=== PATIENT | female | born 1940 | race Caucasian/White ===

== ENCOUNTER 2017-01-19 09:56 | Inpatient (IN) | payer OTHER, MEDICARE ==
[~2017-01-19] VITALS: Ht 167.6 cm; Wt 72.0 kg
[~2017-01-19 09:56] MED LIST: AMB5 PO; AMLO-110 PO; AMXCH400 PO; ASPI-461 PO; ATV5 PO; CHOL100010 PO; CYAN100020 PO; INSPMPNVLG; KETO0.5S33 OPR; LISI-725 PO; MULT60CA PO; SIMV20TA2 PO; TRAM-10 PO
[2017-01-19] MEDS ORDERED: LORA-741 PO (10:43)
[2017-01-19] MEDS ORDERED: ALUMSUS2 PO (10:43)
[2017-01-19] MEDS ORDERED: CHOL100010 PO (10:43)
[2017-01-19] MEDS ORDERED: ZOLP5TAB PO (10:43)
[2017-01-19] MEDS ORDERED: AMOX875T3 PO (10:45)
[2017-01-19] MEDS ORDERED: SODIUM CHLORIDE 0.9% 1000ML 1,000 ML IV STA (10:49)
[2017-01-19] MEDS ORDERED: HYDROmorphone INJ 0.5 MG/0.5 ML SYR IV STA ×3 (10:49→14:39)
[2017-01-19] MEDS ORDERED: ONDANSETRON 8 MG/54 ML D5W IV STA (10:49)
[2017-01-19] MEDS ORDERED: SODIUM CHLORIDE 0.9% 500ML 500 ML IV STA (10:49)
[2017-01-19 11:30] LABS: BASO % 0.1 %; BASO ABS # 0.02 K/uL (0-0.2); COMPLETE YES; EOS % 0.1 %; HEMATOCRIT 37.7 % (37-47); LYMPH % 10.5 %; LYMPH ABS # 1.47 K/uL (1.2-3.4); MEAN CORPUSCULAR HEMOGLOBIN 28.6 pg (25-34); MEAN CORPUSCULAR HGB CONC 34.5 g/dl (32-36); MEAN PLATELET VOLUME 8.7 fL (7.4-10.4); NEUT % 78.3 %; PLATELET COUNT 416 K/uL (130-400); RED BLOOD COUNT 4.54 M/uL (4.2-5.4); WHITE BLOOD COUNT 14.04 K/uL (4.8-10.8)
[2017-01-19 11:51] LABS: ALT/SGPT 37 U/L (12-78); AST/SGOT 88 U/L (15-37); BLOOD UREA NITROGEN 7 mg/dl (7-18); BUN/CREATININE RATIO 15.4 (10-20); CALCIUM 9.3 mg/dl (8.5-10.1); CARBON DIOXIDE 25 mmol/L (21-32); CHLORIDE 95 mmol/L (98-107); CREATININE 0.46 mg/dl (0.60-1.20); GLUCOSE 100 mg/dl (70-99); POTASSIUM 3.7 mmol/L (3.5-5.1); SODIUM 133 mmol/L (136-145)
[2017-01-19 11:57] LABS: ALKALINE PHOSPHATASE 222 U/L (45-117)
[2017-01-19 12:18] LABS: URINE APPEARANCE CLEAR (CLEAR); URINE BILIRUBIN NEG (NEG); URINE COLOR YELLOW; URINE EPITHELIAL CELL AUTO 20-30 /lpf (0-5); URINE NITRITE NEG (NEG); URINE PH 7.5 (4.5-7.5); URINE SPECIFIC GRAVITY 1.011 (1.000-1.030); UROBILINOGEN POS (NEG); ZZUR CULT IF INDIC CLEAN CATCH NO
--- NOTE | 2017-01-19 12:28 | DIAGNOSTIC IMAGING REPORT ---
CT OF THE CHEST WITHOUT IV CONTRAST CLINICAL HISTORY: Chest rib and back pain status post trauma COMPARISON STUDY: 06/28/2009 CT DOSE: TECHNIQUE: CT of the thorax was performed from the thoracic inlet to the lung bases. Images are reviewed in the axial, sagittal, and coronal planes. IV contrast was not administered for this examination. FINDINGS: Thyroid: Imaged portions of the thyroid gland are normal in appearance. Thoracic aorta: The thoracic aorta is normal in course and caliber, noting standard 3 vessel arch anatomy. Heart: The heart is mildly enlarged. There are coronary artery calcifications present. Lungs and pleural spaces: There is a small left pleural effusion. There are bibasal atelectatic changes present. There is pulmonary emphysema. There is a 39 mm right upper lobe pulmonary nodule abutting the anterior chest wall and mediastinum. Mediastinum: There are pathologically enlarged right paratracheal lymph nodes measuring up to 34 mm in diameter. Lisbeth: There are no pathologically enlarged hilar lymph nodes given the limitations of a noncontrast study Axilla: Axillary lymph nodes are the upper limits of normal in size. Upper abdomen: There is a calcified gallstone present. Skeletal structures: There are bilateral shoulder arthroplasties. There is a right fifth rib fracture. IMPRESSION: 1. Nondisplaced right fifth rib fracture. No evidence of pneumothorax 2. 39 mm right upper lobe pulmonary mass. This should be presumed neoplastic until proven otherwise 3. Pathologic mediastinal adenopathy 4. Cholelithiasis 5. Small left pleural effusion with a basilar atelectasis 6. Emphysema 7. Pulmonary consultation is recommended, for evaluation of the suspicious right upper lobe pulmonary mass. Electronically signed by: Kristopher Genao M.D. 01/19/2017 12:26 PM Dictated Date/Time: 01/19/2017 12:15 PM
--- NOTE | 2017-01-19 12:32 | DIAGNOSTIC IMAGING REPORT ---
THORACIC SPINE CT CT DOSE: HISTORY: Fall with back pain. TECHNIQUE: Multiaxial CT images of the thoracic spine were performed and reformatted in the sagittal and coronal plane without the use of contrast. COMPARISON: None. FINDINGS: No fractures or subluxation within the thoracic spine. Kyphosis of the upper thoracic spine. There is moderate degenerative disc disease throughout the majority of the thoracic spine. Paraspinal soft tissues are unremarkable. Emphysema. No pneumothorax. Small nodular density within the distal left mainstem bronchus favors mucoid material. Partially visualized density within the right middle lobe anteriorly. Bibasilar subsegmental atelectasis. Trace left pleural effusion. The heart is mildly enlarged. Necrotic right paratracheal lymphadenopathy. IMPRESSION: 1. No fracture or subluxation within the thoracic spine. 2. Necrotic right paratracheal lymphadenopathy. 3. Partially visualized density/mass within the right middle lobe. Please refer to the same day chest CT for further evaluation. 4. Trace left pleural effusion. Electronically signed by: Dhiraj Lopes M.D. 01/19/2017 12:31 PM Dictated Date/Time: 01/19/2017 12:18 PM
[2017-01-19 12:37] LABS: MANUAL MICROSCOPIC REQUIRED? NO; REVIEW REQ? NO; SULFASALICYLIC ACID NEG (NEG)
--- NOTE | 2017-01-19 12:42 | DIAGNOSTIC IMAGING REPORT ---
CT LUMBAR SPINE WITHOUT CT DOSE: 1687.99 mGy.cm CLINICAL HISTORY: Low back pain status post trauma TECHNIQUE: Helical images were acquired in transverse plane. Reformatted sagittal and coronal images were reviewed. CONTRAST: No contrast was administered COMPARISON STUDY: None. FINDINGS: L1-2 level: There is disc degeneration. There is a minor disc bulge. There is minor right ureter spinal canal narrowing. There is no stomach and foraminal stenosis L2-3 level: There is a mild circumferential disc bulge. There is minor triangular spinal canal narrowing. There is no significant foraminal narrowing L3-4 level: There is a circumferential disc bulge. There is mild transverse spinal stenosis. There is no significant foraminal narrowing L4-5 level: There is a mild circumferential disc bulge. There is minor triangular spinal canal narrowing. There is no significant foraminal narrowing L5-S1 level: There is no evidence of significant disc bulge or focal herniation. There is no evidence of spinal or foraminal stenosis. IMPRESSION: 1. No acute fractures or subluxations are visualized 3. Mild multilevel spondylitic changes with minor multilevel spinal canal narrowing Electronically signed by: Kristopher Genao M.D. 01/19/2017 12:41 PM Dictated Date/Time: 01/19/2017 12:39 PM
[2017-01-19] MEDS ORDERED: METOCLOPRAMIDE HCL INJ 5 MG/ML 2 ML VIAL IV STA (14:39)
[2017-01-19] MEDS ORDERED: ACETAMINOPHEN 325 MG TAB PO PRN (16:15)
[2017-01-19] MEDS ORDERED: ONDANSETRON INJ 2 MG/ML 2 ML VIAL IV PRN (16:15)
[2017-01-19] MEDS ORDERED: TRET0.027 TOP (16:19)
[2017-01-19] MEDS ORDERED: FLUO0.0566 TOP (16:19)
[2017-01-19] MEDS ORDERED: LORAZEPAM 0.5 MG TAB PO PRN (16:30)
[2017-01-19] MEDS ORDERED: ZOLPIDEM TARTRATE 5 MG TAB PO PRN (16:30)
[2017-01-19] MEDS ORDERED: MRLP17X PO (16:34)
[2017-01-19] MEDS ORDERED: PHARMACY GLYCEMIC MGMT CONSULT PRN (16:36)
[2017-01-19] MEDS ORDERED: CEFTRIAXONE SOD INJ 1 GM in DEXTROSE 5% ADD-VANTAGE 50ML 50 ML IV SCH (16:45)
[2017-01-19] MEDS ORDERED: SODIUM CHLORIDE 0.9% 1000ML 1,000 ML IV SCH (16:45)
[2017-01-19] MEDS ORDERED: POLYETHYLENE (MIRALAX) 17 GM PACK PO PRN (16:45)
[2017-01-19 16:50] LABS: INR 1.1 (0.9-1.1); PARTIAL THROMBOPLASTIN RATIO 1.1; PROTHROMBIN TIME (PATIENT) 12.3 SECONDS (9.0-12.0)
--- NOTE | 2017-01-19 17:21 | History and Physical ---
History & Physical Date & Time of Service: Jan 19, 2017 at 16:21 Chief Complaint: Back Pain, Nausea, No Appetite, Ribs, Parra Primary Care Physician: Forest Shah M.D. History of Present Illness Source: patient, hospital records This is a 76 year old female with PMH of DM type 2 on insulin pump, HTN, dyslipidemia, COPD mild, prior smoker, osteoporosis, and other problems listed below who presents to the ED with back and rib pain. Patient states she had chronic thoracic and lumbar back pain which became severe after falling earlier this month. No radiation of pain. She states her right leg is weak at the hip level secondary to pain. She reports falling 6x in the past 1 month due to losing her balance. She is using 2 canes to ambulate. Since falling earlier in the month she also pain in bilateral anterior ribs and in the upper chest over the manubrium. She was seen by her chiropractor and by Dr. Keene who obtained an x-ray of her back. She states the plan was to see pain management for injections and has an appointment for Jan 27. At home she is taking tramadol and an anti-inflammatory medication (does not recall the name) but the pain could not be controlled. In the ER patient received total of 3 mg Dilaudid and the pain is now controlled. Pt reports a cough with occasional white sputum x 1 month. She reports nausea, decreased appetite, and weight loss estimated 10 lb for past 1 month. She is constipated x approx 6 days. She took Miralax past 2 days but only passed flatus. She admits to some anxiety in the ER. She denies fever, chills, sweats, dizziness, syncope, PARRA, rhinorrhea, sore throat, SOB, abdominal pain, vomiting, diarrhea, dysuria, frequency, urgency, groin or LE paresthesias, incontinence. Past Medical/Surgical History Medical Problems: (1) Anxiety Status: Chronic (2) COPD, mild Status: Chronic (3) Disc displacement, lumbar Status: Chronic (4) DM type 2 (diabetes mellitus, type 2) Status: Chronic (5) Dyslipidemia Status: Chronic (6) Hypertension Status: Chronic (7) Osteoporosis Status: Chronic (8) SCC (squamous cell carcinoma) Status: Chronic Surgical Problems: (1) History of carpal tunnel surgery Status: Chronic (2) History of colposcopy Status: Chronic (3) History of total right hip replacement Status: Chronic (4) S/P appendectomy Status: Chronic (5) S/P tonsillectomy Status: Chronic (6) 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 Social History Smoking Status: Former Smoker (quit 8 years ago, prior 1 ppd x 53 years) Alcohol Use: none Drug Use: none Housing status: lives alone Immunizations History of Influenza Vaccine: No History of Tetanus Vaccine?: Unknown History of Pneumococcal: Yes History of Hepatitis B Vaccine: No Multi-Drug Resistant Organisms History of MDRO: No Allergies Coded Allergies: Morphine (Verified Adverse Reaction, Intermediate, GETS SICK, 01/19/17) Oxycodone (Verified Adverse Reaction, Intermediate, feels like she is gonna pass out, 01/19/17) Home Medications Scheduled Amlodipine (Norvasc), 5 MG PO HS Aspirin (Aspirin), 1 TAB PO QAM Cholecalciferol (Vitamin D), 1 TAB PO BID Cyanocobalamin (Vitamin B12), 1 TAB PO QAM Insulin Aspart (novoLOG INSULIN PUMP ), 1 EA N/A UD Lisinopril (Zestril), 20 MG PO HS Simvastatin (Zocor), 20 MG PO HS Tretinoin (Tretinoin), 1 APPLN TOP DAILY Scheduled PRN Amoxicillin (Amoxil), 875 MG PO UD PRN for PRE DENTISTRY Fluocinonide (Fluocinonide), 1 APPLN TOP BID PRN for Itching Lorazepam (Ativan), 0.5 MG PO TID PRN for Anxiety Polyethylene (Miralax), 17 GM PO DAILY PRN for Constipation Tramadol (Ultram), 50 MG PO Q4 PRN for Pain Zolpidem Tartrate (Ambien), 5 MG PO HS PRN for Sleep Review of Systems Ten point review of systems performed with pertinent positives and negatives noted in HPI. Physical Exam Vital Signs Date Time Temp Pulse Resp B/P Pulse Ox O2 Delivery O2 Flow Rate FiO2 01/19/17 14:54 105 20 160/88 94 Room Air 01/19/17 13:18 90 20 181/80 93 Room Air 01/19/17 12:27 96 20 190/104 94 Room Air 01/19/17 12:25 97 01/19/17 11:12 97 18 197/90 94 Room Air 01/19/17 10:00 37.6 103 17 183/85 98 Room Air General Appearance: WD/WN, no apparent distress, + pertinent finding (daughter at [facility]) Head: normocephalic, atraumatic Eyes: normal inspection, PERRL, EOMI ENT: hearing grossly normal, pharynx normal Neck: supple Respiratory/Chest: lungs clear, normal breath sounds, no respiratory distress, + pertinent finding (sats 89-92% on RA. tender over manubrium and over right and left anterior ribs. ) Cardiovascular: + tachycardia (regular rhythm), + systolic murmur Abdomen/GI: normal bowel sounds, soft, + splenomegaly, + pertinent finding ( tender in periumbilical area. no RUQ tenderness. Buchanan sign negative. ) Back: + pertinent finding (tender in lumbar spine and lumbar paraspinal muscles. straight leg raise negative bilaterally. ) Extremities/Musculoskelatal: no calf tenderness, normal capillary refill, + pertinent finding (trace ankle edema bilaterally ) Neurologic/Psych: alert, normal mood/affect, oriented x 3, + pertinent finding (grossly nonfocal. sensation to light touch grossly intact in bilateral LE. ankle flexion/ extension intact bilateral feet. ) Skin: normal color, warm/dry Diagnostics Laboratory Results Results Past 24 Hours Test 01/19/17 10:51 01/19/17 11:00 01/19/17 11:40 01/19/17 15:53 Range/Units Bedside Glucose 104 70-90 mg/dl White Blood Count 14.04 4.8-10.8 K/uL Red Blood Count 4.54 4.2-5.4 M/uL Hemoglobin 13.0 12.0-16.0 g/dL Hematocrit 37.7 37-47 % Mean Corpuscular Volume 83.0 80-100 fL Mean Corpuscular Hemoglobin 28.6 25-34 pg Mean Corpuscular Hemoglobin Concent 34.5 32-36 g/dl Platelet Count 416 130-400 K/uL Mean Platelet Volume 8.7 7.4-10.4 fL Neutrophils (%) (Auto) 78.3 % Lymphocytes (%) (Auto) 10.5 % Monocytes (%) (Auto) 9.0 % Eosinophils (%) (Auto) 0.1 % Basophils (%) (Auto) 0.1 % Neutrophils # (Auto) 10.99 1.4-6.5 K/uL Lymphocytes # (Auto) 1.47 1.2-3.4 K/uL Monocytes # (Auto) 1.26 0.11-0.59 K/uL Eosinophils # (Auto) 0.02 0-0.5 K/uL Basophils # (Auto) 0.02 0-0.2 K/uL RDW Standard Deviation 43.1 36.4-46.3 fL RDW Coefficient of Variation 14.2 11.5-14.5 % Immature Granulocyte % (Auto) 2.0 % Immature Granulocyte # (Auto) 0.28 0.00-0.02 K/uL Sodium Level 133 136-145 mmol/L Potassium Level 3.7 3.5-5.1 mmol/L Chloride Level 95 98-107 mmol/L Carbon Dioxide Level 25 21-32 mmol/L Anion Gap 13.0 3-11 mmol/L Blood Urea Nitrogen 7 7-18 mg/dl Creatinine 0.46 0.60-1.20 mg/dl Est Creatinine Clear Calc Drug Dose 107.7 ml/min Estimated GFR () 112.0 Estimated GFR (Non- 96.6 BUN/Creatinine Ratio 15.4 10-20 Random Glucose 100 70-99 mg/dl Calcium Level 9.3 8.5-10.1 mg/dl Total Bilirubin 0.9 0.2-1 mg/dl Direct Bilirubin 0.4 0-0.2 mg/dl Aspartate Amino Transf (AST/SGOT) 88 15-37 U/L Alanine Aminotransferase (ALT/SGPT) 37 12-78 U/L Alkaline Phosphatase 222 45-117 U/L Troponin I < 0.015 0-0.045 ng/ml Total Protein 7.7 6.4-8.2 gm/dl Albumin 2.5 3.4-5.0 gm/dl Lipase 91 73-393 U/L Urine Color YELLOW Urine Appearance CLEAR CLEAR Urine pH 7.5 4.5-7.5 Urine Specific [place] 1.011 1.000-1.030 Urine Protein NEG NEG Urine Glucose (UA) NEG NEG Urine Ketones 1+ NEG Urine Occult Blood NEG NEG Urine Nitrite NEG NEG Urine Bilirubin NEG NEG Urine Urobilinogen POS NEG Urine Leukocyte Esterase SMALL NEG Urine WBC (Auto) 5-10 0-5 /hpf Urine RBC (Auto) 0-4 0-4 /hpf Urine Hyaline Casts (Auto) 1-5 0-5 /lpf Urine Epithelial Cells (Auto) 20-30 0-5 /lpf Urine Bacteria (Auto) NEG NEG Microbiology Results 01/19/17 Blood Culture, Received Pending 01/19/17 Blood Culture, Received Pending Diagnostic Radiology CT LUMBAR SPINE WITHOUT CT DOSE: 1687.99 mGy.cm CLINICAL HISTORY: Low back pain status post trauma TECHNIQUE: Helical images were acquired in transverse plane. Reformatted sagittal and coronal images were reviewed. CONTRAST: No contrast was administered COMPARISON STUDY: None. FINDINGS: L1-2 level: There is disc degeneration. There is a minor disc bulge. There is minor right ureter spinal canal narrowing. There is no stomach and foraminal stenosis L2-3 level: There is a mild circumferential disc bulge. There is minor triangular spinal canal narrowing. There is no significant foraminal narrowing L3-4 level: There is a circumferential disc bulge. There is mild transverse spinal stenosis. There is no significant foraminal narrowing L4-5 level: There is a mild circumferential disc bulge. There is minor triangular spinal canal narrowing. There is no significant foraminal narrowing L5-S1 level: There is no evidence of significant disc bulge or focal herniation. There is no evidence of spinal or foraminal stenosis. IMPRESSION: 1. No acute fractures or subluxations are visualized 3. Mild multilevel spondylitic changes with minor multilevel spinal canal narrowing CT OF THE CHEST WITHOUT IV CONTRAST CLINICAL HISTORY: Chest rib and back pain status post trauma COMPARISON STUDY: 06/28/2009 CT DOSE: TECHNIQUE: CT of the thorax was performed from the thoracic inlet to the lung bases. Images are reviewed in the axial, sagittal, and coronal planes. IV contrast was not administered for this examination. FINDINGS: Thyroid: Imaged portions of the thyroid gland are normal in appearance. Thoracic aorta: The thoracic aorta is normal in course and caliber, noting standard 3 vessel arch anatomy. Heart: The heart is mildly enlarged. There are coronary artery calcifications present. Lungs and pleural spaces: There is a small left pleural effusion. There are bibasal atelectatic changes present. There is pulmonary emphysema. There is a 39 mm right upper lobe pulmonary nodule abutting the anterior chest wall and mediastinum. Mediastinum: There are pathologically enlarged right paratracheal lymph nodes measuring up to 34 mm in diameter. Lisbeth: There are no pathologically enlarged hilar lymph nodes given the limitations of a noncontrast study Axilla: Axillary lymph nodes are the upper limits of normal in size. Upper abdomen: There is a calcified gallstone present. Skeletal structures: There are bilateral shoulder arthroplasties. There is a right fifth rib fracture. IMPRESSION: 1. Nondisplaced right fifth rib fracture. No evidence of pneumothorax 2. 39 mm right upper lobe pulmonary mass. This should be presumed neoplastic until proven otherwise 3. Pathologic mediastinal adenopathy 4. Cholelithiasis 5. Small left pleural effusion with a basilar atelectasis 6. Emphysema 7. Pulmonary consultation is recommended, for evaluation of the suspicious right upper lobe pulmonary mass. THORACIC SPINE CT CT DOSE: HISTORY: Fall with back pain. TECHNIQUE: Multiaxial CT images of the thoracic spine were performed and reformatted in the sagittal and coronal plane without the use of contrast. COMPARISON: None. FINDINGS: No fractures or subluxation within the thoracic spine. Kyphosis of the upper thoracic spine. There is moderate degenerative disc disease throughout the majority of the thoracic spine. Paraspinal soft tissues are unremarkable. Emphysema. No pneumothorax. Small nodular density within the distal left mainstem bronchus favors mucoid material. Partially visualized density within the right middle lobe anteriorly. Bibasilar subsegmental atelectasis. Trace left pleural effusion. The heart is mildly enlarged. Necrotic right paratracheal lymphadenopathy. IMPRESSION: 1. No fracture or subluxation within the thoracic spine. 2. Necrotic right paratracheal lymphadenopathy. 3. Partially visualized density/mass within the right middle lobe. Please refer to the same day chest CT for further evaluation. 4. Trace left pleural effusion. EKG sinus tachycardia, rate 92, no ST or T wave abnormality Impression Assessment and Plan BACK AND RIB PAIN S/P MULTIPLE FALLS Has nondisplaced right 5th rib fracture CT of L-spine shows no acute fx; + Mild multilevel spondylitic changes with minor multilevel spinal canal narrowing; CT T-spine- no acute fx Has seen Dr. Keene as outpatient who referred her to pain mgmt Continue pain control with Dilaudid PRN, lidocaine patch, tramadol PRN Incentive spirometry Consult pain management Check CT head to r/o mets etc given balance difficulty PT and OT evals SIRS Meets SIRS criteria with tachycardia (? due to anxiety); leukocytosis (? if steroid induced- on unknown anti-inflammatory as outpatient); low grade fever 37.6; no hypotension; lactic acid WNL Question UTI- UA midly abnormal; UC pending Rule out cholecystitis- GB ultrasound pending Blood cultures pending Will give empiric Zosyn Received 500 mL bolus in ER and started on 125/hour Will continue IVF's at 100 mL/hour CHOLELITHIASIS Seen on chest CT Denies abd pain but has nausea, poor PO intake, mildly tender periumbilical region Has elevated AST, alk phos, and direct bili Check ultrasound of gallbladder to r/o cholecystitis LUNG MASS Incidental CT findings- 39 mm RUL pulmonary mass suspicious for neoplasm, pathologic mediastinal and necrotic right paratracheal lymphadenopathy Former smoker with 53 pack year history; also notes cough and weight loss 10 lb over past 1 month Consult pulmonology DM TYPE 2 On insulin pump Consult pharmacy for glycemic control HYPERTENSION BP elevated in ER high as 190s/100s possibly from pain/ anxiety -> improved to 160/80s Continue lisinopril and amlodipine Monitor BP MILD COPD Not in exacerbation PRN inhaler ordered CONSTIPATION Bowel regimen ordered ANXIETY Continue lorazepam PRN DYSLIPIDEMIA Continue statin DVT PROPHYLAXIS Heparin SQ CODE STATUS DNR per my discussion with the patient DISPOSITION Admit to telemetry Follows with Dr. Shah for primary care Patient seen in collaboration with Dr. Cramer. Please see his addendum. Agree with above h and p.Briefly 76Y presents with frequents fall, back pain, rib fracture and imaging studies showing Lung mass and liver metastasis. Patient says she fell about 6 times in last month. Appetite is down and lost about 10lbs in last month. Following with ortho and supposed to see pain management but came to Er as pain was not controlled. Has cough. Afebrile. Denies nausea or abdominal pain. No headaches or blurred vision. p/e Lung mass hx of smoking liver mets on US consulted pulmonary Back pain. frequent falls/ rib fx pain control pain management consulted ct head negative pt/ot when stable VTE Prophylaxis VTE Risk Assessment Done? Y/N: Yes Risk Level: Moderate
--- NOTE | 2017-01-19 17:29 | DIAGNOSTIC IMAGING REPORT ---
HEAD CT NONCONTRAST CT DOSE: 601.98 mGy.cm HISTORY: Mental status change r/o intracranial abnormality TECHNIQUE: Multiaxial CT images of the head were performed without the use of intravenous contrast. Comparison: None. Findings: The paranasal sinuses and mastoid air cells are clear. The calvarium and skull base are intact. The ventricles and sulci are within normal limits. There is no mass, hematoma, midline shift, or acute infarct. Impression: No acute intracranial abnormality. Electronically signed by: Sushant Starkey M.D. 01/19/2017 5:27 PM Dictated Date/Time: 01/19/2017 5:26 PM
[2017-01-19] MEDS ORDERED: ALBUTEROL HFA 8 GM INHALER INH PRN (17:30)
--- NOTE | 2017-01-19 18:13 | DIAGNOSTIC IMAGING REPORT ---
Right upper quadrant ultrasound GALLBLADDER-ABD LIMITED CLINICAL HISTORY: nausea, abd pain, elevated LFTs TECHNIQUE: Ultrasound COMPARISON STUDY: None FINDINGS: Multiple hypoechoic lesions throughout the liver. This is highly suggestive of hepatic metastatic disease. No evidence for biliary ductal distention. 5 mm common bile duct. Small small gallstone within the gallbladder lumen. Right kidney is negative for hydronephrosis. IMPRESSION: 1. Multiple hypoechoic hepatic lesions highly suggestive of liver metastatic disease. 2. Small gallstone. 3. Normal caliber bile ducts Electronically signed by: Sushant Starkey M.D. 01/19/2017 6:12 PM Dictated Date/Time: 01/19/2017 6:05 PM
[2017-01-19] MEDS ORDERED: GLUCOSE 40% GEL 15 GM TUBE PO PRN (18:15)
[2017-01-19] MEDS ORDERED: DEXTROSE 50% 50 ML SYR IV PRN (18:15)
[2017-01-19] MEDS ORDERED: GLUCOSE 10 TABS/TUBE PO PRN (18:15)
[2017-01-19] MEDS ORDERED: GLUCAGON FOR INJ 1 MG VIAL SQ PRN (18:15)
--- NOTE | 2017-01-19 18:18 | EMERGENCY ROOM VISIT NOTE ---
History Report prepared by Cassandra: Josie Brito Under the Supervision of: Dr. Omar Toledo M.D. First contact with patient: 10:43 Chief Complaint: BACK PAIN Stated Complaint: BACK PAIN, NAUSEA, NO APPETITE, RIBS, PARRA History of Present Illness The patient is a 76 year old female who presents to the Emergency Room with complaints of persistent back pain. Her pain is worse with coughing and sneezing. The patient currently rates her discomfort as a 10/10 in severity. The patient reports that she has previously had lower back problems for which she was seeing a chiropractor. After the chiropractor was no longer able to manage her back, she saw Dr. Keene and had X-rays taken. She states that she has 4 vertebrae "with no cushion, sitting on the nerve". She reports that recently she has fallen 6 times while walking with 2 canes onto her knees, shoulders, and ribs and now cannot ambulate without her walker. The patient also reports that she has been feeling nauseous and states that her blood sugar has been low because she cannot eat. The patient also reports swelling in her feet and left rib pain. She reports that she has been sleeping sitting up in a chair for the past 2 weeks. Pt denies LOC, headache, neck pain, fevers, chills, malaise, night sweats, weight loss, history of malignancy, chest pain, breathing difficulties, abdominal pain, saddle parasthesias, bowel or bladder dysfunction, numbness, weakness, urinary symptoms, or other complaints. 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 A total of ten systems were reviewed and were otherwise negative. Past Medical & Surgical Medical Problems: (1) Anxiety (2) COPD, mild (3) Diabetic peripheral neuropathy associated with type 2 diabetes mellitus (4) Disc displacement, lumbar (5) DJD of right shoulder (6) DM type 2 (diabetes mellitus, type 2) (7) Dyslipidemia (8) Fall (9) Foot deformity (10) Hypertension (11) Loss of sensation (12) Osteoporosis (13) Rib fracture (14) SCC (squamous cell carcinoma) Surgical Problems: (1) History of carpal tunnel surgery (2) History of colposcopy (3) History of total right hip replacement (4) S/P appendectomy (5) S/P tonsillectomy (6) Status post total replacement of right shoulder Family History No pertinent family history stated. Social History Smoking Status: Former Smoker Marital Status: Current/Historical Medications Scheduled Amlodipine (Norvasc), 5 MG PO HS Aspirin (Aspirin), 1 TAB PO QAM Cholecalciferol (Vitamin D), 1 TAB PO BID Cyanocobalamin (Vitamin B12), 1 TAB PO QAM Insulin Aspart (novoLOG INSULIN PUMP ), 1 EA N/A UD Lisinopril (Zestril), 20 MG PO HS Simvastatin (Zocor), 20 MG PO HS Tretinoin (Tretinoin), 1 APPLN TOP DAILY Scheduled PRN Amoxicillin (Amoxil), 875 MG PO UD PRN for PRE DENTISTRY Fluocinonide (Fluocinonide), 1 APPLN TOP BID PRN for Itching Lorazepam (Ativan), 0.5 MG PO TID PRN for Anxiety Polyethylene (Miralax), 17 GM PO DAILY PRN for Constipation Tramadol (Ultram), 50 MG PO Q4 PRN for Pain Zolpidem Tartrate (Ambien), 5 MG PO HS PRN for Sleep Allergies Coded Allergies: Morphine (Verified Adverse Reaction, Intermediate, GETS SICK, 01/19/17) Oxycodone (Verified Adverse Reaction, Intermediate, feels like she is gonna pass out, 01/19/17) Physical Exam Vital Signs Date Time Temp Pulse Resp B/P Pulse Ox O2 Delivery O2 Flow Rate FiO2 01/19/17 16:34 108 01/19/17 16:32 109 20 167/75 93 Room Air 01/19/17 14:54 105 20 160/88 94 Room Air 01/19/17 13:18 90 20 181/80 93 Room Air 01/19/17 12:27 96 20 190/104 94 Room Air 01/19/17 12:25 97 01/19/17 11:12 97 18 197/90 94 Room Air 01/19/17 10:00 37.6 103 17 183/85 98 Room Air Physical Exam GENERAL: Awake, alert, well-appearing, in no distress HENT: Normocephalic, atraumatic. Oropharynx unremarkable. EYES: Normal conjunctiva. Sclera non-icteric. NECK: Supple. No nuchal rigidity. FROM. No JVD. RESPIRATORY: Clear to auscultation. CARDIAC: Regular rate, normal rhythm. Extremities warm and well perfused. Pulses equal. Systolic ejection murmur. ABDOMEN: Soft, non-distended. No tenderness to palpation. No rebound or guarding. No masses. RECTAL: Deferred. MUSCULOSKELETAL: Left upper chest wall tenderness. The back is symmetrical on inspection without obvious abnormality. There is no CVA tenderness to palpation. No joint edema. Midscapular thoracic tenderness. Low midline lumbar tenderness. Left anterior rib tenderness. LOWER EXTREMITIES: Calves are equal size bilaterally and non-tender. 1+ pedal edema. No discoloration. NEURO: Normal sensorium. No sensory or motor deficits noted. SKIN: No rash or jaundice noted. Medical Decision & Procedures ER Provider Diagnostic Interpretation: Radiology results as stated below per my review and radiologist interpretation. CT LUMBAR SPINE WITHOUT CT DOSE: 1687.99 mGy.cm CLINICAL HISTORY: Low back pain status post trauma TECHNIQUE: Helical images were acquired in transverse plane. Reformatted sagittal and coronal images were reviewed. CONTRAST: No contrast was administered COMPARISON STUDY: None. FINDINGS: L1-2 level: There is disc degeneration. There is a minor disc bulge. There is minor right ureter spinal canal narrowing. There is no stomach and foraminal stenosis L2-3 level: There is a mild circumferential disc bulge. There is minor triangular spinal canal narrowing. There is no significant foraminal narrowing L3-4 level: There is a circumferential disc bulge. There is mild transverse spinal stenosis. There is no significant foraminal narrowing L4-5 level: There is a mild circumferential disc bulge. There is minor triangular spinal canal narrowing. There is no significant foraminal narrowing L5-S1 level: There is no evidence of significant disc bulge or focal herniation. There is no evidence of spinal or foraminal stenosis. IMPRESSION: 1. No acute fractures or subluxations are visualized 3. Mild multilevel spondylitic changes with minor multilevel spinal canal narrowing Electronically signed by: Kristopher Genao M.D. 01/19/2017 12:[address] OF THE CHEST WITHOUT IV CONTRAST CLINICAL HISTORY: Chest rib and back pain status post trauma COMPARISON STUDY: 06/28/2009 CT DOSE: TECHNIQUE: CT of the thorax was performed from the thoracic inlet to the lung bases. Images are reviewed in the axial, sagittal, and coronal planes. IV contrast was not administered for this examination. FINDINGS: Thyroid: Imaged portions of the thyroid gland are normal in appearance. Thoracic aorta: The thoracic aorta is normal in course and caliber, noting standard 3 vessel arch anatomy. Heart: The heart is mildly enlarged. There are coronary artery calcifications present. Lungs and pleural spaces: There is a small left pleural effusion. There are bibasal atelectatic changes present. There is pulmonary emphysema. There is a 39 mm right upper lobe pulmonary nodule abutting the anterior chest wall and mediastinum. Mediastinum: There are pathologically enlarged right paratracheal lymph nodes measuring up to 34 mm in diameter. Lisbeth: There are no pathologically enlarged hilar lymph nodes given the limitations of a noncontrast study Axilla: Axillary lymph nodes are the upper limits of normal in size. Upper abdomen: There is a calcified gallstone present. Skeletal structures: There are bilateral shoulder arthroplasties. There is a right fifth rib fracture. IMPRESSION: 1. Nondisplaced right fifth rib fracture. No evidence of pneumothorax 2. 39 mm right upper lobe pulmonary mass. This should be presumed neoplastic until proven otherwise 3. Pathologic mediastinal adenopathy 4. Cholelithiasis 5. Small left pleural effusion with a basilar atelectasis 6. Emphysema 7. Pulmonary consultation is recommended, for evaluation of the suspicious right upper lobe pulmonary mass. Electronically signed by: Kristopher Genao M.D. 01/19/2017 12:[address] DOSE: HISTORY: Fall with back pain. TECHNIQUE: Multiaxial CT images of the thoracic spine were performed and reformatted in the sagittal and coronal plane without the use of contrast. COMPARISON: None. FINDINGS: No fractures or subluxation within the thoracic spine. Kyphosis of the upper thoracic spine. There is moderate degenerative disc disease throughout the majority of the thoracic spine. Paraspinal soft tissues are unremarkable. Emphysema. No pneumothorax. Small nodular density within the distal left mainstem bronchus favors mucoid material. Partially visualized density within the right middle lobe anteriorly. Bibasilar subsegmental atelectasis. Trace left pleural effusion. The heart is mildly enlarged. Necrotic right paratracheal lymphadenopathy. IMPRESSION: 1. No fracture or subluxation within the thoracic spine. 2. Necrotic right paratracheal lymphadenopathy. 3. Partially visualized density/mass within the right middle lobe. Please refer to the same day chest CT for further evaluation. 4. Trace left pleural effusion. Electronically signed by: Dhiraj Lopes M.D. 01/19/2017 12:31 PM Laboratory Results 01/19/17 11:00 Red Blood Count 4.54, Mean Corpuscular Volume 83.0, Mean Corpuscular Hemoglobin 28.6, Mean Corpuscular Hemoglobin Concent 34.5, Mean Platelet Volume 8.7, Neutrophils (%) (Auto) 78.3, Lymphocytes (%) (Auto) 10.5, Monocytes (%) (Auto) 9.0, Eosinophils (%) (Auto) 0.1, Basophils (%) (Auto) 0.1, Neutrophils # (Auto) 10.99, Lymphocytes # (Auto) 1.47, Monocytes # (Auto) 1.26, Eosinophils # (Auto) 0.02, Basophils # (Auto) 0.02 01/19/17 11:00 Test 01/19/17 11:00 01/19/17 11:40 01/19/17 15:53 01/19/17 17:59 White Blood Count 14.04 K/uL (4.8-10.8) Red Blood Count 4.54 M/uL (4.2-5.4) Hemoglobin 13.0 g/dL (12.0-16.0) Hematocrit 37.7 % (37-47) Mean Corpuscular Volume 83.0 fL (80-100) Mean Corpuscular Hemoglobin 28.6 pg (25-34) Mean Corpuscular Hemoglobin Concent 34.5 g/dl (32-36) Platelet Count 416 K/uL (130-400) Mean Platelet Volume 8.7 fL (7.4-10.4) Neutrophils (%) (Auto) 78.3 % Lymphocytes (%) (Auto) 10.5 % Monocytes (%) (Auto) 9.0 % Eosinophils (%) (Auto) 0.1 % Basophils (%) (Auto) 0.1 % Neutrophils # (Auto) 10.99 K/uL (1.4-6.5) Lymphocytes # (Auto) 1.47 K/uL (1.2-3.4) Monocytes # (Auto) 1.26 K/uL (0.11-0.59) Eosinophils # (Auto) 0.02 K/uL (0-0.5) Basophils # (Auto) 0.02 K/uL (0-0.2) RDW Standard Deviation 43.1 fL (36.4-46.3) RDW Coefficient of Variation 14.2 % (11.5-14.5) Immature Granulocyte % (Auto) 2.0 % Immature Granulocyte # (Auto) 0.28 K/uL (0.00-0.02) Prothrombin Time 12.3 SECONDS (9.0-12.0) Prothromb Time International Ratio 1.1 (0.9-1.1) Activated Partial Thromboplast Time 28.1 SECONDS (21.0-31.0) Partial Thromboplastin Ratio 1.1 Anion Gap 13.0 mmol/L (3-11) Est Creatinine Clear Calc Drug Dose 107.7 ml/min Estimated GFR () 112.0 Estimated GFR (Non- 96.6 BUN/Creatinine Ratio 15.4 (10-20) Calcium Level 9.3 mg/dl (8.5-10.1) Total Bilirubin 0.9 mg/dl (0.2-1) Direct Bilirubin 0.4 mg/dl (0-0.2) Aspartate Amino Transf (AST/SGOT) 88 U/L (15-37) Alanine Aminotransferase (ALT/SGPT) 37 U/L (12-78) Alkaline Phosphatase 222 U/L (45-117) Troponin I < 0.015 ng/ml (0-0.045) Total Protein 7.7 gm/dl (6.4-8.2) Albumin 2.5 gm/dl (3.4-5.0) Lipase 91 U/L (73-393) Urine Color YELLOW Urine Appearance CLEAR (CLEAR) Urine pH 7.5 (4.5-7.5) Urine Specific Holman 1.011 (1.000-1.030) Urine Protein NEG (NEG) Urine Glucose (UA) NEG (NEG) Urine Ketones 1+ (NEG) Urine Occult Blood NEG (NEG) Urine Nitrite NEG (NEG) Urine Bilirubin NEG (NEG) Urine Urobilinogen POS (NEG) Urine Leukocyte Esterase SMALL (NEG) Urine WBC (Auto) 5-10 /hpf (0-5) Urine RBC (Auto) 0-4 /hpf (0-4) Urine Hyaline Casts (Auto) 1-5 /lpf (0-5) Urine Epithelial Cells (Auto) 20-30 /lpf (0-5) Urine Bacteria (Auto) NEG (NEG) Lactic Acid Level 1.2 mmol/L (0.4-2.0) Bedside Glucose 45 mg/dl (70-90) Laboratory results reviewed by me Medications Administered Medications (Trade) Dose Ordered Sig/Eric Route Start Time Stop Time Status Last Admin Dose Admin Ondansetron HCl 8 mg 8 mg NOW STAT IV 01/19/17 10:49 01/19/17 10:54 DC 01/19/17 11:08 8 MG Sodium Chloride 1,000 ml @ 125 mls/hr Q8H STAT IV 01/19/17 10:49 01/19/17 18:48 01/19/17 12:23 125 MLS/HR Sodium Chloride (Nss 500ml) 500 ml @ 999 mls/hr Q31M STAT IV 01/19/17 10:49 01/19/17 11:19 DC 01/19/17 11:07 999 MLS/HR Hydromorphone HCl (Dilaudid Inj) 0.5 mg NOW STAT IV 01/19/17 10:49 01/19/17 10:54 DC 01/19/17 11:10 0.5 MG Hydromorphone HCl (Dilaudid Inj) 1 mg NOW STAT IV 01/19/17 12:22 01/19/17 12:23 DC 01/19/17 12:27 1 MG Hydromorphone HCl (Dilaudid Inj) 1 mg NOW STAT IV 01/19/17 14:39 01/19/17 14:41 DC 01/19/17 14:51 1 MG Metoclopramide HCl (Reglan Inj) 5 mg NOW STAT IV 01/19/17 14:39 01/19/17 14:41 DC 01/19/17 14:50 5 MG ECG Indication: back/shoulder pain Rate (beats per minute): 92 Rhythm: normal sinus Findings: nonspecific-ST abn, no acute ischemic change, no ectopy ED Course 1048: The patient was evaluated in room C12. A complete history and physical exam was performed. 1049: Dilaudid Inj 0.5 mg IV, NSS 500 ml @ 999 mls/hr IV, NSS 1000 ml @ 125 mls/ hr IV, Zofran 8 mg IV. 1222: Dilaudid Inj 1 mg IV. 1435: I reevaluated the patient. She is still in pain and nauseous. She will be coming in to the hospital for further evaluation. 1439: Reglan Inj 5 mg IV, Dilaudid Inj 1 mg IV. 1452: I discussed the patient's case with KOBE Cantuist. She will be evaluated for further management. Medical Decision A lot of patient's yet. Admission is awaiting agree them yet feed him and called plan of the pathology secretary why not because I'm pretty sure on here: Hearing Triage Nursing notes reviewed. The patient's presentation and history were concerning for fall, back pain, rib pain, and nausea. Etiologies such as rib fracture, contusion, spine injury, metabolic, infection, hypo/hyperglycemia, electrolyte abnormalities, cardiac sources, intracerebral event, toxicologic, neurologic, as well as others were entertained. The patient was evaluated. She was uncomfortable. She was given IV Dilaudid and Zofran. She was having somewhat better but required 2 additional doses of IV Dilaudid. She also required additional nausea medication. The patient was found have a leukocytosis on CBC. LFTs are mildly elevated but lipase was normal. The patient underwent CT imaging which revealed a right rib fracture. She had gallstones noted as well. Because of this an ultrasound was ordered. There was no spinal fracture noted. Unfortunately the patient was found to have a large pulmonary nodule. I did discuss this with her. The patient was able to see her imaging. Given her symptoms additional treatment in the hospital felt to be appropriate. I did consult with the hospitalist. The patient was evaluated for further management. The chart was completed utilizing [employer] It [employer] Speech voice recognition software. Grammatical errors, random word insertions, pronoun errors, and incomplete sentences are an occasional consequence of this system due to software limitations, ambient noise, and hardware issues. Any formal questions or concerns about the content, text, or information contained within the body of this dictation should be directly addressed to the physician for clarification. Consults Time Called: 1440 Consulting Physician: Brielle Schroeder PA-C, [facility] hospitalist Returned Call: [phone] I discussed the patient's case with Brielle Manski, PA-C [facility] hospitalist. She will be evaluated for further management. Impression Primary Impression: Right rib fracture Additional Impressions: Low back pain Chest wall contusion Elevated LFTs Gallstones Scribe Attestation The scribe's documentation has been prepared under my direction and personally reviewed by me in its entirety. I confirm that the note above accurately reflects all work, treatment, procedures, and medical decision making performed by me. Departure Information Dispostion Being Evaluated By Hospitalist Referrals Forest Shah M.D. (PCP) Patient Instructions My [facility] Problem Qualifiers
[2017-01-19] MEDS ORDERED: PIPERACILLIN/TAZOBACTAM 4.5 GM/100ML D5W IV ONE (19:00)
[2017-01-19] MEDS ORDERED: PIPERACILL/TAZOBAC CONSULT ACTIVE PRN (19:30)
[2017-01-19 19:45] VITALS: BP 179/78; PULSE 106; TEMP 37.6; O2SAT 94; BMI 26.2
[2017-01-19] MEDS: HYDROmorphone INJ 1 MG/ML SYR IV PRN (20:51)
[2017-01-19] MEDS ORDERED: LISINOPRIL 20 MG TAB PO SCH (21:00)
[2017-01-19] MEDS ORDERED: SIMVASTATIN 20 MG TAB PO SCH (21:00)
[2017-01-19] MEDS: DOCUSATE SODIUM 100 MG CAP PO SCH (21:04)
[2017-01-19] MEDS: CHOLECALCIFEROL 1000 INTER.UNIT TAB PO SCH (21:05)
[2017-01-19] MEDS: AMLODIPINE BESYLATE 5 MG TAB PO SCH (21:07)
[2017-01-19] MEDS: INSULIN GLARGINE SOLOSTAR 100 UNITS/ML 3 ML PEN SC SCH (21:10)
[2017-01-19] MEDS: INSULIN ASPART 100 UNITS/ML 3 ML PEN SC SCH (21:10)
[2017-01-19] MEDS ORDERED: PIPERACILL/TAZOBAC IV 3.375 GM in DEXTROSE 5% 100ML IV ONE (21:30)
[2017-01-19] MEDS: HEPARIN SOD 5000 UNIT/0.5 ML CARP SQ SCH (21:38)
--- NOTE | 2017-01-19 21:42 | Pharmacy Progress Note ---
Glycemic: Assessment & Plan Date of Service Jan 19, 2017. Assessment & Plan * 76yo T2DM maintained on SQ NovoLog Pump as an outpatient - follows with Eboni Leoneor at [facility] * Reports all A1cs ~ 6%, some hypo as an outpatient but also has brittle BSGs and fluctuations of severe hyperglycemia (typically from not bolusing) * Spoke with patient on the phone this evening for a while - discussed SQ basal bolus vs pt managing own insulin pump. Pt would like Pharmacy to manage BSGs with SQ basal bolus. Pt will remove pump and send it home with a family member * Pt typically uses 82-90 units of insulin per day as an outpatient - will start slightly lower (~60-70 units/day) since pt doesnt really have much of an appetite and is experiencing nausea. Additionally, pt with LOW BSG prior to dinner. PLAN * Stop insulin pump - pt may resume at d.c * Basal insulin: Lantus SQ BID - dosing Based on BSG * If BSG 120 or below --> Do not admin Lantus * If BSG 121-180mg/dl --> administer Lantus 15 units * If BSG 181mg/dl or above --> administer Lantus 20 units * Correctional Insulin: Novolog Correction per scale ACHS Goal Range: Low 120 mg/dL - High 150 mg/dL Correction Factor: 30 mg/dL/unit * Prandial insulin: Per carb ratio of 1 unit per 10 grams CHO consumed Pharmacy will continue to monitor patient daily and write orders per [facility] inpatient glycemic control protocol. Thanks. * Please note that the plan above was derived based on current level of insulin resistance and hospital stress. These recommendations are appropriate for inpatient admission only. Plan of care upon discharge will need to be reassessed to avoid potential outpatient hypo/hyperglycemia.
[2017-01-19] MEDS: POLYETHYLENE (MIRALAX) 17 GM PACK PO SCH (22:55)
[2017-01-19 23:15] VITALS: BP 168/75; PULSE 105; TEMP 37.1; O2SAT 90
[2017-01-20] VITALS (7 sets, daily range): BP systolic 160–189; BP diastolic 66–83; PULSE 86–99; TEMP 36.6–37.1; O2SAT 90–95; Ht 167.6 cm; Wt 72.0 kg
[2017-01-20] MEDS: HYDROmorphone INJ 1 MG/ML SYR IV PRN ×2 (00:59→07:27)
[2017-01-20] MEDS ORDERED: PIPERACILL/TAZOBAC IV 3.375 GM in DEXTROSE 5% 100ML IV SCH (04:00)
[2017-01-20] MEDS: HEPARIN SOD 5000 UNIT/0.5 ML CARP SQ SCH ×3 (05:46→21:52)
[2017-01-20 06:00] LABS: HEMATOCRIT 33.7 % (37-47); MEAN CELL VOLUME 84.5 fL (80-100); MEAN CORPUSCULAR HEMOGLOBIN 29.3 pg (25-34); MEAN CORPUSCULAR HGB CONC 34.7 g/dl (32-36); MEAN PLATELET VOLUME 8.9 fL (7.4-10.4); PLATELET COUNT 369 K/uL (130-400); RED BLOOD COUNT 3.99 M/uL (4.2-5.4); WHITE BLOOD COUNT 10.82 K/uL (4.8-10.8)
[2017-01-20 06:46] LABS: BUN/CREATININE RATIO 11.2 (10-20); CALCIUM 8.6 mg/dl (8.5-10.1); CREATININE 0.51 mg/dl (0.60-1.20); MAGNESIUM 2.1 mg/dl (1.8-2.4)
[2017-01-20] MEDS: LIDODERM (LIDOCAINE) PATCH 5% TD SCH (08:13)
[2017-01-20] MEDS: DOCUSATE SODIUM 100 MG CAP PO SCH ×2 (08:14→21:44)
[2017-01-20] MEDS: CYANOCOBALAMIN 500 MCG TAB (VIT B-12) PO SCH (08:14)
[2017-01-20] MEDS: ASPIRIN 81 MG ECTAB PO SCH (08:15)
[2017-01-20] MEDS: POLYETHYLENE (MIRALAX) 17 GM PACK PO SCH (08:15)
[2017-01-20] MEDS: CHOLECALCIFEROL 1000 INTER.UNIT TAB PO SCH ×2 (08:16→21:46)
[2017-01-20] MEDS: INSULIN ASPART 100 UNITS/ML 3 ML PEN SC SCH ×4 (08:51→21:53)
[2017-01-20] MEDS: INSULIN GLARGINE SOLOSTAR 100 UNITS/ML 3 ML PEN SC SCH ×2 (08:52→21:53)
--- NOTE | 2017-01-20 11:34 | CONSULTATION REPORT ---
DATE OF CONSULTATION: 01/20/2017 CHIEF COMPLAINT: Chest wall pain. HISTORY OF PRESENT ILLNESS: I saw 76-year-old Ms. Ely Stewart today at the [facility]. She has a history of 53 pack years of tobacco use and presented with weight loss, decreased appetite, nausea and constipation. She did admit to falling 6 times in the last month and presented to the [facility] Emergency Room on 01/19/2017. A CT of her chest was performed which showed a nondisplaced right 5th rib fracture without pneumothorax, and a 3.9 cm right upper lobe pulmonary mass with pathologic mediastinal adenopathy. She comments that her pain is dull and pressure-like, ranging between about 4-7/10. SHE DOES REPORT PRIOR INTOLERANCE TO MORPHINE AND OXYCODONE, but is able to tolerate hydromorphone. She received 3 mg IV in the Emergency Room with good efficacy. Since admission, she has received 3 additional mg with good effect. In addition, lidocaine patch has been beneficial in diminishing her pain. Her pain radiates around her chest wall at times. She does also report axial lumbar spine pain, 100% axial without radicular symptoms. She denies bowel or bladder incontinence, motor weakness, footdrop or falls. She reports she typically takes tramadol for relief of this pain, as well as work with a chiropractor. She states since she started falling she has not visited the chiropractor. PAST MEDICAL HISTORY: Significant for anxiety, mild COPD, degenerative disc disease lumbar spine, type 2 diabetes, hyperlipidemia, hypertension, osteoporosis, history of squamous cell carcinoma and right upper lobe mass. PAST SURGICAL HISTORY: Significant for carpal tunnel release, colonoscopy, right total hip replacement, appendectomy, tonsillectomy, right total shoulder replacement. FAMILY HISTORY: Had father with brain tumor, but denies other cancer. 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 She has a daughter for which she is the food assembler commissary kitchen of. She denies current tobacco, but has [id number] prior tobacco history. Denies alcohol or illicit substance use. MEDICATIONS AND ALLERGIES: Reviewed as per EMR. REVIEW OF SYSTEMS: A 10-point review of systems is negative aside from HPI. IMAGING STUDIES: CT of her thoracic spine, chest CT and lumbar spine CT from 01/19/2017 were noted with pertinent positives noted in HPI. PHYSICAL EXAMINATION: VITAL SIGNS: Height is 167 cm, weight 73.4 kilograms, BMI of 26.1, blood pressure is 160/75, pulse 93, respirations 16, temperature 36.8 degrees centigrade, 91% pulse oximetry on room air. GENERAL: She appears her stated age of [age] years old, is awake, alert and oriented x3, appearing in no acute distress with appropriate speech and thought processes and clear sensorium. She is mildly tender over the axial thoracic and lumbar spines. She moves easily in bed without discomfort. She has 5/5 strength in all extremities equal throughout with intact sensation. She is tender over her left chest wall, as well as over her right chest wall, and about the 5th through 7th ribs distribution. She has some abdominal distention, reports not having a bowel movement in 3 days. It is nontender and soft. Gait was not observed. ASSESSMENT: 1. Right fifth nondisplaced rib fracture. 2. Right upper lobe mass of unknown etiology. 3. Axial lumbar spine pain. TREATMENT: 1. Will initiate gabapentin 100 mg p.o. b.i.d., as well as nortriptyline 25 mg p.o. at bedtime. She was counseled on the risks and benefits of these medications. 2. She may continue with lidocaine patch as before. 3. Will write for hydromorphone 2 mg p.o. q. 4 p.r.n. to be utilized prior to IV hydromorphone. 4. The patient did present with some low grade temperatures, as well as meeting SIRS criteria with tachycardia, leukocytosis, low grade fever. She was placed on empiric Zosyn and would hold on any type of interventional injection, such as intercostal block, until workup is complete. She would be a good candidate for intercostal blocks at some point in the future should her pain be uncontrolled with conservative measures. 5. Pulmonary has already been consulted for assistance in workup of mass. I thank you for this consultation. Will stop back tomorrow.
[2017-01-20] MEDS: TRAMADOL HCL 50 MG TAB PO PRN ×2 (11:58→21:59)
[2017-01-20] MEDS ORDERED: BISACODYL 10 MG SUPP PR ONE (12:00)
[2017-01-20] MEDS: HYDROmorphone HCL 2 MG TAB PO PRN ×2 (14:42→20:01)
--- NOTE | 2017-01-20 18:34 | Pulmonary Consultation ---
History General Date of Service: Jan 20, 2017. Stated Complaint: Fall, Rib Fracture HPI The patient is a 76 year old female who presents to with complaints of Fall, Rib Fracture. The patient's primary care provider is Forest Shah M.D.. 73y/o female being worked-up for abnormal CT of the thorax. Patient notes she was doing well until 2 weeks ago when she tripped and fell injuring her self. 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 She has noted right sided weakness with left sided chest pain. She also denies SOB, VILLAFANA, cardiac chest pain, fever , chills, hemoptysis, weight lose or productive cough . Radiology CT with contrast 06/28/2009: Within normal limits Chest x-ray 11/12/2015: No significant findings Upper extremity CT 11/12/2015: No signs of mass Mammography 11/05/2016: Within normal limits CT noncontrast 01/19/2017 oForm centimeter right upper lobe nodule in the LB3 apex oLarge mediastinal lymphadenopathy noted Station 4R, 7 oRight fifth rib fracture oSmall basilar left pleural effusion with mild atelectasis Lumbar spine 01/19/2017 oMultilevel spondylitic changes noted CT thorax 01/19/2017 oNecrotic right paratracheal lymphadenopathy noted Dayna subluxations or fractures noted oPartially visualize density possible in the right middle lobe CT with contrast of head 01/19/2017 Dayna notable abnormalities Gallbladder 01/19/2017 oMultiple hypoechoic lesions suggestive of metastatic disease Review of Systems Constitutional: reports: weakness Eyes: reports: no symptoms ENT: reports: no symptoms Cardiovascular: reports: no symptoms Respiratory: reports: as stated in HPI Gastrointestinal: reports: no symptoms Genitourinary - Female: reports: no symptoms Musculoskeletal: reports: as stated in HPI Integumentary: reports: no symptoms Neurologic: reports: no symptoms Psychiatric: reports: no symptoms Endocrine: no symptoms Hematologic / Lymphatic: no symptoms Allergic / Immunologic: no symptoms Past Medical History Past Medical History: #1 anxiety #2 COPD #3 chronic lumbar pain #4 diabetes mellitus type 2-on insulin pump #5 dyslipidemia Next line #6 hypertension #7 osteoporosis #8 squamous cell carcinoma Past Surgical History: #1 carpal tunnel surgery #2 possibly #3 total right hip replacement #4 appendectomy #5 tonsillectomy #6 total replacement of the right shoulder Family History FH: CAD (coronary artery disease) MOTHER ( of [place] age 57) FH: brain tumor FATHER FH: emphysema MOTHER Mother coronary artery disease Father brain tumor Father emphysema Social History Tobacco quit 8 years ago but notable 53 pack per day history EtOH: None Drug use: No IV drug use Status: Lives alone The sole supporter for her special needs daughter Hx Tobacco Use In Past Year?: No Smoking Status: Former Smoker Marital status: Housing status: lives alone Immunizations History of Influenza Vaccine: No History of Tetanus Vaccine?: Unknown History of Pneumococcal: Yes History of Hepatitis B Vaccine: No History of MDRO History of MDRO: No Allergies Coded Allergies: Morphine (Verified Adverse Reaction, Intermediate, GETS SICK, 01/19/17) Oxycodone (Verified Adverse Reaction, Intermediate, feels like she is gonna pass out, 01/19/17) Current Medications Reported Home Medications Medications Dose Route/Sig Max Daily Dose Days Date Category Dose Instructions Miralax (Polyethylene) 17 Gm Pow 17 Gm PO DAILY PRN 01/19/17 Reported Tretinoin 0.025 % Cre 1 Appln TOP DAILY 01/19/17 Reported Fluocinonide 0.05 % Aga 1 Appln TOP BID PRN 30 01/19/17 Reported Amoxil (Amoxicillin) 875 Mg Tab 875 Mg PO UD PRN 01/19/17 Reported Take 4 tabs prior to dental work. Ambien (Zolpidem Tartrate) 5 Mg Tab 5 Mg PO HS PRN 01/19/17 Reported Ativan (Lorazepam) 0.5 Mg Tab 0.5 Mg PO TID PRN 01/19/17 Reported Vitamin D (Cholecalciferol) 1,000 Unit Tab 1 Tab PO BID 01/19/17 Reported Aspirin 81 Mg Tab 1 Tab PO QAM 11/12/15 Reported Vitamin B12 (Cyanocobalamin) 1,000 Mcg Tab 1 Tab PO QAM 11/12/15 Reported Norvasc (Amlodipine Besylate) 5 Mg Tab 5 Mg PO HS 11/12/15 Reported novoLOG INSULIN PUMP (Insulin Aspart) 1 Ea Inj 1 Ea N/A UD 11/12/15 Reported Ultram (Tramadol HCl) 50 Mg Tab 50 Mg PO Q4 PRN 06/28/09 Reported Zestril (Lisinopril) 20 Mg Tab 20 Mg PO HS 06/28/09 Reported Zocor (Simvastatin) 20 Mg Tab 20 Mg PO HS 06/28/09 Reported Physical Physical Exam Vital Signs: Date Time Temp Pulse Resp B/P Pulse Ox O2 Delivery O2 Flow Rate FiO2 01/20/17 16:00 Room Air 01/20/17 15:22 36.9 87 18 168/74 94 Room Air 01/20/17 12:06 36.8 86 16 170/66 95 Room Air 01/20/17 12:00 Room Air 01/20/17 08:00 Room Air 01/20/17 07:24 36.8 93 16 160/75 91 Room Air 01/20/17 04:00 36.6 93 16 177/77 90 Room Air 01/20/17 04:00 Room Air 01/20/17 00:00 Room Air 01/19/17 23:15 37.1 105 20 168/75 90 Room Air 01/19/17 19:45 37.6 106 20 179/78 94 Room Air 01/19/17 19:25 97 18 168/70 92 01/19/17 18:40 101 22 90 General Appearance: WELL-APPEARING, WD/WN Head: NORMOCEPHALIC, ATRAUMATIC Eyes: EOMI, SCLERAE NORMAL, CONJUNCTIVAE NORMAL ENT: NORMAL EAR EXAM, NORMAL NASAL EXAM, NORMAL MOUTH EXAM, NORMAL THROAT EXAM , NORMAL DENTAL EXAM, NORMAL SINUS EXAM Neck: NORMAL RANGE OF MOTION, NO TENDERNESS, TRACHEA MIDLINE, NO STRIDOR, SUPPLE Respiratory: other (midle dreased BS at the left base) Cardiovasular: REGULAR RATE/RHYTHM, NORMAL S1S2, NO M/G/R, NO MURMUR, NO GALLOP Abdomen: NON TENDER, NORMAL BOWEL SOUNDS, NO REBOUND, NO MASSES, NO GUARDING, NO ORGANOMEGALY, NORMAL RECTAL EXAM Genitourinary - Female: EXTERNAL GENITALIA NORMAL Back: NORMAL INSPECTION, NO CVA TENDERNESS, midline thoracic TTP Upper Extremities: NO EDEMA, NO DEFORMITY, NORMAL ROM Lower Extremities: NO EDEMA, NO DEFORMITY, NORMAL ROM Pulses: carotid (R) (2+), carotid (L), dorsalis pedis (R) (1+), dorsalis pedis (L) (1+) Neuro: ALERT, ORIENTED x 3, NORMAL MOTOR EXAM, NORMAL SENSATION, NORMAL CEREBELLAR EXAM Reflexes: biceps (R) (2+), bicpes (L) (2+), achilles (R) (2+), achilles (L) (2+ ) Babinski Testing: right (downgoing), left (downgoing) Psychiatric: NORMAL AFFECT, NO SUICIDAL IDEATION, CONTRACTS FOR SAFETY Diagnostics Labs Results Past 24 Hours Test 01/19/17 18:43 01/19/17 20:57 01/20/17 05:09 01/20/17 07:40 Range/Units Bedside Glucose 94 166 165 70-90 mg/dl White Blood Count 10.82 4.8-10.8 K/uL Red Blood Count 3.99 4.2-5.4 M/uL Hemoglobin 11.7 12.0-16.0 g/dL Hematocrit 33.7 37-47 % Mean Corpuscular Volume 84.5 80-100 fL Mean Corpuscular Hemoglobin 29.3 25-34 pg Mean Corpuscular Hemoglobin Concent 34.7 32-36 g/dl RDW Standard Deviation 44.9 36.4-46.3 fL RDW Coefficient of Variation 14.4 11.5-14.5 % Platelet Count 369 130-400 K/uL Mean Platelet Volume 8.9 7.4-10.4 fL Sodium Level 138 136-145 mmol/L Potassium Level 4.0 3.5-5.1 mmol/L Chloride Level 101 98-107 mmol/L Carbon Dioxide Level 26 21-32 mmol/L Anion Gap 11.0 3-11 mmol/L Blood Urea Nitrogen 6 7-18 mg/dl Creatinine 0.51 0.60-1.20 mg/dl Est Creatinine Clear Calc Drug Dose 96.2 ml/min Estimated GFR () 108.3 Estimated GFR (Non- 93.4 BUN/Creatinine Ratio 11.2 10-20 Random Glucose 139 70-99 mg/dl Calcium Level 8.6 8.5-10.1 mg/dl Magnesium Level 2.1 1.8-2.4 mg/dl Total Bilirubin 0.7 0.2-1 mg/dl Direct Bilirubin 0.2 0-0.2 mg/dl Aspartate Amino Transf (AST/SGOT) 65 15-37 U/L Alanine Aminotransferase (ALT/SGPT) 28 12-78 U/L Alkaline Phosphatase 186 45-117 U/L Total Protein 6.3 6.4-8.2 gm/dl Albumin 1.9 3.4-5.0 gm/dl Test 01/20/17 11:52 01/20/17 16:12 Range/Units Bedside Glucose 162 131 70-90 mg/dl Microbiology Results 01/20/17 Urine Culture, Received Pending Diagnostic Radiology CT noncontrast 01/19/2017 oForm centimeter right upper lobe nodule in the LB3 apex oLarge mediastinal lymphadenopathy noted Station 4R, 7 oRight fifth rib fracture oSmall basilar left pleural effusion with mild atelectasis EKG Interpretation: NORMAL EKG Impression Assessment and Plan 76y/o female with abnormal CT thorax 1) Lung Mass: Patient is high risk for primary lung ca. I spoke to her at length and showed her the CT images and asked her to decided if she would like to be worked-up. She wanted to speak to a friend and then get back to me in the AM. At this time a would like to get her most recent PFT's pushed into the [place] system. If she decided to move forward with work-up we can perform it as an out patient. This would in tail: PET, EBUS/ENB, and possible hepatic bx. Thanks you for this consultation.
[2017-01-20] MEDS ORDERED: NORTRIPTYLINE HCL 25 MG CAP PO SCH (21:00)
[2017-01-20] MEDS ORDERED: LISINOPRIL 40 MG TAB PO SCH (21:00)
--- NOTE | 2017-01-20 21:09 | Progress Note ---
Medicine Progress Note Date & Time of Visit: Jan 20, 2017 at 20:59. Subjective Patient seen and examined. D/w patient CT findings and patient expressed understanding. Still with some pain. Objective Last 8 Hrs Date Time Temp Pulse Resp B/P Pulse Ox O2 Delivery O2 Flow Rate FiO2 01/20/17 19:48 36.9 89 16 189/71 93 Room Air 01/20/17 16:00 Room Air 01/20/17 15:22 36.9 87 18 168/74 94 Room Air Physical Exam: General-awake; alert; NAD Eyes-EOMI; no scleral icterus Neck-no stridor; trachea midline Lungs-CTA bilaterally; no wheezes/crackles Heart-RRR; no m/r/g Abdomen-soft; NTND; nBS Extremities-no c/c/e; no deformity Neuro-no gross focal deficits Laboratory Results: Last 24 Hours Test 01/20/17 05:09 01/20/17 07:40 01/20/17 11:52 01/20/17 16:12 White Blood Count 10.82 K/uL Red Blood Count 3.99 M/uL Hemoglobin 11.7 g/dL Hematocrit 33.7 % Mean Corpuscular Volume 84.5 fL Mean Corpuscular Hemoglobin 29.3 pg Mean Corpuscular Hemoglobin Concent 34.7 g/dl RDW Standard Deviation 44.9 fL RDW Coefficient of Variation 14.4 % Platelet Count 369 K/uL Mean Platelet Volume 8.9 fL Sodium Level 138 mmol/L Potassium Level 4.0 mmol/L Chloride Level 101 mmol/L Carbon Dioxide Level 26 mmol/L Anion Gap 11.0 mmol/L Blood Urea Nitrogen 6 mg/dl Creatinine 0.51 mg/dl Est Creatinine Clear Calc Drug Dose 96.2 ml/min Estimated GFR () 108.3 Estimated GFR (Non- 93.4 BUN/Creatinine Ratio 11.2 Random Glucose 139 mg/dl Calcium Level 8.6 mg/dl Magnesium Level 2.1 mg/dl Total Bilirubin 0.7 mg/dl Direct Bilirubin 0.2 mg/dl Aspartate Amino Transf (AST/SGOT) 65 U/L Alanine Aminotransferase (ALT/SGPT) 28 U/L Alkaline Phosphatase 186 U/L Total Protein 6.3 gm/dl Albumin 1.9 gm/dl Bedside Glucose 165 mg/dl 162 mg/dl 131 mg/dl Test 01/20/17 19:54 Bedside Glucose 152 mg/dl Date/Time Source Procedure Growth Status 01/20/17 00:00 Urine , Clean Catch Urine Culture Pending Received Assessment & Plan CONCERN FOR METASTASES (LUNG MASS) Incidental CT findings- 39 mm RUL pulmonary mass suspicious for neoplasm, pathologic mediastinal and necrotic right paratracheal lymphadenopathy Former smoker with 53 pack year history; also notes cough and weight loss 10 lb over past 1 month Consulted pulmonology BACK AND RIB PAIN S/P MULTIPLE FALLS Has nondisplaced right 5th rib fracture CT of L-spine shows no acute fx; + Mild multilevel spondylitic changes with minor multilevel spinal canal narrowing; CT T-spine- no acute fx Has seen Dr. Keene as outpatient who referred her to pain mgmt Pain management consulted Started gabapentin, nortriptyline and PO Dilaudid Continue Dilaudid IV PRN, lidocaine patch, tramadol PRN Incentive spirometry SIRS Met SIRS criteria with tachycardia; leukocytosis; low grade fever 37.6 No source Urinalysis with bland sediment Urine and blood cultures pending Discontinue Zosyn and IVF's No e/o cholecystitis DM TYPE 2 On insulin pump Consulted pharmacy for glycemic control HYPERTENSION BP elevated Continue amlodipine Increase lisinopril MILD COPD Not in exacerbation PRN inhaler ordered CONSTIPATION Bowel regimen ANXIETY Continue lorazepam PRN DYSLIPIDEMIA Discontinue statin given likely liver metastases DVT PROPHYLAXIS Heparin SQ CODE STATUS DNR per my discussion with the patient Anticipate discharge home with home health Consultants: Pulmonary Pain management Procedures: CT lumbar spine 1. No acute fractures or subluxations are visualized 2. Mild multilevel spondylitic changes with minor multilevel spinal canal narrowing CT chest 1. Nondisplaced right fifth rib fracture. No evidence of pneumothorax 2. 39 mm right upper lobe pulmonary mass. This should be presumed neoplastic until proven otherwise 3. Pathologic mediastinal adenopathy 4. Cholelithiasis 5. Small left pleural effusion with a basilar atelectasis 6. Emphysema 7. Pulmonary consultation is recommended, for evaluation of the suspicious right upper lobe pulmonary mass. CT t-spine 1. No fracture or subluxation within the thoracic spine. 2. Necrotic right paratracheal lymphadenopathy. 3. Partially visualized density/mass within the right middle lobe. Please refer to the same day chest CT for further evaluation. 4. Trace left pleural effusion. Gallbladder ultrasound 1. Multiple hypoechoic hepatic lesions highly suggestive of liver metastatic disease. 2. Small gallstone. 3. Normal caliber bile ducts CT head No acute intracranial abnormality. Current Inpatient Medications: Current Inpatient Medications Medications (Trade) Dose Ordered Sig/Eric Route Start Time Stop Time Status Last Admin Dose Admin Acetaminophen (Tylenol Tab) 650 mg Q4H PRN PO 01/19/17 16:15 02/18/17 16:14 Ondansetron HCl (Zofran Inj) 4 mg Q6H PRN IV 01/19/17 16:15 02/18/17 16:14 01/20/17 01:03 4 MG Miscellaneous Information (Consult Glycemic Management Pharmacy) 1 ea UD PRN N/A 01/19/17 16:36 02/18/17 16:35 Amlodipine Besylate (Norvasc Tab) 5 mg HS PO 01/19/17 21:00 02/18/17 20:59 01/19/17 21:07 5 MG Aspirin (Ecotrin Tab) 81 mg QAM PO 01/20/17 09:00 02/19/17 08:59 01/20/17 08:15 81 MG Cholecalciferol (Vitamin D Tab) 1,000 inter.unit BID PO 01/19/17 21:00 02/18/17 20:59 01/20/17 08:16 1,000 INTER.UNIT Lorazepam (Ativan Tab) 0.5 mg TID PRN PO 01/19/17 16:30 02/18/17 16:29 Tramadol HCl (Ultram Tab) 50 mg Q4H PRN PO 01/19/17 16:30 02/18/17 16:29 01/20/17 11:58 50 MG Zolpidem Tartrate (Ambien Tab) 5 mg HS PRN PO 01/19/17 16:30 02/18/17 16:29 Cyanocobalamin (Vitamin B-12 Tab) 1,000 mcg QAM PO 01/20/17 09:00 02/19/17 08:59 01/20/17 08:14 1,000 MCG Miscellaneous Information (Order Awaiting Action) 1 ea QS N/A 01/20/17 00:00 02/19/17 00:00 Miscellaneous Information (Order Awaiting Action) 1 ea QS N/A 01/20/17 00:00 02/19/17 00:00 Heparin Sodium (Porcine) (Heparin Sq 5000 Unit/0.5ml) 5,000 unit Q8 SQ 01/19/17 22:00 02/18/17 21:59 01/20/17 14:39 5,000 UNIT Hydromorphone HCl (Dilaudid Inj) 1 mg Q4H PRN IV 01/19/17 16:30 02/02/17 16:29 01/20/17 07:27 1 MG Lidocaine (Lidoderm Patch 5%) 1 patch QAM TD 01/20/17 09:00 02/19/17 08:59 01/20/17 08:13 1 PATCH Miscellaneous (Remove Lidoderm Patch) 1 ea DAILY@21 N/A 01/19/17 21:00 02/18/17 20:59 Polyethylene (Miralax Powder Packet) 17 gm DAILY PO 01/19/17 16:45 02/18/17 16:44 01/20/17 08:15 17 GM Docusate Sodium (coLACE CAP) 100 mg BID PO 01/19/17 21:00 02/18/17 20:59 01/20/17 08:14 100 MG Albuterol (Ventolin Hfa Inhaler) 2 puffs Q4 PRN INH 01/19/17 17:30 02/18/17 17:29 Glucose (Glucose 40% Gel) 15-30 GRAMS 15 GRAMS... UD PRN PO 01/19/17 18:15 02/18/17 18:14 Glucose (Glucose Chew Tab) 4-8 Tablets 4 Tabl... UD PRN PO 01/19/17 18:15 02/18/17 18:14 Dextrose (Dextrose 50% 50ML Syringe) 25-50ML OF 50% DW IV FOR... UD PRN IV 01/19/17 18:15 02/18/17 18:14 Glucagon (Glucagon Inj) 1 mg UD PRN SQ 01/19/17 18:15 02/18/17 18:14 Insulin Glargine (Lantus Solostar Pen) SEE PROTOCOL TEXT BID SC 01/19/17 21:00 02/18/17 20:59 01/20/17 08:52 15 UNIT Insulin Aspart (novoLOG ASPART) SLIDING SCALE ACHS SC 01/19/17 21:00 02/18/17 20:59 01/20/17 18:28 4 UNITS Gabapentin (Neurontin Cap) 100 mg BID PO 01/20/17 21:00 02/19/17 20:59 Nortriptyline HCl (Pamelor Cap) 25 mg HS PO 01/20/17 21:00 02/19/17 20:59 Hydromorphone HCl (Dilaudid Tab) 2 mg Q4H PRN PO 01/20/17 10:30 02/03/17 10:29 01/20/17 20:01 2 MG Lisinopril (Zestril Tab) 40 mg HS PO 01/20/17 21:00 02/19/17 20:59 UNV
[2017-01-20] MEDS: AMLODIPINE BESYLATE 5 MG TAB PO SCH (21:44)
[2017-01-20] MEDS: GABAPENTIN 100 MG CAP PO SCH (21:45)
[2017-01-21] VITALS (7 sets, daily range): BP systolic 99–175; BP diastolic 65–74; PULSE 72–93; TEMP 36.8–37.2; O2SAT 92–98
[2017-01-21] MEDS: HYDROmorphone HCL 2 MG TAB PO PRN (00:44)
[2017-01-21] MEDS ORDERED: HydrALAZINE HCL 20 MG/ML VIAL IV. STA (05:09)
[2017-01-21] MEDS ORDERED: HydrALAZINE HCL 20 MG/ML VIAL ONE (05:13)
[2017-01-21] MEDS: TRAMADOL HCL 50 MG TAB PO PRN (05:22)
[2017-01-21] MEDS: HEPARIN SOD 5000 UNIT/0.5 ML CARP SQ SCH (05:25)
[2017-01-21 07:55] LABS: HEMATOCRIT 35.3 % (37-47); MEAN CELL VOLUME 86.3 fL (80-100); MEAN CORPUSCULAR HEMOGLOBIN 28.9 pg (25-34); MEAN CORPUSCULAR HGB CONC 33.4 g/dl (32-36); MEAN PLATELET VOLUME 9.1 fL (7.4-10.4); PLATELET COUNT 374 K/uL (130-400); RED BLOOD COUNT 4.09 M/uL (4.2-5.4); WHITE BLOOD COUNT 12.11 K/uL (4.8-10.8)
[2017-01-21 08:18] LABS: BUN/CREATININE RATIO 14.8 (10-20); CALCIUM 8.7 mg/dl (8.5-10.1); CREATININE 0.48 mg/dl (0.60-1.20); POTASSIUM 3.6 mmol/L (3.5-5.1)
[2017-01-21] MEDS: GABAPENTIN 100 MG CAP PO SCH (09:00)
[2017-01-21] MEDS: INSULIN GLARGINE SOLOSTAR 100 UNITS/ML 3 ML PEN SC SCH (09:00)
[2017-01-21] MEDS: CHOLECALCIFEROL 1000 INTER.UNIT TAB PO SCH (09:18)
[2017-01-21] MEDS: DOCUSATE SODIUM 100 MG CAP PO SCH (09:19)
[2017-01-21] MEDS: CYANOCOBALAMIN 500 MCG TAB (VIT B-12) PO SCH (09:19)
[2017-01-21] MEDS: ASPIRIN 81 MG ECTAB PO SCH (09:19)
[2017-01-21] MEDS: POLYETHYLENE (MIRALAX) 17 GM PACK PO SCH (09:20)
[2017-01-21] MEDS: INSULIN ASPART 100 UNITS/ML 3 ML PEN SC SCH ×2 (09:23→12:29)
[2017-01-21] MEDS: LIDODERM (LIDOCAINE) PATCH 5% TD SCH (09:25)
[2017-01-21] MEDS ORDERED: HYDROmorphone HCL 2 MG TAB PO PRN (09:30)
--- NOTE | 2017-01-21 09:47 | PROGRESS NOTE ---
DATE: 01/21/2017 CHIEF COMPLAINT: Chest wall pain. HISTORY OF PRESENT ILLNESS: I saw 76-year-old Ms. Ely Stewart today at the [facility]. She has a history of right upper lobe mass of unknown etiology with her right fifth nondisplaced rib fracture and chronic axial lumbago. She reports that with the addition of hydromorphone 2 mg p.o. q. 4 p.r.n. (took a total of 6 mg over the last 24 hours). She reports a dramatic improvement in her pain. She notes that her pain continues to be dull and pressure like, rating around 2-6/10, which has improved from 4-7/10. She denies any constipation or side effects at this time. She does report that she is passing a significant amount of flatus and only started eating yesterday and did take a suppository and is awaiting bowel movement this morning. She notes slightly improved sleep with 1 dose of nortriptyline last evening and no difficulty tolerating gabapentin. She continues to report efficacy with lidocaine patch. She is awaiting a visit from Dr. Narayan this morning for further workup of her lung mass. Past medical, past surgical, family, and social history was reviewed. MEDICATIONS AND ALLERGIES: Reconciled as per EMR. REVIEW OF SYSTEMS: A 10-point review of systems is negative aside from HPI. PHYSICAL EXAMINATION: VITAL SIGNS: Blood pressure is 148/71, pulse 92, respirations 20, temperature 37.2 degrees centigrade, 92% pulse oximetry on room air. GENERAL: She appears her stated age of [age] years old, is awake, alert and oriented x3, appearing in no acute distress with appropriate speech and thought processes and clear sensorium. She is walking with her walker without difficulty from the restroom to her bed. She is tender over her left and right chest wall, fifth to seventh rib distribution with some mild abdominal distention, but nontender and soft. She moves all extremities easily with 5/5 strength and intact sensation and cranial nerves are grossly intact. ASSESSMENT: 1. Right upper lobe mass of unknown etiology. 2. Right nondisplaced 5th rib fracture. 3. Chronic axial lumbar spine pain. TREATMENT: 1. Will plan to increase her gabapentin to 100 mg p.o. t.i.d. and continue nortriptyline 25 mg p.o. at bedtime at this time. 2. We spoke about preemptive analgesia utilizing hydromorphone 2 mg p.o. q. 3 hours p.r.n. and IV hydromorphone as backup. 3. She may continue with her lidocaine patch as previous. 4. She was provided my outpatient office information and she would be welcome to make an appointment after discharge for consideration of intercostal block.
[2017-01-21] MEDS ORDERED: DLD2 PO (11:24)
[2017-01-21] MEDS ORDERED: CLC100 PO (11:24)
[2017-01-21] MEDS ORDERED: LSN40 PO (11:24)
[2017-01-21] MEDS ORDERED: MRLP17X PO (11:24)
[2017-01-21] MEDS ORDERED: NRT25 PO (11:24)
[2017-01-21] MEDS ORDERED: NRN100 PO (11:24)
--- NOTE | 2017-01-21 11:35 | Discharge Instructions ---
Discharge Instructions Admission Reason for Admission: Fall, Rib Fracture Discharge Discharge Diagnosis / Problem: Rib fracture. Concern for metastases. Discharge Goals Goal(s): Learn about illness Activity Recommendations Activity Limitations: resume your previous activity . Instructions / Follow-Up Instructions / Follow-Up Please follow up with Family Medicine Dr. Shah on January 27 at 10: 50am. Please call Pain management to schedule a follow up appointment with Dr. Penny Sanches. If you do not hear from Dr. Barton's office (Pulmonary) by Thursday, please call to schedule an appointment for your biopsy. You can take 2 tablets of Lisinopril 20mg (for a total of 40mg) at bedtime for your blood pressure. You can hold on filling the new prescription for Lisinopril 40mg until you run out. Nortriptyline, Dilaudid and Gabapentin are new medications started for pain control. These will be prescribed by Dr. Sanches. Current Hospital Diet Patient's current hospital diet: Low Fat Diet Discharge Diet Recommended Diet: AHA Diet (Heart Healthy) Pending Studies Studies pending at discharge: no Medical Emergencies . Who to Call and When: Medical Emergencies: If at any time you feel your situation is an emergency, please call 911 immediately. . Non-Emergent Contact Non-Emergency issues call your: Primary Care Provider . . "Provider Documentation" section prepared by Elodia Mcdaniel. VTE Core Measure Inpt VTE Proph given/why not?: Unfractionated heparin SQ [place] Drug Monitoring Program Search Results: patient reviewed within database
--- NOTE | 2017-01-21 11:42 | Pulmonology Progress Note ---
Pulmonary Progress Note Date of Service Jan 21, 2017. Attending Clyde Barton Subjective Patient is stable with no active pulmonary issues Objective Patient showing no signs of increased WOB at this time. Denies: F,C,N,V, pleurisy or classic cardiac chest pain. RS: reviewed WBC: 12K CHETS: CTA (b) Cardiac: S1-S2 RRR no M/R/G noted ABD: Soft non-tender Assessment & Plan 72y/o female with Pulmonary Mass: 1) Pulm Mass: Patient would like to be work-up at this time but this can be done as an outpatient. She can f/u next week in [facility] to be set up for EBUS/ENB and review of her PFT's. If the PFT are over a year old they should be repeated. 2) Leukocytosis: 12K at this time but no active signs of infection. Possible reactive from underlying diseases. Would monitor at this time. Will sign-off and f/u as an out patient. Data Medications: Current Inpatient Medications Medications (Trade) Dose Ordered Sig/Eric Route Start Time Stop Time Status Last Admin Dose Admin Acetaminophen (Tylenol Tab) 650 mg Q4H PRN PO 01/19/17 16:15 02/18/17 16:14 Ondansetron HCl (Zofran Inj) 4 mg Q6H PRN IV 01/19/17 16:15 02/18/17 16:14 01/20/17 01:03 4 MG Miscellaneous Information (Consult Glycemic Management Pharmacy) 1 ea UD PRN N/A 01/19/17 16:36 02/18/17 16:35 Amlodipine Besylate (Norvasc Tab) 5 mg HS PO 01/19/17 21:00 02/18/17 20:59 01/20/17 21:44 5 MG Aspirin (Ecotrin Tab) 81 mg QAM PO 01/20/17 09:00 02/19/17 08:59 01/21/17 09:19 81 MG Cholecalciferol (Vitamin D Tab) 1,000 inter.unit BID PO 01/19/17 21:00 02/18/17 20:59 01/21/17 09:18 1,000 INTER.UNIT Lorazepam (Ativan Tab) 0.5 mg TID PRN PO 01/19/17 16:30 02/18/17 16:29 Tramadol HCl (Ultram Tab) 50 mg Q4H PRN PO 01/19/17 16:30 02/18/17 16:29 01/21/17 05:22 50 MG Zolpidem Tartrate (Ambien Tab) 5 mg HS PRN PO 01/19/17 16:30 02/18/17 16:29 Cyanocobalamin (Vitamin B-12 Tab) 1,000 mcg QAM PO 01/20/17 09:00 02/19/17 08:59 01/21/17 09:19 1,000 MCG Miscellaneous Information (Order Awaiting Action) 1 ea QS N/A 01/20/17 00:00 02/19/17 00:00 Miscellaneous Information (Order Awaiting Action) 1 ea QS N/A 01/20/17 00:00 02/19/17 00:00 Heparin Sodium (Porcine) (Heparin Sq 5000 Unit/0.5ml) 5,000 unit Q8 SQ 01/19/17 22:00 02/18/17 21:59 01/21/17 05:25 5,000 UNIT Hydromorphone HCl (Dilaudid Inj) 1 mg Q4H PRN IV 01/19/17 16:30 02/02/17 16:29 01/20/17 07:27 1 MG Lidocaine (Lidoderm Patch 5%) 1 patch QAM TD 01/20/17 09:00 02/19/17 08:59 01/21/17 09:25 1 PATCH Miscellaneous (Remove Lidoderm Patch) 1 ea DAILY@21 N/A 01/19/17 21:00 02/18/17 20:59 01/20/17 21:43 1 EA Polyethylene (Miralax Powder Packet) 17 gm DAILY PO 01/19/17 16:45 02/18/17 16:44 01/21/17 09:20 17 GM Docusate Sodium (coLACE CAP) 100 mg BID PO 01/19/17 21:00 02/18/17 20:59 01/21/17 09:19 100 MG Albuterol (Ventolin Hfa Inhaler) 2 puffs Q4 PRN INH 01/19/17 17:30 02/18/17 17:29 Glucose (Glucose 40% Gel) 15-30 GRAMS 15 GRAMS... UD PRN PO 01/19/17 18:15 02/18/17 18:14 Glucose (Glucose Chew Tab) 4-8 Tablets 4 Tabl... UD PRN PO 01/19/17 18:15 02/18/17 18:14 Dextrose (Dextrose 50% 50ML Syringe) 25-50ML OF 50% DW IV FOR... UD PRN IV 01/19/17 18:15 02/18/17 18:14 Glucagon (Glucagon Inj) 1 mg UD PRN SQ 01/19/17 18:15 02/18/17 18:14 Insulin Glargine (Lantus Solostar Pen) SEE PROTOCOL TEXT BID SC 01/19/17 21:00 02/18/17 20:59 01/20/17 21:53 15 UNIT Insulin Aspart (novoLOG ASPART) SLIDING SCALE ACHS SC 01/19/17 21:00 02/18/17 20:59 01/21/17 09:23 3 UNITS Nortriptyline HCl (Pamelor Cap) 25 mg HS PO 01/20/17 21:00 02/19/17 20:59 01/20/17 21:45 25 MG Lisinopril (Zestril Tab) 40 mg HS PO 01/20/17 21:00 02/19/17 20:59 01/20/17 21:42 40 MG Gabapentin (Neurontin Cap) 100 mg TID PO 01/21/17 14:00 02/20/17 13:59 Hydromorphone HCl (Dilaudid Tab) 2 mg Q3H PRN PO 01/21/17 09:30 02/04/17 09:29 01/21/17 10:59 2 MG I & O: 24-Hour Column 01/21/17 08:00 Intake Total 2180 ml Output Total 1800 ml Balance 380 ml Vital Signs: Date Time Temp Pulse Resp B/P Pulse Ox O2 Delivery O2 Flow Rate FiO2 01/21/17 08:06 37.2 92 20 148/71 92 Room Air 01/21/17 08:00 Room Air 01/21/17 06:25 93 138/72 01/21/17 05:19 93 166/74 01/21/17 04:41 91 175/73 01/21/17 04:03 36.8 86 16 172/72 95 Room Air 01/21/17 04:00 Room Air 01/21/17 00:00 Room Air 01/20/17 23:02 37.1 94 18 169/74 92 Room Air 01/20/17 21:45 99 187/83 01/20/17 20:00 Room Air 01/20/17 19:48 36.9 89 16 189/71 93 Room Air 01/20/17 16:00 Room Air 01/20/17 15:22 36.9 87 18 168/74 94 Room Air 01/20/17 12:06 36.8 86 16 170/66 95 Room Air 01/20/17 12:00 Room Air Laboratory Results: Last 24 Hours Test 01/20/17 11:52 01/20/17 16:12 01/20/17 19:54 01/21/17 07:19 Bedside Glucose 162 mg/dl 131 mg/dl 152 mg/dl White Blood Count 12.11 K/uL Red Blood Count 4.09 M/uL Hemoglobin 11.8 g/dL Hematocrit 35.3 % Mean Corpuscular Volume 86.3 fL Mean Corpuscular Hemoglobin 28.9 pg Mean Corpuscular Hemoglobin Concent 33.4 g/dl RDW Standard Deviation 46.0 fL RDW Coefficient of Variation 14.5 % Platelet Count 374 K/uL Mean Platelet Volume 9.1 fL Sodium Level 138 mmol/L Potassium Level 3.6 mmol/L Chloride Level 100 mmol/L Carbon Dioxide Level 27 mmol/L Anion Gap 11.0 mmol/L Blood Urea Nitrogen 7 mg/dl Creatinine 0.48 mg/dl Est Creatinine Clear Calc Drug Dose 101.3 ml/min Estimated GFR () 110.4 Estimated GFR (Non- 95.3 BUN/Creatinine Ratio 14.8 Random Glucose 92 mg/dl Calcium Level 8.7 mg/dl Test 01/21/17 07:50 Bedside Glucose 89 mg/dl
--- NOTE | 2017-01-21 12:45 | Pharmacy Progress Note ---
Glycemic: Assessment & Plan Date of Service Jan 21, 2017. Assessment & Plan DIABETES/INSULIN DISCHARGE PLAN: * Pt is maintained on an insulin pump as an outpatient with excellent control. Follows with Eboni Leoneor at [facility] [place] [facility] * Pump was held for admission and pt transitioned to SQ basal bolus insulin regimen per pharmacy glycemic consult * Pt has been receiving ~ 45 units of insulin per day with adequate control. * Pt is to discharge today --> may resume insulin pump with outpatient dose settings. * Pt did not receive Lantus this morning per order since AM fasting BSG 89mg/ dl. This will make transitioning back to pump much easier since she will not have double basal insulin on board * Pt did receive CHO coverage for breakfast & lunch. This will not interfere with resuming insulin pump PATIENT INSTRUCTIONS: * Resume insulin pump at the time of discharge per outpatient settings. * Continue to check BSG before meals and at bedtime or as previously directed by outpatient provider (Eboni Tucker)
[2017-01-21] MEDS ORDERED: GABAPENTIN 100 MG CAP PO SCH (14:00)
--- NOTE | 2017-01-21 19:32 | Discharge Summary ---
Discharge Summary Date of Service Jan 21, 2017. Discharge Summary Admission Date: Jan 19, 2017 at 15:43 Discharge Date: Jan 21, 2017 Discharge Disposition: Home Principal Diagnosis: Rib fracture Secondary Diagnoses/Problems: Likely metastatic cancer Procedures: CT lumbar spine 1. No acute fractures or subluxations are visualized 2. Mild multilevel spondylitic changes with minor multilevel spinal canal narrowing CT chest 1. Nondisplaced right fifth rib fracture. No evidence of pneumothorax 2. 39 mm right upper lobe pulmonary mass. This should be presumed neoplastic until proven otherwise 3. Pathologic mediastinal adenopathy 4. Cholelithiasis 5. Small left pleural effusion with a basilar atelectasis 6. Emphysema 7. Pulmonary consultation is recommended, for evaluation of the suspicious right upper lobe pulmonary mass. CT t-spine 1. No fracture or subluxation within the thoracic spine. 2. Necrotic right paratracheal lymphadenopathy. 3. Partially visualized density/mass within the right middle lobe. Please refer to the same day chest CT for further evaluation. 4. Trace left pleural effusion. Gallbladder ultrasound 1. Multiple hypoechoic hepatic lesions highly suggestive of liver metastatic disease. 2. Small gallstone. 3. Normal caliber bile ducts CT head No acute intracranial abnormality. Consultations: Pulmonary Pain management Medication Reconciliation New Medications: Lisinopril (Lisinopril) 40 Mg Tab 1 TAB PO HS for 30 Days, #30 TABS Docusate Sodium (Docusate Sodium) 100 Mg Cap 100 MG PO BID for 30 Days, #60 CAP Gabapentin (Gabapentin) 100 Mg Cap 100 MG PO TID for 30 Days, #90 CAP Hydromorphone HCl (Hydromorphone HCl) 2 Mg Tab 2 MG PO Q3H PRN for Pain for 30 Days, #240 TAB Nortriptyline HCl (Nortriptyline HCl) 25 Mg Cap 25 MG PO HS for 30 Days, #30 CAP Continued Medications: Amlodipine (Norvasc) 5 Mg Tab 5 MG PO HS, TAB Amoxicillin (Amoxil) 875 Mg Tab 875 MG PO UD PRN for PRE DENTISTRY, TAB Take 4 tabs prior to dental work. Aspirin (Aspirin) 81 Mg Tab 1 TAB PO QAM Cholecalciferol (Vitamin D) 1,000 Unit Tab 1 TAB PO BID Cyanocobalamin (Vitamin B12) 1,000 Mcg Tab 1 TAB PO QAM Fluocinonide (Fluocinonide) 0.05 % Aga 1 APPLN TOP BID PRN for Itching for 30 Days, #60 ML 3 Refills Insulin Aspart (novoLOG INSULIN PUMP ) 1 Ea Inj 1 EA N/A UD, EA Lorazepam (Ativan) 0.5 Mg Tab 0.5 MG PO TID PRN for Anxiety, TAB Polyethylene (Miralax) 17 Gm Pow 17 GM PO DAILY for 30 Days (This prescription has been renewed) Tramadol (Ultram) 50 Mg Tab 50 MG PO Q4 PRN for Pain Tretinoin (Tretinoin) 0.025 % Cre 1 APPLN TOP DAILY, #20 GM 1 Refill Zolpidem Tartrate (Ambien) 5 Mg Tab 5 MG PO HS PRN for Sleep, TAB Discontinued Medications: Lisinopril (Zestril) 20 Mg Tab 20 MG PO HS Simvastatin (Zocor) 20 Mg Tab 20 MG PO HS Admission Information HPI (per Admitting provider): This is a 76 year old female with PMH of DM type 2 on insulin pump, HTN, dyslipidemia, COPD mild, prior smoker, osteoporosis, and other problems listed below who presents to the ED with back and rib pain. Patient states she had chronic thoracic and lumbar back pain which became severe after falling earlier this month. No radiation of pain. She states her right leg is weak at the hip level secondary to pain. She reports falling 6x in the past 1 month due to losing her balance. She is using 2 canes to ambulate. Since falling earlier in the month she also pain in bilateral anterior ribs and in the upper chest over the manubrium. She was seen by her chiropractor and by Dr. Keene who obtained an x-ray of her back. She states the plan was to see pain management for injections and has an appointment for Jan 27. At home she is taking tramadol and an anti-inflammatory medication (does not recall the name) but the pain could not be controlled. In the ER patient received total of 3 mg Dilaudid and the pain is now controlled. Pt reports a cough with occasional white sputum x 1 month. She reports nausea, decreased appetite, and weight loss estimated 10 lb for past 1 month. She is constipated x approx 6 days. She took Miralax past 2 days but only passed flatus. She admits to some anxiety in the ER. She denies fever, chills, sweats, dizziness, syncope, PARRA, rhinorrhea, sore throat, SOB, abdominal pain, vomiting, diarrhea, dysuria, frequency, urgency, groin or LE paresthesias, incontinence. Physical Exam (per Admitting): General Appearance: WD/WN, no apparent distress, + pertinent finding ( daughter at bedisde) Head: normocephalic, atraumatic Eyes: normal inspection, PERRL, EOMI ENT: hearing grossly normal, pharynx normal Neck: supple Respiratory/Chest: lungs clear, normal breath sounds, no respiratory distress, + pertinent finding (sats 89-92% on RA. tender over manubrium and over right and left anterior ribs. ) Cardiovascular: + tachycardia (regular rhythm), + systolic murmur Abdomen/GI: normal bowel sounds, soft, + splenomegaly, + pertinent finding ( tender in periumbilical area. no RUQ tenderness. Buchanan sign negative. ) Back: + pertinent finding (tender in lumbar spine and lumbar paraspinal muscles. straight leg raise negative bilaterally. ) Extremities/Musculoskelatal: no calf tenderness, normal capillary refill, + pertinent finding (trace ankle edema bilaterally ) Neurologic/Psych: alert, normal mood/affect, oriented x 3, + pertinent finding (grossly nonfocal. sensation to light touch grossly intact in bilateral LE. ankle flexion/ extension intact bilateral feet. ) Skin: normal color, warm/dry Hospital Course Patient was admitted with back and rib pain after several recent falls at home. Imaging showed a nondisplaced right 5th rib fracture. CT of the thoracic and lumbar spine showed no acute fracture, but did show degenerative changes. Pain management was consulted and patient was started on gabapentin, nortriptyline and Dilaudid. Patient will follow up with Pain management for refills of these medications and possible injections. Patient was started on a bowel regimen with docusate and Miralax. Imaging on admission was concerning for a RUL mass suspicious for neoplasm, along with pathologic mediastinal and necrotic right paratracheal lymphadenopathy and liver lesions suspicious for metastases. Pulmonary was consulted and patient would like to pursue workup of this as an outpatient. Simvastatin was discontinued given liver metastases. Patient did meet SIRS criteria on admission with tachycardia and leukocytosis. No source of infection was identified. Urinalysis had a bland sediment. Urine and blood cultures were negative. There was no e/o cholecystitis on imaging. Zosyn, which had been started on admission, was discontinued. Glycemic pharmacy was consulted for diabetes management while inpatient. Patient's blood pressures were elevated on admission. Lisinopril was increased to 40mg. Blood pressures improved. Amlodipine was continued. Patient deemed stable for discharge with Family Medicine, Pulmonary and Pain management follow up. PE on discharge: General- awake; alert; NAD Eyes- EOMI; no scleral icterus Neck- no stridor; trachea midline Lungs- CTA bilaterally; no wheezes/crackles Heart- RRR; no m/r/g Abdomen- soft; NTND; nBS Back- no gross abnormalities Extremities- no c/c/e; no deformity Neuro- no gross focal deficits Skin- no appreciable rash . Total time spent on discharge = This includes examination of the patient, discharge planning, medication reconciliation, and communication with other providers. Discharge Instructions Discharge Instructions Admission Reason for Admission: Fall, Rib Fracture Discharge Discharge Diagnosis / Problem: Rib fracture. Concern for metastases. Discharge Goals Goal(s): Learn about illness Activity Recommendations Activity Limitations: resume your previous activity . Instructions / Follow-Up Instructions / Follow-Up Please follow up with Family Medicine Dr. Shah on January 27 at 10: 50am. Please call Pain management to schedule a follow up appointment with Dr. Penny Sanches. If you do not hear from Dr. Barton's office (Pulmonary) by Thursday, please call to schedule an appointment for your biopsy. You can take 2 tablets of Lisinopril 20mg (for a total of 40mg) at bedtime for your blood pressure. You can hold on filling the new prescription for Lisinopril 40mg until you run out. Nortriptyline, Dilaudid and Gabapentin are new medications started for pain control. These will be prescribed by Dr. Sanches. Current Hospital Diet Patient's current hospital diet: Low Fat Diet Discharge Diet Recommended Diet: AHA Diet (Heart Healthy) Pending Studies Studies pending at discharge: no Medical Emergencies . Who to Call and When: Medical Emergencies: If at any time you feel your situation is an emergency, please call 911 immediately. . Non-Emergent Contact Non-Emergency issues call your: Primary Care Provider . . "Provider Documentation" section prepared by Elodia Mcdaniel. VTE Core Measure Inpt VTE Proph given/why not?: Unfractionated heparin SQ [place] Drug Monitoring Program Search Results: patient reviewed within database Additional Copies To Forest Shah M.D.
[2017-01-22] MEDS ORDERED: DLD2 PO (11:17)
[2017-02-17] MEDS ORDERED: KLN5 PO (10:59)
[2017-02-17] MEDS ORDERED: DLD2 PO (10:59)
[2017-02-17] MEDS ORDERED: DRGTP75 TD (10:59)
== END 2017-01-21 13:17 | disposition home or self-care (01) | DRG 206 ==
LOC: ENRESERVTM → ENRESERVDT → C.EDB 09:57 → C.MED 15:43
PROVIDERS: ADMIT Internal Medicine; ATTEND Internal Medicine
DX: S22.31XA Fracture of one rib, right side, initial encounter for closed fracture (principal); R65.10 Systemic inflammatory response syndrome (SIRS) of non-infectious origin without acute organ dysfunction; C78.7 Secondary malignant neoplasm of liver and intrahepatic bile duct; W19.XXXA Unspecified fall, initial encounter; R91.8 Other nonspecific abnormal finding of lung field; R29.6 Repeated falls; R11.0 Nausea; G89.29 Other chronic pain; M54.6 Pain in thoracic spine; M54.5 Low back pain; K59.00 Constipation, unspecified; R63.4 Abnormal weight loss; D72.829 Elevated white blood cell count, unspecified; K80.20 Calculus of gallbladder without cholecystitis without obstruction; R60.0 Localized edema; E11.9 Type 2 diabetes mellitus without complications; I10 Essential (primary) hypertension; E78.5 Hyperlipidemia, unspecified; J44.9 Chronic obstructive pulmonary disease, unspecified; M81.0 Age-related osteoporosis without current pathological fracture; F41.9 Anxiety disorder, unspecified; Z66 Do not resuscitate; Z68.25 Body mass index [BMI] 25.0-25.9, adult; Z96.641 Presence of right artificial hip joint; Z96.611 Presence of right artificial shoulder joint; Z87.891 Personal history of nicotine dependence; Z79.4 Long term (current) use of insulin; Z79.82 Long term (current) use of aspirin; Z79.891 Long term (current) use of opiate analgesic; Z79.899 Other long term (current) drug therapy

== ENCOUNTER 2017-01-30 23:29 | Inpatient (IN) | payer OTHER, MEDICARE ==
[~2017-01-30] VITALS: Ht 167.6 cm; Wt 65.4 kg
[~2017-01-30 23:29] MED LIST changes: -AMB5 PO; +AMOX875T3 PO; -AMXCH400 PO; -ATV5 PO; +CLC100 PO; +DLD2 PO; +FLUO0.0566 TOP; -KETO0.5S33 OPR; -LISI-725 PO; +LORA-741 PO; +LSN40 PO; +MRLP17X PO; -MULT60CA PO; +NRN100 PO; +NRT25 PO; -SIMV20TA2 PO; +TRET0.027 TOP; +ZOLP5TAB PO
[2017-01-30] MEDS ORDERED: SODIUM CHLORIDE 0.9% 1000ML 1,000 ML IV STA (23:54)
[2017-01-30] MEDS ORDERED: FENTANYL CITRATE INJ 50 MCG/1 ML 2 ML VIAL IV STA (23:54)
[2017-01-31] MEDS ORDERED: LISI-725 PO (00:19)
[2017-01-31] MEDS ORDERED: HYDROmorphone INJ 1 MG/ML SYR IV STA (00:23)
[2017-01-31] MEDS ORDERED: POLY335019 PO (00:31)
[2017-01-31] MEDS ORDERED: GABA-112 PO (00:34)
[2017-01-31 00:44] LABS: HEMATOCRIT 33.3 % (37-47); MEAN CELL VOLUME 84.3 fL (80-100); MEAN CORPUSCULAR HEMOGLOBIN 29.1 pg (25-34); MEAN CORPUSCULAR HGB CONC 34.5 g/dl (32-36); MEAN PLATELET VOLUME 9.2 fL (7.4-10.4); PLATELET COUNT 298 K/uL (130-400); RED BLOOD COUNT 3.95 M/uL (4.2-5.4); WHITE BLOOD COUNT 15.64 K/uL (4.8-10.8)
[2017-01-31] MEDS ORDERED: LORAZEPAM 2 MG/ML 1 ML VIAL IV STA (01:05)
[2017-01-31] MEDS ORDERED: SODIUM CHLORIDE 0.9% 1000ML 1,000 ML IV STA (01:05)
[2017-01-31 01:21] LABS: BUN/CREATININE RATIO 32.2 (10-20); CALCIUM 8.5 mg/dl (8.5-10.1); CREATININE 0.39 mg/dl (0.60-1.20); MAGNESIUM 2.1 mg/dl (1.8-2.4); POTASSIUM 3.4 mmol/L (3.5-5.1)
[2017-01-31 01:31] LABS: INR 1.2 (0.9-1.1); PARTIAL THROMBOPLASTIN RATIO 1.1; PROTHROMBIN TIME (PATIENT) 12.7 SECONDS (9.0-12.0)
[2017-01-31] MEDS ORDERED: LABETALOL HCL IV 5 MG/ML 20ML IV STA (02:03)
[2017-01-31] MEDS ORDERED: OPTIRAY 320 IV PRN (02:15)
[2017-01-31] MEDS ORDERED: DEXTROSE 50% 50 ML SYR ONE (02:39)
[2017-01-31] MEDS ORDERED: DEXTROSE 50% 50 ML SYR IV STA (02:40)
[2017-01-31] MEDS ORDERED: PIPERACILLIN/TAZOBACTAM 4.5 GM/100ML D5W IV STA (02:53)
[2017-01-31] MEDS ORDERED: VANCOMYCIN INJ 1,500 MG in SODIUM CHLORIDE 0.9% 500ML 500 ML IV SCH (03:00)
[2017-01-31] MEDS ORDERED: ACETAMINOPHEN 500 MG TAB PO STA (03:18)
[2017-01-31 03:21] LABS: MANUAL MICROSCOPIC REQUIRED? NO; REVIEW REQ? NO; URINE APPEARANCE CLEAR (CLEAR); URINE BILIRUBIN NEG (NEG); URINE COLOR YELLOW; URINE NITRITE NEG (NEG); URINE PH 7.5 (4.5-7.5); URINE SPECIFIC GRAVITY 1.034 (1.000-1.030); UROBILINOGEN NEG (NEG); ZZURINE CULT IF INDIC CATH NO
[2017-01-31] MEDS ORDERED: POTASSIUM CHLORIDE 10 MEQ TABCR PO STA (04:11)
[2017-01-31] MEDS ORDERED: LISINOPRIL 20 MG TAB PO ONE (04:38)
[2017-01-31 04:44] LABS: THYROID STIMULATING HORMONE 1.41 uIu/ml (0.300-4.500)
[2017-01-31] MEDS ORDERED: HYDROmorphone HCL 2 MG TAB PO PRN (04:45)
[2017-01-31] MEDS ORDERED: HALOPERIDOL LACTATE 5 MG/ML 1 ML VIAL IM PRN (04:45)
[2017-01-31] MEDS ORDERED: NITROGLYCERIN 0.4 MG SL PER TAB CHARGE SL PRN (04:45)
[2017-01-31] MEDS ORDERED: DEXTROSE 50% 50 ML SYR IV PRN (04:45)
[2017-01-31] MEDS ORDERED: GLUCOSE 40% GEL 15 GM TUBE PO PRN (04:45)
[2017-01-31] MEDS ORDERED: GLUCAGON FOR INJ 1 MG VIAL SQ PRN (04:45)
[2017-01-31] MEDS ORDERED: GLUCOSE 10 TABS/TUBE PO PRN (04:45)
[2017-01-31] MEDS ORDERED: ONDANSETRON INJ 2 MG/ML 2 ML VIAL IV PRN (04:45)
[2017-01-31 04:54] VITALS: BP 165/75; PULSE 112; TEMP 36.7; O2SAT 97; BMI 25.6
[2017-01-31 05:50] LABS: ESTIMATED AVERAGE GLUCOSE 146 mg/dl; HA1C FLAG Normal (Normal)
[2017-01-31] MEDS ORDERED: NSS + 20MEQ KCL 1000ML 1,000 ML IV ONE (06:00)
[2017-01-31] MEDS: HYDROmorphone INJ 0.5 MG/0.5 ML SYR IV PRN ×2 (06:04→13:57)
--- NOTE | 2017-01-31 06:25 | EMERGENCY ROOM VISIT NOTE ---
History Report prepared by Cassandra: Leticia Farrell Under the Supervision of: Dr. Miguel Duarte M.D. First contact with patient: 23:39 Chief Complaint: PAIN (GENERALIZED) Stated Complaint: PAIN History of Present Illness The patient is a 76 year old female who presents to the Emergency Room via EMS with complaints of worsening right hip, right foot, and right rib pain with onset this morning. Per nursing staff, the patient was seen in the ED 11 days ago for six falls at home. The patient had right sided rib fractures and right foot pain. The patient was sent home with Tramadol and Dilaudid for pain. This morning, the patient woke up with left arm pain. The patient's right leg has been spasming. The patient states that the pain medication Dilaudid, which she is taking every three hours, is not reducing her pain. The patient's blood sugar was 158 this evening. The patient denies any new falls, shortness of breath, chest pain, rashes, fevers. Source of History: patient Onset: this morning Position: other (right hip, right foot, right ribs) Quality: other (right hip, right foot, right rib pain) Timing: worsening Associated Symptoms: No SOB, No chest pain, No fevers, No rash Review of Systems See HPI for pertinent positives & negatives. A total of 10 systems reviewed and were otherwise negative. Past Medical & Surgical Medical Problems: (1) Anxiety (2) COPD, mild (3) Diabetic peripheral neuropathy associated with type 2 diabetes mellitus (4) Disc displacement, lumbar (5) DJD of right shoulder (6) DM type 2 (diabetes mellitus, type 2) (7) Dyslipidemia (8) Fall (9) Foot deformity (10) Hypertension (11) Loss of sensation (12) Osteoporosis (13) Rib fracture (14) SCC (squamous cell carcinoma) (15) Sepsis Surgical Problems: (1) History of carpal tunnel surgery (2) History of colposcopy (3) History of total right hip replacement (4) S/P appendectomy (5) S/P tonsillectomy (6) Status post total replacement of right shoulder Family History FH: CAD (coronary artery disease) MOTHER ( of [place] age 57) FH: brain tumor FATHER FH: emphysema MOTHER Social History Smoking Status: Unknown if Ever Smoked Drug Use: none Marital Status: Occupation Status: retired Current/Historical Medications Scheduled Amlodipine (Norvasc), 5 MG PO HS Aspirin (Aspirin), 1 TAB PO QAM Cholecalciferol (Vitamin D), 1 TAB PO BID Cyanocobalamin (Vitamin B12), 1 TAB PO QAM Docusate Sodium (Docusate Sodium), 100 MG PO BID Gabapentin (Neurontin), 100 MG PO TID Insulin Aspart (novoLOG INSULIN PUMP ), 1 EA N/A UD Lisinopril (Zestril), 20 MG PO DAILY Polyethylene Glycol 3350 (Miralax), 17 GM PO DAILY Tretinoin (Tretinoin), 1 APPLN TOP DAILY Scheduled PRN Amoxicillin (Amoxil), 875 MG PO UD PRN for PRE DENTISTRY Fluocinonide (Fluocinonide), 1 APPLN TOP BID PRN for Itching Hydromorphone HCl (Hydromorphone HCl), 2 MG PO Q3H PRN for Pain Lorazepam (Ativan), 0.5 MG PO TID PRN for Anxiety Tramadol (Ultram), 50 MG PO Q4 PRN for Pain Zolpidem Tartrate (Ambien), 5 MG PO HS PRN for Sleep Allergies Coded Allergies: Morphine (Verified Adverse Reaction, Intermediate, GETS SICK, 01/19/17) Oxycodone (Verified Adverse Reaction, Intermediate, feels like she is gonna pass out, 01/19/17) Physical Exam Vital Signs Date Time Temp Pulse Resp B/P Pulse Ox O2 Delivery O2 Flow Rate FiO2 01/31/17 03:30 118 22 174/82 97 Nasal Cannula 2.0 01/31/17 03:15 121 20 184/74 97 Nasal Cannula 2.0 01/31/17 03:06 97 Nasal Cannula 2.0 01/31/17 02:39 117 20 119/83 91 Room Air 01/31/17 01:58 120 24 207/86 94 Room Air 01/31/17 01:58 38.0 01/31/17 00:45 109 20 180/84 93 Room Air 01/30/17 23:31 36.9 114 20 192/84 95 Room Air Physical Exam GENERAL: Patient is uncomfortable appearing and in moderate distress. HEENT: No acute trauma, normocephalic atraumatic, mucous membranes moist, no nasal congestion, no scleral icterus. NECK: No stridor, no adenopathy, no meningismus, trachea is midline. LUNGS: No dyspnea. Clear to auscultation and equal bilaterally. No wheeze, no rhonchi. HEART: Tachycardic rate and regular rhythm. No murmurs, rubs, gallops appreciated. ABDOMEN: Soft, nontender, bowel sounds positive, no masses appreciated, no peritonitis. BACK: No midline tenderness, no CVA tenderness EXTREMITIES: Normal motion all extremities, no cyanosis, no edema. Tender to palpation of the right hip bursa, plantar spasm of right foot with no tenderness to palpation. Right foot: strong pulses, warm to touch, full sensation. Left foot: decreased pulses with barely palpable dorsal pulse, cool to touch, full sensation and movement, she states she has no pain. NEUROLOGIC: Alert and oriented, no acute motor or sensory deficits, no focal weakness, cranial nerves grossly intact. SKIN: No rash, no jaundice, no diaphoresis. Medical Decision & Procedures ER Provider Diagnostic Interpretation: X ray results and stated below per my interpretation. Other radiology results and stated below per my review and radiologist interpretation: 1 view chest x-ray: Large mass right upper lobe, no acute infiltrate, normal cardiac knob, mildly enlarged heart. Pelvis x-ray: Right hip protheses, no fracture, no dislocation CTA Abdomen and Pelvis: No comparison. Moderate to advanced arterial calcifications involving the abdominal aorta without evidence of aneurysm, significant stenosis, or occlusion. There is calcific atherosclerosis of the origin of the celiac with approximately 50% diameter stenosis. There is no significant stenosis of the origin of the inferior mesenteric artery. Calcific atherosclerosis of the common , external common iliac internal iliac arteries with no evidence of significant stenosis. Common femoral arteries show atherosclerosis without significant stenosis. No aneurysm or dissection. Cholelithiasis. Remaining solid organs are unremarkable. Moderate to large stool burden thought the colon. Stomach, small intestine otherwise unremarkable. No free peritoneal air or fluid. Right total hip arthroplasty is demonstrated. No acute osseous abnormality. Radiologist: Sd Benavides MD. CTA Chest: Comparison CT chest without contrast 01/19/2017. Redemonstrated is a masslike consolidation in the right upper lobe abutting the anterior chest wall and mediastinum measuring up to 4.4 cm, increased in size and bulk since comparison examination. These findings remain worrisome for malignancy. Given relatively rapid increase in size, these findings may relate to intralesional necrosis or worsening obstructive pneumonitis. There is some adjacent reticular nodular densities, which are unchanged since comparison. Trace bilateral pleural effusions are demonstrated, right greater than left with adjacent atelectasis. Mediastinal adenopathy is redemonstrated, with the largest enlarged mediastinal lymph node located in the right paratracheal region measuring up to 3.7 cm. No aortic dissection or acute aortic abnormality. No evidence of pulmonary embolism. Postsurgical change of both shoulders. Radiologist: Sd Cuba MD. Laboratory Results 01/31/17 00:32 01/31/17 00:32 Test 01/31/17 00:32 01/31/17 01:17 01/31/17 01:53 01/31/17 02:55 Red Blood Count 3.95 M/uL (4.2-5.4) Mean Corpuscular Volume 84.3 fL (80-100) Mean Corpuscular Hemoglobin 29.1 pg (25-34) Mean Corpuscular Hemoglobin Concent 34.5 g/dl (32-36) RDW Standard Deviation 46.8 fL (36.4-46.3) RDW Coefficient of Variation 15.1 % (11.5-14.5) Mean Platelet Volume 9.2 fL (7.4-10.4) Anion Gap 9.0 mmol/L (3-11) Est Creatinine Clear Calc Drug Dose 131.3 ml/min Estimated GFR () 118.2 Estimated GFR (Non- 102.0 BUN/Creatinine Ratio 32.2 (10-20) Estimated Average Glucose 146 mg/dl Hemoglobin A1c 6.7 % (4.5-5.6) Calcium Level 8.5 mg/dl (8.5-10.1) Magnesium Level 2.1 mg/dl (1.8-2.4) Total Bilirubin 0.5 mg/dl (0.2-1) Direct Bilirubin 0.3 mg/dl (0-0.2) Aspartate Amino Transf (AST/SGOT) 133 U/L (15-37) Alanine Aminotransferase (ALT/SGPT) 39 U/L (12-78) Alkaline Phosphatase 248 U/L (45-117) Troponin I 0.035 ng/ml (0-0.045) Total Protein 6.5 gm/dl (6.4-8.2) Albumin 1.8 gm/dl (3.4-5.0) Lipase 130 U/L (73-393) Thyroid Stimulating Hormone (TSH) 1.410 uIu/ml (0.300-4.500) Prothrombin Time 12.7 SECONDS (9.0-12.0) Prothromb Time International Ratio 1.2 (0.9-1.1) Activated Partial Thromboplast Time 28.4 SECONDS (21.0-31.0) Partial Thromboplastin Ratio 1.1 Bedside Lactic Acid Venous 0.92 mmol/L (0.90-1.70) Urine Color YELLOW Urine Appearance CLEAR (CLEAR) Urine pH 7.5 (4.5-7.5) Urine Specific [place]ablo 1.034 (1.000-1.030) Urine Protein NEG (NEG) Urine Glucose (UA) 1+ (NEG) Urine Ketones NEG (NEG) Urine Occult Blood NEG (NEG) Urine Nitrite NEG (NEG) Urine Bilirubin NEG (NEG) Urine Urobilinogen NEG (NEG) Urine Leukocyte Esterase NEG (NEG) Urine WBC (Auto) 0 /hpf (0-5) Urine RBC (Auto) 0-4 /hpf (0-4) Urine Hyaline Casts (Auto) 0 /lpf (0-5) Urine Epithelial Cells (Auto) 10-20 /lpf (0-5) Urine Bacteria (Auto) NEG (NEG) Laboratory results as reviewed by me. Medications Administered Medications (Trade) Dose Ordered Sig/Eric Route Start Time Stop Time Status Last Admin Dose Admin Fentanyl Citrate 75 mcg 75 mcg NOW STAT IV 01/30/17 23:54 01/30/17 23:59 DC 01/31/17 00:04 75 MCG Sodium Chloride (Nss 1000ml) 1,000 ml @ 75 mls/hr [id number] STAT IV 01/30/17 23:54 01/31/17 05:32 DC 01/31/17 00:04 75 MLS/HR Hydromorphone HCl 1 mg 1 mg NOW STAT IV 01/31/17 00:23 01/31/17 00:25 DC 01/31/17 00:45 1 MG Sodium Chloride (Nss 1000ml) 1,000 ml @ 999 mls/hr Q1H1M STAT IV 01/31/17 01:05 01/31/17 02:05 DC 01/31/17 01:07 999 MLS/HR Lorazepam (Ativan Inj) 1 mg NOW STAT IV 01/31/17 01:05 01/31/17 01:06 DC 01/31/17 01:11 1 MG Dextrose (Dextrose 50% 50ML Syringe) 50 ml NOW STAT IV 01/31/17 02:40 01/31/17 02:41 DC 01/31/17 02:44 50 ML Piperacillin Sod/ Tazobactam Sod 4.5 gm 4.5 gm NOW STAT IV 01/31/17 02:53 01/31/17 02:55 DC 01/31/17 03:06 4.5 GM Vancomycin HCl/ Sodium Chloride (Vancomycin Inj/ Nss 500ml) 530 ml @ 200 mls/hr UD IV 01/31/17 03:00 01/31/17 06:00 01/31/17 03:40 200 MLS/HR Acetaminophen (Tylenol Tab) 1,000 mg NOW STAT PO 01/31/17 03:18 01/31/17 03:19 DC 01/31/17 03:28 1,000 MG ECG Indication: tachycardia Rate (beats per minute): 106 Rhythm: sinus tachycardia Findings: ST depression (diffuse), other (minimal ST elevations AVR) Comparison ECG Date: 01/19/2017 Change: ST elevations are acute compared to 01/19/2017. ED Course 2348: The patient was evaluated in room B12. A complete history and physical exam was performed. 2354: Sodium Chloride 1000 ml @ 75 mls/hr IV, Fentanyl Citrate 75 mcg IV 0015: I reevaluated the patient; she is still having some pain. 0023: Dilaudid 1 mg IV 0105: Ativan 1 mg IV, Sodium Chloride 1000 ml @ 999 mls/hr IV 0126: I reevaluated the patient. She states that the Ativan has improved her pain. The patient is still tachycardic. 0203: Labetalol HCl 10 mg IV 0205: I updated the patient and asked her if she has any back pain. The patient informed me that she has chronic low back pain and that she has no change to this currently. 0240: Dextrose 50 ml IV 0253: Zosyn 4.5 gm IV 0254: Per nursing staff, the patient is febrile. The nurse took a rectal temperature two hours ago and did not update the patient's chart. 0300: Vancomycin HCl 1500 mg/ Sodium Chloride 530 ml @ 200 mls/ hr IV 0318: Tylenol Tab 1000 mg PO 0321: I discussed the case with Dr. Quinteros ([facility]); he will further evaluate the patient. 0330: I reevaluated the patient. Her doctor has previously told her she has poor pulses in her left leg. Discussed results and treatment plan with the patient. She verbalized understanding and agreement with the treatment plan. The patient will be evaluated for further management. Medical Decision Differential: Sepsis, Infectious (UTI/Pneumonia/Meningitis/etc), Metabolic/ Electrolyte Abnormality, Cardiac, Hepatic, Endocrine, Toxicologic, Neurologic, amongst other pathologies entertained. 76 yr old female arrives with complaint of right foot cramping as well as right hip discomfort. She has no other complaints and initially just wants something for the pain as home Dilaudid not effective. Recently fell and admitted to hospital for right rib fracture and multiple contusions. Notes doing well until this morning when developed worsening cramping in foot. Arrives with no other new complaints, including chronic unchanged SHOB, no chest pain, chronic unchanged low back pain. Initially tachycardic but given how uncomfortable she was felt this likely pain response. Completely awake, alert oriented without any neck pain/stiffness, headache, rash. Without improvement after IV pain meds , EKG done showing extensive ST depressions which are clearly new. Patient continues to deny any chest pain nor shoulder nor upper back pain. She notes pain in right leg not improved thus dilaudid. Rectal temp done as persistently tachycardic and patient now febrile. Blood cultures, poc lactic acid ordered with 2 IV requested. Given 1 L NSS bolus. Patient still awake, alert oriented and notes cramping no improved. Dose Ativan given with vast improvement in cramping, but did have moderate somnolence following this. Still not meningitic in any way. With RUL consolidation on CXR and recent CT chest without contrast, felt that appropriate to do CT PE study to have better appreciation of this. As doing study and having leg pain on right with minimal pulses left felt doing CTA abdo/pelv reasonable to assess that no dissection, etc. Occlusions not noted in aorta. Mass right upper chest clearly increasing from just 2 weeks ago and now with consolidative findings. I suspect her infection is arising from this mass, likely some post obstructive issues with it as well. Given tachycardia concern for sepsis. WBC is above standard, but in her normal range. Lactic acid is normal. Will treat empirically for early sepsis from lung source with Vanco and Zosyn. She is hypertensive which started to improve with pain control. Post CT patient found to be worsening confusion and bedside Glucose low, thus D50 given with improvement in mental status and with improvement in BG. I do not feel that this patient needs LP, and with the completely normal mental status she had on arrival, I do not see current indications for CT Head as this was just done last week and she is not on blood thinners other than asa. She is stable though continues to be moderately tachycardic. Without chest pain nor equivalent, I do not feel heart alert indicated just for the EKG findings she is having. No clear evidence of myocarditis nor heart failure. Continued hydration, broad spectrum abx and will need to come in for further monitoring/evaluation. It is unclear reason for her right hip pain. Great pulses and doesn't appear vascular. Given localization to just hip and foot, seems nerve issue unlikely. May have bursitis right hip from fall. Full ROM at right hip and doesn't exam like septic joint. Right foot purely with cramping and no TTP. No indication for imaging. This case was quite complex given her initial complaint was pretty much limited to wanting pain control from cramping in right foot. Consults Time Called: [phone] Consulting Physician: Dr. Quinteros ([facility]) Returned Call: [phone] I discussed the case with Dr. Quinteros ([facility]); he will further evaluate the patient. Impression Primary Impression: Fever Additional Impressions: Tachycardia Acute electrocardiogram changes Hypoglycemia Mass of upper lobe of right lung Pneumonia Foot pain, right Hip pain, right Scribe Attestation The scribe's documentation has been prepared under my direction and personally reviewed by me in its entirety. I confirm that the note above accurately reflects all work, treatment, procedures, and medical decision making performed by me. Departure Information Dispostion Being Evaluated By Hospitalist Forest Reilly M.D. (PCP) Patient Instructions My [facility] Problem Qualifiers Primary Impression: Fever Fever type: unspecified Qualified Codes: R50.9 - Fever, unspecified Additional Impressions: Pneumonia Pneumonia type: due to unspecified organism Laterality: right Lung location : upper lobe of lung Qualified Codes: J18.1 - Lobar pneumonia, unspecified organism
[2017-01-31] MEDS: INSULIN ASPART 100 UNITS/ML 3 ML PEN SC SCH ×4 (07:00→20:17)
--- NOTE | 2017-01-31 07:22 | DIAGNOSTIC IMAGING REPORT ---
CT ANGIOGRAM OF THE ABDOMEN AND PELVIS CLINICAL HISTORY: Generalized abdominal pain. Tachycardia. Diminished left lower extremity pulses. COMPARISON STUDY: Abdominal ultrasound dated 01/19/2017. TECHNIQUE: Following the IV administration of 119 cc of Optiray 320, CT angiogram of the abdomen and pelvis was performed from the lung bases the proximal femora. Images are reviewed in the axial, sagittal, and coronal planes. 3-D MIPS images are created and assessed. IV contrast was administered without complication. The examination is degraded by streak artifact from the patient's arms which could not be elevated above the abdomen as well as by motion artifact. FINDINGS: Lower chest: The heart is enlarged and there is trace pericardial effusion. The mitral annulus is densely calcified. There is a trace right pleural effusion with bibasilar dependent consolidation. A tiny hiatal hernia is identified. Liver: The contrast-enhanced liver is normal in size, contour, and attenuation. There is no intrahepatic or ductal dilatation. The main portal veins appear patent. Gallbladder: Calcified gallstones are identified. Spleen: Normal in size and attenuation. Pancreas: Moderately atrophic and grossly unremarkable. Adrenal glands: Unremarkable. Kidneys: The contrast enhanced kidneys demonstrate cortical atrophy and are without hydronephrosis. The kidneys enhance symmetrically. Abdominal aorta and iliac arteries: There is advanced atherosclerotic calcification of the abdominal aorta and iliac arteries which are normal in caliber and widely patent. No dissection is seen. The common femoral arteries are patent. Major branches of the abdominal aorta: There is moderate (at least 50%) stenosis at the origin of the celiac artery. The remainder of the celiac artery is widely patent, as are the superior and inferior mesenteric arteries. The left gastric artery arises directly from the abdominal aorta. Hepatic arterial anatomy is conventional. Splenic artery is patent. There are single bilateral renal arteries. At least mild stenosis is seen at the origin of both renal arteries. Bowel: The small bowel and colon are normal in course and caliber. There is moderate colonic fecal retention. The appendix is not visualized. Peritoneum: There is no intraperitoneal free air or abdominal ascites. Lymphadenopathy: Prominent retroperitoneal lymph nodes measure up to 11 mm in short axis. There are no enlarged upper abdominal, mesenteric, pelvic sidewall, or inguinal lymph nodes. Pelvic viscera: Evaluation of the pelvis is degraded by streak artifact from a right hip arthroplasty. The bladder, uterus, and adnexa are grossly normal as visualized. Skeletal structures: The skeletal structures are osteopenic. There is moderate lumbosacral spondylosis. No destructive bony lesions are seen. A right hip arthroplasty is in place. IMPRESSION: 1. Significantly streak and motion artifact degraded examination. 2. There are no acute infectious or inflammatory findings in the abdomen or pelvis. 3. Moderate constipation. 4. Advanced atherosclerosis. The abdominal aorta and iliac arteries are normal in caliber and widely patent. No dissection is seen. 5. Cholelithiasis. 6. There is at least mild stenosis at the origin of both renal arteries. 7. There is moderate stenosis of the origin of the celiac trunk. 8. Trace right pleural effusion with bibasilar patchy airspace consolidation. Correlate clinically for evidence of an infectious/inflammatory pneumonitis or possibly aspiration. 9. Mildly enlarged retroperitoneal lymph nodes are of indeterminant significance. 10. Additional changes as above. Electronically signed by: Atul Espinsoa M.D. 01/31/2017 7:21 AM Dictated Date/Time: 01/31/2017 7:07 AM
--- NOTE | 2017-01-31 07:39 | DIAGNOSTIC IMAGING REPORT ---
CT ANGIOGRAM OF THE CHEST CLINICAL HISTORY: Tachycardia. Abnormal EKG. COMPARISON STUDY: Chest CT scans dated 01/19/17 and 06/28/2009. Chest x-ray dated 01/31/2017. TECHNIQUE: Following the IV administration of 119 cc of Optiray 320, CT angiogram of the chest was performed from the upper abdomen to the thoracic inlet utilizing the pulmonary embolus protocol. Images are reviewed in the axial, sagittal, and coronal planes. 3-D MIPS images are created and assessed. IV contrast was administered without complication. The examination is degraded by streak artifact from the patient's arms which could not be elevated above the chest. The examination is also degraded by motion artifact. CT DOSE: 858.03 mGy.cm FINDINGS: Thyroid: Imaged portions of the thyroid gland are normal in size and attenuation. Thoracic aorta: There is atherosclerotic calcification of the thoracic aorta, which is normal in caliber and demonstrates standard 3-vessel arch anatomy. No dissection is seen. Pulmonary vasculature: The pulmonary trunk is normal in caliber. There are no filling defects identified in main, lobar, or proximal segmental pulmonary branches to suggest pulmonary embolus. Evaluation of the peripheral branches is degraded by motion artifact as well as by suboptimal contrast opacification. Heart: The heart is mildly enlarged and there is a trace pericardial effusion. The coronary arteries and mitral annulus are densely calcified. Lungs and pleural spaces: Evaluation of the upper chest is significantly degraded by streak artifact from bilateral shoulder arthroplasties. Evaluation of the lung parenchyma is also degraded by motion artifact. Advanced emphysema is noted. There are trace pleural effusions with bibasilar patchy airspace consolidation. There is a 4.9 x 4.1 cm irregular mass lesion the anterior right upper lobe seen on image #132. This has increased in size from 01/19/2017. Secretions are noted in the distal trachea and the left mainstem bronchus. Mediastinum: There is mediastinal lymphadenopathy. A right paratracheal node on image #93 measures 3.1 x 3.6 cm. A high right paratracheal node on image #71 measures 2.5 x 2.4 cm. An Enlarged subcarinal node on image #120 measures 2.5 x 2.1 cm. Lisbeth: Enlarged right hilar nodes measure up to 2.5 cm. No left hilar adenopathy is seen. Axillae: There is no axillary lymphadenopathy. Upper abdomen: Partially visualized upper abdominal viscera is within normal limits. See report of abdominal CT performed concurrently for detailed intra-abdominal findings. Skeletal structures: The skeletal structures are heterogeneously osteopenic. No lytic or blastic bony lesions are clearly seen. There are healed bilateral rib fractures. IMPRESSION: 1. Significant streak and motion artifact degraded examination. 2. There is no evidence of pulmonary embolus in the main, lobar, or proximal segmental pulmonary arteries. 3. Cardiomegaly and advanced emphysema. 4. A right upper lobe mass lesion has increased in size from 01/19/2017. Lung cancer remains the diagnosis of exclusion. 5. There is pathologic right hilar and mediastinal lymphadenopathy. 6. Trace pleural effusions with bibasilar dependent airspace consolidation. Correlate clinically for evidence evidence of an infectious/inflammatory pneumonitis or possibly aspiration pneumonitis. 7. Additional findings as above. Electronically signed by: Atul Espinosa M.D. 01/31/2017 7:38 AM Dictated Date/Time: 01/31/2017 7:28 AM
[2017-01-31] MEDS: DOCUSATE SODIUM 100 MG CAP PO SCH ×2 (08:05→20:15)
[2017-01-31] MEDS: POLYETHYLENE (MIRALAX) 17 GM PACK PO SCH (08:05)
[2017-01-31] MEDS: ASPIRIN 81 MG ECTAB PO SCH (08:05)
[2017-01-31] MEDS: ENOXAPARIN 40 MG/0.4 ML SYR SC SCH (08:06)
[2017-01-31 08:10] VITALS: BP 174/76; PULSE 109; TEMP 36.5; O2SAT 97
--- NOTE | 2017-01-31 08:17 | DIAGNOSTIC IMAGING REPORT ---
SINGLE VIEW CHEST CLINICAL HISTORY: Tachycardia. Atypical chest pain. FINDINGS: An AP, portable, upright chest radiograph is compared to study dated 11/12/2015 and correlated with chest CT dated . The examination is degraded by portable technique and patient rotation. The heart is enlarged and there is atherosclerotic calcification of the thoracic aorta. The pulmonary vasculature is noncongested. Emphysema and chronic interstitial thickening is similar to previous. Bibasilar airspace opacities are identified. A paramediastinal density on the right likely corresponds to the mass lesion seen by chest CT on 01/19/2017. No large pleural effusion or pneumothorax is seen. The skeletal structures are osteopenic. The bony thorax is grossly intact. Bilateral shoulder arthroplasties are in place. IMPRESSION: 1. Cardiomegaly and emphysema. 2. There are bibasilar airspace opacities. This likely represents atelectasis. Correlate clinically for evidence of a mild infectious/inflammatory pneumonitis. 3. A right sided paramediastinal density likely corresponds to the mass lesion seen by chest CT on 01/19/2017. Electronically signed by: Atul Espinosa M.D. 01/31/2017 8:16 AM Dictated Date/Time: 01/31/2017 8:13 AM
--- NOTE | 2017-01-31 08:19 | DIAGNOSTIC IMAGING REPORT ---
SINGLE VIEW PELVIS CLINICAL HISTORY: Right hip pain. FINDINGS: An AP portable pelvic radiograph is compared to study dated 05/05/2008. The skeletal structures are osteopenic. No acute fracture is seen. A right hip arthroplasty is in near anatomic alignment. Heterotopic bone formation is noted around the proximal aspect of the arthroplasty. Mild arthritic change is seen in the left hip. There is mild sclerotic change identified in the sacroiliac joints. Lumbosacral spondylosis is partially imaged. The overlying soft tissues are within normal limits. IMPRESSION: 1. No acute bony abnormality is identified in the pelvis. 2. A right hip arthroplasty is in near-anatomic alignment. 3. Osteopenia and degenerative change as above. Electronically signed by: Atul Espinosa M.D. 01/31/2017 8:17 AM Dictated Date/Time: 01/31/2017 8:16 AM
[2017-01-31] MEDS: INSULIN GLARGINE SOLOSTAR 100 UNITS/ML 3 ML PEN SC SCH ×2 (08:28→20:16)
--- NOTE | 2017-01-31 08:41 | HISTORY & PHYSICAL EXAMINATION ---
DATE OF ADMISSION: 01/31/2017 PRIMARY CARE PHYSICIAN: Dr. Shah. History obtained from patient, ER MD and records. Unreliable hx from px 2 to disorientation at time of my exam ff analgesics and sedation given at the ER earlier. CHIEF COMPLAINT: Left arm pain, right hip and right leg pain as per records. 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 Chronic anemia (baseline hemoglobin 11) Recent confinement 2 weeks ago for R rib fracture secondary to recurrent falls. CAT scan showed 39 mm right upper lobe pulmonary mass presumed to be malignant. possible liver mets. Patient was seen by Pulmonology. Outpatient workup contemplated. As per outx case management's note, px co cough sx productive of yellow sputum worst in the morning with some lower extremity edema. Px seen on ffup by [facility] Pulmonology as per records. PET scan was contemplated in January 2017. An ultrasound guided biopsy (?liver) on January 2017. Patient refusing home health outpatient. As per records, patient woke up yesterday morning with a horrible pain on her left upper arm and right hip, right lower extremity. Denies chest pain. Denies shortness of breath. Denies unusual cough sx. Denies aspiration. At the Emergency Room, patient received vancomycin and Zosyn for sepsis. Some confusion noted after been given IV narcotics and anxiolytics at the ER for extreme discomfort and restlessness. BGs 50s at one point as well. Insulin pump stopped, IV Dextrose given. MEDICAL HISTORY: as above. SURGERIES: Carpal tunnel surgery, hip replacement, appendectomy, tonsillectomy, shoulder replacement. HOME MEDICATIONS: Include aspirin, Norvasc, vitamin, Neurontin, insulin pump, Ativan, lisinopril, MiraLax, tretinoin, Tramadol, Ambien. ALLERGIES: MORPHINE, OXYCODONE. FAMILY HISTORY: Heart disease, brain tumor, emphysema. PERSONAL AND SOCIAL HISTORY: Past tobacco abuse, no chronic ETOH intake. constable ; was living alone, account of daughter staying w/her currently since recent confinement from outx records. REVIEW OF SYSTEMS: Could not be reliably obtained. PHYSICAL EXAMINATION: VITAL SIGNS: Blood pressure was noted to be 181/70, pulse rate 110, RR 24, temperature 38, sats 94 on room air. GENERAL: Noted to be disoriented, coherent. SKIN: pallor. HEENT: pale palp conjunctivae, dry mucosa. NECK: No JVD. supple CHEST: Decreased effort. HEART: Tachycardic. ABDOMEN: Soft. No tenderness. EXTREMITIES: no overt tenderness NE : Some disorientation. LABS: Hemoglobin 11, Sodium 136, potassium 3.4, chloride 104, CO2 of 20, BUN 13, creatinine was noted to be 0.39, glucose was noted to be 76. Hemoglobin A1c in October 2016 was noted to be 6.6. CT chest initial read consolidation right upper lobe abutting anterior chest wall and mediastinum, increase in size susp_ for malignancy, worsening obstructive pneumonitis, trace bilateral effusions, right greater than left, atelectasis, mediastinal adenopathy, no pulmonary embolism. CT abdomen and pelvis: Abdominal aortic, arterial calcifications, cholelithiasis, moderate to large stool burden. EKG: Sinus tachycardia with ST depression on the ____. ASSESSMENT AND PLAN: 1. Sepsis secondary to healthcare associated pneumonia likely postobstructive pneumonia. 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 3. Encephalopathy secondary to sedation and analgesia given in the Emergency Room. 4. Hypertension, elevated secondary to discomfort. 5. Chronic obstructive pulmonary disease, past tobacco use as per records. 6. Right lower extremity pain and left upper extremity pain, rule out deep venous thrombosis. ? bone pain from possible metastatic lung malignancy 7. DM2, insulin requiring, on insulin pump, well controlled as of recent outpx HgA1C Patient noted to be hypoglycemic in the ER. PLAN: PCU. Cultures. Zosyn for now. IVF Further management pending official CT results RLE, LUE venous dopplers ro dvt Hold home narcotics for sedation and confusion. appropriate to hold insulin pump for now given hypoglycemic episodes. ISS BG goal 140-180 check HgA1c Pharmacy consult for glycemic control mx PT/OT eval DVT prophylaxis. Lovenox subQ. DNR as per px wishes from recent confinement. Attempted to contact px's daughter, Miss Iris Morris, over the phone ) to obtain additional hx and to update her of mother's situation. No answer. I left message for her to call the hospital. [place]
[2017-01-31] MEDS ORDERED: PHARMACY GLYCEMIC MGMT CONSULT PRN (09:00)
[2017-01-31] MEDS ORDERED: PIPERACILL/TAZOBAC CONSULT ACTIVE PRN (09:00)
[2017-01-31] MEDS: PIPERACILL/TAZOBAC IV 3.375 GM in DEXTROSE 5% 100ML IV SCH ×2 (10:10→18:49)
[2017-01-31] MEDS ORDERED: POTASSIUM CHLORIDE 10 MEQ TABCR PO ONE (11:00)
--- NOTE | 2017-01-31 11:10 | DIAGNOSTIC IMAGING REPORT ---
ULTRASOUND RIGHT LOWER EXTREMITY VENOUS CLINICAL HISTORY: Right leg pain. COMPARISON STUDY: No priors. TECHNIQUE: Real-time, grayscale, and color Doppler sonography of the deep veins of the right lower extremity was performed from the inguinal crease to the calf. Compression and augmentation were utilized. FINDINGS: There is no sonographic evidence of deep venous thrombosis identified in the right lower extremity. The common femoral, superficial femoral, and popliteal veins are patent and normally compressible. The greater saphenous vein and the profunda femoris vein at the junction with the common femoral vein are clear. The visualized calf veins are patent. IMPRESSION: There is no sonographic evidence of deep venous thrombosis identified in the right lower extremity. Electronically signed by: Atul Espinosa M.D. 01/31/2017 11:08 AM Dictated Date/Time: 01/31/2017 11:08 AM
--- NOTE | 2017-01-31 11:13 | DIAGNOSTIC IMAGING REPORT ---
ULTRASOUND LEFT UPPER EXTREMITY VENOUS CLINICAL HISTORY: Left arm pain. COMPARISON STUDY: No priors. TECHNIQUE: Real-time, grayscale, and color Doppler sonography of the deep veins of the left upper extremity is performed. Compression and augmentation were utilized. FINDINGS: There is no sonographic evidence of deep venous thrombosis identified in the left upper extremity. The left internal jugular, axillary, and brachial veins are patent and normally compressible. Normal venous waveforms and augmentation are seen within the left subclavian vein. The cephalic and basilic veins are clear. The visualized radial and ulnar veins are patent. IMPRESSION: There is no sonographic evidence of deep venous thrombosis identified in the left upper extremity. Electronically signed by: Atul Espinosa M.D. 01/31/2017 11:12 AM Dictated Date/Time: 01/31/2017 11:11 AM
[2017-01-31] MEDS: TRAMADOL HCL 50 MG TAB PO PRN ×2 (11:46→23:13)
--- NOTE | 2017-01-31 13:39 | DIAGNOSTIC IMAGING REPORT ---
RIGHT ANKLE 3 VIEWS CLINICAL HISTORY: Right ankle pain. FINDINGS: 3 views of the right ankle are obtained. No prior studies are available for comparison at the time of dictation. The skeletal structures are osteopenic. No fracture is seen. The ankle mortise is intact. A tiny plantar calcaneal enthesophyte is observed. There is no joint effusion. Mild soft tissue edema is present around the ankle and in the distal calf. There is nonspecific edema within Kager's fat pad. IMPRESSION: Mild soft tissue swelling with no acute bony abnormality identified. Electronically signed by: Atul Espinosa M.D. 01/31/2017 1:38 PM Dictated Date/Time: 01/31/2017 1:35 PM
--- NOTE | 2017-01-31 13:41 | DIAGNOSTIC IMAGING REPORT ---
RIGHT FOOT 3 VIEWS CLINICAL HISTORY: Right foot pain. FINDINGS: 3 views of the right foot are obtained. No prior studies are available for comparison at the time of dictation. The skeletal structures are osteopenic. No fracture is seen. Moderate arthritic change is identified at the first metatarsophalangeal joint. The joint spaces of the foot are otherwise preserved. A tiny plantar calcaneal enthesophyte is noted. A small enthesophyte is seen at the base of the fifth metatarsal. The overlying soft tissues are within normal limits. IMPRESSION: Osteopenia and mild arthritic change as above. No acute bony abnormality is identified in the right foot. Electronically signed by: Atul Espinosa M.D. 01/31/2017 1:39 PM Dictated Date/Time: 01/31/2017 1:38 PM
--- NOTE | 2017-01-31 13:44 | Pharmacy Progress Note ---
Glycemic Control Intl Consult Date of Service Jan 31, 2017. Scope Glycemic Pharmacist consulted by on 01/31/17 for glycemic control and to write orders per [facility] inpatient glycemic control protocol Objective Weight (Kilograms): 71.900 Accuchecks BSG (last 24hrs): Test 01/31/17 00:32 01/31/17 02:40 01/31/17 03:24 01/31/17 04:21 Random Glucose 76 mg/dl (70-99) Bedside Glucose 56 mg/dl (70-90) 109 mg/dl (70-90) 152 mg/dl (70-90) Test 01/31/17 06:55 01/31/17 11:34 Bedside Glucose 152 mg/dl (70-90) 183 mg/dl (70-90) Laboratory Data (last 24hrs) Test 01/31/17 00:32 Anion Gap 9.0 mmol/L BUN/Creatinine Ratio 32.2 Blood Urea Nitrogen 13 mg/dl Creatinine 0.39 mg/dl Hemoglobin A1c 6.7 % Potassium Level 3.4 mmol/L Sodium Level 137 mmol/L White Blood Count 15.64 K/uL HbA1c Test 01/31/17 00:32 Hemoglobin A1c 6.7 % (4.5-5.6) H Recent Pertinent Medications Outpatient Anti-diabetic Regimen: * Novolog pump * A1c = 6.7% on 01/31/17 Risk Factors for Insulin Resistance: * Infection:sepsis secondary to lung source; On Zosyn + Vancomycin IV * IVF:NS + KCl 20 mEq at 75 ml/hr * Diet:DM2/AHA Assessment & Plan ASSESSMENT: * ADA & AACE recommend a goal blood sugar range 140-180 mg/dl for the majority of critically ill & non-critically ill patients. However, more stringent targets may be selected in individual cases. * 76 yo female admitted for treatment of sepsis secondary to lung source. * Pt is known to the pharmacy glycemic service from past admission. Pt with hypoglycemia on admission and reports of this in the past. Novolog pump settings may need adjusted. Novolog pump now turned off and pt to transition to basal/bolus SQ regimen for inpatient stay. * A1c today indicates good control of BSGs as an outpatient, however, with reports of hypoglycemia BSGs may be overcorrected at times. * Will initiate a SQ basal/bolus regimen based mainly upon past admission data. PLAN FOR INPATIENT GLYCEMIC CONTROL: * Start Lantus 12 units [id number] * Give 6 units for BSG below 110 mg/dl * Novolog ACHS * Set correction factor to 30 mg/dl/unit * Set carb ratio to 1 unit per 10 grams CHO consumed * Set goal range to Low 120 mg/dL - High 160 mg/dL * Please note that the plan above was derived based on current level of insulin resistance and hospital stress. These recommendations are appropriate for inpatient admission only. Plan of care upon discharge will need to be reassessed to avoid potential outpatient hypo/hyperglycemia. Thank you.
[2017-01-31 15:18] VITALS: BP 161/74; PULSE 112; TEMP 36.9; O2SAT 96
[2017-01-31] MEDS: HYDROmorphone INJ 1 MG/ML SYR IV PRN (17:16)
--- NOTE | 2017-01-31 19:11 | Progress Note ---
Internal Med Progress Note Date of Service: Jan 31, 2017. Provider Documentation: patient com plains of severe pain in her right ankle and foot . Also has pain in her back. Any movement of her right leg causing pain to get worse. denies sob. Chest pain is better. Blood pressure somewhat elevated. Saturating fine on 2lts nasal canula. To continue iv abx for post obstructive pneumonia. pain management consult. All the imaging studies for pain are unremarkable. Vital Signs: Date Time Temp Pulse Resp B/P Pulse Ox O2 Delivery O2 Flow Rate FiO2 01/31/17 16:05 Room Air 01/31/17 15:18 36.9 112 18 161/74 96 Nasal Cannula 2.0 01/31/17 12:10 Room Air 01/31/17 08:10 Room Air 01/31/17 08:10 36.5 109 18 174/76 97 Nasal Cannula 2.0 01/31/17 04:54 36.7 112 18 165/75 97 Nasal Cannula 2.0 01/31/17 04:52 37.7 118 24 181/78 98 01/31/17 04:00 118 24 181/78 98 Nasal Cannula 2.0 01/31/17 03:30 118 22 174/82 97 Nasal Cannula 2.0 01/31/17 03:15 121 20 184/74 97 Nasal Cannula 2.0 01/31/17 03:06 97 Nasal Cannula 2.0 01/31/17 02:39 117 20 119/83 91 Room Air 01/31/17 01:58 120 24 207/86 94 Room Air 01/31/17 01:58 38.0 01/31/17 00:45 109 20 180/84 93 Room Air 01/30/17 23:31 36.9 114 20 192/84 95 Room Air Lab Results: Results Past 24 Hours Test 01/31/17 00:32 01/31/17 01:17 01/31/17 01:53 01/31/17 02:40 Range/Units White Blood Count 15.64 4.8-10.8 K/uL Red Blood Count 3.95 4.2-5.4 M/uL Hemoglobin 11.5 12.0-16.0 g/dL Hematocrit 33.3 37-47 % Mean Corpuscular Volume 84.3 80-100 fL Mean Corpuscular Hemoglobin 29.1 25-34 pg Mean Corpuscular Hemoglobin Concent 34.5 32-36 g/dl RDW Standard Deviation 46.8 36.4-46.3 fL RDW Coefficient of Variation 15.1 11.5-14.5 % Platelet Count 298 130-400 K/uL Mean Platelet Volume 9.2 7.4-10.4 fL Sodium Level 137 136-145 mmol/L Potassium Level 3.4 3.5-5.1 mmol/L Chloride Level 98 98-107 mmol/L Carbon Dioxide Level 30 21-32 mmol/L Anion Gap 9.0 3-11 mmol/L Blood Urea Nitrogen 13 7-18 mg/dl Creatinine 0.39 0.60-1.20 mg/dl Est Creatinine Clear Calc Drug Dose 131.3 ml/min Estimated GFR () 118.2 Estimated GFR (Non- 102.0 BUN/Creatinine Ratio 32.2 10-20 Random Glucose 76 70-99 mg/dl Estimated Average Glucose 146 mg/dl Hemoglobin A1c 6.7 4.5-5.6 % Calcium Level 8.5 8.5-10.1 mg/dl Magnesium Level 2.1 1.8-2.4 mg/dl Total Bilirubin 0.5 0.2-1 mg/dl Direct Bilirubin 0.3 0-0.2 mg/dl Aspartate Amino Transf (AST/SGOT) 133 15-37 U/L Alanine Aminotransferase (ALT/SGPT) 39 12-78 U/L Alkaline Phosphatase 248 45-117 U/L Total Creatine Kinase 122 26-192 U/L Troponin I 0.035 0-0.045 ng/ml Total Protein 6.5 6.4-8.2 gm/dl Albumin 1.8 3.4-5.0 gm/dl Lipase 130 73-393 U/L Thyroid Stimulating Hormone (TSH) 1.410 0.300-4.500 uIu/ml Prothrombin Time 12.7 9.0-12.0 SECONDS Prothromb Time International Ratio 1.2 0.9-1.1 Activated Partial Thromboplast Time 28.4 21.0-31.0 SECONDS Partial Thromboplastin Ratio 1.1 Bedside Lactic Acid Venous 0.92 0.90-1.70 mmol/L Bedside Glucose 56 70-90 mg/dl Test 01/31/17 02:55 01/31/17 03:24 01/31/17 04:21 01/31/17 06:55 Range/Units Urine Color YELLOW Urine Appearance CLEAR CLEAR Urine pH 7.5 4.5-7.5 Urine Specific [place] 1.034 1.000-1.030 Urine Protein NEG NEG Urine Glucose (UA) 1+ NEG Urine Ketones NEG NEG Urine Occult Blood NEG NEG Urine Nitrite NEG NEG Urine Bilirubin NEG NEG Urine Urobilinogen NEG NEG Urine Leukocyte Esterase NEG NEG Urine WBC (Auto) 0 0-5 /hpf Urine RBC (Auto) 0-4 0-4 /hpf Urine Hyaline Casts (Auto) 0 0-5 /lpf Urine Epithelial Cells (Auto) 10-20 0-5 /lpf Urine Bacteria (Auto) NEG NEG Bedside Glucose 109 152 152 70-90 mg/dl Test 01/31/17 11:34 01/31/17 16:17 Range/Units Bedside Glucose 183 127 70-90 mg/dl Microbiology Results 01/31/17 Blood Culture, Received Pending 01/31/17 Blood Culture, Received Pending
[2017-01-31 20:10] VITALS: BP 167/64; PULSE 110; TEMP 36.9; O2SAT 95
[2017-01-31] MEDS: AMLODIPINE BESYLATE 5 MG TAB PO SCH (20:15)
[2017-01-31] MEDS: HALOPERIDOL 1 MG TAB PO PRN (23:25)
[2017-02-01] VITALS (8 sets, daily range): BP systolic 147–217; BP diastolic 63–95; PULSE 99–117; TEMP 36.7–37.4; O2SAT 95–97; BMI 25.6
[2017-02-01] MEDS: PIPERACILL/TAZOBAC IV 3.375 GM in DEXTROSE 5% 100ML IV SCH ×3 (02:06→17:52)
[2017-02-01] MEDS: HYDROmorphone INJ 1 MG/ML SYR IV PRN ×4 (03:53→22:12)
[2017-02-01 06:43] LABS: BASO % 0.1 %; BASO ABS # 0.02 K/uL (0-0.2); COMPLETE YES; EOS % 0.2 %; HEMATOCRIT 33.3 % (37-47); IG% 4.1 %; LYMPH % 14.8 %; LYMPH ABS # 1.99 K/uL (1.2-3.4); MEAN CELL VOLUME 83.5 fL (80-100); MEAN CORPUSCULAR HEMOGLOBIN 28.1 pg (25-34); MEAN CORPUSCULAR HGB CONC 33.6 g/dl (32-36); MEAN PLATELET VOLUME 8.9 fL (7.4-10.4); MONO % 11.5 %; NEUT % 69.3 %; PLATELET COUNT 295 K/uL (130-400); RED BLOOD COUNT 3.99 M/uL (4.2-5.4); WHITE BLOOD COUNT 13.45 K/uL (4.8-10.8)
[2017-02-01 07:18] LABS: BUN/CREATININE RATIO 26.9 (10-20); CALCIUM 8.3 mg/dl (8.5-10.1); CREATININE 0.43 mg/dl (0.60-1.20); MAGNESIUM 2.1 mg/dl (1.8-2.4); POTASSIUM 3.5 mmol/L (3.5-5.1)
--- NOTE | 2017-02-01 07:58 | Pharmacy Progress Note ---
Glycemic: Assessment & Plan Date of Service Feb 01, 2017. Assessment & Plan BSGs ranging 127 - 171 mg/dl over the past 24hrs. FBG this morning was 140 mg/ dl indicating appropriate basal rate. Regimen appears basal heavy, however, po intake was poor yesterday. No changes to DM regimen warranted at this time. CONTINUE: * Basal insulin: Lantus 12 units every 12 hours; give 6 units for BSG below 110mg/dl * Correctional Insulin: Novolog Correction per scale ACHS Goal Range: Low 120 mg/dL - High 160 mg/dL Correction Factor: 30 mg/dL/unit * Prandial insulin: Per carb ratio of 1 unit per 10 grams CHO consumed BSGs continue to improve, no changes needed to inpatient regimen at this time. Pharmacy will continue to monitor patient daily and write orders per [facility] inpatient glycemic control protocol. Thanks. * Please note that the plan above was derived based on current level of insulin resistance and hospital stress. These recommendations are appropriate for inpatient admission only. Plan of care upon discharge will need to be reassessed to avoid potential outpatient hypo/hyperglycemia.
[2017-02-01] MEDS: DOCUSATE SODIUM 100 MG CAP PO SCH ×2 (08:36→20:11)
[2017-02-01] MEDS: ASPIRIN 81 MG ECTAB PO SCH (08:36)
[2017-02-01] MEDS: LISINOPRIL 20 MG TAB PO SCH (08:36)
[2017-02-01] MEDS: ENOXAPARIN 40 MG/0.4 ML SYR SC SCH (08:36)
[2017-02-01] MEDS: POLYETHYLENE (MIRALAX) 17 GM PACK PO SCH (08:36)
[2017-02-01] MEDS: INSULIN ASPART 100 UNITS/ML 3 ML PEN SC SCH ×4 (08:43→20:11)
[2017-02-01] MEDS: INSULIN GLARGINE SOLOSTAR 100 UNITS/ML 3 ML PEN SC SCH ×2 (08:44→20:15)
--- NOTE | 2017-02-01 18:51 | Progress Note ---
Internal Med Progress Note Date of Service: Feb 01, 2017. Provider Documentation: patient complains of severe pain in right foot says whenever she changes her position her pain is worse feels pain shooting from right hip region alert and oriented x 3 afebrile 'denies chest pain or sob Ge: General-alert and awake and oriented. Not in distress ENT-normal hearing Neck-no neck masses Lungs-cta b/l no wheezing or crackles Heart-s1 and s2 heard, regular rate and rhythm no murmurs Abdomen-soft bowel sounds present non tender no distension Extremities-no edema no erythema peripheral pulses intact Neuro-alert and awake moves extremities ASSESSMENT & PLAN: 1. Sepsis secondary to healthcare associated pneumonia likely postobstructive pneumonia. on iv zosyn improving cx no growth so far f/u mrsa nasal swab. 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 has out px followup for PET scan and biposy. Encephalopathy possible secondary to sedation and analgesia given in the Emergency Room.Mental status improved. Pain severe in her right foot and left upper extremity workup unrevealing so far possible mets on iv pain meds consulted pain management. Hypertension, elevated secondary to discomfort. on lisinopril and amlodipine will monitor. Chronic obstructive pulmonary disease, past tobacco use as per records. . DM2, insulin requiring, on insulin pump, well controlled as of recent outpx HgA1C holding insulin pump on Lantus and iss appreciate pharmacy consult will monitor. DVt px Lovenox. Disposition To be determined Vital Signs: Date Time Temp Pulse Resp B/P Pulse Ox O2 Delivery O2 Flow Rate FiO2 02/01/17 16:05 Nasal Cannula 3.0 02/01/17 15:13 37.4 100 18 147/66 96 Nasal Cannula 2.0 Humidified Oxygen 02/01/17 12:00 Nasal Cannula 3.0 02/01/17 11:21 36.8 99 17 157/69 96 Nasal Cannula 2.0 02/01/17 08:05 Nasal Cannula 3.0 02/01/17 07:35 36.8 102 17 159/63 97 Nasal Cannula 2.0 02/01/17 04:15 151/74 02/01/17 04:08 36.9 117 22 173/73 95 217/95 02/01/17 04:00 Nasal Cannula 2.0 Humidified Air 02/01/17 00:26 36.7 109 18 153/70 95 02/01/17 00:00 Nasal Cannula 2.0 Humidified Air 01/31/17 20:10 36.9 110 20 167/64 95 Nasal Cannula 2.0 01/31/17 20:00 Nasal Cannula 2.0 Humidified Air Lab Results: Results Past 24 Hours Test 01/31/17 20:11 02/01/17 06:33 02/01/17 06:34 02/01/17 11:04 Range/Units Bedside Glucose 171 140 166 70-90 mg/dl White Blood Count 13.45 4.8-10.8 K/uL Red Blood Count 3.99 4.2-5.4 M/uL Hemoglobin 11.2 12.0-16.0 g/dL Hematocrit 33.3 37-47 % Mean Corpuscular Volume 83.5 80-100 fL Mean Corpuscular Hemoglobin 28.1 25-34 pg Mean Corpuscular Hemoglobin Concent 33.6 32-36 g/dl Platelet Count 295 130-400 K/uL Mean Platelet Volume 8.9 7.4-10.4 fL Neutrophils (%) (Auto) 69.3 % Lymphocytes (%) (Auto) 14.8 % Monocytes (%) (Auto) 11.5 % Eosinophils (%) (Auto) 0.2 % Basophils (%) (Auto) 0.1 % Neutrophils # (Auto) 9.31 1.4-6.5 K/uL Lymphocytes # (Auto) 1.99 1.2-3.4 K/uL Monocytes # (Auto) 1.55 0.11-0.59 K/uL Eosinophils # (Auto) 0.03 0-0.5 K/uL Basophils # (Auto) 0.02 0-0.2 K/uL RDW Standard Deviation 45.3 36.4-46.3 fL RDW Coefficient of Variation 14.9 11.5-14.5 % Immature Granulocyte % (Auto) 4.1 % Immature Granulocyte # (Auto) 0.55 0.00-0.02 K/uL Sodium Level 136 136-145 mmol/L Potassium Level 3.5 3.5-5.1 mmol/L Chloride Level 99 98-107 mmol/L Carbon Dioxide Level 28 21-32 mmol/L Anion Gap 9.0 3-11 mmol/L Blood Urea Nitrogen 12 7-18 mg/dl Creatinine 0.43 0.60-1.20 mg/dl Est Creatinine Clear Calc Drug Dose 113.1 ml/min Estimated GFR () 114.5 Estimated GFR (Non- 98.8 BUN/Creatinine Ratio 26.9 10-20 Random Glucose 155 70-99 mg/dl Calcium Level 8.3 8.5-10.1 mg/dl Magnesium Level 2.1 1.8-2.4 mg/dl Test 02/01/17 16:17 Range/Units Bedside Glucose 175 70-90 mg/dl
[2017-02-01] MEDS: AMLODIPINE BESYLATE 5 MG TAB PO SCH (20:10)
[2017-02-02] VITALS (8 sets, daily range): BP systolic 138–162; BP diastolic 63–72; PULSE 88–99; TEMP 36.6–37.2; O2SAT 95–99
[2017-02-02] MEDS: PIPERACILL/TAZOBAC IV 3.375 GM in DEXTROSE 5% 100ML IV SCH ×3 (01:48→18:52)
[2017-02-02] MEDS: HYDROmorphone INJ 1 MG/ML SYR IV PRN ×3 (02:32→15:54)
[2017-02-02] MEDS ORDERED: GABAPENTIN 100 MG CAP PO ONE (03:00)
[2017-02-02] MEDS: INSULIN ASPART 100 UNITS/ML 3 ML PEN SC SCH ×4 (08:10→21:32)
[2017-02-02] MEDS: ASPIRIN 81 MG ECTAB PO SCH (08:11)
[2017-02-02] MEDS: LISINOPRIL 20 MG TAB PO SCH (08:11)
[2017-02-02] MEDS: DOCUSATE SODIUM 100 MG CAP PO SCH ×2 (08:11→21:30)
[2017-02-02] MEDS: POLYETHYLENE (MIRALAX) 17 GM PACK PO SCH (08:11)
[2017-02-02] MEDS: INSULIN GLARGINE SOLOSTAR 100 UNITS/ML 3 ML PEN SC SCH ×2 (08:12→21:33)
[2017-02-02] MEDS: ENOXAPARIN 40 MG/0.4 ML SYR SC SCH (08:12)
[2017-02-02] MEDS: LIDODERM (LIDOCAINE) PATCH 5% TD SCH (08:53)
[2017-02-02] MEDS: HALOPERIDOL 1 MG TAB PO PRN (08:55)
[2017-02-02] MEDS ORDERED: GABAPENTIN 100 MG CAP PO SCH (09:00)
--- NOTE | 2017-02-02 09:06 | Pharmacy Progress Note ---
Glycemic Control: Progress Nt Date of Service Feb 02, 2017. Scope Glycemic Pharmacist consulted by on 01/31/17 for glycemic control and to write orders per [facility] inpatient glycemic control protocol. Objective Accuchecks BSG (last 24hrs): Test 02/01/17 11:04 02/01/17 16:17 02/01/17 20:10 02/02/17 06:57 Bedside Glucose 166 mg/dl (70-90) 175 mg/dl (70-90) 173 mg/dl (70-90) 124 mg/dl (70-90) Test 02/02/17 08:35 Laboratory Data (last 24hrs) Test 02/02/17 08:35 HbA1c: Test 01/31/17 00:32 Hemoglobin A1c 6.7 % (4.5-5.6) H Recent Pertinent Medications Outpatient Anti-diabetic Regimen: * Novolog pump * A1c = 6.7% on 01/31/17 Risk Factors for Insulin Resistance: * Infection:sepsis secondary to lung source; On Zosyn + Vancomycin IV * Diet:DM2/AHA Assessment & Plan ASSESSMENT: * ADA & AACE recommend a goal blood sugar range 140-180 mg/dl for the majority of critically ill & non-critically ill patients. However, more stringent targets may be selected in individual cases. 01/31/17 * 76 yo female admitted for treatment of sepsis secondary to lung source. * Pt is known to the pharmacy glycemic service from past admission. Pt with hypoglycemia on admission and reports of this in the past. Novolog pump settings may need adjusted. Novolog pump now turned off and pt to transition to basal/bolus SQ regimen for inpatient stay. * A1c today indicates good control of BSGs as an outpatient, however, with reports of hypoglycemia BSGs may be overcorrected at times. * Will initiate a SQ basal/bolus regimen based mainly upon past admission data. 02/01/17 * BSGs ranging 127 - 171 mg/dl over the past 24hrs. FBG this morning was 140 mg /dl indicating appropriate basal rate. * Regimen appears basal heavy, however, po intake was poor yesterday. * No changes to DM regimen warranted at this time. 02/02/17 * BSGs remain well-controlled on current regimen. BSGs ranging 124 - 175 mg/dl during the past 24 hours. * Will adjust Lantus scale to a higher threshold for reduced dose as a buffer against hypoglycemia. See scale below. * Continue current Novolog parameters. PLAN FOR INPATIENT GLYCEMIC CONTROL: * Lantus 12 units [id number] * Give 6 units for BSG below 120 mg/dl * Novolog ACHS * Set correction factor to 30 mg/dl/unit * Set carb ratio to 1 unit per 10 grams CHO consumed * Set goal range to Low 120 mg/dL - High 160 mg/dL * Please note that the plan above was derived based on current level of insulin resistance and hospital stress. These recommendations are appropriate for inpatient admission only. Plan of care upon discharge will need to be reassessed to avoid potential outpatient hypo/hyperglycemia. Thank you.
[2017-02-02 09:09] LABS: BASO % 0.2 %; BASO ABS # 0.02 K/uL (0-0.2); COMPLETE YES; EOS % 0.5 %; HEMATOCRIT 32.8 % (37-47); IG% 4.9 %; LYMPH % 15.4 %; LYMPH ABS # 2.03 K/uL (1.2-3.4); MEAN CELL VOLUME 82.6 fL (80-100); MEAN CORPUSCULAR HEMOGLOBIN 28.2 pg (25-34); MEAN CORPUSCULAR HGB CONC 34.1 g/dl (32-36); MEAN PLATELET VOLUME 8.8 fL (7.4-10.4); MONO % 7.8 %; NEUT % 71.2 %; PLATELET COUNT 320 K/uL (130-400); RED BLOOD COUNT 3.97 M/uL (4.2-5.4); WHITE BLOOD COUNT 13.22 K/uL (4.8-10.8)
[2017-02-02 09:22] LABS: BUN/CREATININE RATIO 26.9 (10-20); CALCIUM 8.6 mg/dl (8.5-10.1); CREATININE 0.48 mg/dl (0.60-1.20); POTASSIUM 3.4 mmol/L (3.5-5.1)
[2017-02-02] MEDS ORDERED: POTASSIUM CHLORIDE 10 MEQ TABCR PO STA (09:38)
[2017-02-02] MEDS: CLONAZEPAM 0.5 MG TAB PO PRN (11:47)
--- NOTE | 2017-02-02 12:24 | Clinical Documentation Query ---
CLINICAL DOCUMENTATION QUERY Dr. BOWMAN, In your clinical opinion is this patient being managed for: ( x ) possible gram negative pneumonia ( ) Other explanation of clinical findings (Please Explain) ( ) Unable to determine (Please Define) ( ) Need to Discuss ( ) Not Agree The medical record reflects the following clinical findings, treatment, and risk factors. Clinical Indicators:76 yo female admitted for healthcare associated pneumonia. Reportedly with yellow sputum, WBC 15.64. Treatment: IV zosyn, IV vancomycin (in ER), O2 support, tele Risk Factors: recent hospitalization, suspected lung cancer Please clarify and document your clinical opinion in the progress notes and discharge summary. Terms such as "probable", "suspected", "likely", "questionable", "possible", or "still to be ruled out" are acceptable. IF IN AGREEMENT, YOU MUST DOCUMENT ABOVE DIAGNOSTIC STATEMENT IN DAILY PROGRESS NOTES AND DISCHARGE SUMMARY. This document is not part of the patient's record. Thank You, Winifred Shirley, RN [phone]
[2017-02-02] MEDS: GABAPENTIN 300 MG CAP PO SCH ×2 (13:09→21:30)
[2017-02-02] MEDS: HYDROmorphone HCL 2 MG TAB PO PRN ×2 (13:11→18:52)
--- NOTE | 2017-02-02 16:35 | CONSULTATION REPORT ---
PAIN MANAGEMENT CONSULTATION DATE OF CONSULTATION: 02/02/2017 [facility] INPATIENT CONSULTATION FOR PAIN MANAGEMENT EHR reviewed, patient interviewed and examined. HISTORY OF PRESENT ILLNESS: Ely Stewart is a 76-year-old patient who is readmitted because of pain control. She is a patient who has a history of experiencing pain in multiple sites, namely in left rib as well as the right lower extremity. She has had recurrent falls and had subsequently sustained rib fractures on the left side. Investigation demonstrated she has a pulmonary nodule in the right upper lobe which is presumed to be malignant. She had been followed by pulmonology. She was treated and discharged; however, she is readmitted due to pain as well as possible sepsis. This morning, she reports experiencing right lower extremity pain as her greatest complaint. She is unable to ambulate due to pain. She describes the pain that starts from the back into the right hip area radiating into the distal right leg. Symptoms are exacerbated with ambulation and weightbearing. She rates the pain as 8/10 when severe and 4/10 when minimal. She reports the pain to recur with activities of daily living. She reports her current analgesic regimen is only partly efficacious from pain. She also reports significant anxiety related to the pain and underlying diagnosis. PAST MEDICAL HISTORY: Significant for multiple comorbid conditions including COPD, hypertension, hyperlipidemia, type 2 diabetes with insulin pump as well as right upper lobe pulmonary mass. She also has a history of chronic anemia. PAST SURGICAL HISTORY: Pertinent for history of carpal tunnel, hip replacement, appendectomy, cholecystectomy, tonsillectomy, shoulder replacement. INPATIENT MEDICATIONS: Lists were reviewed. ALLERGIES: Lists were reviewed. PHYSICAL EXAMINATION: GENERAL: Demonstrates Ely Stewart to be appearing her stated age. She appears to be deconditioned. She appears to be anxious and appears agitated throughout the examination. BACK: Inspection of back demonstrates decreased lumbar lordosis. Palpation of midline produces minimal pain. Palpation of the distal lumbar spine produces pain where she withdraws. In sitting position, she demonstrates positive straight leg raising on the right side at 35 degrees worsening with heel stretch. She has intact sensation in the lower extremities. Motor strength demonstrates significant guarding in the right lower extremity compared to the left side. Gait was not tested. ASSESSMENT: 1. 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 2. Low back pain with new onset radicular symptoms, right lower extremity. 3. Anxiety. 4. Rib fractures, left side. TREATMENT AND RECOMMENDATIONS: 1. Recommend increasing gabapentin 300 mg p.o. t.i.d. for antineuropathic effect. 2. Recommend tramadol and initiation p.o. hydromorphone. Also, recommend: Klonopin for anxiety. 3. Recommend obtaining an MRI of the lumbar spine to evaluate for disk pathology or metastatic disease. Will continue to follow as an inpatient. CHANTALD
--- NOTE | 2017-02-02 18:46 | Progress Note ---
Internal Med Progress Note Date of Service: Feb 02, 2017. Provider Documentation: today sitting on the chair pain in her right foot is better but still has significant pain denies chest pain or sob eating fine afebrile Ge: General-alert and awake and oriented. Not in distress ENT-normal hearing Neck-no neck masses Lungs-cta b/l no wheezing or crackles Heart-s1 and s2 heard, regular rate and rhythm no murmurs Abdomen-soft bowel sounds present non tender no distension Extremities-no edema no erythema peripheral pulses intact Neuro-alert and awake moves extremities ASSESSMENT & PLAN: 1. Sepsis secondary to healthcare associated pneumonia likely postobstructive pneumonia. on iv zosyn#3 improving cx no growth so far negative mrsa nasal swab. improving will change to po abx soon Hx of R lung mass, probable malignancy with liver METs. has out px followup for PET scan and biposy. Encephalopathy possible secondary to sedation and analgesia given in the Emergency Room.Mental status improved. Pain severe in her right foot and left upper extremity workup unrevealing so far possible mets on iv pain meds consulted pain management and appreciate inputs will f/u mri lumbar spine. Hypertension, elevated secondary to discomfort. on lisinopril and amlodipine stable will monitor. Chronic obstructive pulmonary disease, past tobacco use as per records.stable . DM2, insulin requiring, on insulin pump, well controlled as of recent outpx HgA1C holding insulin pump on Lantus and iss appreciate pharmacy consult will monitor. DVt px Lovenox. Disposition Transfer to medical floor pt/ot social service for d/c planning Vital Signs: Date Time Temp Pulse Resp B/P Pulse Ox O2 Delivery O2 Flow Rate FiO2 02/02/17 14:46 36.7 91 18 139/72 95 2.0 02/02/17 12:00 Nasal Cannula 2.0 Humidified Oxygen 02/02/17 11:20 36.6 88 18 138/70 98 2.0 02/02/17 08:00 Nasal Cannula 2.0 Humidified Oxygen 02/02/17 07:33 37.2 96 18 162/70 97 2.0 02/02/17 04:30 97 Nasal Cannula 2.0 Humidified Oxygen 02/02/17 04:00 36.8 92 20 154/63 95 Nasal Cannula 2.0 02/02/17 00:00 97 Nasal Cannula 2.0 Humidified Oxygen 3/6/17 00:00 37.1 99 20 161/69 96 Nasal Cannula 2.0 02/01/17 20:00 97 Nasal Cannula 2.0 Humidified Oxygen 02/01/17 19:42 37.3 102 18 156/71 97 Nasal Cannula 2.0 Humidified Oxygen Lab Results: Results Past 24 Hours Test 02/01/17 20:10 02/02/17 06:57 02/02/17 08:35 02/02/17 11:13 Range/Units Bedside Glucose 173 124 184 70-90 mg/dl White Blood Count 13.22 4.8-10.8 K/uL Red Blood Count 3.97 4.2-5.4 M/uL Hemoglobin 11.2 12.0-16.0 g/dL Hematocrit 32.8 37-47 % Mean Corpuscular Volume 82.6 80-100 fL Mean Corpuscular Hemoglobin 28.2 25-34 pg Mean Corpuscular Hemoglobin Concent 34.1 32-36 g/dl Platelet Count 320 130-400 K/uL Mean Platelet Volume 8.8 7.4-10.4 fL Neutrophils (%) (Auto) 71.2 % Lymphocytes (%) (Auto) 15.4 % Monocytes (%) (Auto) 7.8 % Eosinophils (%) (Auto) 0.5 % Basophils (%) (Auto) 0.2 % Neutrophils # (Auto) 9.42 1.4-6.5 K/uL Lymphocytes # (Auto) 2.03 1.2-3.4 K/uL Monocytes # (Auto) 1.03 0.11-0.59 K/uL Eosinophils # (Auto) 0.07 0-0.5 K/uL Basophils # (Auto) 0.02 0-0.2 K/uL RDW Standard Deviation 45.2 36.4-46.3 fL RDW Coefficient of Variation 15.1 11.5-14.5 % Immature Granulocyte % (Auto) 4.9 % Immature Granulocyte # (Auto) 0.65 0.00-0.02 K/uL Sodium Level 136 136-145 mmol/L Potassium Level 3.4 3.5-5.1 mmol/L Chloride Level 99 98-107 mmol/L Carbon Dioxide Level 23 21-32 mmol/L Anion Gap 14.0 3-11 mmol/L Blood Urea Nitrogen 13 7-18 mg/dl Creatinine 0.48 0.60-1.20 mg/dl Est Creatinine Clear Calc Drug Dose 101.3 ml/min Estimated GFR () 110.4 Estimated GFR (Non- 95.3 BUN/Creatinine Ratio 26.9 10-20 Random Glucose 214 70-99 mg/dl Calcium Level 8.6 8.5-10.1 mg/dl Microbiology Results 02/02/17 MRSA DNA Surveillance Screen - Final, Complete Specimen Negative for MRSA by DNA Probe
[2017-02-02] MEDS ORDERED: GADAVIST IV PRN (21:30)
[2017-02-02] MEDS: AMLODIPINE BESYLATE 5 MG TAB PO SCH (21:30)
[2017-02-03] MEDS: PIPERACILL/TAZOBAC IV 3.375 GM in DEXTROSE 5% 100ML IV SCH ×2 (02:48→09:55)
[2017-02-03 07:00] VITALS: BP 167/72; PULSE 87; TEMP 36.6; O2SAT 96
[2017-02-03] MEDS: CLONAZEPAM 0.5 MG TAB PO PRN ×3 (07:19→22:24)
[2017-02-03] MEDS: HYDROmorphone HCL 2 MG TAB PO PRN ×3 (07:19→16:50)
[2017-02-03 07:53] LABS: CREATININE 0.47 mg/dl (0.60-1.20)
[2017-02-03 08:00] VITALS: O2SAT 96
[2017-02-03] MEDS: POLYETHYLENE (MIRALAX) 17 GM PACK PO SCH (08:25)
[2017-02-03] MEDS: ASPIRIN 81 MG ECTAB PO SCH (08:25)
[2017-02-03] MEDS: GABAPENTIN 300 MG CAP PO SCH ×3 (08:25→20:29)
[2017-02-03] MEDS: LISINOPRIL 20 MG TAB PO SCH (08:25)
[2017-02-03] MEDS: DOCUSATE SODIUM 100 MG CAP PO SCH ×2 (08:25→20:29)
[2017-02-03] MEDS: ENOXAPARIN 40 MG/0.4 ML SYR SC SCH (08:27)
[2017-02-03] MEDS: LIDODERM (LIDOCAINE) PATCH 5% TD SCH (08:27)
--- NOTE | 2017-02-03 08:31 | DIAGNOSTIC IMAGING REPORT ---
MRI LUMBAR SPINE COMBINATION CLINICAL HISTORY: Back pain with right leg radiculopathy. History of lung carcinoma. TECHNIQUE: Sagittal and axial T1, T2 and STIR images were obtained. Imaging was performed before and after the administration of 7 cc of intravenous Gadavist. COMPARISON STUDY: No previous studies for comparison. OBSERVATIONS: There is diffuse decreased signal within the vertebral body marrow. This indicates a hypercellular marrow. Diagnostic considerations include metastatic disease, lymphoma, anemia, or drug-induced marrow stimulation. Clinical correlation in this regard is advocated. L1-2: There is a mild circumferential disc bulge. There is no significant spinal or foraminal stenosis. L2-3: There is a mild circumferential disc bulge. There is no significant spinal stenosis. There is mild right-sided foraminal narrowing L3-4: There is a mild circumferential disc bulge. There is mild triangular spinal canal narrowing. There is minor bilateral foraminal narrowing L4-5: There is a mild circumferential disc bulge. There is no significant spinal stenosis. There is mild bilateral foraminal narrowing. L5-S1: There is a mild circumferential disc bulge. There is no significant spinal stenosis. There is mild bilateral foraminal narrowing. The conus medullaris and cauda equina appear normal. Postcontrast images reveal heterogeneous marrow enhancement. The study is mildly compromised due to motion artifact. Multiple hepatic masses are suspected. The findings are viewed as suspicious for metastatic disease IMPRESSION: 1. Multiple hepatic masses. 2. Diffuse decreased T1 signal within the vertebral body marrow. This indicates a marrow replacement process. Diagnostic considerations include metastatic disease, lymphoma, anemia, or a drug-induced marrow stimulation. 3. Multilevel spondylitic change. Mild multilevel spinal canal narrowing. Mild spinal stenosis at the L3-4 level. Electronically signed by: Kristopher Genao M.D. 02/03/2017 8:29 AM Dictated Date/Time: 02/03/2017 8:11 AM
[2017-02-03] MEDS: INSULIN GLARGINE SOLOSTAR 100 UNITS/ML 3 ML PEN SC SCH ×2 (08:33→20:34)
[2017-02-03] MEDS: INSULIN ASPART 100 UNITS/ML 3 ML PEN SC SCH ×4 (08:33→20:33)
--- NOTE | 2017-02-03 08:55 | Pain Management Progress Note ---
Pain Management Progress Note Date of Service Feb 03, 2017. Subjective Mrs. Stewart is a 76 year old white female that states that she has noticed a moderate improvement in leg pains as well as low back pain. Patient is utilizing Gabapentin 300mg TID and Dilaudid 4mg PO x 3 in the last 24 hours. Patient states that the legs do continue to be weakened but the pain has significantly decreased. She did undergo a lumbar MRI yesterday regarding lumbar radiculopathy complaints. Pain is currently 4/10. Patient denies any saddle anesthesia, bowel/bladder incontinence. Case discussed with Dr. Sanches Objective Vital Signs: Last Vital Signs Documentation Date Time Temp Pulse Resp B/P Pulse Ox O2 Delivery O2 Flow Rate FiO2 02/03/17 07:00 36.6 87 20 167/72 96 Nasal Cannula 2.0 Physical Exam: GENERAL: Mrs. Stewart is a 76 y/o white female that appears her stated age. Speech is slowed and she does repeat herself often. Sitting quietly in no acute distress. Does not appear to be in any acute distress. BACK: There is tenderness along the right distal thoracic region, right quadratus lumborum, and midline mid thoracic region. LOWER EXTREMITIES: There is 4/5 strength of the left leg globally. 3/5 right hip flexion and otherwise 4/5 global weakness of the right leg. Laboratory (Last CBC): 02/02/17 08:35 Red Blood Count 3.97 L, Mean Corpuscular Volume 82.6, Mean Corpuscular Hemoglobin 28.2, Mean Corpuscular Hemoglobin Concent 34.1, Mean Platelet Volume 8.8, Neutrophils (%) (Auto) 71.2, Lymphocytes (%) (Auto) 15.4, Monocytes (%) ( Auto) 7.8, Eosinophils (%) (Auto) 0.5, Basophils (%) (Auto) 0.2, Neutrophils # ( Auto) 9.42 H, Lymphocytes # (Auto) 2.03, Monocytes # (Auto) 1.03 H, Eosinophils # (Auto) 0.07, Basophils # (Auto) 0.02 Assessment 1. 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 2. Low back pain with new onset radicular symptoms 3. Anxiety. 4. Rib fractures, left side. 5. Mild confusion - may be due to narcotics Recommendations 1. Will plan to decrease Dilaudid strength from 4mg down to 2mg as the patient does seem mildly confused compared to yesterday. 2. Lumbar MRI read was not available at the time of visiting the patient. 3. Continue Gabapentin 300mg TID Dragon Voice Recognition This chart was completed in part utilizing [employer] Voice Recognition Software. Random word insertions, pronoun errors, and incomplete sentences are an occasional consequence of this system due to software limitations and ambient noise. Any questions or concerns about the content, text or information contained within the body of this dictation should be directly addressed to the provider for clarification.
--- NOTE | 2017-02-03 14:24 | Progress Note ---
Internal Med Progress Note Date of Service: Feb 03, 2017. Provider Documentation: SUBJECTIVE : Patient's pain is better controlled with medications. Difficulty ambulating due to pain, chest pain due to rib fractures/Low back pain Does have Cough, SOB at baseline, anorexia, weight loss x 20 lbs in 1-2 months No fever, chills, nausea, vomiting, headaches, abdominal pain, diarrhea OBJECTIVE : Vital Signs-as noted below Exam: General-AAOX3, no distress Lungs-AEBE decreased Rt> Left, no wheezing, rales, rhonchi Heart-S1, S2 normal. Murmur + Abdomen-soft bowel sounds present non tender no distension Extremities-no edema no erythema peripheral pulses intact Neuro-No focal deficits grossly Lab data as noted below. ASSESSMENT & PLAN: ASSESSMENT & PLAN : SEPSIS SECONDARY TO HEALTH CARE ASSOCIATED PNEUMONIA : Sepsis resolved. -Afebrile, WBC trending down -IV Zosyn Day # 4--> change to Levofloxacin 750 mg daily -Cxs- no growth , MRSA - Neg METASTATIC CANCER, UNKNOWN PRIMARY, LIKELY PULMONARY Patient was found to have right upper lobe mass during last admission which was found to be suspicious for cancer, PET scan scheduled for January 2017. Plan is to do right upper lobe mass biopsy after PET Scan -Lumbar MRI- Multiple hepatic masses, possible metastatic process most likely with her clinical history overall suspicious for metastasis. -Had a detailed discussion with patient as she said she had not yet heard the word "cancer" until today. Explained at length about the future plan which would be pain control --> SNF placement--> PET scan /Biopsy outpatient PAIN MANAGEMENT - Chest pain from rib fractures (left) /Low back pain/ LE pain -Likely related to probable metastasis -Lumbar MRI- Multiple hepatic masses, spondylosis, probable metastasis in spine -Pain mx- Decreased Dilaudid to 2 mg q 4 hours PRN, Lidoderm patch. Appreciate inputs TOXIC ENCEPHALOPATHY possible secondary to sedation and analgesia given in the Emergency Room. -Resolved -Back to baseline- AAOX3 HYPERTENSION, elevated secondary to discomfort. -on lisinopril and amlodipine -monitor. COPD, past tobacco use as per records -No signs of exacerbation -Stable DM2, insulin requiring, on insulin pump, -well controlled as of recent outpx HgA1C -Hold insulin pump -on Lantus and iss -appreciate pharmacy consult DVt px -Lovenox. DISPOSITION PT/OT- Not participated yet social service for d/c planning- will need placement as lives alone, unable to take care of herself, difficulty ambulating Vital Signs: Date Time Temp Pulse Resp B/P Pulse Ox O2 Delivery O2 Flow Rate FiO2 02/03/17 08:00 96 Nasal Cannula 2.0 02/03/17 07:00 36.6 87 20 167/72 96 Nasal Cannula 2.0 02/03/17 00:00 Nasal Cannula 2.0 02/02/17 23:05 37.2 89 18 159/70 99 Nasal Cannula 2.0 02/02/17 16:00 95 Nasal Cannula 2.0 02/02/17 14:46 36.7 91 18 139/72 95 2.0 Lab Results: Results Past 24 Hours Test 02/02/17 16:35 02/02/17 20:00 02/03/17 07:06 02/03/17 07:59 Range/Units Bedside Glucose 146 175 145 70-90 mg/dl Creatinine 0.47 0.60-1.20 mg/dl Est Creatinine Clear Calc Drug Dose 103.7 ml/min Estimated GFR () 111.2 Estimated GFR (Non- 95.9 Test 02/03/17 11:14 Range/Units Bedside Glucose 214 70-90 mg/dl
[2017-02-03 15:02] VITALS: BP 126/68; PULSE 89; TEMP 36.7; O2SAT 98
[2017-02-03 16:00] VITALS: O2SAT 96
[2017-02-03] MEDS: AMLODIPINE BESYLATE 5 MG TAB PO SCH (20:31)
[2017-02-04] MEDS: HYDROmorphone HCL 2 MG TAB PO PRN ×4 (00:03→18:18)
[2017-02-04 00:26] VITALS: BP 167/67; PULSE 96; TEMP 37; O2SAT 95
[2017-02-04] MEDS: HYDROmorphone INJ 1 MG/ML SYR IV PRN ×2 (03:26→23:55)
[2017-02-04 06:53] LABS: HEMATOCRIT 33.8 % (37-47); MEAN CELL VOLUME 84.7 fL (80-100); MEAN CORPUSCULAR HEMOGLOBIN 28.3 pg (25-34); MEAN CORPUSCULAR HGB CONC 33.4 g/dl (32-36); MEAN PLATELET VOLUME 9.5 fL (7.4-10.4); PLATELET COUNT 305 K/uL (130-400); RED BLOOD COUNT 3.99 M/uL (4.2-5.4); WHITE BLOOD COUNT 13.08 K/uL (4.8-10.8)
[2017-02-04 07:00] VITALS: BP 150/70; PULSE 89; TEMP 36.7; O2SAT 98
[2017-02-04 07:26] LABS: BUN/CREATININE RATIO 30.4 (10-20); CALCIUM 8.9 mg/dl (8.5-10.1); CREATININE 0.51 mg/dl (0.60-1.20); POTASSIUM 3.6 mmol/L (3.5-5.1)
[2017-02-04 07:33] LABS: BASO % 0.3 %; BASO ABS # 0.04 K/uL (0-0.2); COMPLETE YES; EOS % 0.7 %; IG% 7.2 %; LYMPH % 15.8 %; LYMPH ABS # 2.07 K/uL (1.2-3.4)
[2017-02-04] MEDS: DOCUSATE SODIUM 100 MG CAP PO SCH ×2 (07:45→20:37)
[2017-02-04] MEDS: ASPIRIN 81 MG ECTAB PO SCH (07:45)
[2017-02-04] MEDS: POLYETHYLENE (MIRALAX) 17 GM PACK PO SCH (07:46)
[2017-02-04] MEDS: GABAPENTIN 300 MG CAP PO SCH ×3 (07:46→20:37)
[2017-02-04] MEDS: LISINOPRIL 20 MG TAB PO SCH (07:46)
[2017-02-04] MEDS: LIDODERM (LIDOCAINE) PATCH 5% TD SCH (07:46)
[2017-02-04] MEDS: ENOXAPARIN 40 MG/0.4 ML SYR SC SCH (07:46)
[2017-02-04 08:00] VITALS: O2SAT 98
[2017-02-04] MEDS: INSULIN ASPART 100 UNITS/ML 3 ML PEN SC SCH ×5 (08:40→23:57)
[2017-02-04] MEDS: INSULIN GLARGINE SOLOSTAR 100 UNITS/ML 3 ML PEN SC SCH ×2 (08:41→20:36)
--- NOTE | 2017-02-04 09:30 | Pharmacy Progress Note ---
Glycemic Control: Progress Nt Date of Service Feb 04, 2017. Scope Glycemic Pharmacist consulted by Dr eVntura on 01/31/17 for glycemic control and to write orders per [facility] inpatient glycemic control protocol. Objective Accuchecks BSG (last 24hrs): Test 02/03/17 11:14 02/03/17 16:31 02/03/17 19:50 02/04/17 06:10 Bedside Glucose 214 mg/dl (70-90) 157 mg/dl (70-90) 205 mg/dl (70-90) Random Glucose 175 mg/dl (70-99) Test 02/04/17 07:35 Bedside Glucose 185 mg/dl (70-90) Laboratory Data (last 24hrs) Test 02/04/17 06:10 Anion Gap 11.0 mmol/L BUN/Creatinine Ratio 30.4 Blood Urea Nitrogen 16 mg/dl Creatinine 0.51 mg/dl Potassium Level 3.6 mmol/L Sodium Level 138 mmol/L White Blood Count 13.08 K/uL Red Blood Count 3.99 M/uL Hemoglobin 11.3 g/dL Hematocrit 33.8 % Mean Corpuscular Volume 84.7 fL Mean Corpuscular Hemoglobin 28.3 pg Mean Corpuscular Hemoglobin Concent 33.4 g/dl Platelet Count 305 K/uL Mean Platelet Volume 9.5 fL Neutrophils (%) (Auto) 68.0 % Lymphocytes (%) (Auto) 15.8 % Monocytes (%) (Auto) 8.0 % Eosinophils (%) (Auto) 0.7 % Basophils (%) (Auto) 0.3 % Neutrophils # (Auto) 8.90 K/uL Lymphocytes # (Auto) 2.07 K/uL Monocytes # (Auto) 1.04 K/uL Eosinophils # (Auto) 0.09 K/uL Basophils # (Auto) 0.04 K/uL HbA1c: Test 01/31/17 00:32 Hemoglobin A1c 6.7 % (4.5-5.6) H Recent Pertinent Medications Outpatient Anti-diabetic Regimen: * Novolog pump * A1c = 6.7% on 01/31/17 Risk Factors for Insulin Resistance: * Infection:sepsis secondary to HAP - changed to PO Levaquin * Diet:DM2/AHA Assessment & Plan ASSESSMENT: * ADA & AACE recommend a goal blood sugar range 140-180 mg/dl for the majority of critically ill & non-critically ill patients. However, more stringent targets may be selected in individual cases. 01/31/17 * 76 yo female admitted for treatment of sepsis secondary to lung source. * Pt is known to the pharmacy glycemic service from past admission. Pt with hypoglycemia on admission and reports of this in the past. Novolog pump settings may need adjusted. Novolog pump now turned off and pt to transition to basal/bolus SQ regimen for inpatient stay. * A1c today indicates good control of BSGs as an outpatient, however, with reports of hypoglycemia BSGs may be overcorrected at times. * Will initiate a SQ basal/bolus regimen based mainly upon past admission data. 02/01/17 * BSGs ranging 127 - 171 mg/dl over the past 24hrs. FBG this morning was 140 mg /dl indicating appropriate basal rate. * Regimen appears basal heavy, however, po intake was poor yesterday. * No changes to DM regimen warranted at this time. 02/02/17 * BSGs remain well-controlled on current regimen. BSGs ranging 124 - 175 mg/dl during the past 24 hours. * Will adjust Lantus scale to a higher threshold for reduced dose as a buffer against hypoglycemia. See scale below. * Continue current Novolog parameters. 02/04/17 * BSGs mostly well-controlled, a few above goal. BSGs ranging 145 - 214 mg/dl during the past 24 hours. * Will tighten CF and CR slightly, and goal range for A1c for better inpatient glycemic control. PLAN FOR INPATIENT GLYCEMIC CONTROL: * Continue Lantus 12 units [id number] * Give 6 units for BSG below 120 mg/dl * Novolog ACHS * Set correction factor to 25 mg/dl/unit * Set carb ratio to 1 unit per 9 grams CHO consumed * Set goal range to Low 100 mg/dL - High 140 mg/dL * Please note that the plan above was derived based on current level of insulin resistance and hospital stress. These recommendations are appropriate for inpatient admission only. Plan of care upon discharge will need to be reassessed to avoid potential outpatient hypo/hyperglycemia. Thank you.
[2017-02-04] MEDS: FENTANYL 12 MCG/HR TDSY TD SCH (09:38)
--- NOTE | 2017-02-04 13:19 | Progress Note ---
Internal Med Progress Note Date of Service: Feb 04, 2017. Provider Documentation: SUBJECTIVE : Patient's pain was uncontrolled and thus started on fentanyl patch today. Difficulty ambulating due to pain, chest pain due to rib fractures/Low back pain Does have Cough, SOB at baseline, anorexia, weight loss x 20 lbs in 1-2 months No fever, chills, nausea, vomiting, headaches, abdominal pain, diarrhea OBJECTIVE : Vital Signs-as noted below Exam: General-AAOX3, no distress Lungs-AEBE decreased Rt> Left, no wheezing, rales, rhonchi Heart-S1, S2 normal. Murmur + Abdomen-soft bowel sounds present non tender no distension Extremities-no edema no erythema peripheral pulses intact Neuro-Bilateral lower extremity weakness- 3/5 strength , limited due to pain, cranial nerves intact, no decreased sensation Lab data as noted below. ASSESSMENT & PLAN: ASSESSMENT & PLAN : SEPSIS SECONDARY TO HEALTH CARE ASSOCIATED PNEUMONIA : Sepsis resolved. -Afebrile, WBC trending down -IV Zosyn Day # 4 --> changed to Levofloxacin 750 mg daily on 02/03/17 (Day 6/7 of antibiotics) -Cxs- No growth , MRSA - Neg PAIN MANAGEMENT - Low back pain/ Chest pain from rib fractures (left) /LE pain -Back pain likely related to probable metastasis, Spinal stenosis L3-L4, Spondylosis. -Lumbar MRI- Multiple hepatic masses, spondylosis, probable metastasis in spine , spinal stenosis L3-L4 -Pain mx- Added fentanyl patch 12 mcq q 72 hours per pain mx, PO Dilaudid to 2 mg q 4 hours PRN, IV dilaudid prn, Lidoderm patch. Appreciate inputs -Will start her on decadron to help with inflammation - 4 mg IV Q 12 hours -Discussed with Dr Holliday, Pain mx METASTATIC CANCER, UNKNOWN PRIMARY, LIKELY PULMONARY Patient was found to have right upper lobe mass during last admission which was found to be suspicious for cancer, PET scan scheduled for January 2017. Plan is to do right upper lobe mass biopsy after PET Scan -Lumbar MRI- Multiple hepatic masses, possible metastatic process most likely with her clinical history overall suspicious for metastasis. -Had a detailed discussion with patient as she said she had not yet heard the word "cancer" until today. Explained at length about the future plan which would be pain control --> SNF placement--> PET scan /Biopsy outpatient TOXIC ENCEPHALOPATHY possible secondary to sedation and analgesia given in the Emergency Room. -Resolved -Back to baseline- AAOX3 HYPERTENSION- -on lisinopril and amlodipine -monitor. COPD, past tobacco use as per records -No signs of exacerbation -Stable DM2, insulin requiring, on insulin pump, -well controlled as of recent outpx HgA1C -Hold insulin pump -on Lantus and iss-- monitor while on steroids -appreciate pharmacy consult DVt px -Lovenox. DISPOSITION PT/OT- Difficulty participating in therapy due to pain social service for d/c planning- will need placement as lives alone, unable to take care of herself, difficulty ambulating Vital Signs: Date Time Temp Pulse Resp B/P Pulse Ox O2 Delivery O2 Flow Rate FiO2 02/04/17 08:00 98 Nasal Cannula 1.0 02/04/17 07:00 36.7 89 20 150/70 98 Nasal Cannula 2.0 02/04/17 00:26 37.0 96 20 167/67 95 2.0 02/04/17 00:00 Nasal Cannula 1.0 02/03/17 16:00 96 Nasal Cannula 2.0 02/03/17 15:02 36.7 89 20 126/68 98 Nasal Cannula 2.0 Lab Results: Results Past 24 Hours Test 02/03/17 16:31 02/03/17 19:50 02/04/17 06:10 02/04/17 07:35 Range/Units Bedside Glucose 157 205 185 70-90 mg/dl White Blood Count 13.08 4.8-10.8 K/uL Red Blood Count 3.99 4.2-5.4 M/uL Hemoglobin 11.3 12.0-16.0 g/dL Hematocrit 33.8 37-47 % Mean Corpuscular Volume 84.7 80-100 fL Mean Corpuscular Hemoglobin 28.3 25-34 pg Mean Corpuscular Hemoglobin Concent 33.4 32-36 g/dl Platelet Count 305 130-400 K/uL Mean Platelet Volume 9.5 7.4-10.4 fL Neutrophils (%) (Auto) 68.0 % Lymphocytes (%) (Auto) 15.8 % Monocytes (%) (Auto) 8.0 % Eosinophils (%) (Auto) 0.7 % Basophils (%) (Auto) 0.3 % Neutrophils # (Auto) 8.90 1.4-6.5 K/uL Lymphocytes # (Auto) 2.07 1.2-3.4 K/uL Monocytes # (Auto) 1.04 0.11-0.59 K/uL Eosinophils # (Auto) 0.09 0-0.5 K/uL Basophils # (Auto) 0.04 0-0.2 K/uL RDW Standard Deviation 47.6 36.4-46.3 fL RDW Coefficient of Variation 15.3 11.5-14.5 % Immature Granulocyte % (Auto) 7.2 % Immature Granulocyte # (Auto) 0.94 0.00-0.02 K/uL Sodium Level 138 136-145 mmol/L Potassium Level 3.6 3.5-5.1 mmol/L Chloride Level 102 98-107 mmol/L Carbon Dioxide Level 25 21-32 mmol/L Anion Gap 11.0 3-11 mmol/L Blood Urea Nitrogen 16 7-18 mg/dl Creatinine 0.51 0.60-1.20 mg/dl Est Creatinine Clear Calc Drug Dose 95.4 ml/min Estimated GFR () 108.3 Estimated GFR (Non- 93.4 BUN/Creatinine Ratio 30.4 10-20 Random Glucose 175 70-99 mg/dl Calcium Level 8.9 8.5-10.1 mg/dl Test 02/04/17 11:36 Range/Units Bedside Glucose 179 70-90 mg/dl
[2017-02-04] MEDS ORDERED: DEXAMETHASONE INJ 4 MG in SYRINGE 0 ML IV ONE (13:45)
[2017-02-04 15:04] VITALS: BP 161/69; PULSE 93; TEMP 36.8; O2SAT 93
--- NOTE | 2017-02-04 15:28 | Pain Management Progress Note ---
Pain Management Progress Note Date of Service Feb 04, 2017. Subjective Ely Stewart reports improved analgesia with oral and IV Hydromorphone. Able to sleep last night. Reports no side effects from hydromorphone. Pain occurs with movement, but pain free at rest. Objective Vital Signs: Last Vital Signs Documentation Date Time Temp Pulse Resp B/P Pulse Ox O2 Delivery O2 Flow Rate FiO2 02/04/17 07:00 36.7 89 20 150/70 98 Nasal Cannula 2.0 Physical Exam: Awake and alert. Able to deep breath and cough. Sitting comfortably in chair. SLR positive on right . Imaging: MRI of Lumbar Spine IMPRESSION: 1. Multiple hepatic masses. 2. Diffuse decreased T1 signal within the vertebral body marrow. This indicates a marrow replacement process. Diagnostic considerations include metastatic disease, lymphoma, anemia, or a drug-induced marrow stimulation. 3. Multilevel spondylitic change. Mild multilevel spinal canal narrowing. Mild spinal stenosis at the L3-4 level. Electronically signed by: Kristopher Genao M.D. 02/03/2017 8:29 AM Dictated Date/Time: 02/03/2017 8:11 AM Laboratory (Last CBC): 02/04/17 06:10 Red Blood Count 3.99 L, Mean Corpuscular Volume 84.7, Mean Corpuscular Hemoglobin 28.3, Mean Corpuscular Hemoglobin Concent 33.4, Mean Platelet Volume 9.5, Neutrophils (%) (Auto) 68.0, Lymphocytes (%) (Auto) 15.8, Monocytes (%) ( Auto) 8.0, Eosinophils (%) (Auto) 0.7, Basophils (%) (Auto) 0.3, Neutrophils # ( Auto) 8.90 H, Lymphocytes # (Auto) 2.07, Monocytes # (Auto) 1.04 H, Eosinophils # (Auto) 0.09, Basophils # (Auto) 0.04 Assessment 1. Metastatic malignancy. 2. Low back pain with new onset radicular symptoms. Lumbar spinal stenosis 3. Anxiety. 4. Rib fractures, left side. Recommendations 1. Transdermal fentanyl 12mcg q 24 hr. 2. Consider oral or IV steroids. Will defer to the Hospitalist since the Patient has history of diabetes. 3. Consider Consult for Radiation therapy. [employer] Voice Recognition This chart was completed in part utilizing [employer] Voice Recognition Software. Random word insertions, pronoun errors, and incomplete sentences are an occasional consequence of this system due to software limitations and ambient noise. Any questions or concerns about the content, text or information contained within the body of this dictation should be directly addressed to the provider for clarification.
[2017-02-04] MEDS: LEVOFLOXACIN 750 MG TAB PO SCH (15:33)
[2017-02-04] MEDS: CHECK FENTANYL PATCH PLACEMENT SCH ×2 (15:33→23:58)
[2017-02-04 16:00] VITALS: O2SAT 93
[2017-02-04] MEDS: DEXAMETHASONE INJ 4 MG in SYRINGE 0 ML IV SCH (20:37)
[2017-02-04] MEDS: AMLODIPINE BESYLATE 5 MG TAB PO SCH (20:38)
[2017-02-05 00:30] VITALS: BP 174/72; PULSE 80; TEMP 36.7; O2SAT 98
[2017-02-05] MEDS: HYDROmorphone INJ 1 MG/ML SYR IV PRN ×4 (04:02→23:57)
[2017-02-05] MEDS: INSULIN ASPART 100 UNITS/ML 3 ML PEN SC SCH ×5 (04:04→21:37)
[2017-02-05 07:06] VITALS: BP 169/81; PULSE 92; TEMP 36.5; O2SAT 93
[2017-02-05 08:00] VITALS: O2SAT 93
[2017-02-05] MEDS: LIDODERM (LIDOCAINE) PATCH 5% TD SCH (08:21)
[2017-02-05] MEDS: ENOXAPARIN 40 MG/0.4 ML SYR SC SCH (08:21)
[2017-02-05] MEDS: LISINOPRIL 20 MG TAB PO SCH (08:21)
[2017-02-05] MEDS: GABAPENTIN 300 MG CAP PO SCH ×3 (08:21→21:21)
[2017-02-05] MEDS: ASPIRIN 81 MG ECTAB PO SCH (08:22)
[2017-02-05] MEDS: DEXAMETHASONE INJ 4 MG in SYRINGE 0 ML IV SCH ×2 (08:22→21:21)
[2017-02-05] MEDS: DOCUSATE SODIUM 100 MG CAP PO SCH ×2 (08:22→21:24)
[2017-02-05] MEDS: POLYETHYLENE (MIRALAX) 17 GM PACK PO SCH (08:22)
[2017-02-05] MEDS: CHECK FENTANYL PATCH PLACEMENT SCH ×3 (08:25→23:49)
[2017-02-05] MEDS: INSULIN GLARGINE SOLOSTAR 100 UNITS/ML 3 ML PEN SC SCH ×2 (08:31→21:37)
--- NOTE | 2017-02-05 09:33 | Pain Management Progress Note ---
Pain Management Progress Note Date of Service Feb 05, 2017. Subjective Reports improved analgesia this morning. Still experiences mild low back and left sided anterior chest pain. Experiencing no side effects to transdermal fentanyl. Has been able to stand up without pain. Objective Vital Signs: Last Vital Signs Documentation Date Time Temp Pulse Resp B/P Pulse Ox O2 Delivery O2 Flow Rate FiO2 02/05/17 07:06 36.5 92 20 169/81 93 Room Air 02/04/17 08:00 1.0 Physical Exam: A/O. negative SLR. Tender left anterio-lateral chest. Laboratory (Last CBC): 02/04/17 06:10 Red Blood Count 3.99 L, Mean Corpuscular Volume 84.7, Mean Corpuscular Hemoglobin 28.3, Mean Corpuscular Hemoglobin Concent 33.4, Mean Platelet Volume 9.5, Neutrophils (%) (Auto) 68.0, Lymphocytes (%) (Auto) 15.8, Monocytes (%) ( Auto) 8.0, Eosinophils (%) (Auto) 0.7, Basophils (%) (Auto) 0.3, Neutrophils # ( Auto) 8.90 H, Lymphocytes # (Auto) 2.07, Monocytes # (Auto) 1.04 H, Eosinophils # (Auto) 0.09, Basophils # (Auto) 0.04 Assessment 1. 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 2. Rib fractures. Recommendations 1. Metastatic malignancy. 2. Lumbar spinal stenosis. Dragon Voice Recognition This chart was completed in part utilizing [employer] Voice Recognition Software. Random word insertions, pronoun errors, and incomplete sentences are an occasional consequence of this system due to software limitations and ambient noise. Any questions or concerns about the content, text or information contained within the body of this dictation should be directly addressed to the provider for clarification.
[2017-02-05 09:59] VITALS: BP 149/73; PULSE 92; TEMP 36.6; O2SAT 96
[2017-02-05] MEDS: HYDROmorphone HCL 2 MG TAB PO PRN (10:53)
[2017-02-05] MEDS: LEVOFLOXACIN 750 MG TAB PO SCH (11:09)
--- NOTE | 2017-02-05 11:41 | Progress Note ---
Internal Med Progress Note Date of Service: Feb 05, 2017. Provider Documentation: SUBJECTIVE : Patient's pain is better controlled after starting steroids/fentanyl patch. C/o right inguinal pain OOB to chair today which is a progress Does have Cough, SOB at baseline, anorexia, weight loss x 20 lbs in 1-2 months No fever, chills, nausea, vomiting, headaches, abdominal pain, diarrhea OBJECTIVE : Vital Signs-as noted below Exam: General-AAOX3, no distress Lungs-AEBE decreased Rt> Left, no wheezing, rales, rhonchi Heart-S1, S2 normal. Murmur + Abdomen-soft bowel sounds present non tender no distension Extremities-no edema no erythema peripheral pulses intact Neuro-Bilateral lower extremity weakness- 3/5 strength , limited due to pain, cranial nerves intact, no decreased sensation Lab data as noted below. ASSESSMENT & PLAN: ASSESSMENT & PLAN : SEPSIS SECONDARY TO HEALTH CARE ASSOCIATED PNEUMONIA : Sepsis resolved. -Afebrile, WBC trending down -S/P IV Zosyn Day # 4 --> changed to Levofloxacin 750 mg daily on 02/03/17 (Day 06/05 of antibiotics) Last day today -Cxs- No growth , MRSA - Neg PAIN MANAGEMENT - Low back pain/ Chest pain from rib fractures (left) /LE pain -Back pain likely related to metastasis, Spinal stenosis L3-L4, Spondylosis. -Lumbar MRI- Multiple hepatic masses, spondylosis, probable metastasis in spine , spinal stenosis L3-L4 -Pain mx- Added fentanyl patch 12 mcq q 72 hours per pain mx on 02/04/17; PO Dilaudid to 2 mg q 4 hours PRN, IV dilaudid prn, Lidoderm patch. Appreciate inputs -Started her on decadron to help with inflammation - 4 mg IV Q 12 hours on -Discussed with Dr Holliday, Pain mx METASTATIC CANCER, UNKNOWN PRIMARY, LIKELY PULMONARY Patient was found to have right upper lobe mass during last admission which was found to be suspicious for cancer, PET scan scheduled for January 2017. Plan is to do right upper lobe mass biopsy after PET Scan -Lumbar MRI- Multiple hepatic masses, possible metastatic process most likely with her clinical history overall suspicious for metastasis. -Had a detailed discussion with patient as she said she had not yet heard the word "cancer" until today. Explained at length about the future plan which would be pain control --> SNF placement--> PET scan /Biopsy outpatient TOXIC ENCEPHALOPATHY possible secondary to sedation and analgesia given in the Emergency Room. -Resolved -Back to baseline- AAOX3 HYPERTENSION- -on lisinopril and amlodipine -monitor. COPD, past tobacco use as per records -No signs of exacerbation -Stable DM2, insulin requiring, on insulin pump, -well controlled as of recent outpx HgA1C -Hold insulin pump -on Lantus and iss-- monitor while on steroids -appreciate pharmacy consult DVt px -Lovenox SQ DISPOSITION PT/OT- Difficulty participating in therapy due to pain- motivated to do so today as pain is better controlled social service for d/c planning- will need placement as lives alone, unable to take care of herself, difficulty ambulating Likely discharge in AM Vital Signs: Date Time Temp Pulse Resp B/P Pulse Ox O2 Delivery O2 Flow Rate FiO2 02/05/17 09:59 36.6 92 20 149/73 96 Room Air 02/05/17 08:00 93 Room Air 02/05/17 07:06 36.5 92 20 169/81 93 Room Air 02/05/17 00:30 36.7 80 20 174/72 98 Room Air 02/05/17 00:00 Room Air 02/04/17 16:00 93 Room Air 02/04/17 15:04 36.8 93 20 161/69 93 Room Air Lab Results: Results Past 24 Hours Test 02/04/17 16:01 02/04/17 20:21 02/04/17 23:50 02/05/17 04:02 Range/Units Bedside Glucose 173 260 174 165 70-90 mg/dl Test 02/05/17 07:09 02/05/17 11:16 Range/Units Bedside Glucose 148 334 70-90 mg/dl
[2017-02-05 14:59] VITALS: BP 152/64; PULSE 94; TEMP 36.7; O2SAT 94
[2017-02-05 15:48] VITALS: Ht 167.6 cm; Wt 65.4 kg
[2017-02-05 21:22] VITALS: BP 150/70; PULSE 94
[2017-02-05] MEDS: AMLODIPINE BESYLATE 5 MG TAB PO SCH (21:38)
[2017-02-06] MEDS: INSULIN ASPART 100 UNITS/ML 3 ML PEN SC SCH ×6 (00:08→20:08)
[2017-02-06 00:11] VITALS: BP 157/72; PULSE 97; TEMP 36.9; O2SAT 92
[2017-02-06] MEDS: HYDROmorphone INJ 1 MG/ML SYR IV PRN ×4 (03:10→18:03)
[2017-02-06] MEDS: CLONAZEPAM 0.5 MG TAB PO PRN ×2 (03:11→15:54)
[2017-02-06] MEDS: HYDROmorphone HCL 2 MG TAB PO PRN ×4 (05:23→20:21)
[2017-02-06 07:39] LABS: HEMATOCRIT 33.7 % (37-47); MEAN CELL VOLUME 85.1 fL (80-100); MEAN CORPUSCULAR HEMOGLOBIN 28.3 pg (25-34); MEAN CORPUSCULAR HGB CONC 33.2 g/dl (32-36); MEAN PLATELET VOLUME 9.7 fL (7.4-10.4); PLATELET COUNT 318 K/uL (130-400); RED BLOOD COUNT 3.96 M/uL (4.2-5.4); WHITE BLOOD COUNT 16.96 K/uL (4.8-10.8)
[2017-02-06 08:05] VITALS: BP_SYST 153; PULSE 98; TEMP 37.1; O2SAT 93
[2017-02-06 08:06] LABS: BUN/CREATININE RATIO 27.9 (10-20); CALCIUM 8.5 mg/dl (8.5-10.1); CREATININE 0.54 mg/dl (0.60-1.20); POTASSIUM 3.9 mmol/L (3.5-5.1)
[2017-02-06] MEDS: ASPIRIN 81 MG ECTAB PO SCH (08:28)
[2017-02-06] MEDS: DOCUSATE SODIUM 100 MG CAP PO SCH ×2 (08:28→20:07)
[2017-02-06] MEDS: GABAPENTIN 300 MG CAP PO SCH ×3 (08:28→20:08)
[2017-02-06] MEDS: DEXAMETHASONE INJ 4 MG in SYRINGE 0 ML IV SCH ×2 (08:29→20:07)
[2017-02-06] MEDS: POLYETHYLENE (MIRALAX) 17 GM PACK PO SCH (08:29)
[2017-02-06] MEDS: LISINOPRIL 20 MG TAB PO SCH (08:29)
[2017-02-06] MEDS: ENOXAPARIN 40 MG/0.4 ML SYR SC SCH (08:30)
[2017-02-06] MEDS: CHECK FENTANYL PATCH PLACEMENT SCH ×3 (08:30→23:41)
[2017-02-06] MEDS: INSULIN GLARGINE SOLOSTAR 100 UNITS/ML 3 ML PEN SC SCH ×2 (08:32→20:13)
[2017-02-06] MEDS: LEVOFLOXACIN 750 MG TAB PO SCH (11:24)
--- NOTE | 2017-02-06 11:26 | Pain Management Progress Note ---
Pain Management Progress Note Date of Service Feb 06, 2017. Subjective Ely reports increased back pain and leg weakness today. She reports her symptoms are more intense today and they were yesterday. Yesterday, she was able to get out of bed and participate in physical therapy but subsequently experienced increased low back pain as well as bilateral shoulder pain and noticeable weakness in her legs. She denies any saddle anesthesia, bowel bladder incontinence or any new sensory changes in the lower extremity. She has been evaluated by radiation oncology and reports that she is going to undergo radiation therapy. She denies any side effects from her opioids and gabapentin. She reports good efficacy from the hydromorphone and minimal pain when she is immobile. Majority of her pain is more nociceptive associated with movement. Objective Vital Signs: Last Vital Signs Documentation Date Time Temp Pulse Resp B/P Pulse Ox O2 Delivery O2 Flow Rate FiO2 02/06/17 08:05 37.1 98 20 153/ 93 Room Air 02/04/17 08:00 1.0 Physical Exam: Ely is easily arousable. She is comfortable semirecumbent position. Any attempt to sit up or multiple causes her to wince. In supine position, she has decrease in motor strength symmetrically lower extremities rated 4/5 in all large muscle groups. In part, she experiencing moderate to significant pain with motor testing. She has symmetrical sensation extremities. Deep tendon reflexes are diminished but symmetrical bilaterally. No pathologic reflexes are appreciable. Laboratory (Last CBC): 02/06/17 07:05 Assessment 1. Metastatic CA, primary presents the pulmonary origin. 2. Lumbar spinal stenosis with radicular pain. Worsening symptoms in the last 24 hours. Recommendations 1. Continue current analgesics and neuropathic medications and steroids. 2. Recommending plain x-rays of the lumbar spine to rule out vertebral fractures. [employer] Voice Recognition This chart was completed in part utilizing [employer] Voice Recognition Software. Random word insertions, pronoun errors, and incomplete sentences are an occasional consequence of this system due to software limitations and ambient noise. Any questions or concerns about the content, text or information contained within the body of this dictation should be directly addressed to the provider for clarification.
--- NOTE | 2017-02-06 12:22 | Pharmacy Progress Note ---
Glycemic Control: Progress Nt Date of Service Feb 06, 2017. Scope Glycemic Pharmacist consulted by Dr Quinteros on 01/31/17 for glycemic control and to write orders per [facility] inpatient glycemic control protocol. Objective Accuchecks BSG (last 24hrs): Test 02/05/17 16:46 02/05/17 20:34 02/06/17 00:03 02/06/17 05:12 Bedside Glucose 147 mg/dl (70-90) 137 mg/dl (70-90) 159 mg/dl (70-90) 186 mg/dl (70-90) Test 02/06/17 07:05 02/06/17 07:58 02/06/17 11:26 Random Glucose 164 mg/dl (70-99) Bedside Glucose 139 mg/dl (70-90) 190 mg/dl (70-90) Laboratory Data (last 24hrs) Test 02/06/17 07:05 Anion Gap 9.0 mmol/L BUN/Creatinine Ratio 27.9 Blood Urea Nitrogen 15 mg/dl Creatinine 0.54 mg/dl Potassium Level 3.9 mmol/L Sodium Level 138 mmol/L White Blood Count 16.96 K/uL HbA1c: Test 01/31/17 00:32 Hemoglobin A1c 6.7 % (4.5-5.6) H Recent Pertinent Medications Outpatient Anti-diabetic Regimen: * Novolog pump * A1c = 6.7% on 01/31/17 Risk Factors for Insulin Resistance: * Infection: Sepsis secondary to HAP - changed to PO Levaquin * Steroids: Dexamethasone 4 mg IV Q12 initiated 02/04/17 * Diet:DM2/AHA Assessment & Plan ASSESSMENT: 02/06/17 * 76 yo female admitted for treatment of sepsis secondary to lung source- currently on Levaquin PO * Pt is known to the pharmacy glycemic service from past admissions. Pt with hypoglycemia on admission and reports of this in the past. Novolog pump settings may need adjusted. Novolog pump now turned off and pt transitioned to basal/bolus SQ regimen successfully. * Fasting BSG 139 mg/dL this AM * Basal insulin has been unchanged since admission * She has had 0000 and 0400 checks X 2 days in which she has received additional units of insulin overnight * Increase basal by 20% and cut additional checks overnight * When dexamethasone was initiated, we tightened Novolog and this change continues to be appropriate based on prandial BSGs * ADA & AACE recommend a goal blood sugar range 140-180 mg/dl for the majority of critically ill & non-critically ill patients. However, more stringent targets may be selected in individual cases. PLAN FOR INPATIENT GLYCEMIC CONTROL: * Increase basal insulin with LANTUS 14 units SQ BID, half dose for BSG <120 mg/ dL * Correctional Insulin with NOVOLOG per scale ACHS or Q6hrs while NPO * Goal Range: Low 100 mg/dL - High 140 mg/dL * Correction Factor: 18 mg/dL/unit * Nutritional / Prandial insulin per carb ratio of 1 unit per 6 grams CHO consumed * Please note that the plan above was derived based on current level of insulin resistance and hospital stress. These recommendations are appropriate for inpatient admission only. Plan of care upon discharge will need to be reassessed to avoid potential outpatient hypo/hyperglycemia. Thank you.
--- NOTE | 2017-02-06 13:44 | DIAGNOSTIC IMAGING REPORT ---
ABDOMEN AND PELVIS CT WITH IV AND ORAL CONTRAST CT DOSE: 810.98 mGycm HISTORY: Metastatic disease with unknown primary TECHNIQUE: Multiaxial CT images of the abdomen and pelvis were performed following the use of intravenous and oral contrast. COMPARISON STUDY: 01/31/2017 FINDINGS: Progressive bilateral pleural effusions. Progressive lower lobe atelectatic change. Liver shows no well-defined foci of metastatic deposits throughout the right as well as left hepatic lobes. Minimal hyperplastic change of the adrenals. Kidneys negative for hydronephrosis. Bowel pattern is nonobstructive. Bladder is midline. Bony mineralization medial aspects of the iliac wings as well as the low lumbar spine is slightly heterogeneous. Degenerative change versus early metastatic change must be considered. IMPRESSION: 1. Progressive metastatic change of the liver. 2. Progressive bibasilar pleural effusions and lower lobe atelectatic change. 3. Stable indeterminate retroperitoneal nodes. 4. Gallstone the region of the gallbladder neck 5. Possible early bony metastatic change Electronically signed by: Sushant Starkey M.D. 02/06/2017 1:42 PM Dictated Date/Time: 02/06/2017 1:15 PM
--- NOTE | 2017-02-06 15:49 | Radiation Oncology Consult ---
Radiation Oncology Consult Date / Reason Feb 06, 2017. Physicians Radiation Oncologist: Dr. Roland Lopez Other Providers: Dr. Lopez - Hospitalist Dr. Barton - Pulmonary Dr. Ruiz - Pain Management Diagnosis (1) Lung mass Stage: IV History of Present Illness I am seeing Ms. Stewart in consultation at the request of Dr. Lopez. The patient was seen at bedside. ECOG PS: 3 Ms. Stewart is a 76-year-old female with a previous smoking history who recently presented with a 20-25 pound weight loss over the last several months as well as increasing worsening lower back pain. The patient received presented to the emergency room for lower back pain and did ultimately have a CT of the lumbar spine without contrast on 01/19/2017 which not reveal any evidence of disease; the patient additionally had CT scan of the thoracic spine on 01/19/2017 which also did not reveal any disease of the thoracic spine however did reveal necrotic right paratracheal lymphadenopathy and a partially visualized mass within the right middle lobe. The patient did have a CT thorax completed on 01/19/2017 which did reveal: "IMPRESSION: 1. Nondisplaced right fifth rib fracture. No evidence of pneumothorax 2. 39 mm right upper lobe pulmonary mass. This should be presumed neoplastic until proven otherwise 3. Pathologic mediastinal adenopathy 4. Cholelithiasis 5. Small left pleural effusion with a basilar atelectasis 6. Emphysema 7. Pulmonary consultation is recommended, for evaluation of the suspicious right upper lobe pulmonary mass." The patient was treated for her pain and was discharged with the outpatient appointment for pulmonology for further workup regarding the pulmonary mass. The patient was seen by Dr. Lancaster in the patient was going to be scheduled for a biopsy via bronchoscopy however the patient was readmitted to the hospital again for significant lower back pain. The patient did undergo multiple imaging studies including a MRI of the lumbar spine are 02/03/2016 which did reveal: "IMPRESSION: 1. Multiple hepatic masses. 2. Diffuse decreased T1 signal within the vertebral body marrow. This indicates a marrow replacement process. Diagnostic considerations include metastatic disease, lymphoma, anemia , or a drug-induced marrow stimulation. 3. Multilevel spondylitic change. Mild multilevel spinal canal narrowing. Mild spinal stenosis at the L3-4 level." The patient did have a CT thorax also completed during this admission on 2016 which did reveal a right upper lobe mass has increased in size from the previous scan of 01/19/2017." The patient did have a CT abdomen and pelvis completed on 02/06/2017 which revealed: "IMPRESSION: 1. Progressive metastatic change of the liver. 2. Progressive bibasilar pleural effusions and lower lobe atelectatic change. 3. Stable indeterminate retroperitoneal nodes. 4. Gallstone the region of the gallbladder neck 5. Possible early bony metastatic change." We have now been asked to evaluate the patient for consideration of palliative radiation therapy to the lumbar spine. Overall, the patient does state that she is still having some difficulty ambulating secondary to her pain in her lower back. She denies any focal neurologic deficits or numbness. She denies any fecal or urinary incontinence. Again, she did admit to a 20 - 25 pound weight loss over the several months. Additionally, she denies any hemoptysis, fevers, chills or night sweats. She does state that she does have some exertional dyspnea. Past History Past Medical/Surgical History: Diabetes, Arthritis, High Cholesterol, Hypertension, COPD Social History Smoking Status: Unknown if Ever Smoked Hx Tobacco Use In Past Year?: No Quit Date: Jan 20, 2009 Do You Dip or Chew Tobacco: No Hx Alcohol Use: No Hx Substance Use : No Allergies Coded Allergies: Morphine (Verified Adverse Reaction, Intermediate, GETS SICK, 01/19/17) Oxycodone (Verified Adverse Reaction, Intermediate, feels like she is gonna pass out, 01/19/17) Home Medications Scheduled Amlodipine (Norvasc), 5 MG PO HS Aspirin (Aspirin), 1 TAB PO QAM Cholecalciferol (Vitamin D), 1 TAB PO BID Cyanocobalamin (Vitamin B12), 1 TAB PO QAM Docusate Sodium (Docusate Sodium), 100 MG PO BID Gabapentin (Neurontin), 100 MG PO TID Insulin Aspart (novoLOG INSULIN PUMP ), 1 EA N/A UD Lisinopril (Zestril), 20 MG PO DAILY Polyethylene Glycol 3350 (Miralax), 17 GM PO DAILY Tretinoin (Tretinoin), 1 APPLN TOP DAILY Scheduled PRN Amoxicillin (Amoxil), 875 MG PO UD PRN for PRE DENTISTRY Fluocinonide (Fluocinonide), 1 APPLN TOP BID PRN for Itching Hydromorphone HCl (Hydromorphone HCl), 2 MG PO Q3H PRN for Pain Lorazepam (Ativan), 0.5 MG PO TID PRN for Anxiety Tramadol (Ultram), 50 MG PO Q4 PRN for Pain Zolpidem Tartrate (Ambien), 5 MG PO HS PRN for Sleep Review of Systems Ear/Hearing: Ear Side: Bilateral Hearing Ability: Normal Edema: Present?: Yes Location Body Site Modifier: Bilateral Type: Non-pitting Degree: Trace Sexuality-Female: Patient ?: No Pain Management Side: Right Patient Preferred Pain Scale: 0 - 10 Initial Pain Intensity: 8.0 Physical Exam Height: 5 (Feet) 6.00 (Inches) 167.6 (Centimeters) 1.6764 (Meters) Weight: 163 (Pounds) 5.8 (Ounces) 74.100 (Kilograms) 90198.000 (Grams) Date Time Temp Pulse Resp B/P Pulse Ox O2 Delivery O2 Flow Rate FiO2 02/06/17 08:05 37.1 98 20 153/ 93 Room Air 02/06/17 08:00 Room Air 02/06/17 00:30 Room Air 02/06/17 00:11 36.9 97 20 157/72 92 Room Air 02/05/17 21:29 Room Air 02/05/17 21:22 94 150/70 02/05/17 14:59 36.7 94 20 152/64 94 Room Air General Appearance: + mild distress Head: normocephalic, atraumatic Eyes: normal inspection, PERRL, EOMI ENT: normal ENT inspection, hearing grossly normal Respiratory/Chest: chest non-tender, lungs clear, normal breath sounds, no respiratory distress Cardiovascular: regular rate, rhythm, no edema, no gallop, no JVD, no murmur Abdomen/GI: normal bowel sounds, non tender, soft, no organomegaly Back: + paravertebral tenderness (Lumbar spine) Extremities: normal inspection 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 Imaging Imaging studies: were reviewed Imaging Comments CT LUMBAR SPINE WITHOUT - 01/19/17 CT DOSE: 1687.99 mGy.cm CLINICAL HISTORY: Low back pain status post trauma TECHNIQUE: Helical images were acquired in transverse plane. Reformatted sagittal and coronal images were reviewed. CONTRAST: No contrast was administered COMPARISON STUDY: None. FINDINGS: L1-2 level: There is disc degeneration. There is a minor disc bulge. There is minor right ureter spinal canal narrowing. There is no stomach and foraminal stenosis L2-3 level: There is a mild circumferential disc bulge. There is minor triangular spinal canal narrowing. There is no significant foraminal narrowing L3-4 level: There is a circumferential disc bulge. There is mild transverse spinal stenosis. There is no significant foraminal narrowing L4-5 level: There is a mild circumferential disc bulge. There is minor triangular spinal canal narrowing. There is no significant foraminal narrowing L5-S1 level: There is no evidence of significant disc bulge or focal herniation. There is no evidence of spinal or foraminal stenosis. IMPRESSION: 1. No acute fractures or subluxations are visualized 3. Mild multilevel spondylitic changes with minor multilevel spinal canal narrowing MRI LUMBAR SPINE COMBINATION - 02/02/2017 CLINICAL HISTORY: Back pain with right leg radiculopathy. History of lung carcinoma. TECHNIQUE: Sagittal and axial T1, T2 and STIR images were obtained. Imaging was performed before and after the administration of 7 cc of intravenous Gadavist. COMPARISON STUDY: No previous studies for comparison. OBSERVATIONS: There is diffuse decreased signal within the vertebral body marrow. This indicates a hypercellular marrow. Diagnostic considerations include metastatic disease, lymphoma, anemia, or drug-induced marrow stimulation. Clinical correlation in this regard is advocated. L1-2: There is a mild circumferential disc bulge. There is no significant spinal or foraminal stenosis. L2-3: There is a mild circumferential disc bulge. There is no significant spinal stenosis. There is mild right-sided foraminal narrowing L3-4: There is a mild circumferential disc bulge. There is mild triangular spinal canal narrowing. There is minor bilateral foraminal narrowing L4-5: There is a mild circumferential disc bulge. There is no significant spinal stenosis. There is mild bilateral foraminal narrowing. L5-S1: There is a mild circumferential disc bulge. There is no significant spinal stenosis. There is mild bilateral foraminal narrowing. The conus medullaris and cauda equina appear normal. Postcontrast images reveal heterogeneous marrow enhancement. The study is mildly compromised due to motion artifact. Multiple hepatic masses are suspected. The findings are viewed as suspicious for metastatic disease IMPRESSION: 1. Multiple hepatic masses. 2. Diffuse decreased T1 signal within the vertebral body marrow. This indicates a marrow replacement process. Diagnostic considerations include metastatic disease, lymphoma, anemia, or a drug-induced marrow stimulation. 3. Multilevel spondylitic change. Mild multilevel spinal canal narrowing. Mild spinal stenosis at the L3-[address] ANGIOGRAM OF THE CHEST -01/31/2017 CLINICAL HISTORY: Tachycardia. Abnormal EKG. COMPARISON STUDY: Chest CT scans dated 01/19/17 and 06/28/2009. Chest x-ray dated 01/31/2017. TECHNIQUE: Following the IV administration of 119 cc of Optiray 320, CT angiogram of the chest was performed from the upper abdomen to the thoracic inlet utilizing the pulmonary embolus protocol. Images are reviewed in the axial, sagittal, and coronal planes. 3-D MIPS images are created and assessed. IV contrast was administered without complication. The examination is degraded by streak artifact from the patient's arms which could not be elevated above the chest. The examination is also degraded by motion artifact. CT DOSE: 858.03 mGy.cm FINDINGS: Thyroid: Imaged portions of the thyroid gland are normal in size and attenuation. Thoracic aorta: There is atherosclerotic calcification of the thoracic aorta, which is normal in caliber and demonstrates standard 3-vessel arch anatomy. No dissection is seen. Pulmonary vasculature: The pulmonary trunk is normal in caliber. There are no filling defects identified in main, lobar, or proximal segmental pulmonary branches to suggest pulmonary embolus. Evaluation of the peripheral branches is degraded by motion artifact as well as by suboptimal contrast opacification. Heart: The heart is mildly enlarged and there is a trace pericardial effusion. The coronary arteries and mitral annulus are densely calcified. Lungs and pleural spaces: Evaluation of the upper chest is significantly degraded by streak artifact from bilateral shoulder arthroplasties. Evaluation of the lung parenchyma is also degraded by motion artifact. Advanced emphysema is noted. There are trace pleural effusions with bibasilar patchy airspace consolidation. There is a 4.9 x 4.1 cm irregular mass lesion the anterior right upper lobe seen on image #132. This has increased in size from 01/19/2017. Secretions are noted in the distal trachea and the left mainstem bronchus. Mediastinum: There is mediastinal lymphadenopathy. A right paratracheal node on image #93 measures 3.1 x 3.6 cm. A high right paratracheal node on image #71 measures 2.5 x 2.4 cm. An Enlarged subcarinal node on image #120 measures 2.5 x 2.1 cm. Lisbeth: Enlarged right hilar nodes measure up to 2.5 cm. No left hilar adenopathy is seen. Axillae: There is no axillary lymphadenopathy. Upper abdomen: Partially visualized upper abdominal viscera is within normal limits. See report of abdominal CT performed concurrently for detailed intra-abdominal findings. Skeletal structures: The skeletal structures are heterogeneously osteopenic. No lytic or blastic bony lesions are clearly seen. There are healed bilateral rib fractures. IMPRESSION: 1. Significant streak and motion artifact degraded examination. 2. There is no evidence of pulmonary embolus in the main, lobar, or proximal segmental pulmonary arteries. 3. Cardiomegaly and advanced emphysema. 4. A right upper lobe mass lesion has increased in size from 01/19/2017. Lung cancer remains the diagnosis of exclusion. 5. There is pathologic right hilar and mediastinal lymphadenopathy. 6. Trace pleural effusions with bibasilar dependent airspace consolidation. Correlate clinically for evidence evidence of an infectious/inflammatory pneumonitis or possibly aspiration pneumonitis. 7. Additional findings as above. HEAD CT NONCONTRAST - 01/19/2017 CT DOSE: 601.98 mGy.cm HISTORY: Mental status change r/o intracranial abnormality TECHNIQUE: Multiaxial CT images of the head were performed without the use of intravenous contrast. Comparison: None. Findings: The paranasal sinuses and mastoid air cells are clear. The calvarium and skull base are intact. The ventricles and sulci are within normal limits. There is no mass, hematoma, midline shift, or acute infarct. Impression: No acute intracranial abnormality. ABDOMEN AND PELVIS CT WITH IV AND ORAL CONTRAST - 02/06/2017 CT DOSE: 810.98 mGycm HISTORY: Metastatic disease with unknown primary TECHNIQUE: Multiaxial CT images of the abdomen and pelvis were performed following the use of intravenous and oral contrast. COMPARISON STUDY: 01/31/2017 FINDINGS: Progressive bilateral pleural effusions. Progressive lower lobe atelectatic change. Liver shows no well-defined foci of metastatic deposits throughout the right as well as left hepatic lobes. Minimal hyperplastic change of the adrenals. Kidneys negative for hydronephrosis. Bowel pattern is nonobstructive. Bladder is midline. Bony mineralization medial aspects of the iliac wings as well as the low lumbar spine is slightly heterogeneous. Degenerative change versus early metastatic change must be considered. IMPRESSION: 1. Progressive metastatic change of the liver. 2. Progressive bibasilar pleural effusions and lower lobe atelectatic change. 3. Stable indeterminate retroperitoneal nodes. 4. Gallstone the region of the gallbladder neck 5. Possible early bony metastatic change Assessment & Recommendations Ms. Stewart is a 76-year-old female with a previous smoking history who was recently admitted to the hospital due to lower back pain. Through the workup, the patient is been found to have a right pulmonary mass, hepatic lesions and bone marrow infiltration involving the lumbar spine with the most likely diagnosis being metastatic lung cancer. The patient was initially scheduled to have a biopsy of her right pulmonary mass in the outpatient setting by Dr. Barton however she was readmitted due to significant pain in her lower back. At this point, the patient does not have a tissue diagnosis. We been asked to evaluated for consideration of palliative radiation therapy to her lumbar spine. Today, I did have a discussion with the patient regarding the role of palliative radiation therapy to the lumbar spine. At this point, the patient does not have a tissue diagnosis and I explained to her that there is a possibility that the pain and the radiographic abnormality involving the lumbar spine may not be related to cancer; however, we could potentially consider a course of palliative radiation therapy to the lumbar spine if she is willing accept the risk of potentially (however unlikely) the risk of inappropriate treatment utilizing radiation therapy. I did explain to the patient that she does have to consent to the fact that there is no tissue diagnosis at this point and radiation therapy may not ultimately benefit her if it is proven that she does not have a diagnosis of cancer. After the completion of her conversation, the patient would like to proceed with palliative radiation therapy and has also agreed to still pursue a biopsy of the right pulmonary mass to confirm the diagnosis of likely metastatic lung cancer. I have spoken with Dr. Barton, briefly, who will review her information when he returns next week from vacation to give his input regarding my recommendations. The patient will be brought down today for CT simulation for treatment planning. We have explained the indications, alternatives, benefits, risks and side effects of radiation therapy. We have explained the most common side effects including but are not limited to skin erythema, skin break down, hair loss, fibrosis, adhesion development, radiation pneumonitis, rib and bone fracture, heart failure and heart disease, esophagitis, bowel obstruction, urinary symptoms, thyroid disorders, mucositis, nauesea, vomiting, diarrhea, anemia, fatigue and development of secondary malignancy. Women may also have early onset ovarian failure leading to premature menopause and may experience infertility issues depending on her age. We have explained the CT simulation process and treatment planning. We explained what to expect before, during and after treatment on a regular basis. The patient understands and would be willing to consent to treatment. The patient had multiple questions which were answered to their full satisfaction. Thank you for allowing us to participate in the care of this patient. This chart was completed in part utilizing [email or web address] Speech Voice Recognition software. Attempts were made to minimize the grammatical errors, random word insertions, pronoun errors and incomplete sentences. Any formal questions or concerns about the content, text or information contained within the body of this dictation should be directly addressed to the provider for clarification. Roland Lopez MD Department of Radiation Oncology [facility] Total Time In Consultation I spent 30 minutes examining and counseling the patient. I spent 15 minutes completing this note. I spent 15 minutes discussing the case with the hospitalist, Dr. Lopez. Copy To Connie Lopez., S; Clyde Barton MD
[2017-02-06 15:59] VITALS: BP 157/71; PULSE 99; TEMP 36.6; O2SAT 95
--- NOTE | 2017-02-06 16:14 | Progress Note ---
Internal Med Progress Note Date of Service: Feb 06, 2017. Provider Documentation: SUBJECTIVE : Patient's pain and lower extremity weakness is worse today compared to yesterday. c/o generalized weakness. Does have Cough, SOB at baseline, anorexia, weight loss x 20 lbs in 1-2 months No fever, chills, nausea, vomiting, headaches, abdominal pain, diarrhea OBJECTIVE : Vital Signs-as noted below Exam: General-AAOX3, no distress Lungs-AEBE decreased Rt> Left, no wheezing, rales, rhonchi Heart-S1, S2 normal. Murmur + Abdomen-soft bowel sounds present non tender no distension Extremities-no edema no erythema peripheral pulses intact Neuro-Bilateral lower extremity weakness- 3/5 strength , limited due to pain, cranial nerves intact, no decreased sensation Lab data as noted below. ASSESSMENT & PLAN: ASSESSMENT & PLAN : PAIN MANAGEMENT - Low back pain/ Chest pain from rib fractures (left) /LE pain - Worse today -Back pain likely related to metastasis, Spinal stenosis L3-L4, Spondylosis. -Lumbar MRI- Multiple hepatic masses, spondylosis, probable metastasis in spine , spinal stenosis L3-L4 -Pain Mx- Added fentanyl patch 12 mcq q 72 hours per pain mx on 02/04/17; PO Dilaudid to 2 mg q 4 hours PRN, IV Dilaudid PRN. -Started her on Decadron to help with Inflammation - 4 mg IV Q 12 hours on -Pain Management on board. Appreciate inputs. PLAN: X rays - lumbar ordered to rule out vertebral fracture due to worsening of pain. Discussed with Radiation Oncology to see if would be candidate for palliative radiation to control the pain better though we do not have a tissue diagnosis. Appreciate inputs METASTATIC CANCER, UNKNOWN PRIMARY, LIKELY PULMONARY Patient was found to have right upper lobe mass during last admission which was found to be suspicious for cancer, PET scan scheduled for January 2017. Plan is to do right upper lobe mass biopsy after PET Scan -Lumbar MRI- Multiple hepatic masses, possible metastatic process most likely with her clinical history overall suspicious for metastasis. -Had a detailed discussion with patient about this diagnosis, as she said she had never heard of term "cancer" before. Explained at length about the future plan which would be pain control --> SNF placement--> PET scan /Biopsy outpatient PLAN: CT scan abd/pelvis, Bone scan ordered for staging of carcinoma. S/P SEPSIS SECONDARY TO [employer] PNEUMONIA : Sepsis resolved. -Afebrile, WBC trending down -S/P IV Zosyn Day # 4 --> changed to Levofloxacin 750 mg daily on 02/03/17 (Day 06/05 of antibiotics) Last day today -Cxs- No growth , MRSA - Neg S/P TOXIC ENCEPHALOPATHY possible secondary to sedation and analgesia given in the Emergency Room. -Resolved -Back to baseline- AAOX3 HYPERTENSION- -On lisinopril and amlodipine -monitor. COPD, past tobacco use as per records -No signs of exacerbation -Stable DM2, insulin requiring, on insulin pump, -well controlled as of recent outpx HgA1C -Hold insulin pump -on Lantus and ISS-- monitor while on steroids -appreciate pharmacy consult DVt px -Lovenox SQ DISPOSITION PT/OT- Difficulty participating in therapy due to pain. social service for d/c planning- will need placement as lives alone, unable to take care of herself, difficulty ambulating Likely discharge in AM Vital Signs: Date Time Temp Pulse Resp B/P Pulse Ox O2 Delivery O2 Flow Rate FiO2 02/06/17 15:59 36.6 99 18 157/71 95 Room Air 02/06/17 08:05 37.1 98 20 153/ 93 Room Air 02/06/17 08:00 Room Air 02/06/17 00:30 Room Air 02/06/17 00:11 36.9 97 20 157/72 92 Room Air 02/05/17 21:29 Room Air 02/05/17 21:22 94 150/70 Lab Results: Results Past 24 Hours Test 02/05/17 16:46 02/05/17 20:34 02/06/17 00:03 02/06/17 05:12 Range/Units Bedside Glucose 147 137 159 186 70-90 mg/dl Test 02/06/17 07:05 02/06/17 07:58 02/06/17 11:26 Range/Units White Blood Count 16.96 4.8-10.8 K/uL Red Blood Count 3.96 4.2-5.4 M/uL Hemoglobin 11.2 12.0-16.0 g/dL Hematocrit 33.7 37-47 % Mean Corpuscular Volume 85.1 80-100 fL Mean Corpuscular Hemoglobin 28.3 25-34 pg Mean Corpuscular Hemoglobin Concent 33.2 32-36 g/dl RDW Standard Deviation 48.8 36.4-46.3 fL RDW Coefficient of Variation 15.7 11.5-14.5 % Platelet Count 318 130-400 K/uL Mean Platelet Volume 9.7 7.4-10.4 fL Sodium Level 138 136-145 mmol/L Potassium Level 3.9 3.5-5.1 mmol/L Chloride Level 101 98-107 mmol/L Carbon Dioxide Level 28 21-32 mmol/L Anion Gap 9.0 3-11 mmol/L Blood Urea Nitrogen 15 7-18 mg/dl Creatinine 0.54 0.60-1.20 mg/dl Est Creatinine Clear Calc Drug Dose 91.2 ml/min Estimated GFR () 106.2 Estimated GFR (Non- 91.7 BUN/Creatinine Ratio 27.9 10-20 Random Glucose 164 70-99 mg/dl Calcium Level 8.5 8.5-10.1 mg/dl Bedside Glucose 139 190 70-90 mg/dl
--- NOTE | 2017-02-06 16:34 | DIAGNOSTIC IMAGING REPORT ---
LUMBAR SPINE 2 OR 3 VIEWS CLINICAL HISTORY: Back pain COMPARISON STUDY: CT scan dated 01/19/2017 FINDINGS: There are multilevel degenerative changes. There is disc space narrowing most pronounced the L4-5 and L5-S1 levels. No acute fractures or subluxations are visualized. There is contrast in the bowel, bladder, and renal collecting systems secondary to a CT scan performed earlier in the day. IMPRESSION: Multilevel degenerative change. No acute fractures or subluxations identified. Electronically signed by: Kristopher Genao M.D. 02/06/2017 4:33 PM Dictated Date/Time: 02/06/2017 4:30 PM
--- NOTE | 2017-02-06 16:58 | DIAGNOSTIC IMAGING REPORT ---
NUCLEAR MEDICINE WHOLE-BODY BONE SCAN CLINICAL HISTORY: Metastatic disease of unknown primary COMPARISON STUDY: CT scan dated 02/06/2017 FINDINGS: The patient was injected with 27.5 mCi of technetium 99m MDP. Three-hour delayed whole body images were acquired. There are extensive foci of abnormal increased activity involving the calvarium, multiple ribs, multiple thoracic and lumbar vertebral bodies, the bony pelvis, and the left hip and proximal femur. There is also a nonspecific focus of increased activity involving the right medial femoral metaphysis and proximal fibular lateral aspect of the right tibial plateau. There is also a focus of increased activity within the mid right femur. The findings are consistent with widespread diffuse metastatic disease. IMPRESSION: Abnormal study. The findings are indicative of diffuse widespread skeletal metastasis Electronically signed by: Kristopher Genao M.D. 02/06/2017 4:56 PM Dictated Date/Time: 02/06/2017 4:52 PM
[2017-02-06] MEDS: AMLODIPINE BESYLATE 5 MG TAB PO SCH (20:10)
[2017-02-06 20:28] VITALS: BP 177/70; PULSE 99
[2017-02-07] VITALS: O2SAT 95
[2017-02-07 00:13] VITALS: BP 162/68; PULSE 90; TEMP 36.8; O2SAT 92
[2017-02-07] MEDS: HYDROmorphone INJ 1 MG/ML SYR IV PRN ×5 (00:45→23:28)
[2017-02-07] MEDS: HYDROmorphone HCL 2 MG TAB PO PRN ×3 (05:07→18:41)
[2017-02-07 07:31] VITALS: BP 146/63; PULSE 95; TEMP 36.8; O2SAT 94
[2017-02-07] MEDS: CHECK FENTANYL PATCH PLACEMENT SCH ×3 (08:00→23:31)
[2017-02-07] MEDS: LISINOPRIL 20 MG TAB PO SCH (08:29)
[2017-02-07] MEDS: GABAPENTIN 300 MG CAP PO SCH ×3 (08:29→19:40)
[2017-02-07] MEDS: ASPIRIN 81 MG ECTAB PO SCH (08:29)
[2017-02-07] MEDS: DOCUSATE SODIUM 100 MG CAP PO SCH ×2 (08:30→19:40)
[2017-02-07] MEDS: DEXAMETHASONE INJ 4 MG in SYRINGE 0 ML IV SCH ×2 (08:30→19:39)
[2017-02-07] MEDS: POLYETHYLENE (MIRALAX) 17 GM PACK PO SCH (08:30)
[2017-02-07] MEDS: CLONAZEPAM 0.5 MG TAB PO PRN ×2 (08:36→18:41)
[2017-02-07] MEDS: INSULIN ASPART 100 UNITS/ML 3 ML PEN SC SCH ×4 (08:36→19:48)
[2017-02-07] MEDS: INSULIN GLARGINE SOLOSTAR 100 UNITS/ML 3 ML PEN SC SCH ×2 (08:36→19:53)
[2017-02-07] MEDS ORDERED: FENTANYL PATCH REMOVE & WASTE SCH ×2 (09:15→12:59)
[2017-02-07] MEDS: ENOXAPARIN 40 MG/0.4 ML SYR SC SCH (09:35)
[2017-02-07] MEDS: FENTANYL 12 MCG/HR TDSY TD SCH (09:41)
[2017-02-07] MEDS: LEVOFLOXACIN 750 MG TAB PO SCH (10:33)
[2017-02-07] MEDS ORDERED: HALOPERIDOL 1 MG TAB PO PRN (12:45)
[2017-02-07] MEDS ORDERED: FENTANYL 25 MCG/HR TDSY TD SCH (13:00)
--- NOTE | 2017-02-07 15:15 | Progress Note ---
Internal Med Progress Note Date of Service: Feb 07, 2017. Provider Documentation: SUBJECTIVE : Patient's pain is worse and all over. c/o generalized weakness. Emotional + crying + Does have Cough, SOB at baseline, anorexia, weight loss x 20 lbs in 1-2 months No fever, chills, nausea, vomiting, headaches, abdominal pain, diarrhea OBJECTIVE : Vital Signs-as noted below Exam: General-AAOX3, no distress Lungs-AEBE decreased Rt> Left, no wheezing, rales, rhonchi Heart-S1, S2 normal. Murmur + Abdomen-soft bowel sounds present non tender no distension Extremities-no edema no erythema peripheral pulses intact Neuro-Bilateral lower extremity weakness- 3/5 strength , limited due to pain, cranial nerves intact, no decreased sensation Lab data as noted below. BONE SCAN There are extensive foci of abnormal increased activity involving the calvarium, multiple ribs, multiple thoracic and lumbar vertebral bodies, the bony pelvis, and the left hip and proximal femur. There is also a nonspecific focus of increased activity involving the right medial femoral metaphysis and proximal fibular lateral aspect of the right tibial plateau. There is also a focus of increased activity within the mid right femur. CT SCAN ABDOMEN/PELVIS IMPRESSION: 1. Progressive metastatic change of the liver. 2. Progressive bibasilar pleural effusions and lower lobe atelectatic change. 3. Stable indeterminate retroperitoneal nodes. 4. Gallstone the region of the gallbladder neck 5. Possible early bony metastatic change ASSESSMENT & PLAN: ASSESSMENT & PLAN : PAIN MANAGEMENT - Low back pain/ Chest pain from rib fractures (left) /LE pain - Worsening Secondary to extensive metastasis, Spinal stenosis L3-L4, Spondylosis. -Work up- Bone scan- Extensive diffuse metastatic disease, CT scan abd/pelvis- Multiple hepatic masses; Lumbar MRI- Multiple hepatic masses, spondylosis, probable metastasis in spine, spinal stenosis L3-L4; X ray- lumbar- no vertebral fractures -Pain Mx- Increase Fentanyl to 25 mcq q 72 hours today; Increase PO Dilaudid to 8 mg q 4 hours PRN, IV Dilaudid PRN. -On Decadron to help with Inflammation - 4 mg IV Q 12 hours on 02/04/17 -Pain Management on board. Appreciate inputs. PLAN: Palliative radiation on thursday due to uncontrolled pain METASTATIC CANCER, UNKNOWN PRIMARY, LIKELY PULMONARY Patient was found to have right upper lobe mass during last admission which was found to be suspicious for cancer, PET scan scheduled for January 2017. Plan is to do right upper lobe mass biopsy on February 11 -Work up- Bone scan- Extensive diffuse metastatic disease, CT scan abd/pelvis- Multiple hepatic masses; Lumbar MRI- Multiple hepatic masses, spondylosis, probable metastasis in spine, spinal stenosis L3-L4; X ray- lumbar- no vertebral fractures -Had a detailed discussion with patient about this diagnosis, as she said she had never heard of term "cancer" before. Explained at length about the future plan which would be pain control --> SNF placement--> PET scan /Biopsy outpatient -PLAN: Palliative radiation as above S/P SEPSIS SECONDARY TO HEALTH CARE ASSOCIATED PNEUMONIA : Sepsis resolved. -Afebrile, WBC trending down -S/P IV Zosyn Day # 4 --> changed to Levofloxacin 750 mg daily on 02/03/17 (Day 7 of antibiotics) Last day on 02/06/17 -Cxs- No growth , MRSA - Neg S/P TOXIC ENCEPHALOPATHY possible secondary to sedation and analgesia given in the Emergency Room. -Resolved -Back to baseline- AAOX3 HYPERTENSION- -On lisinopril and amlodipine -monitor. COPD, past tobacco use as per records -No signs of exacerbation -Stable DM2, insulin requiring, on insulin pump, -well controlled as of recent outpx HgA1C -Hold insulin pump -on Lantus and ISS-- monitor while on steroids -appreciate pharmacy consult DVt px -Lovenox SQ DISPOSITION PT/OT- Difficulty participating in therapy due to pain. Bruno's catheter had to be re inserted as painful moving around. social service for d/c planning- will need placement as lives alone, unable to take care of herself, difficulty ambulating Will need SNF Vital Signs: Date Time Temp Pulse Resp B/P Pulse Ox O2 Delivery O2 Flow Rate FiO2 02/07/17 08:00 Room Air 02/07/17 07:31 36.8 95 18 146/63 94 Room Air 02/07/17 00:13 36.8 90 16 162/68 92 Room Air 02/07/17 00:00 95 Room Air 02/06/17 20:28 99 177/70 02/06/17 16:00 Room Air 02/06/17 15:59 36.6 99 18 157/71 95 Room Air Lab Results: Results Past 24 Hours Test 02/06/17 17:02 02/06/17 20:02 02/07/17 07:37 02/07/17 11:30 Range/Units Bedside Glucose 256 143 212 239 70-90 mg/dl
[2017-02-07 15:25] VITALS: BP 156/76; PULSE 93; TEMP 37; O2SAT 95
[2017-02-07] MEDS: AMLODIPINE BESYLATE 5 MG TAB PO SCH (19:41)
[2017-02-07 19:58] VITALS: BP_SYST 105; BP_SYST 152; BP_DIAS 60; PULSE 59
[2017-02-07 22:58] VITALS: BP 146/70; PULSE 59; TEMP 36.3; O2SAT 96
[2017-02-08] VITALS: O2SAT 95
[2017-02-08] MEDS: CLONAZEPAM 0.5 MG TAB PO PRN ×3 (01:31→17:19)
[2017-02-08] MEDS: HYDROmorphone INJ 1 MG/ML SYR IV PRN ×5 (03:47→22:05)
[2017-02-08] MEDS: HYDROmorphone HCL 2 MG TAB PO PRN ×3 (06:18→16:01)
[2017-02-08 07:02] VITALS: BP 138/69; PULSE 95; TEMP 37.1; O2SAT 96
[2017-02-08] MEDS: DEXAMETHASONE INJ 4 MG in SYRINGE 0 ML IV SCH (07:52)
[2017-02-08] MEDS: LISINOPRIL 20 MG TAB PO SCH (07:53)
[2017-02-08] MEDS: DOCUSATE SODIUM 100 MG CAP PO SCH ×2 (07:53→20:30)
[2017-02-08] MEDS: ENOXAPARIN 40 MG/0.4 ML SYR SC SCH (07:53)
[2017-02-08] MEDS: ASPIRIN 81 MG ECTAB PO SCH (07:53)
[2017-02-08] MEDS: POLYETHYLENE (MIRALAX) 17 GM PACK PO SCH (07:53)
[2017-02-08] MEDS: GABAPENTIN 300 MG CAP PO SCH ×3 (07:53→20:30)
[2017-02-08] MEDS: CHECK FENTANYL PATCH PLACEMENT SCH ×3 (07:54→23:51)
[2017-02-08] MEDS: INSULIN ASPART 100 UNITS/ML 3 ML PEN SC SCH ×4 (08:48→20:32)
[2017-02-08] MEDS: INSULIN GLARGINE SOLOSTAR 100 UNITS/ML 3 ML PEN SC SCH ×2 (08:49→20:36)
--- NOTE | 2017-02-08 10:30 | Pharmacy Progress Note ---
Glycemic: Assessment & Plan Date of Service Feb 08, 2017. Assessment & Plan Patient has finished antibiotics for HAP. Patient remains hospitalized due to uncontrollable pain, metastatic cancer, having palliative radiation tomorrow. IV dexamethasone started 02/04/17 has caused BSGs to be harder to manage, she continues Dexamethasone 4mg IV Q12H. Lantus dose increased 02/06. The patient is currently receiving about 52 units of insulin per day. BSGs ranging 105 - 271 mg/dl over the past 24hrs. High BSG this morning due to lower dose of Lantus given last night for parameters. I will change parameters so that patient only receives reduced dose for BSG 100mg/dL or less (instead of 120 or less). Test 02/07/17 11:30 02/07/17 16:40 02/07/17 19:46 02/08/17 07:42 Bedside Glucose 239 mg/dl (70-90) 126 mg/dl (70-90) 105 mg/dl (70-90) 271 mg/dl (70-90) * Basal insulin: Lantus 14 units every 12 hours * 7 units for BSG 100mg/dL or less * Correctional Insulin: Novolog Correction per scale ACHS Goal Range: Low 100 mg/dL - High 140 mg/dL Correction Factor: 18 mg/dL/unit * Prandial insulin: Per carb ratio of 1 unit per 6 grams CHO consumed Pharmacy will continue to monitor patient daily and write orders per [facility] inpatient glycemic control protocol. Thanks. * Please note that the plan above was derived based on current level of insulin resistance and hospital stress. These recommendations are appropriate for inpatient admission only. Plan of care upon discharge will need to be reassessed to avoid potential outpatient hypo/hyperglycemia.
[2017-02-08] MEDS: LEVOFLOXACIN 750 MG TAB PO SCH (12:23)
[2017-02-08 13:29] LABS: HEMATOCRIT 33.1 % (37-47); MEAN CORPUSCULAR HEMOGLOBIN 27.8 pg (25-34); MEAN CORPUSCULAR HGB CONC 33.5 g/dl (32-36); MEAN PLATELET VOLUME 9.8 fL (7.4-10.4); PLATELET COUNT 323 K/uL (130-400); RED BLOOD COUNT 3.99 M/uL (4.2-5.4); WHITE BLOOD COUNT 15.84 K/uL (4.8-10.8)
[2017-02-08 13:56] LABS: BUN/CREATININE RATIO 29.4 (10-20); CALCIUM 8.8 mg/dl (8.5-10.1); CREATININE 0.62 mg/dl (0.60-1.20); POTASSIUM 4.2 mmol/L (3.5-5.1)
[2017-02-08 16:22] VITALS: BP 174/74; PULSE 74; TEMP 36.6; O2SAT 94
--- NOTE | 2017-02-08 16:40 | Progress Note ---
Internal Med Progress Note Date of Service: Feb 08, 2017. Provider Documentation: SUBJECTIVE : Patient's still c/o pain all over. Mild cough + Does have Cough, SOB at baseline, anorexia, weight loss x 20 lbs in 1-2 months No fever, chills, nausea, vomiting, headaches, abdominal pain, diarrhea OBJECTIVE : Vital Signs-as noted below Exam: General-AAOX3, no distress Lungs-AEBE decreased Rt> Left, no wheezing, rales, rhonchi Heart-S1, S2 normal. Murmur + Abdomen-soft bowel sounds present non tender no distension Extremities-no edema no erythema peripheral pulses intact Neuro-Bilateral lower extremity weakness- 3/5 strength , limited due to pain, cranial nerves intact, no decreased sensation Lab data as noted below. BONE SCAN There are extensive foci of abnormal increased activity involving the calvarium, multiple ribs, multiple thoracic and lumbar vertebral bodies, the bony pelvis, and the left hip and proximal femur. There is also a nonspecific focus of increased activity involving the right medial femoral metaphysis and proximal fibular lateral aspect of the right tibial plateau. There is also a focus of increased activity within the mid right femur. CT SCAN ABDOMEN/PELVIS IMPRESSION: 1. Progressive metastatic change of the liver. 2. Progressive bibasilar pleural effusions and lower lobe atelectatic change. 3. Stable indeterminate retroperitoneal nodes. 4. Gallstone the region of the gallbladder neck 5. Possible early bony metastatic change ASSESSMENT & PLAN: ASSESSMENT & PLAN : PAIN MANAGEMENT - Low back pain/ Chest pain from rib fractures (left) /LE pain - Marginal improvement Secondary to Extensive metastasis, Spinal stenosis L3-L4, Spondylosis. -Work up- Bone scan- Extensive diffuse metastatic disease, CT scan abd/pelvis- Multiple hepatic masses; Lumbar MRI- Multiple hepatic masses, spondylosis, probable metastasis in spine, spinal stenosis L3-L4; X ray- lumbar- no vertebral fractures -Pain Mx- Increase Fentanyl to 25 mcq q 72 hours on 02/07/17; Increase PO Dilaudid to 8 mg q 4 hours PRN on 02/07/17, IV Dilaudid PRN. -On Decadron to help with Inflammation - 4 mg IV Q 12 hours on 02/04/17--> Taper -Pain Management on board. Appreciate inputs. PLAN: Palliative radiation on Thursday. METASTATIC CANCER, UNKNOWN PRIMARY, LIKELY PULMONARY Patient was found to have right upper lobe mass during last admission which was found to be suspicious for cancer, PET scan scheduled for January 2017. Plan is to do right upper lobe mass biopsy on February 11 -Work up- Bone scan- Extensive diffuse metastatic disease, CT scan abd/pelvis- Multiple hepatic masses; Lumbar MRI- Multiple hepatic masses, spondylosis, probable metastasis in spine, spinal stenosis L3-L4; X ray- lumbar- no vertebral fractures -Had a detailed discussion with patient about this diagnosis, as she said she had never heard of term "cancer" before. Explained at length about the future plan which would be pain control --> SNF placement--> PET scan /Biopsy outpatient -PLAN: Palliative radiation as above S/P SEPSIS SECONDARY TO HEALTH CARE ASSOCIATED PNEUMONIA : Sepsis resolved. -Afebrile, WBC trending down -S/P IV Zosyn Day # 4 --> changed to Levofloxacin 750 mg daily on 02/03/17 (Day 7 / of antibiotics) Last day on 02/06/17. -Cxs- No growth , MRSA - Neg S/P TOXIC ENCEPHALOPATHY possible secondary to sedation and analgesia given in the Emergency Room. -Resolved -Back to baseline- AAOX3 HYPERTENSION- -On lisinopril and amlodipine -Monitor. COPD, past tobacco use as per records -No signs of exacerbation -Stable DM2, insulin requiring, on insulin pump, -well controlled as of recent outpx HgA1C -Hold insulin pump -on Lantus and ISS-- monitor while on steroids -appreciate pharmacy consult DVt px -Lovenox SQ DISPOSITION PT/OT- Difficulty participating in therapy due to pain. Bruno's catheter had to be re inserted as painful moving around. social service for d/c planning- will need placement as lives alone, unable to take care of herself, difficulty ambulating Will need SNF- likely tomorrow after radiation rx Vital Signs: Date Time Temp Pulse Resp B/P Pulse Ox O2 Delivery O2 Flow Rate FiO2 02/08/17 16:22 36.6 74 18 174/74 94 Room Air 02/08/17 08:00 Room Air 02/08/17 07:02 37.1 95 16 138/69 96 Room Air 02/08/17 00:00 95 Room Air 02/07/17 22:58 36.3 59 16 146/70 96 Room Air 02/07/17 19:58 59 152/60 Lab Results: Results Past 24 Hours Test 02/07/17 16:40 02/07/17 19:46 02/08/17 07:42 02/08/17 11:24 Range/Units Bedside Glucose 126 105 271 280 70-90 mg/dl Test 02/08/17 13:18 Range/Units White Blood Count 15.84 4.8-10.8 K/uL Red Blood Count 3.99 4.2-5.4 M/uL Hemoglobin 11.1 12.0-16.0 g/dL Hematocrit 33.1 37-47 % Mean Corpuscular Volume 83.0 80-100 fL Mean Corpuscular Hemoglobin 27.8 25-34 pg Mean Corpuscular Hemoglobin Concent 33.5 32-36 g/dl RDW Standard Deviation 47.3 36.4-46.3 fL RDW Coefficient of Variation 15.9 11.5-14.5 % Platelet Count 323 130-400 K/uL Mean Platelet Volume 9.8 7.4-10.4 fL Sodium Level 135 136-145 mmol/L Potassium Level 4.2 3.5-5.1 mmol/L Chloride Level 99 98-107 mmol/L Carbon Dioxide Level 25 21-32 mmol/L Anion Gap 11.0 3-11 mmol/L Blood Urea Nitrogen 18 7-18 mg/dl Creatinine 0.62 0.60-1.20 mg/dl Est Creatinine Clear Calc Drug Dose 78.5 ml/min Estimated GFR () 101.5 Estimated GFR (Non- 87.6 BUN/Creatinine Ratio 29.4 10-20 Random Glucose 271 70-99 mg/dl Calcium Level 8.8 8.5-10.1 mg/dl
[2017-02-08] MEDS: AMLODIPINE BESYLATE 5 MG TAB PO SCH (20:32)
[2017-02-08] MEDS: DEXAMETHASONE 4 MG TAB PO SCH (20:41)
[2017-02-08 20:42] VITALS: BP 157/73; PULSE 118
[2017-02-08 23:31] VITALS: BP 166/69; PULSE 109; TEMP 36.4; O2SAT 91
[2017-02-09] VITALS (9 sets, daily range): BP systolic 147–172; BP diastolic 68–76; PULSE 76–125; TEMP 36.4–36.8; O2SAT 94–96
[2017-02-09] MEDS: CLONAZEPAM 0.5 MG TAB PO PRN ×2 (00:41→11:17)
[2017-02-09] MEDS: HYDROmorphone HCL 2 MG TAB PO PRN ×5 (00:41→22:18)
[2017-02-09] MEDS: HYDROmorphone INJ 1 MG/ML SYR IV PRN ×5 (01:18→18:39)
[2017-02-09] MEDS: CHECK FENTANYL PATCH PLACEMENT SCH ×2 (07:40→16:00)
[2017-02-09] MEDS: DOCUSATE SODIUM 100 MG CAP PO SCH ×2 (07:42→22:21)
[2017-02-09] MEDS: LISINOPRIL 20 MG TAB PO SCH (07:42)
[2017-02-09] MEDS: DEXAMETHASONE 4 MG TAB PO SCH ×2 (07:42→22:21)
[2017-02-09] MEDS: GABAPENTIN 300 MG CAP PO SCH ×3 (07:43→22:21)
[2017-02-09] MEDS: ASPIRIN 81 MG ECTAB PO SCH (07:43)
[2017-02-09] MEDS: ENOXAPARIN 40 MG/0.4 ML SYR SC SCH (07:44)
[2017-02-09] MEDS: POLYETHYLENE (MIRALAX) 17 GM PACK PO SCH (07:45)
[2017-02-09] MEDS: INSULIN ASPART 100 UNITS/ML 3 ML PEN SC SCH ×4 (09:11→22:24)
[2017-02-09] MEDS: INSULIN GLARGINE SOLOSTAR 100 UNITS/ML 3 ML PEN SC SCH ×2 (09:12→22:25)
[2017-02-09] MEDS ORDERED: FENTANYL PATCH REMOVE & WASTE SCH (09:44)
[2017-02-09] MEDS ORDERED: FENTANYL 50 MCG/HR TDSY TD SCH (09:45)
[2017-02-09] MEDS: LEVOFLOXACIN 750 MG TAB PO SCH (11:14)
--- NOTE | 2017-02-09 11:37 | PROGRESS NOTE ---
DATE: 02/09/2017 Plan of care discussed with Dr. Ruiz. SUBJECTIVE: Ms. Steawrt is a 76-year-old female, known to the pain service with metastatic CA. The patient is reporting diffuse axial back pain as well as generalized body pain when questioned. The patient is reporting poor pain control with her current medical regimen. The patient is reporting increased pain with all movements, especially out of bed. She was transferred out of her bed into chair earlier this morning with increased discomfort. She denies radicular pattern to her pain, noticeable weaknesses, footdrop or any recent falling. She reports moderate pain control from her breakthrough pain medications. She does find IV hydromorphone to be effective, which is contributing to sedation per the nursing staff. OBJECTIVE: VITAL SIGNS: Temperature 36.8 degrees Celsius, pulse 77, respirations 16, BP 172/70, and pulse oximetry 94% on room air. GENERAL: Ms. Stewart is sitting upon entering the room, in no obvious acute distress in the sitting position. The patient was sedate. She was arousable. She is oriented to person and place. The patient had difficulty answering direct questions due to her sedation. BACK AND SPINE: She is reporting generalized tenderness over the axial thoracolumbar spinal location to palpation as well as the paravertebral musculature. EXTREMITIES: Strength was 4/5 with dorsiflexion, plantarflexion, knee flexion and extension bilaterally. Sensation was intact in the distal lower extremities without deficits. There is no evidence of edema, erythema or skin breakdown. NEUROLOGIC: Cranial nerves grossly intact. Ambulatory function was not witnessed. 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 TREATMENT AND RECOMMENDATIONS: 1. Will progress her fentanyl from 25 mcg q. 72 hours to 50 mcg q. 72 hours based on 50% conversion of her use of IV hydromorphone. Will plan to reassess use of p.o. breakthrough pain medications over the next 24 hours and further adjust fentanyl accordingly. 2. The patient may continue to use hydromorphone on a p.r.n. basis for breakthrough pain. Would prefer oral route versus IV route due to sedation experienced from the IV route. 3. Consider diminishing versus discontinuing the clonazepam due to concerns over contributions with sedation and cognitive function. 4. Will continue to follow the patient during the inpatient stay. [facility]
--- NOTE | 2017-02-09 14:55 | Pharmacy Progress Note ---
Glycemic Control: Progress Nt Date of Service Feb 09, 2017. Scope Glycemic Pharmacist consulted by Dr Quinteros on 01/31/17 for glycemic control and to write orders per [facility] inpatient glycemic control protocol. Objective Accuchecks BSG (last 24hrs): Test 02/08/17 16:39 02/08/17 20:07 02/09/17 07:16 02/09/17 11:13 Bedside Glucose 198 mg/dl (70-90) 117 mg/dl (70-90) 234 mg/dl (70-90) 274 mg/dl (70-90) HbA1c: Test 01/31/17 00:32 Hemoglobin A1c 6.7 % (4.5-5.6) H Recent Pertinent Medications Outpatient Anti-diabetic Regimen: * Novolog pump * A1c = 6.7 % 01/31/17 The patient is currently receiving: * Basal insulin: Lantus 7-14 units every 12 hours * Correctional Insulin: Novolog Correction per scale ACHS Goal Range: Low 100 mg/dL - High 140 mg/dL Correction Factor: 15 mg/dL/unit * Prandial insulin: Per carb ratio of 1 unit per 5 grams CHO consumed Risk Factors for Insulin Resistance: * Steroids: dexamethasone 4 mg bid (now po) * Infection: on Levaquin po * Diet: type 2 diabetic AHA Assessment & Plan ASSESSMENT: * ADA & AACE recommend a goal blood sugar range 140-180 mg/dl for the majority of critically ill & non-critically ill patients. However, more stringent targets may be selected in individual cases. * 76 yo type 2 diabetic, well-controlled on Novolog pump. BSG's ranged 117-274 over past 24 hr., highest in the morning. Will increase basal insulin with hold parameters, continue the tighter correction and carb ratio, and reassess in am. PLAN FOR INPATIENT GLYCEMIC CONTROL: * Increasing Lantus to 16 units SQ BID for BSG 101 or more, 8 units for BSG 100 or less * Continuing correction factor 15 mg/dl/unit * Continuing carb ratio 1 unit per 5 grams CHO consumed * Continuing goal range Low 100 mg/dL - High 140 mg/dL * Please note that the plan above was derived based on current level of insulin resistance and hospital stress. These recommendations are appropriate for inpatient admission only. Plan of care upon discharge will need to be reassessed to avoid potential outpatient hypo/hyperglycemia. Thank you.
--- NOTE | 2017-02-09 15:55 | Progress Note ---
Internal Med Progress Note Date of Service: Feb 09, 2017. Provider Documentation: SUBJECTIVE : Patient is drowsy.Post radiation rx. Pain all over + Does have Cough, SOB at baseline, anorexia, weight loss x 20 lbs in 1-2 months No fever, chills, nausea, vomiting, headaches, abdominal pain, diarrhea OBJECTIVE : Vital Signs-as noted below Exam: General-Drowsy Lungs-AEBE decreased Rt> Left, no wheezing, rales, rhonchi Heart-S1, S2 normal. Murmur + Abdomen-soft bowel sounds present non tender no distension Extremities-no edema no erythema peripheral pulses intact Neuro-Bilateral lower extremity weakness- 3/5 strength , limited due to pain, cranial nerves intact, no decreased sensation Lab data as noted below. BONE SCAN There are extensive foci of abnormal increased activity involving the calvarium, multiple ribs, multiple thoracic and lumbar vertebral bodies, the bony pelvis, and the left hip and proximal femur. There is also a nonspecific focus of increased activity involving the right medial femoral metaphysis and proximal fibular lateral aspect of the right tibial plateau. There is also a focus of increased activity within the mid right femur. CT SCAN ABDOMEN/PELVIS IMPRESSION: 1. Progressive metastatic change of the liver. 2. Progressive bibasilar pleural effusions and lower lobe atelectatic change. 3. Stable indeterminate retroperitoneal nodes. 4. Gallstone the region of the gallbladder neck 5. Possible early bony metastatic change ASSESSMENT & PLAN: ASSESSMENT & PLAN : PAIN MANAGEMENT - Low back pain/ Chest pain from rib fractures (left) /LE pain - Not much improvement Secondary to Extensive metastasis, Spinal stenosis L3-L4, Spondylosis. -Work up- Bone scan- Extensive diffuse metastatic disease, CT scan abd/pelvis- Multiple hepatic masses; Lumbar MRI- Multiple hepatic masses, spondylosis, probable metastasis in spine, spinal stenosis L3-L4; X ray- Lumbar- no vertebral fractures. -Pain Mx - Increase Fentanyl to 50 mcq q 72 hours on 02/09/17; Increased PO Dilaudid to 8 mg q 4 hours PRN on 02/07/17, IV Dilaudid PRN. -On Decadron to help with Inflammation - 4 mg IV Q 12 hours on 02/04/17 --> Tapered to PO Decadron on 02/08/17 -Pain Management on board. Appreciate inputs. PLAN: Received palliative radiation today. METASTATIC CANCER, UNKNOWN PRIMARY, LIKELY PULMONARY Patient was found to have right upper lobe mass during last admission which was found to be suspicious for cancer, PET scan scheduled for January 2017. Plan is to do right upper lobe mass biopsy on February 11 -Work up- Bone scan- Extensive diffuse metastatic disease, CT scan abd/pelvis- Multiple hepatic masses; Lumbar MRI- Multiple hepatic masses, spondylosis, probable metastasis in spine, spinal stenosis L3-L4; X ray- lumbar- no vertebral fractures -Had a detailed discussion with patient about this diagnosis, as she said she had never heard of term "cancer" before. Explained at length about the future plan which would be pain control --> SNF placement--> PET scan /Biopsy outpatient (February 11, 2017 bronchoscopy with biopsy planned with Dr Barton outpatient) S/P SEPSIS SECONDARY TO HEALTH CARE ASSOCIATED PNEUMONIA : Sepsis resolved. -Afebrile, WBC trending down -S/P IV Zosyn Day # 4 --> changed to Levofloxacin 750 mg daily on 02/03/17 (Day 7 / of antibiotics) Last day on 02/09/17 -Cxs- No growth , MRSA - Neg S/P TOXIC ENCEPHALOPATHY possible secondary to sedation and analgesia given in the Emergency Room. -Resolved -Back to baseline- AAOX3 HYPERTENSION- -On lisinopril and amlodipine -Monitor. COPD, past tobacco use as per records -No signs of exacerbation -Stable DM2, insulin requiring, on insulin pump, -well controlled as of recent outpx HgA1C -Hold insulin pump -on Lantus and ISS-- monitor while on steroids -appreciate pharmacy consult DVt px -Lovenox SQ DISPOSITION PT/OT- Difficulty participating in therapy due to pain. Bruno's catheter had to be re inserted as painful moving around. [facility] refused to accept her today. Plan is for SNF in 1-2 days once pain is better controlled. Bronchoscopy with biopsy planned on 02/11/[address] Barton, may need to inform about cancellation if unable to be discharged in AM which most likely will be the case as snow storm coming tomorrow. Vital Signs: Date Time Temp Pulse Resp B/P Pulse Ox O2 Delivery O2 Flow Rate FiO2 02/09/17 15:24 36.4 16 147/76 96 Room Air 02/09/17 14:38 36.7 99 16 156/68 94 02/09/17 12:57 76 148/76 02/09/17 08:00 94 Room Air 02/09/17 07:02 36.8 107 16 172/70 94 Room Air 02/09/17 00:00 95 Room Air 02/08/17 23:31 36.4 109 18 166/69 91 Room Air 02/08/17 20:42 118 157/73 02/08/17 16:22 36.6 74 18 174/74 94 Room Air 02/08/17 16:00 Room Air Lab Results: Results Past 24 Hours Test 02/08/17 16:39 02/08/17 20:07 02/09/17 07:16 02/09/17 11:13 Range/Units Bedside Glucose 198 117 234 274 70-90 mg/dl
[2017-02-09] MEDS: AMLODIPINE BESYLATE 5 MG TAB PO SCH (22:20)
[2017-02-10] VITALS (7 sets, daily range): BP systolic 136–154; BP diastolic 67–73; PULSE 91–130; TEMP 36.3–36.8; O2SAT 92–96
[2017-02-10] MEDS: HYDROmorphone INJ 1 MG/ML SYR IV PRN ×7 (00:10→22:48)
[2017-02-10] MEDS: HYDROmorphone HCL 2 MG TAB PO PRN ×4 (04:01→18:52)
[2017-02-10] MEDS: CHECK FENTANYL PATCH PLACEMENT SCH ×4 (08:00→23:51)
[2017-02-10] MEDS: GABAPENTIN 300 MG CAP PO SCH ×3 (08:50→19:53)
[2017-02-10] MEDS: DOCUSATE SODIUM 100 MG CAP PO SCH ×2 (08:50→19:52)
[2017-02-10] MEDS: LISINOPRIL 20 MG TAB PO SCH (08:51)
[2017-02-10] MEDS: POLYETHYLENE (MIRALAX) 17 GM PACK PO SCH (08:51)
[2017-02-10] MEDS: DEXAMETHASONE 4 MG TAB PO SCH ×2 (08:51→19:53)
[2017-02-10] MEDS: ASPIRIN 81 MG ECTAB PO SCH (08:51)
[2017-02-10] MEDS: ENOXAPARIN 40 MG/0.4 ML SYR SC SCH (08:52)
[2017-02-10] MEDS: INSULIN ASPART 100 UNITS/ML 3 ML PEN SC SCH ×4 (08:56→21:01)
[2017-02-10] MEDS: INSULIN GLARGINE SOLOSTAR 100 UNITS/ML 3 ML PEN SC SCH ×2 (08:57→21:00)
[2017-02-10] MEDS: ACETAMINOPHEN 325 MG TAB PO PRN (11:47)
--- NOTE | 2017-02-10 12:15 | Pulmonary Consultation ---
History General Date of Service: Feb 10, 2017. Stated Complaint: Sepsis, metastatic cancer HPI The patient is a 76 year old female who presents to [facility] with complaints of Sepsis. The patient's primary care provider is Forest Shah M.D.. 73y/o admitted to [facility] 01/31/17 with AMS and HCAP. During her previous admission, 2 weeks prior for right rib fracture secondary to fall the patient was noted to have a 4cm RUL nodule and mediastinal lymphadnenopathy and was to be worked-up as an outpatient with EBUS/ENB. During this stay the patient has been seen by pain management and radiation oncology for bone pain. CTA 01/31/2017 noted increased size of the RUL mass and continued mediastinal lymphadenopathy. The patient continues to worsen both physically and mentally at this time and has been initiated on radiation therapy for pain control. During our conversation the patient was mildly altered and unable to answer direct questions. I was able to speak to the patient's daughter Iris to discuss her mother's case. He denies: Chest pain, fever, chills, pleurisy. Labs: WBC: 16K (increasing) 01/31/17: INR/aPTT/PT: WNL Microbiology: no growth to date Radiology CT with contrast 06/28/2009: Within normal limits Chest x-ray 11/12/2015: No significant findings Upper extremity CT 11/12/2015: No signs of mass Mammography 11/05/2016: Within normal limits CT noncontrast 01/19/2017 - 4cm right upper lobe nodule in the LB3 apex oLarge mediastinal lymphadenopathy noted Station 4R, 7 oRight fifth rib fracture oSmall basilar left pleural effusion with mild atelectasis Lumbar spine 01/19/2017 oMultilevel spondylitic changes noted CT thorax 01/19/2017 oNecrotic right paratracheal lymphadenopathy noted Dayna subluxations or fractures noted oPartially visualize density possible in the right middle lobe CT with contrast of head 01/19/2017 Dayna notable abnormalities CTA chest and ABD 01/31/2017 - Mildly enlarged retroperitoneal lymph nodes are of indeterminant Significance - NO signs of PE - RUL mass has increased in size 4.9x4.1cm - Notable mediastinal lymph-nodes MRI 02/02/2017 1. Multiple hepatic masses. 2. Diffuse decreased T1 signal within the vertebral body marrow. This indicates a marrow replacement process. Diagnostic considerations include metastatic disease, lymphoma, anemia, or a drug-induced marrow stimulation. 3. Multilevel spondylitic change. Mild multilevel spinal canal narrowing. Mild spinal stenosis at the L3-4 level. Bone Scan 02/06/2017 -Wide spread skeletal mtx Gallbladder 01/19/2017 oMultiple hypoechoic lesions suggestive of metastatic disease Historian: patient, family, EMS Review of Systems Difficult review of systems as patient is altered at this time. Constitutional: reports: malaise, weakness Eyes: reports: no symptoms ENT: reports: no symptoms Cardiovascular: reports: no symptoms Respiratory: reports: no symptoms Gastrointestinal: reports: no symptoms Genitourinary - Female: reports: no symptoms Musculoskeletal: reports: back pain, joint pain, myalgias Integumentary: reports: no symptoms Neurologic: reports: no symptoms Psychiatric: reports: no symptoms Endocrine: no symptoms Hematologic / Lymphatic: no symptoms Allergic / Immunologic: no symptoms Past Medical History Past Medical History: #1 anxiety #2 COPD #3 chronic lumbar pain #4 diabetes mellitus type 2-on insulin pump #5 dyslipidemia #6 hypertension #7 osteoporosis #8 squamous cell carcinoma Past Surgical History: #1 carpal tunnel surgery #2 possibly #3 total right hip replacement #4 appendectomy #5 tonsillectomy #6 total replacement of the right shoulder Family History FH: CAD (coronary artery disease) MOTHER ( of [place] age 57) FH: brain tumor FATHER FH: emphysema MOTHER Social History Hx Tobacco Use In Past Year?: No Smoking Status: Unknown if Ever Smoked Marital status: Housing status: lives alone Occupational Status: retired Immunizations History of Influenza Vaccine: No History of Tetanus Vaccine?: Unknown History of Pneumococcal: Yes History of Hepatitis B Vaccine: No History of MDRO History of MDRO: No Allergies Coded Allergies: Morphine (Verified Adverse Reaction, Intermediate, GETS SICK, 01/19/17) Oxycodone (Verified Adverse Reaction, Intermediate, feels like she is gonna pass out, 01/19/17) Current Medications Reported Home Medications Medications Dose Route/Sig Max Daily Dose Days Date Category Dose Instructions Neurontin (Gabapentin) 100 Mg Cap 100 Mg PO TID 01/31/17 Reported Miralax (Polyethylene Glycol 3350) 1 Pow Pow 17 Gm PO DAILY 01/31/17 Reported Zestril (Lisinopril) 20 Mg Tab 20 Mg PO DAILY 01/31/17 Reported Hydromorphone HCl 2 Mg Tab 2 Mg PO Q3H PRN 30 01/22/17 Rx Docusate Sodium 100 Mg Cap 100 Mg PO BID 30 01/21/17 Rx Tretinoin 0.025 % Cre 1 Appln TOP DAILY 01/19/17 Reported Fluocinonide 0.05 % Aga 1 Appln TOP BID PRN 30 01/19/17 Reported Amoxil (Amoxicillin) 875 Mg Tab 875 Mg PO UD PRN 01/19/17 Reported Take 4 tabs prior to dental work. Ambien (Zolpidem Tartrate) 5 Mg Tab 5 Mg PO HS PRN 01/19/17 Reported Ativan (Lorazepam) 0.5 Mg Tab 0.5 Mg PO TID PRN 01/19/17 Reported Vitamin D (Cholecalciferol) 1,000 Unit Tab 1 Tab PO BID 01/19/17 Reported Aspirin 81 Mg Tab 1 Tab PO QAM 11/12/15 Reported Vitamin B12 (Cyanocobalamin) 1,000 Mcg Tab 1 Tab PO QAM 11/12/15 Reported Norvasc (Amlodipine Besylate) 5 Mg Tab 5 Mg PO HS 11/12/15 Reported novoLOG INSULIN PUMP (Insulin Aspart) 1 Ea Inj 1 Ea N/A UD 11/12/15 Reported Ultram (Tramadol HCl) 50 Mg Tab 50 Mg PO Q4 PRN 06/28/09 Reported Physical Physical Exam Vital Signs: Date Time Temp Pulse Resp B/P Pulse Ox O2 Delivery O2 Flow Rate FiO2 02/10/17 08:10 93 Room Air 02/10/17 07:08 36.5 91 18 147/67 93 Room Air 02/10/17 00:36 36.8 130 20 136/73 92 Room Air 02/10/17 00:34 96 Room Air 02/10/17 00:34 110 93 Room Air 02/09/17 22:15 125 148/71 Room Air 02/09/17 20:20 96 Room Air 02/09/17 16:00 96 Room Air 02/09/17 15:24 36.4 16 147/76 96 Room Air 02/09/17 14:38 36.7 99 16 156/68 94 02/09/17 12:57 76 148/76 General Appearance: uncomfortable, mild distress Head: NORMOCEPHALIC, ATRAUMATIC Eyes: PERRLA, NO DISCHARGE, EOMI, SCLERAE NORMAL, CONJUNCTIVAE NORMAL ENT: NORMAL EAR EXAM, NORMAL NASAL EXAM, NORMAL MOUTH EXAM, NORMAL THROAT EXAM , NORMAL DENTAL EXAM Neck: NORMAL RANGE OF MOTION, NO TENDERNESS, TRACHEA MIDLINE, NO STRIDOR Respiratory: other (decreased breath sounds globally but no rhonchi or wheezes appreciated at this time) Cardiovasular: REGULAR RATE/RHYTHM, NORMAL S1S2, NO M/G/R, NO MURMUR, NO GALLOP , NO RUB, NO JVD Abdomen: NON TENDER, NORMAL BOWEL SOUNDS, NO REBOUND, NO MASSES, NO GUARDING, NO ORGANOMEGALY, NORMAL RECTAL EXAM Genitourinary - Female: EXTERNAL GENITALIA NORMAL Back: other (lumbar pain to touch) Upper Extremities: NO EDEMA, NO DEFORMITY, NORMAL ROM Lower Extremities: NORMAL ROM, edema Edema: Bilateral LE (1+) Pulses: carotid (R) (2+), carotid (L) (2+), posterior tibial (R), posterior tibial (L) (2+) Neuro: NORMAL MOTOR EXAM, NORMAL SENSATION, decreased LOC Reflexes: biceps (R) (2+), bicpes (L) (2+), achilles (R) (2+), achilles (L) (2+ ) Babinski Testing: right (downgoing), left (downgoing) Psychiatric: anxious Diagnostics Labs Results Past 24 Hours Test 02/09/17 16:07 02/09/17 20:34 02/10/17 07:06 02/10/17 11:12 Range/Units Bedside Glucose 207 156 190 234 70-90 mg/dl Test 02/10/17 11:44 Range/Units Bedside Glucose 237 70-90 mg/dl Diagnostic Radiology CT with contrast 06/28/2009: Within normal limits Chest x-ray 11/12/2015: No significant findings Upper extremity CT 11/12/2015: No signs of mass Mammography 11/05/2016: Within normal limits CT noncontrast 01/19/2017 - 4cm right upper lobe nodule in the LB3 apex oLarge mediastinal lymphadenopathy noted Station 4R, 7 oRight fifth rib fracture oSmall basilar left pleural effusion with mild atelectasis Lumbar spine 01/19/2017 oMultilevel spondylitic changes noted CT thorax 01/19/2017 oNecrotic right paratracheal lymphadenopathy noted Dayna subluxations or fractures noted oPartially visualize density possible in the right middle lobe CT with contrast of head 01/19/2017 Dayna notable abnormalities CTA chest and ABD 01/31/2017 - Mildly enlarged retroperitoneal lymph nodes are of indeterminant Significance - NO signs of PE - RUL mass has increased in size 4.9x4.1cm - Notable mediastinal lymph-nodes MRI 02/02/2017 1. Multiple hepatic masses. 2. Diffuse decreased T1 signal within the vertebral body marrow. This indicates a marrow replacement process. Diagnostic considerations include metastatic disease, lymphoma, anemia, or a drug-induced marrow stimulation. 3. Multilevel spondylitic change. Mild multilevel spinal canal narrowing. Mild spinal stenosis at the L3-4 level. Bone Scan 02/06/2017 -Wide spread skeletal mtx Gallbladder 01/19/2017 oMultiple hypoechoic lesions suggestive of metastatic disease EKG Interpretation: NORMAL EKG Impression Assessment and Plan 76-year-old female with signs of progressive primary lung carcinoma: #1 Lung Mass: This time we have no biopsy to confirm the patient's primary cancer but as the patient has a long history of smoking a large growing mass in her thorax and notable mediastinal lymphadenopathy primary lung carcinoma is highly probable. It would be optimal to proceed forward with EBUS/ENB to verify the diagnosis but the risk to benefit ratio at this time is too high. I have spoken to the patient and patient's daughter her [employer] and we have decided to move forward with hospice care. The patient and daughter would like to continue with radiation oncology for pain control, Dr. Roland Lopez. At this time I do agree to move towards hospice have spoken to Dr. Chon Morton her hospitalist attending. #2 CODE STATUS: DO NOT RESUSCITATE #3 sign off: I do not believe pulmonary can benefit in this case any further and will sign off at this time.
--- NOTE | 2017-02-10 15:17 | Pharmacy Progress Note ---
Glycemic: Assessment & Plan Date of Service Feb 10, 2017. Assessment & Plan The patient received 78 units of insulin on 02/08, 73 units on 02/09. BSGs ranging 156 - 237 mg/dl over the past 24hrs. PO intake still variable. Will slightly increase basal insulin again, and reassess in am. * Basal insulin: Lantus 20 units every 12 hours, give 1/2 dose (10 units) if BSG is less than 100 * Correctional Insulin: Novolog Correction per scale ACHS Goal Range: Low 100 mg/dL - High 140 mg/dL Correction Factor: 15 mg/dL/unit * Prandial insulin: Per carb ratio of 1 unit per 5 grams CHO consumed BSGs continue to improve, no other changes needed to inpatient regimen at this time. Pharmacy will continue to monitor patient daily and write orders per [facility] inpatient glycemic control protocol. Thanks. * Please note that the plan above was derived based on current level of insulin resistance and hospital stress. These recommendations are appropriate for inpatient admission only. Plan of care upon discharge will need to be reassessed to avoid potential outpatient hypo/hyperglycemia.
--- NOTE | 2017-02-10 17:58 | Progress Note ---
Medicine Progress Note Date & Time of Visit: Feb 10, 2017 at 17:58. Subjective patient seen resting in bed sleeping but easily rousable comfortable pain controlled denies chest pain, palpitations, dizziness, nausea/vomiting no other symptoms Objective Last 8 Hrs Date Time Temp Pulse Resp B/P Pulse Ox O2 Delivery O2 Flow Rate FiO2 02/10/17 16:39 36.8 115 18 154/70 92 Room Air 02/10/17 14:12 36.3 Physical Exam: General- oriented x 3, not in distress, speaks in sentences with no effort Head- atraumatic Eyes- EOMI, anicteric Neck- supple, no JVD Lungs- clear breath sounds bilaterally Heart- normal rate, regular rhythm; no murmurs Abdomen- normal bowel sounds, soft, nontender Extremities- no pretibial edema, no calf tenderness Neuro- alert, oriented x 3; no gross deficits Skin- warm & dry Laboratory Results: Last 24 Hours Test 02/09/17 20:34 02/10/17 07:06 02/10/17 11:12 02/10/17 11:44 Bedside Glucose 156 mg/dl 190 mg/dl 234 mg/dl 237 mg/dl Test 02/10/17 16:26 Bedside Glucose 133 mg/dl Assessment & Plan PAIN MANAGEMENT Secondary to Extensive metastasis, Spinal stenosis L3-L4, Spondylosis. -Work up- Bone scan- Extensive diffuse metastatic disease, CT scan abd/pelvis- Multiple hepatic masses; Lumbar MRI- Multiple hepatic masses, spondylosis, probable metastasis in spine, spinal stenosis L3-L4; X ray- Lumbar- no vertebral fractures. -- on fentanyl, dilaudid PO and IV PRN Dexamethasone PO taper -- palliative radiation in progress -- appreciate pain management recommendations METASTATIC CANCER, UNKNOWN PRIMARY, LIKELY PULMONARY Patient was found to have right upper lobe mass during last admission which was found to be suspicious for cancer, PET scan scheduled for January 2017. -Work up- Bone scan- Extensive diffuse metastatic disease, CT scan abd/pelvis- Multiple hepatic masses; Lumbar MRI- Multiple hepatic masses, spondylosis, probable metastasis in spine, spinal stenosis L3-L4; X ray- lumbar- no vertebral fractures -- discussed with Dr. Barton, who discussed case with patient and her daughter plan is to cancel Bronchoscopy, and to transition to Hospice Services S/P SEPSIS SECONDARY TO HEALTH CARE ASSOCIATED PNEUMONIA : Sepsis resolved. -S/P IV Zosyn Day # 4 --> changed to Levofloxacin 750 mg daily (completed 7 days) -Cxs- No growth , MRSA - Neg S/P TOXIC ENCEPHALOPATHY possible secondary to sedation and analgesia given in the Emergency Room. -Resolved HYPERTENSION- -On lisinopril and amlodipine -Monitor. COPD, past tobacco use as per records -No signs of exacerbation -Stable DM2, insulin requiring, on insulin pump, -well controlled as of recent outpx HgA1C -Hold insulin pump -on Lantus and ISS-- monitor while on steroids -appreciate pharmacy consult DVt px -Lovenox SQ DISPOSITION patient prefers to go home with hospice will discuss with Case management Current Inpatient Medications: Current Inpatient Medications Medications (Trade) Dose Ordered Sig/Eric Route Start Time Stop Time Status Last Admin Dose Admin Amlodipine Besylate (Norvasc Tab) 5 mg HS PO 01/31/17 21:00 03/02/17 20:59 02/09/17 22:20 5 MG Aspirin (Ecotrin Tab) 81 mg QAM PO 01/31/17 09:00 03/02/17 08:59 02/10/17 08:51 81 MG Docusate Sodium (coLACE CAP) 100 mg BID PO 01/31/17 09:00 03/02/17 08:59 02/10/17 08:50 100 MG Lisinopril (Zestril Tab) 20 mg DAILY PO 02/01/17 09:00 03/03/17 08:59 02/10/17 08:51 20 MG Polyethylene (Miralax Powder Packet) 17 gm DAILY PO 01/31/17 09:00 03/02/17 08:59 02/10/17 08:51 17 GM Ondansetron HCl (Zofran Inj) 4 mg Q6H PRN IV 01/31/17 04:45 03/02/17 04:44 Enoxaparin Sodium (Lovenox Inj) 40 mg Q24H SC 01/31/17 09:00 03/02/17 08:59 02/10/17 08:52 40 MG Acetaminophen (Tylenol Tab) 650 mg Q4H PRN PO 01/31/17 04:45 03/02/17 04:44 02/10/17 11:47 650 MG Nitroglycerin (Nitrostat Tab) 0.4 mg UD PRN SL 01/31/17 04:45 4/3/17 04:44 Insulin Aspart (novoLOG ASPART) SLIDING SCALE If C... ACHS SC 01/31/17 07:00 03/02/17 06:59 02/10/17 13:52 7 UNITS Glucose (Glucose 40% Gel) 15-30 GRAMS 15 GRAMS... UD PRN PO 01/31/17 04:45 03/02/17 04:44 Glucose (Glucose Chew Tab) 4-8 Tablets 4 Tabl... UD PRN PO 01/31/17 04:45 03/02/17 04:44 Dextrose (Dextrose 50% 50ML Syringe) 25-50ML OF 50% DW IV FOR... UD PRN IV 01/31/17 04:45 03/02/17 04:44 Glucagon (Glucagon Inj) 1 mg UD PRN SQ 01/31/17 04:45 03/02/17 04:44 Haloperidol Lactate (Haldol Inj) 2 mg Q2H PRN IM 01/31/17 04:45 03/02/17 04:44 Miscellaneous Information (Consult Glycemic Management Pharmacy) 1 ea UD PRN N/A 01/31/17 09:00 03/02/17 08:59 Insulin Glargine (Lantus Solostar Pen) see protocol text BID SC 01/31/17 09:00 03/02/17 08:59 02/10/17 08:57 16 UNIT Hydromorphone HCl (Dilaudid Inj) 1 mg Q3H PRN IV 01/31/17 17:15 02/14/17 17:14 02/10/17 15:42 1 MG Miscellaneous (Remove Lidoderm Patch) 1 ea DAILY@21 N/A 02/02/17 21:00 03/04/17 20:59 02/09/17 21:00 1 EA Gabapentin (Neurontin Cap) 300 mg TID PO 02/02/17 14:00 03/04/17 13:59 02/10/17 14:15 300 MG Hydromorphone HCl (Dilaudid Tab) 2 mg Q4H PRN PO 02/02/17 11:00 02/16/17 10:59 02/10/17 10:39 2 MG Clonazepam (Klonopin Tab) 0.5 mg Q6H PRN PO 02/02/17 11:00 03/04/17 10:59 02/09/17 11:17 0.5 MG Dexamethasone (Decadron Tab) 4 mg BID PO 02/08/17 20:00 03/10/17 19:59 02/10/17 08:51 4 MG Fentanyl (Duragesic Patch) 50 mcg Q3D@0945 TD 02/09/17 09:45 02/23/17 09:44 02/09/17 10:12 50 MCG Miscellaneous (Fentanyl Patch Remove & Waste) 1 ea Q3D@0944 N/A 02/09/17 09:44 03/11/17 09:43 02/09/17 09:44 1 EA Miscellaneous Information (Check Fentanyl Patch Placement) 1 ea QS N/A 02/09/17 16:00 03/11/17 15:59 02/10/17 15:45 1 EA
--- NOTE | 2017-02-10 19:27 | Progress Note ---
Medicine Progress Note Date & Time of Visit: Feb 10, 2017 at 19:21. Objective Last 8 Hrs Date Time Temp Pulse Resp B/P Pulse Ox O2 Delivery O2 Flow Rate FiO2 02/10/17 16:39 36.8 115 18 154/70 92 Room Air 02/10/17 16:00 92 Room Air 02/10/17 14:12 36.3 Physical Exam: General- oriented x 3, not in distress, speaks in sentences with no effort Head- atraumatic Eyes- EOMI, anicteric Neck- supple, no JVD Lungs- clear breath sounds bilaterally Heart- normal rate, regular rhythm; no murmurs Abdomen- normal bowel sounds, soft, nontender Extremities- no pretibial edema, no calf tenderness Neuro- alert, oriented x 3; no gross deficits Skin- warm & dry Laboratory Results: Last 24 Hours Test 02/09/17 20:34 02/10/17 07:06 02/10/17 11:12 02/10/17 11:44 Bedside Glucose 156 mg/dl 190 mg/dl 234 mg/dl 237 mg/dl Test 02/10/17 16:26 Bedside Glucose 133 mg/dl Assessment & Plan PAIN MANAGEMENT Secondary to Extensive metastasis, Spinal stenosis L3-L4, Spondylosis. -Work up- Bone scan- Extensive diffuse metastatic disease, CT scan abd/pelvis- Multiple hepatic masses; Lumbar MRI- Multiple hepatic masses, spondylosis, probable metastasis in spine, spinal stenosis L3-L4; X ray- Lumbar- no vertebral fractures. -- on fentanyl, dilaudid PO and IV PRN Dexamethasone PO taper -- palliative radiation in progress -- appreciate pain management recommendations METASTATIC CANCER, UNKNOWN PRIMARY, LIKELY PULMONARY Patient was found to have right upper lobe mass during last admission which was found to be suspicious for cancer, PET scan scheduled for January 2017. -Work up- Bone scan- Extensive diffuse metastatic disease, CT scan abd/pelvis- Multiple hepatic masses; Lumbar MRI- Multiple hepatic masses, spondylosis, probable metastasis in spine, spinal stenosis L3-L4; X ray- lumbar- no vertebral fractures -- discussed with Dr. Barton, who discussed case with patient and her daughter plan is to cancel Bronchoscopy, and to transition to Hospice Services S/P SEPSIS SECONDARY TO HEALTH CARE ASSOCIATED PNEUMONIA : Sepsis resolved. -S/P IV Zosyn Day # 4 --> changed to Levofloxacin 750 mg daily (completed 7 days) -Cxs- No growth , MRSA - Neg S/P TOXIC ENCEPHALOPATHY possible secondary to sedation and analgesia given in the Emergency Room. -Resolved HYPERTENSION- -On lisinopril and amlodipine -Monitor. COPD, past tobacco use as per records -No signs of exacerbation -Stable DM2, insulin requiring, on insulin pump, -well controlled as of recent outpx HgA1C -Hold insulin pump -on Lantus and ISS-- monitor while on steroids -appreciate pharmacy consult DVt px -Lovenox SQ DISPOSITION patient prefers to go home with hospice will discuss with Case management Current Inpatient Medications: Current Inpatient Medications Medications (Trade) Dose Ordered Sig/Eric Route Start Time Stop Time Status Last Admin Dose Admin Amlodipine Besylate (Norvasc Tab) 5 mg HS PO 01/31/17 21:00 03/02/17 20:59 02/09/17 22:20 5 MG Aspirin (Ecotrin Tab) 81 mg QAM PO 01/31/17 09:00 03/02/17 08:59 02/10/17 08:51 81 MG Docusate Sodium (coLACE CAP) 100 mg BID PO 01/31/17 09:00 03/02/17 08:59 02/10/17 08:50 100 MG Lisinopril (Zestril Tab) 20 mg DAILY PO 02/01/17 09:00 03/03/17 08:59 02/10/17 08:51 20 MG Polyethylene (Miralax Powder Packet) 17 gm DAILY PO 01/31/17 09:00 03/02/17 08:59 02/10/17 08:51 17 GM Ondansetron HCl (Zofran Inj) 4 mg Q6H PRN IV 01/31/17 04:45 03/02/17 04:44 Enoxaparin Sodium (Lovenox Inj) 40 mg Q24H SC 01/31/17 09:00 03/02/17 08:59 02/10/17 08:52 40 MG Acetaminophen (Tylenol Tab) 650 mg Q4H PRN PO 01/31/17 04:45 03/02/17 04:44 02/10/17 11:47 650 MG Nitroglycerin (Nitrostat Tab) 0.4 mg UD PRN SL 01/31/17 04:45 03/02/17 04:44 Insulin Aspart (novoLOG ASPART) SLIDING SCALE If C... ACHS SC 01/31/17 07:00 03/02/17 06:59 02/10/17 18:57 9 UNITS Glucose (Glucose 40% Gel) 15-30 GRAMS 15 GRAMS... UD PRN PO 01/31/17 04:45 03/02/17 04:44 Glucose (Glucose Chew Tab) 4-8 Tablets 4 Tabl... UD PRN PO 01/31/17 04:45 03/02/17 04:44 Dextrose (Dextrose 50% 50ML Syringe) 25-50ML OF 50% DW IV FOR... UD PRN IV 01/31/17 04:45 03/02/17 04:44 Glucagon (Glucagon Inj) 1 mg UD PRN SQ 01/31/17 04:45 03/02/17 04:44 Haloperidol Lactate (Haldol Inj) 2 mg Q2H PRN IM 01/31/17 04:45 03/02/17 04:44 Miscellaneous Information (Consult Glycemic Management Pharmacy) 1 ea UD PRN N/A 01/31/17 09:00 03/02/17 08:59 Insulin Glargine (Lantus Solostar Pen) see protocol text BID SC 01/31/17 09:00 03/02/17 08:59 02/10/17 08:57 16 UNIT Hydromorphone HCl (Dilaudid Inj) 1 mg Q3H PRN IV 01/31/17 17:15 02/14/17 17:14 02/10/17 15:42 1 MG Miscellaneous (Remove Lidoderm Patch) 1 ea DAILY@21 N/A 02/02/17 21:00 03/04/17 20:59 02/09/17 21:00 1 EA Gabapentin (Neurontin Cap) 300 mg TID PO 02/02/17 14:00 03/04/17 13:59 02/10/17 14:15 300 MG Hydromorphone HCl (Dilaudid Tab) 2 mg Q4H PRN PO 02/02/17 11:00 02/16/17 10:59 02/10/17 18:52 2 MG Clonazepam (Klonopin Tab) 0.5 mg Q6H PRN PO 02/02/17 11:00 03/04/17 10:59 02/09/17 11:17 0.5 MG Dexamethasone (Decadron Tab) 4 mg BID PO 02/08/17 20:00 03/10/17 19:59 02/10/17 08:51 4 MG Fentanyl (Duragesic Patch) 50 mcg Q3D@0945 TD 02/09/17 09:45 02/23/17 09:44 02/09/17 10:12 50 MCG Miscellaneous (Fentanyl Patch Remove & Waste) 1 ea Q3D@0944 N/A 02/09/17 09:44 03/11/17 09:43 02/09/17 09:44 1 EA Miscellaneous Information (Check Fentanyl Patch Placement) 1 ea QS N/A 02/09/17 16:00 03/11/17 15:59 02/10/17 15:45 1 EA
[2017-02-10] MEDS: AMLODIPINE BESYLATE 5 MG TAB PO SCH (20:57)
[2017-02-11 00:38] VITALS: BP 143/61; PULSE 89; TEMP 36.6; O2SAT 94
[2017-02-11] MEDS: HYDROmorphone INJ 1 MG/ML SYR IV PRN ×6 (02:08→23:51)
[2017-02-11] MEDS: INSULIN ASPART 100 UNITS/ML 3 ML PEN SC SCH ×4 (06:30→20:31)
[2017-02-11 07:28] VITALS: O2SAT 92
[2017-02-11 07:29] VITALS: BP 125/71; PULSE 103; TEMP 36.6; O2SAT 95
[2017-02-11] MEDS: CHECK FENTANYL PATCH PLACEMENT SCH ×3 (08:00→23:52)
[2017-02-11] MEDS: LISINOPRIL 20 MG TAB PO SCH (08:01)
[2017-02-11] MEDS: DEXAMETHASONE 4 MG TAB PO SCH ×2 (08:01→20:20)
[2017-02-11] MEDS: GABAPENTIN 300 MG CAP PO SCH ×3 (08:01→20:22)
[2017-02-11] MEDS: DOCUSATE SODIUM 100 MG CAP PO SCH ×2 (08:01→20:19)
[2017-02-11] MEDS: ENOXAPARIN 40 MG/0.4 ML SYR SC SCH (08:02)
[2017-02-11] MEDS: HYDROmorphone HCL 2 MG TAB PO PRN (08:06)
[2017-02-11] MEDS: ASPIRIN 81 MG ECTAB PO SCH (08:07)
[2017-02-11] MEDS: POLYETHYLENE (MIRALAX) 17 GM PACK PO SCH (08:07)
[2017-02-11] MEDS: INSULIN GLARGINE SOLOSTAR 100 UNITS/ML 3 ML PEN SC SCH ×2 (08:14→20:32)
--- NOTE | 2017-02-11 09:05 | Pain Management Progress Note ---
Pain Management Progress Note Date of Service Feb 11, 2017. Subjective Mrs. 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 Patient reports significant pain "all over". She states that the pain is worsened in the low back. Patient reports difficulty with positional changes. Mrs. Stewart has been undergoing radiation and tolerating well. She is currently utilizing Fentanyl patch 50mcg/hr, PO Dilaudid 2mg, and IV Dilaudid for breakthrough pain. Patient states that the current regimen is not controlling her pain. She and her daughter have discussed her condition and agreed to proceed with Hospice care at discharge. Patient denies any chest pain, SOB, abdominal pain. + mild constipation. Case discussed with Dr. Ruiz Objective Vital Signs: Last Vital Signs Documentation Date Time Temp Pulse Resp B/P Pulse Ox O2 Delivery O2 Flow Rate FiO2 02/11/17 07:29 36.6 103 18 125/71 95 Room Air 02/04/17 08:00 1.0 Physical Exam: GENERAL: Mrs. Stewart is a 76 y/o white female that appears her stated age. Speech and cognition is intact. Patient is in acute distress laying in the hospital bed, tearful. HEAD: Normocephalic; atraumatic. EYES: Pupils are round, equal, and reactive to light; EOM intact. ENT: No external ear discharge or lesions. No rhinorrhea or epistaxis. + dry buccal mucosa. CHEST: Regular chest respiration and excursion. EXTREMITIES: Increased pain with extremity ROM. No focal area of tenderness. NEURO: CN II-XII grossly intact with no focal deficits noted. Laboratory (Last CBC): 02/08/17 13:18 Assessment 1. 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 Will increase Fentanyl patch from 50mcg/hr to 62mcg/hr. 2. Lidocaine patches were reordered for the patient as previous order . 3. Urged the patient to take the oral Dilaudid for pain and use IV Dilaudid for breakthrough pain only. 4. Will continue to follow the patient during admission. [employer] Voice Recognition This chart was completed in part utilizing [employer] Voice Recognition Software. Random word insertions, pronoun errors, and incomplete sentences are an occasional consequence of this system due to software limitations and ambient noise. Any questions or concerns about the content, text or information contained within the body of this dictation should be directly addressed to the provider for clarification.
[2017-02-11] MEDS ORDERED: FENTANYL 12 MCG/HR TDSY TD SCH (10:00)
[2017-02-11] MEDS ORDERED: FENTANYL PATCH REMOVE & WASTE SCH (10:00)
[2017-02-11] MEDS ORDERED: FENTANYL 50 MCG/HR TDSY TD SCH (10:00)
[2017-02-11] MEDS: ACETAMINOPHEN 325 MG TAB PO PRN (11:47)
[2017-02-11] MEDS: LIDODERM (LIDOCAINE) PATCH 5% TD SCH (13:26)
[2017-02-11 16:00] VITALS: O2SAT 92
[2017-02-11 16:10] VITALS: BP 116/63; PULSE 112; TEMP 36.7; O2SAT 96
--- NOTE | 2017-02-11 17:31 | Progress Note ---
Medicine Progress Note Date & Time of Visit: Feb 11, 2017 at 17:28. Subjective patient seen resting in bed, in good spirits pain is generally controlled reports stinging sensation on the chest wall noted to have cough with meal earlier, s/p Speech Therapy eval no other symptoms Objective Last 8 Hrs Date Time Temp Pulse Resp B/P Pulse Ox O2 Delivery O2 Flow Rate FiO2 02/11/17 16:10 36.7 112 16 116/63 96 Room Air Physical Exam: General- oriented x 3, not in distress, speaks in sentences with no effort Eyes- anicteric Neck- no JVD Lungs- clear breath sounds bilaterally, no rales/wheezes (+) mild erythema on the chest wall Heart- normal rate, regular rhythm; no murmurs Abdomen- normal bowel sounds, soft, nontender Extremities- no pretibial edema, no calf tenderness Neuro- alert, oriented x 3; no gross deficits Skin- warm & dry Laboratory Results: Last 24 Hours Test 02/10/17 20:26 02/11/17 07:58 02/11/17 11:37 02/11/17 15:51 Bedside Glucose 175 mg/dl 149 mg/dl 280 mg/dl 215 mg/dl Assessment & Plan PAIN MANAGEMENT - Secondary to Extensive metastasis, Spinal stenosis L3-L4, Spondylosis. -Work up- Bone scan- Extensive diffuse metastatic disease, CT scan abd/pelvis- Multiple hepatic masses; Lumbar MRI- Multiple hepatic masses, spondylosis, probable metastasis in spine, spinal stenosis L3-L4; X ray- Lumbar- no vertebral fractures. -- on fentanyl, dilaudid PO and IV PRN--> fentanyl increased Dexamethasone PO --> tapering -- palliative radiation in progress -- appreciate pain management recommendations METASTATIC CANCER, UNKNOWN PRIMARY, LIKELY PULMONARY Patient was found to have right upper lobe mass during last admission which was found to be suspicious for cancer, PET scan scheduled for January 2017. -Work up- Bone scan- Extensive diffuse metastatic disease, CT scan abd/pelvis- Multiple hepatic masses; Lumbar MRI- Multiple hepatic masses, spondylosis, probable metastasis in spine, spinal stenosis L3-L4; X ray- lumbar- no vertebral fractures -- discussed with Dr. Barton, who discussed case with patient and her daughter plan is to cancel Bronchoscopy, and to transition to Hospice Services POSSIBLE RADIATION DERMATITIS ON THE CHEST - Mometasone cream ordered S/P SEPSIS SECONDARY TO HEALTH CARE ASSOCIATED PNEUMONIA : Sepsis resolved. -S/P IV Zosyn Day # 4 --> changed to Levofloxacin 750 mg daily (completed 7 days) -Cxs- No growth , MRSA - Neg S/P TOXIC ENCEPHALOPATHY possible secondary to sedation and analgesia given in the Emergency Room. -Resolved HYPERTENSION- -On lisinopril and amlodipine -Monitor. COPD, past tobacco use as per records -No signs of exacerbation -Stable DM2, insulin requiring, on insulin pump, -well controlled as of recent outpx HgA1C -Hold insulin pump -on Lantus and ISS-- monitor while on steroids -appreciate pharmacy consult DVt px -Lovenox SQ DISPOSITION patient prefers to go home with hospice will discuss with Case management Current Inpatient Medications: Current Inpatient Medications Medications (Trade) Dose Ordered Sig/Eric Route Start Time Stop Time Status Last Admin Dose Admin Amlodipine Besylate (Norvasc Tab) 5 mg HS PO 01/31/17 21:00 03/02/17 20:59 02/10/17 20:57 5 MG Aspirin (Ecotrin Tab) 81 mg QAM PO 01/31/17 09:00 03/02/17 08:59 02/11/17 08:07 81 MG Docusate Sodium (coLACE CAP) 100 mg BID PO 01/31/17 09:00 03/02/17 08:59 02/11/17 08:01 100 MG Lisinopril (Zestril Tab) 20 mg DAILY PO 02/01/17 09:00 03/03/17 08:59 02/11/17 08:01 20 MG Polyethylene (Miralax Powder Packet) 17 gm DAILY PO 01/31/17 09:00 03/02/17 08:59 02/11/17 08:07 17 GM Ondansetron HCl (Zofran Inj) 4 mg Q6H PRN IV 01/31/17 04:45 03/02/17 04:44 Enoxaparin Sodium (Lovenox Inj) 40 mg Q24H SC 01/31/17 09:00 03/02/17 08:59 02/11/17 08:02 40 MG Acetaminophen (Tylenol Tab) 650 mg Q4H PRN PO 01/31/17 04:45 03/02/17 04:44 02/11/17 11:47 650 MG Nitroglycerin (Nitrostat Tab) 0.4 mg UD PRN SL 01/31/17 04:45 03/02/17 04:44 Insulin Aspart (novoLOG ASPART) SLIDING SCALE If C... ACHS SC 01/31/17 07:00 03/02/17 06:59 02/11/17 13:24 20 UNITS Glucose (Glucose 40% Gel) 15-30 GRAMS 15 GRAMS... UD PRN PO 01/31/17 04:45 03/02/17 04:44 Glucose (Glucose Chew Tab) 4-8 Tablets 4 Tabl... UD PRN PO 01/31/17 04:45 03/02/17 04:44 Dextrose (Dextrose 50% 50ML Syringe) 25-50ML OF 50% DW IV FOR... UD PRN IV 01/31/17 04:45 03/02/17 04:44 Glucagon (Glucagon Inj) 1 mg UD PRN SQ 01/31/17 04:45 03/02/17 04:44 Haloperidol Lactate (Haldol Inj) 2 mg Q2H PRN IM 01/31/17 04:45 03/02/17 04:44 Miscellaneous Information (Consult Glycemic Management Pharmacy) 1 ea UD PRN N/A 01/31/17 09:00 03/02/17 08:59 Insulin Glargine (Lantus Solostar Pen) see protocol text BID SC 01/31/17 09:00 03/02/17 08:59 02/11/17 08:14 20 UNIT Hydromorphone HCl (Dilaudid Inj) 1 mg Q3H PRN IV 01/31/17 17:15 02/14/17 17:14 02/11/17 16:29 1 MG Gabapentin (Neurontin Cap) 300 mg TID PO 02/02/17 14:00 03/04/17 13:59 02/11/17 13:25 300 MG Hydromorphone HCl (Dilaudid Tab) 2 mg Q4H PRN PO 02/02/17 11:00 02/16/17 10:59 02/11/17 08:06 2 MG Clonazepam (Klonopin Tab) 0.5 mg Q6H PRN PO 02/02/17 11:00 03/04/17 10:59 02/09/17 11:17 0.5 MG Dexamethasone (Decadron Tab) 4 mg BID PO 02/08/17 20:00 03/10/17 19:59 02/11/17 08:01 4 MG Lidocaine (Lidoderm Patch 5%) 1 patch QAM TD 02/11/17 09:30 03/13/17 09:29 02/11/17 13:26 1 PATCH Miscellaneous (Remove Lidoderm Patch) 1 ea DAILY@21 N/A 02/11/17 21:00 03/13/17 20:59 Fentanyl (Duragesic Patch) 12 mcg Q3D@1000 TD 02/11/17 10:00 02/25/17 09:59 02/11/17 11:49 12 MCG Miscellaneous (Fentanyl Patch Remove & Waste) 1 ea Q3D@1000 N/A 02/11/17 10:00 03/13/17 09:59 02/11/17 10:00 1 EA Miscellaneous Information (Check Fentanyl Patch Placement) 1 ea QS N/A 02/11/17 16:00 03/13/17 15:59 02/11/17 16:26 1 EA Fentanyl (Duragesic Patch) 50 mcg Q3D@1000 TD 02/11/17 10:00 02/25/17 09:59 02/11/17 11:50 50 MCG Miscellaneous (Fentanyl Patch Remove & Waste) 1 ea Q3D@1000 N/A 02/14/17 10:00 03/16/17 09:59 Menthol/Zinc Oxide (Calmoseptine Oint) 1 appln BID EXT 02/11/17 20:00 03/13/17 19:59 UNV
[2017-02-11] MEDS: MOMETASONE FUROATE 0.1% CR 15 GM TUBE EXT SCH (18:14)
[2017-02-11] MEDS ORDERED: MENTHOL-ZINC OXIDE 360 APPLN/120 GM TUBE EXT SCH (20:00)
[2017-02-11] MEDS: AMLODIPINE BESYLATE 5 MG TAB PO SCH (20:27)
[2017-02-11 23:06] VITALS: BP 125/72; PULSE 96; TEMP 36.6; O2SAT 95
[2017-02-12] MEDS: HYDROmorphone INJ 1 MG/ML SYR IV PRN ×5 (02:59→21:01)
[2017-02-12] MEDS: HYDROmorphone HCL 2 MG TAB PO PRN ×3 (05:03→18:17)
[2017-02-12 07:25] VITALS: BP 126/68; PULSE 89; TEMP 36.7; O2SAT 94
[2017-02-12] MEDS: MOMETASONE FUROATE 0.1% CR 15 GM TUBE EXT SCH ×2 (07:41→19:26)
[2017-02-12] MEDS: ASPIRIN 81 MG ECTAB PO SCH (07:42)
[2017-02-12] MEDS: DEXAMETHASONE 4 MG TAB PO SCH ×2 (07:42→19:26)
[2017-02-12] MEDS: LIDODERM (LIDOCAINE) PATCH 5% TD SCH (07:43)
[2017-02-12] MEDS: GABAPENTIN 300 MG CAP PO SCH ×3 (07:43→19:25)
[2017-02-12] MEDS: LISINOPRIL 20 MG TAB PO SCH (07:43)
[2017-02-12] MEDS: ENOXAPARIN 40 MG/0.4 ML SYR SC SCH (07:44)
[2017-02-12] MEDS: CHECK FENTANYL PATCH PLACEMENT SCH ×3 (07:52→23:59)
[2017-02-12] MEDS: POLYETHYLENE (MIRALAX) 17 GM PACK PO SCH (07:52)
[2017-02-12] MEDS: DOCUSATE SODIUM 100 MG CAP PO SCH ×2 (07:52→19:25)
--- NOTE | 2017-02-12 09:07 | Pain Management Progress Note ---
Pain Management Progress Note Date of Service Feb 12, 2017. Subjective Mrs. 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 Yesterday the Fentanyl was increased to 62mcg/hr and the patient does report a moderate improvement from the recent dosage increase. Patient is pleased with her current pain relief. She does have oral Hydromorphone 2mg x 4 hours ordered which she takes sparingly. She does continue to use Dilaudid IV PRN. Pain is rated 6/10 currently. The pain is aggravated by positional changes but with rest, the pain subsides. Patient denies any constitutional complaints, neurological symptoms. Case discussed with Dr. Ruiz Objective Vital Signs: Last Vital Signs Documentation Date Time Temp Pulse Resp B/P Pulse Ox O2 Delivery O2 Flow Rate FiO2 02/12/17 08:00 Room Air 02/12/17 07:25 36.7 89 16 126/68 94 02/04/17 08:00 1.0 Physical Exam: GENERAL: Mrs. Stewart is a 76 y/o white female that appears her stated age. Speech and cognition is intact. Patient is in no acute distress laying in the hospital bed. HEAD: Normocephalic; atraumatic. EYES: Pupils are round, equal, and reactive to light; EOM intact. ENT: No external ear discharge or lesions. No rhinorrhea or epistaxis. Mildly dry buccal mucosa. CHEST: Regular chest respiration and excursion. NEURO: CN II-XII grossly intact with no focal deficits noted. Laboratory (Last CBC): 02/08/17 13:18 Assessment 1. 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 She is planning on being discharged to hospice. Will sign off on the patient and would be pleased to see the patient again if anything were to change in the patient's status. [employer] Voice Recognition This chart was completed in part utilizing [email or web address] Voice Recognition Software. Random word insertions, pronoun errors, and incomplete sentences are an occasional consequence of this system due to software limitations and ambient noise. Any questions or concerns about the content, text or information contained within the body of this dictation should be directly addressed to the provider for clarification.
[2017-02-12] MEDS: INSULIN ASPART 100 UNITS/ML 3 ML PEN SC SCH ×4 (09:19→20:55)
[2017-02-12] MEDS: INSULIN GLARGINE SOLOSTAR 100 UNITS/ML 3 ML PEN SC SCH ×2 (09:20→20:56)
[2017-02-12] MEDS: CLONAZEPAM 0.5 MG TAB PO PRN ×2 (10:05→18:16)
[2017-02-12 15:47] VITALS: BP 119/63; PULSE 79; TEMP 36.7; O2SAT 96
--- NOTE | 2017-02-12 17:05 | Pharmacy Progress Note ---
Glycemic: Assessment & Plan Date of Service Feb 12, 2017. Assessment & Plan The patient received 63 units of insulin on 02/10, 82 units on 02/11. BSGs ranging 134-267 mg/dl over the past 24hrs. Dexamethasone dose has been decreased , so insulin requirements should decrease. PO intake still variable. No changes for now. She may resume her Novolog pump with her previous settings on discharge , but should follow up with outpatient provider for dosage adjustments. * Basal insulin: Lantus 20 units every 12 hours, give 1/2 dose (10 units) if BSG is less than 100 * Correctional Insulin: Novolog Correction per scale ACHS Goal Range: Low 100 mg/dL - High 140 mg/dL Correction Factor: 15 mg/dL/unit * Prandial insulin: Per carb ratio of 1 unit per 5 grams CHO consumed BSGs continue to improve, no changes needed to inpatient regimen at this time. Pharmacy will continue to monitor patient daily and write orders per [facility] inpatient glycemic control protocol. Thanks. * Please note that the plan above was derived based on current level of insulin resistance and hospital stress. These recommendations are appropriate for inpatient admission only. Plan of care upon discharge will need to be reassessed to avoid potential outpatient hypo/hyperglycemia.
[2017-02-12] MEDS: AMLODIPINE BESYLATE 5 MG TAB PO SCH (19:26)
[2017-02-12 20:26] VITALS: BP 123/66; PULSE 86; TEMP 36.4; O2SAT 91
--- NOTE | 2017-02-12 20:35 | Progress Note ---
Medicine Progress Note Date & Time of Visit: Feb 12, 2017 at 20:30. Subjective seen resting in bed, comfortable states pain is improving chest wall skin irritation also improving no other symptoms Objective Last 8 Hrs Date Time Temp Pulse Resp B/P Pulse Ox O2 Delivery O2 Flow Rate FiO2 02/12/17 20:26 36.4 86 18 123/66 91 Room Air 02/12/17 16:00 Room Air 02/12/17 15:47 36.7 79 16 119/63 96 Room Air Physical Exam: General- oriented x 3, not in distress, speaks in sentences with no effort Eyes- anicteric Neck- no JVD Lungs- clear breath sounds b/l (+) mild erythema on the chest wall- improving Heart- normal rate, regular rhythm; no murmurs Abdomen- normal bowel sounds, soft, nontender Extremities- no pretibial edema, no calf tenderness Neuro- alert, oriented x 3; no gross deficits Skin- warm & dry Laboratory Results: Last 24 Hours Test 02/12/17 07:32 02/12/17 11:36 02/12/17 16:36 Bedside Glucose 220 mg/dl 255 mg/dl 134 mg/dl Assessment & Plan PAIN MANAGEMENT - Secondary to Extensive metastasis, Spinal stenosis L3-L4, Spondylosis. -Work up- Bone scan- Extensive diffuse metastatic disease, CT scan abd/pelvis- Multiple hepatic masses; Lumbar MRI- Multiple hepatic masses, spondylosis, probable metastasis in spine, spinal stenosis L3-L4; X ray- Lumbar- no vertebral fractures. -- on fentanyl, dilaudid PO and IV PRN--> fentanyl increased- improving Dexamethasone PO --> tapering -- palliative radiation in progress -- appreciate pain management recommendations METASTATIC CANCER, UNKNOWN PRIMARY, LIKELY PULMONARY Patient was found to have right upper lobe mass during last admission which was found to be suspicious for cancer, PET scan scheduled for January 2017. -Work up- Bone scan- Extensive diffuse metastatic disease, CT scan abd/pelvis- Multiple hepatic masses; Lumbar MRI- Multiple hepatic masses, spondylosis, probable metastasis in spine, spinal stenosis L3-L4; X ray- lumbar- no vertebral fractures -- discussed with Dr. Barton, who discussed case with patient and her daughter plan is to cancel Bronchoscopy, and to transition to Hospice Services -- case management on board POSSIBLE RADIATION DERMATITIS ON THE CHEST - Mometasone cream ordered-- improving S/P SEPSIS SECONDARY TO HEALTH CARE ASSOCIATED PNEUMONIA : Sepsis resolved. -S/P IV Zosyn Day # 4 --> changed to Levofloxacin 750 mg daily (completed 7 days) -Cxs- No growth , MRSA - Neg S/P TOXIC ENCEPHALOPATHY possible secondary to sedation and analgesia given in the Emergency Room. -Resolved HYPERTENSION- stable -On lisinopril and amlodipine -Monitor. COPD, past tobacco use as per records -No signs of exacerbation -Stable DM2, insulin requiring, on insulin pump, -well controlled as of recent outpx HgA1C -Hold insulin pump -on Lantus and ISS-- monitor while on steroids -appreciate pharmacy consult DVt px -Lovenox SQ DISPOSITION patient prefers to go home with hospice Case management on board Current Inpatient Medications: Current Inpatient Medications Medications (Trade) Dose Ordered Sig/Eric Route Start Time Stop Time Status Last Admin Dose Admin Amlodipine Besylate (Norvasc Tab) 5 mg HS PO 01/31/17 21:00 03/02/17 20:59 02/12/17 19:26 5 MG Aspirin (Ecotrin Tab) 81 mg QAM PO 01/31/17 09:00 03/02/17 08:59 02/12/17 07:42 81 MG Docusate Sodium (coLACE CAP) 100 mg BID PO 01/31/17 09:00 03/02/17 08:59 02/12/17 19:25 100 MG Lisinopril (Zestril Tab) 20 mg DAILY PO 02/01/17 09:00 03/03/17 08:59 02/12/17 07:43 20 MG Polyethylene (Miralax Powder Packet) 17 gm DAILY PO 01/31/17 09:00 03/02/17 08:59 02/12/17 07:52 17 GM Ondansetron HCl (Zofran Inj) 4 mg Q6H PRN IV 01/31/17 04:45 03/02/17 04:44 Enoxaparin Sodium (Lovenox Inj) 40 mg Q24H SC 01/31/17 09:00 03/02/17 08:59 02/12/17 07:44 40 MG Acetaminophen (Tylenol Tab) 650 mg Q4H PRN PO 01/31/17 04:45 03/02/17 04:44 02/11/17 11:47 650 MG Nitroglycerin (Nitrostat Tab) 0.4 mg UD PRN SL 01/31/17 04:45 03/02/17 04:44 Insulin Aspart (novoLOG ASPART) SLIDING SCALE If C... ACHS SC 01/31/17 07:00 03/02/17 06:59 02/12/17 18:10 4 UNITS Glucose (Glucose 40% Gel) 15-30 GRAMS 15 GRAMS... UD PRN PO 01/31/17 04:45 03/02/17 04:44 Glucose (Glucose Chew Tab) 4-8 Tablets 4 Tabl... UD PRN PO 01/31/17 04:45 03/02/17 04:44 Dextrose (Dextrose 50% 50ML Syringe) 25-50ML OF 50% DW IV FOR... UD PRN IV 01/31/17 04:45 03/02/17 04:44 Glucagon (Glucagon Inj) 1 mg UD PRN SQ 01/31/17 04:45 03/02/17 04:44 Haloperidol Lactate (Haldol Inj) 2 mg Q2H PRN IM 01/31/17 04:45 03/02/17 04:44 Miscellaneous Information (Consult Glycemic Management Pharmacy) 1 ea UD PRN N/A 01/31/17 09:00 03/02/17 08:59 Insulin Glargine (Lantus Solostar Pen) see protocol text BID SC 01/31/17 09:00 03/02/17 08:59 02/12/17 09:20 20 UNIT Hydromorphone HCl (Dilaudid Inj) 1 mg Q3H PRN IV 01/31/17 17:15 02/14/17 17:14 02/12/17 13:09 1 MG Gabapentin (Neurontin Cap) 300 mg TID PO 02/02/17 14:00 03/04/17 13:59 02/12/17 19:25 300 MG Hydromorphone HCl (Dilaudid Tab) 2 mg Q4H PRN PO 02/02/17 11:00 02/16/17 10:59 02/12/17 18:17 2 MG Clonazepam (Klonopin Tab) 0.5 mg Q6H PRN PO 02/02/17 11:00 03/04/17 10:59 3/16/17 18:16 0.5 MG Lidocaine (Lidoderm Patch 5%) 1 patch QAM TD 02/11/17 09:30 03/13/17 09:29 02/12/17 07:43 1 PATCH Miscellaneous (Remove Lidoderm Patch) 1 ea DAILY@21 N/A 02/11/17 21:00 03/13/17 20:59 02/11/17 20:43 1 EA Fentanyl (Duragesic Patch) 12 mcg Q3D@1000 TD 02/11/17 10:00 02/25/17 09:59 02/11/17 11:49 12 MCG Miscellaneous (Fentanyl Patch Remove & Waste) 1 ea Q3D@1000 N/A 02/11/17 10:00 03/13/17 09:59 02/11/17 10:00 1 EA Miscellaneous Information (Check Fentanyl Patch Placement) 1 ea QS N/A 02/11/17 16:00 03/13/17 15:59 02/12/17 16:00 1 EA Fentanyl (Duragesic Patch) 50 mcg Q3D@1000 TD 02/11/17 10:00 02/25/17 09:59 02/11/17 11:50 50 MCG Miscellaneous (Fentanyl Patch Remove & Waste) 1 ea Q3D@1000 N/A 02/14/17 10:00 03/16/17 09:59 Mometasone Furoate (Elocon 0.1 % Cr) 1 appln BID EXT 02/11/17 18:00 03/13/17 17:59 02/12/17 19:26 1 APPLN Dexamethasone (Decadron Tab) 2 mg BID PO 02/11/17 20:00 03/13/17 19:59 02/12/17 19:26 2 MG
[2017-02-12 23:50] VITALS: BP 149/71; PULSE 92; TEMP 36.8; O2SAT 92
[2017-02-13] VITALS (7 sets, daily range): BP systolic 129–146; BP diastolic 62–79; PULSE 95–104; TEMP 36.4–37.2; O2SAT 93–95
[2017-02-13] MEDS: HYDROmorphone INJ 1 MG/ML SYR IV PRN ×3 (01:58→14:23)
[2017-02-13] MEDS: CLONAZEPAM 0.5 MG TAB PO PRN ×2 (01:59→10:56)
[2017-02-13] MEDS: HYDROmorphone HCL 2 MG TAB PO PRN ×4 (04:55→23:58)
[2017-02-13] MEDS: GABAPENTIN 300 MG CAP PO SCH ×3 (08:28→21:57)
[2017-02-13] MEDS: LISINOPRIL 20 MG TAB PO SCH (08:28)
[2017-02-13] MEDS: ASPIRIN 81 MG ECTAB PO SCH (08:28)
[2017-02-13] MEDS: DOCUSATE SODIUM 100 MG CAP PO SCH ×2 (08:28→21:56)
[2017-02-13] MEDS: LIDODERM (LIDOCAINE) PATCH 5% TD SCH (08:29)
[2017-02-13] MEDS: ENOXAPARIN 40 MG/0.4 ML SYR SC SCH (08:29)
[2017-02-13] MEDS: INSULIN GLARGINE SOLOSTAR 100 UNITS/ML 3 ML PEN SC SCH ×2 (08:30→21:59)
[2017-02-13] MEDS: CHECK FENTANYL PATCH PLACEMENT SCH ×3 (08:33→23:59)
[2017-02-13] MEDS: MOMETASONE FUROATE 0.1% CR 15 GM TUBE EXT SCH ×2 (08:35→21:56)
[2017-02-13] MEDS: DEXAMETHASONE 4 MG TAB PO SCH ×2 (08:37→21:56)
[2017-02-13] MEDS: INSULIN ASPART 100 UNITS/ML 3 ML PEN SC SCH ×4 (08:38→22:00)
[2017-02-13] MEDS: POLYETHYLENE (MIRALAX) 17 GM PACK PO SCH (08:38)
[2017-02-13] MEDS: FENTANYL 75 MCG/HR TDSY TD SCH (14:05)
[2017-02-13] MEDS: FENTANYL PATCH REMOVE & WASTE SCH ×2 (14:06→14:07)
--- NOTE | 2017-02-13 16:06 | Progress Note ---
Medicine Progress Note Date & Time of Visit: Feb 13, 2017 at 16:06. Subjective delayed entry date of service as noted above patient had increased pain declined radiation therapy fentanyl and Dilaudid PO increased on exam, patient resting, comfortable but drowsy states pain is better denies chest pain, dyspnea no other symptoms Objective Last 8 Hrs Date Time Temp Pulse Resp B/P Pulse Ox O2 Delivery O2 Flow Rate FiO2 02/13/17 15:40 36.8 99 18 136/63 95 Room Air 02/13/17 12:32 37.2 95 18 93 Room Air 02/13/17 11:30 37.2 95 18 146/62 93 Room Air 02/13/17 09:35 Room Air Physical Exam: General- oriented x 3, not in distress, speaks in sentences with no effort Eyes- anicteric Neck- no JVD Lungs- clear breath sounds b/l (+) mild erythema on the chest wall- improving Heart- normal rate, regular rhythm; no murmurs Abdomen- normal bowel sounds, soft, nontender Extremities- no pretibial edema, no calf tenderness Neuro- alert, oriented x 3; no gross deficits Skin- warm & dry Laboratory Results: Last 24 Hours Test 02/12/17 16:36 02/12/17 20:25 02/13/17 07:46 02/13/17 11:59 Bedside Glucose 134 mg/dl 157 mg/dl 148 mg/dl 163 mg/dl Assessment & Plan PAIN MANAGEMENT - Secondary to Extensive metastasis, Spinal stenosis L3-L4, Spondylosis. -Work up- Bone scan- Extensive diffuse metastatic disease, CT scan abd/pelvis- Multiple hepatic masses; Lumbar MRI- Multiple hepatic masses, spondylosis, probable metastasis in spine, spinal stenosis L3-L4; X ray- Lumbar- no vertebral fractures. -- on fentanyl, dilaudid PO and IV PRN--> fentanyl further increased to 75mcg, Dilaudid also increased to 4mg PRN Dexamethasone PO --> tapering -- palliative radiation in progress -- appreciate pain management recommendations METASTATIC CANCER, UNKNOWN PRIMARY, LIKELY PULMONARY Patient was found to have right upper lobe mass during last admission which was found to be suspicious for cancer, PET scan scheduled for January 2017. -Work up- Bone scan- Extensive diffuse metastatic disease, CT scan abd/pelvis- Multiple hepatic masses; Lumbar MRI- Multiple hepatic masses, spondylosis, probable metastasis in spine, spinal stenosis L3-L4; X ray- lumbar- no vertebral fractures -- discussed with Dr. Barton, who discussed case with patient and her daughter plan is to cancel Bronchoscopy, and to transition to Hospice Services -- case management on board POSSIBLE RADIATION DERMATITIS ON THE CHEST - Mometasone cream ordered-- improved S/P SEPSIS SECONDARY TO HEALTH CARE ASSOCIATED PNEUMONIA : Sepsis resolved. -S/P IV Zosyn Day # 4 --> changed to Levofloxacin 750 mg daily (completed 7 days) -Cxs- No growth , MRSA - Neg S/P TOXIC ENCEPHALOPATHY possible secondary to sedation and analgesia given in the Emergency Room. -Resolved HYPERTENSION- stable -On lisinopril and amlodipine -Monitor. COPD, past tobacco use as per records -No signs of exacerbation -Stable DM2, insulin requiring, on insulin pump, -well controlled as of recent outpx HgA1C -Hold insulin pump -on Lantus and ISS-- monitor while on steroids -appreciate pharmacy consult DVt px -Lovenox SQ DISPOSITION patient prefers to go home with hospice Case management on board Current Inpatient Medications: Current Inpatient Medications Medications (Trade) Dose Ordered Sig/Eric Route Start Time Stop Time Status Last Admin Dose Admin Amlodipine Besylate (Norvasc Tab) 5 mg HS PO 01/31/17 21:00 03/02/17 20:59 02/12/17 19:26 5 MG Aspirin (Ecotrin Tab) 81 mg QAM PO 01/31/17 09:00 03/02/17 08:59 02/13/17 08:28 81 MG Docusate Sodium (coLACE CAP) 100 mg BID PO 01/31/17 09:00 03/02/17 08:59 02/13/17 08:28 100 MG Lisinopril (Zestril Tab) 20 mg DAILY PO 02/01/17 09:00 03/03/17 08:59 02/13/17 08:28 20 MG Polyethylene (Miralax Powder Packet) 17 gm DAILY PO 01/31/17 09:00 03/02/17 08:59 02/12/17 07:52 17 GM Ondansetron HCl (Zofran Inj) 4 mg Q6H PRN IV 01/31/17 04:45 03/02/17 04:44 Enoxaparin Sodium (Lovenox Inj) 40 mg Q24H SC 01/31/17 09:00 03/02/17 08:59 02/12/17 07:44 40 MG Acetaminophen (Tylenol Tab) 650 mg Q4H PRN PO 01/31/17 04:45 03/02/17 04:44 02/11/17 11:47 650 MG Nitroglycerin (Nitrostat Tab) 0.4 mg UD PRN SL 01/31/17 04:45 03/02/17 04:44 Insulin Aspart (novoLOG ASPART) SLIDING SCALE If C... ACHS SC 01/31/17 07:00 03/02/17 06:59 02/12/17 20:55 2 UNITS Glucose (Glucose 40% Gel) 15-30 GRAMS 15 GRAMS... UD PRN PO 01/31/17 04:45 03/02/17 04:44 Glucose (Glucose Chew Tab) 4-8 Tablets 4 Tabl... UD PRN PO 01/31/17 04:45 03/02/17 04:44 Dextrose (Dextrose 50% 50ML Syringe) 25-50ML OF 50% DW IV FOR... UD PRN IV 01/31/17 04:45 03/02/17 04:44 Glucagon (Glucagon Inj) 1 mg UD PRN SQ 01/31/17 04:45 03/02/17 04:44 Haloperidol Lactate (Haldol Inj) 2 mg Q2H PRN IM 01/31/17 04:45 03/02/17 04:44 Miscellaneous Information (Consult Glycemic Management Pharmacy) 1 ea UD PRN N/A 01/31/17 09:00 03/02/17 08:59 Insulin Glargine (Lantus Solostar Pen) see protocol text BID SC 01/31/17 09:00 03/02/17 08:59 02/13/17 08:30 20 UNIT Hydromorphone HCl (Dilaudid Inj) 1 mg Q3H PRN IV 01/31/17 17:15 02/14/17 17:14 02/13/17 14:23 1 MG Gabapentin (Neurontin Cap) 300 mg TID PO 02/02/17 14:00 03/04/17 13:59 02/13/17 14:05 300 MG Clonazepam (Klonopin Tab) 0.5 mg Q6H PRN PO 02/02/17 11:00 03/04/17 10:59 02/13/17 10:56 0.5 MG Lidocaine (Lidoderm Patch 5%) 1 patch QAM TD 02/11/17 09:30 03/13/17 09:29 02/13/17 08:29 1 PATCH Miscellaneous (Remove Lidoderm Patch) 1 ea DAILY@21 N/A 02/11/17 21:00 03/13/17 20:59 02/12/17 21:05 1 EA Mometasone Furoate (Elocon 0.1 % Cr) 1 appln BID EXT 02/11/17 18:00 03/13/17 17:59 02/13/17 08:35 1 APPLN Dexamethasone (Decadron Tab) 2 mg BID PO 02/11/17 20:00 03/13/17 19:59 02/13/17 08:37 2 MG Hydromorphone HCl (Dilaudid Tab) 4 mg Q4H PRN PO 02/13/17 11:00 02/27/17 10:59 02/13/17 10:56 4 MG Fentanyl (Duragesic Patch) 75 mcg Q3D@0900 TD 02/13/17 14:00 02/27/17 13:59 02/13/17 14:05 75 MCG Miscellaneous (Fentanyl Patch Remove & Waste) 1 ea Q3D@0859 N/A 02/13/17 13:59 03/15/17 13:58 02/13/17 14:06 1 EA Miscellaneous Information (Check Fentanyl Patch Placement) 1 ea QS N/A 02/13/17 16:00 03/15/17 15:59 Miscellaneous (Fentanyl Patch Remove & Waste) 1 ea TODAY@1359 N/A 02/13/17 13:59 03/15/17 13:58 02/13/17 14:07 1 EA
[2017-02-13] MEDS: AMLODIPINE BESYLATE 5 MG TAB PO SCH (21:57)
[2017-02-14 04:13] VITALS: BP 110/60; PULSE 92; TEMP 36.8; O2SAT 93
[2017-02-14] MEDS: HYDROmorphone HCL 2 MG TAB PO PRN ×4 (04:29→23:31)
[2017-02-14 07:28] VITALS: BP 122/64; PULSE 90; TEMP 36.4; O2SAT 96
[2017-02-14] MEDS: CHECK FENTANYL PATCH PLACEMENT SCH ×3 (08:00→23:31)
[2017-02-14] MEDS: POLYETHYLENE (MIRALAX) 17 GM PACK PO SCH (08:36)
[2017-02-14] MEDS: ASPIRIN 81 MG ECTAB PO SCH (08:38)
[2017-02-14] MEDS: DOCUSATE SODIUM 100 MG CAP PO SCH ×2 (08:38→20:25)
[2017-02-14] MEDS: GABAPENTIN 300 MG CAP PO SCH ×3 (08:39→20:24)
[2017-02-14] MEDS: LISINOPRIL 20 MG TAB PO SCH (08:39)
[2017-02-14] MEDS: DEXAMETHASONE 4 MG TAB PO SCH (08:39)
[2017-02-14] MEDS: MOMETASONE FUROATE 0.1% CR 15 GM TUBE EXT SCH ×2 (08:40→20:25)
[2017-02-14] MEDS: LIDODERM (LIDOCAINE) PATCH 5% TD SCH (08:41)
[2017-02-14] MEDS: INSULIN ASPART 100 UNITS/ML 3 ML PEN SC SCH ×4 (08:43→20:24)
[2017-02-14] MEDS: INSULIN GLARGINE SOLOSTAR 100 UNITS/ML 3 ML PEN SC SCH ×2 (08:44→20:34)
[2017-02-14] MEDS: ENOXAPARIN 40 MG/0.4 ML SYR SC SCH (08:44)
[2017-02-14] MEDS ORDERED: FENTANYL PATCH REMOVE & WASTE SCH (10:00)
--- NOTE | 2017-02-14 11:14 | Progress Note ---
Medicine Progress Note Date & Time of Visit: Feb 14, 2017 at 11:07. Subjective patient states her pain is better this morning tearful that she cannot go home today as her daughter is unable to be home to care for her patient reassured that our watch caser will assist her with options for SNF denies other symptoms otherwise Objective Last 8 Hrs Date Time Temp Pulse Resp B/P Pulse Ox O2 Delivery O2 Flow Rate FiO2 02/14/17 09:26 Room Air 02/14/17 07:28 36.4 90 18 122/64 96 Room Air 02/14/17 04:13 36.8 92 20 110/60 93 Room Air Physical Exam: General- oriented x 3, not in distress, speaks in sentences with no effort Eyes- anicteric Neck- no JVD Lungs- clear breath sounds b/l, no rales/wheeze (+) mild erythema on the chest wall- improving Heart- normal rate, regular rhythm; no murmurs Abdomen- normal bowel sounds, soft, nontender Extremities- no pretibial edema, no calf tenderness Neuro- alert, oriented x 3; no gross deficits Skin- warm & dry Laboratory Results: Last 24 Hours Test 02/13/17 11:59 02/13/17 16:30 02/13/17 20:49 02/14/17 07:39 Bedside Glucose 163 mg/dl 177 mg/dl 162 mg/dl 109 mg/dl Assessment & Plan PAIN MANAGEMENT - Secondary to Extensive metastasis, Spinal stenosis L3-L4, Spondylosis. -Work up- Bone scan- Extensive diffuse metastatic disease, CT scan abd/pelvis- Multiple hepatic masses; Lumbar MRI- Multiple hepatic masses, spondylosis, probable metastasis in spine, spinal stenosis L3-L4; X ray- Lumbar- no vertebral fractures. -- on fentanyl, dilaudid PO and IV PRN--> fentanyl further increased to 75mcg, Dilaudid also increased to 4mg PRN- improving Dexamethasone PO --> tapering -- palliative radiation in progress -- appreciate pain management recommendations METASTATIC CANCER, UNKNOWN PRIMARY, LIKELY PULMONARY Patient was found to have right upper lobe mass during last admission which was found to be suspicious for cancer, PET scan scheduled for January 2017. -Work up- Bone scan- Extensive diffuse metastatic disease, CT scan abd/pelvis- Multiple hepatic masses; Lumbar MRI- Multiple hepatic masses, spondylosis, probable metastasis in spine, spinal stenosis L3-L4; X ray- lumbar- no vertebral fractures -- discussed with Dr. Barton, who discussed case with patient and her daughter plan is to cancel Bronchoscopy, and to transition to Hospice Services -- case management on board will need to transition to SNF with hospice POSSIBLE RADIATION DERMATITIS ON THE CHEST - Mometasone cream ordered-- improved S/P SEPSIS SECONDARY TO HEALTH CARE ASSOCIATED PNEUMONIA : Sepsis resolved. -S/P IV Zosyn Day # 4 --> changed to Levofloxacin 750 mg daily (completed 7 days) -Cxs- No growth , MRSA - Neg S/P TOXIC ENCEPHALOPATHY possible secondary to sedation and analgesia given in the Emergency Room. -Resolved HYPERTENSION- stable -On lisinopril and amlodipine -Monitor. COPD, past tobacco use as per records -No signs of exacerbation -Stable DM2, insulin requiring, on insulin pump, -well controlled as of recent outpx HgA1C -Hold insulin pump -on Lantus and ISS-- monitor while on steroids -appreciate pharmacy consult DVt px -Lovenox SQ DISPOSITION patient prefers to go home with hospice Case management on board Current Inpatient Medications: Current Inpatient Medications Medications (Trade) Dose Ordered Sig/Eric Route Start Time Stop Time Status Last Admin Dose Admin Amlodipine Besylate (Norvasc Tab) 5 mg HS PO 01/31/17 21:00 03/02/17 20:59 02/13/17 21:57 5 MG Aspirin (Ecotrin Tab) 81 mg QAM PO 01/31/17 09:00 03/02/17 08:59 02/14/17 08:38 81 MG Docusate Sodium (coLACE CAP) 100 mg BID PO 01/31/17 09:00 03/02/17 08:59 02/14/17 08:38 100 MG Lisinopril (Zestril Tab) 20 mg DAILY PO 02/01/17 09:00 03/03/17 08:59 02/14/17 08:39 20 MG Polyethylene (Miralax Powder Packet) 17 gm DAILY PO 01/31/17 09:00 03/02/17 08:59 02/12/17 07:52 17 GM Ondansetron HCl (Zofran Inj) 4 mg Q6H PRN IV 01/31/17 04:45 03/02/17 04:44 Enoxaparin Sodium (Lovenox Inj) 40 mg Q24H SC 01/31/17 09:00 03/02/17 08:59 02/12/17 07:44 40 MG Acetaminophen (Tylenol Tab) 650 mg Q4H PRN PO 01/31/17 04:45 03/02/17 04:44 02/11/17 11:47 650 MG Nitroglycerin (Nitrostat Tab) 0.4 mg UD PRN SL 01/31/17 04:45 03/02/17 04:44 Insulin Aspart (novoLOG ASPART) SLIDING SCALE If C... ACHS SC 01/31/17 07:00 03/02/17 06:59 02/14/17 08:43 6 UNITS Glucose (Glucose 40% Gel) 15-30 GRAMS 15 GRAMS... UD PRN PO 01/31/17 04:45 03/02/17 04:44 Glucose (Glucose Chew Tab) 4-8 Tablets 4 Tabl... UD PRN PO 01/31/17 04:45 03/02/17 04:44 Dextrose (Dextrose 50% 50ML Syringe) 25-50ML OF 50% DW IV FOR... UD PRN IV 01/31/17 04:45 03/02/17 04:44 Glucagon (Glucagon Inj) 1 mg UD PRN SQ 01/31/17 04:45 03/02/17 04:44 Haloperidol Lactate (Haldol Inj) 2 mg Q2H PRN IM 01/31/17 04:45 03/02/17 04:44 Miscellaneous Information (Consult Glycemic Management Pharmacy) 1 ea UD PRN N/A 01/31/17 09:00 03/02/17 08:59 Insulin Glargine (Lantus Solostar Pen) see protocol text BID SC 01/31/17 09:00 03/02/17 08:59 02/14/17 08:44 20 UNIT Hydromorphone HCl (Dilaudid Inj) 1 mg Q3H PRN IV 01/31/17 17:15 02/14/17 17:14 02/13/17 14:23 1 MG Gabapentin (Neurontin Cap) 300 mg TID PO 02/02/17 14:00 03/04/17 13:59 02/14/17 08:39 300 MG Clonazepam (Klonopin Tab) 0.5 mg Q6H PRN PO 02/02/17 11:00 03/04/17 10:59 02/13/17 10:56 0.5 MG Lidocaine (Lidoderm Patch 5%) 1 patch QAM TD 02/11/17 09:30 03/13/17 09:29 02/14/17 08:41 1 PATCH Miscellaneous (Remove Lidoderm Patch) 1 ea DAILY@21 N/A 02/11/17 21:00 03/13/17 20:59 02/13/17 21:00 1 EA Mometasone Furoate (Elocon 0.1 % Cr) 1 appln BID EXT 02/11/17 18:00 03/13/17 17:59 02/14/17 08:40 1 APPLN Dexamethasone (Decadron Tab) 2 mg BID PO 02/11/17 20:00 03/13/17 19:59 02/14/17 08:39 2 MG Hydromorphone HCl (Dilaudid Tab) 4 mg Q4H PRN PO 02/13/17 11:00 02/27/17 10:59 02/14/17 08:47 4 MG Fentanyl (Duragesic Patch) 75 mcg Q3D@0900 TD 02/13/17 14:00 02/27/17 13:59 02/13/17 14:05 75 MCG Miscellaneous (Fentanyl Patch Remove & Waste) 1 ea Q3D@0859 N/A 02/13/17 13:59 03/15/17 13:58 02/13/17 14:06 1 EA Miscellaneous Information (Check Fentanyl Patch Placement) 1 ea QS N/A 02/13/17 16:00 03/15/17 15:59 02/14/17 08:00 1 EA Miscellaneous (Fentanyl Patch Remove & Waste) 1 ea TODAY@1359 N/A 02/13/17 13:59 03/15/17 13:58 02/13/17 14:07 1 EA
[2017-02-14 11:41] VITALS: BP 130/57; PULSE 86; TEMP 36.8; O2SAT 93
[2017-02-14] MEDS: FENTANYL PATCH REMOVE & WASTE SCH (11:51)
[2017-02-14 15:29] VITALS: BP 132/56; PULSE 91; TEMP 36.7; O2SAT 93
--- NOTE | 2017-02-14 15:43 | Pharmacy Progress Note ---
Glycemic: Assessment & Plan Date of Service Feb 14, 2017. Assessment & Plan Item Value Date Time Bedside Glucose 148 mg/dl H 02/13/17 0746 Bedside Glucose 163 mg/dl H 02/13/17 1159 Bedside Glucose 177 mg/dl H 02/13/17 1630 Bedside Glucose 162 mg/dl H 02/13/17 2049 Bedside Glucose 109 mg/dl H 02/14/17 0739 Bedside Glucose 112 mg/dl H 02/14/17 1145 ASSESSMENT: * BSGs well controlled with current regimen of: * Lantus 20 units SQ BID * NovoLog * Goal 100-140mg/dl * CF = 15 * CR = 5 * DXM decreased from 2mg PO BID to 1mg PO BID --> Expect insulin needs to decrease with this step down in steroid dosing * Empirically decrease regimen to prevent hypo PLAN: * Novolog per scale ACHS * Goal Range: Low 110 mg/dL - High 140 mg/dL * LOOSEN Correction Factor: 20 mg/dL/unit * LOOSEN Prandial insulin: Per carb ratio of 1 unit per 7 grams CHO consumed * Decrease Basal insulin with Lantus to 17 units SQ BID * Pharmacy will continue to monitor patient daily and write orders per [facility] inpatient glycemic control protocol. Thanks. * Please note that the plan above was derived based on current level of insulin resistance and hospital stress. These recommendations are appropriate for inpatient admission only. Plan of care upon discharge will need to be reassessed to avoid potential outpatient hypo/hyperglycemia.
[2017-02-14 19:25] VITALS: BP 129/68; PULSE 97; TEMP 36.4; O2SAT 93
[2017-02-14] MEDS: DEXAMETHASONE 1 MG TAB PO SCH (20:25)
[2017-02-14] MEDS: AMLODIPINE BESYLATE 5 MG TAB PO SCH (20:27)
[2017-02-14] MEDS: CLONAZEPAM 0.5 MG TAB PO PRN (20:28)
[2017-02-14 23:35] VITALS: BP 125/65; PULSE 92; TEMP 36.9; O2SAT 92
[2017-02-15] MEDS ORDERED: HYDROmorphone INJ 1 MG/ML SYR IV SCH (00:32)
[2017-02-15] MEDS ORDERED: HYDROmorphone INJ 1 MG/ML SYR ONE (00:42)
[2017-02-15 03:45] VITALS: BP 113/61; PULSE 92; TEMP 37.3; O2SAT 94
[2017-02-15] MEDS: HYDROmorphone INJ 1 MG/ML SYR IV PRN (05:40)
[2017-02-15 07:01] LABS: CREATININE 0.49 mg/dl (0.60-1.20)
[2017-02-15 07:03] VITALS: BP 114/66; PULSE 91; TEMP 37.2; O2SAT 93
[2017-02-15] MEDS: ENOXAPARIN 40 MG/0.4 ML SYR SC SCH (07:55)
[2017-02-15] MEDS: GABAPENTIN 300 MG CAP PO SCH ×3 (07:55→19:48)
[2017-02-15] MEDS: DEXAMETHASONE 1 MG TAB PO SCH ×2 (07:55→19:48)
[2017-02-15] MEDS: ASPIRIN 81 MG ECTAB PO SCH (07:55)
[2017-02-15] MEDS: LISINOPRIL 20 MG TAB PO SCH (07:55)
[2017-02-15] MEDS: DOCUSATE SODIUM 100 MG CAP PO SCH ×2 (07:56→19:48)
[2017-02-15] MEDS: FENTANYL PATCH REMOVE & WASTE SCH (07:56)
[2017-02-15] MEDS: CHECK FENTANYL PATCH PLACEMENT SCH ×3 (07:56→23:24)
[2017-02-15] MEDS: MOMETASONE FUROATE 0.1% CR 15 GM TUBE EXT SCH ×2 (07:56→19:48)
[2017-02-15] MEDS: POLYETHYLENE (MIRALAX) 17 GM PACK PO SCH (07:56)
[2017-02-15] MEDS: LIDODERM (LIDOCAINE) PATCH 5% TD SCH (07:57)
[2017-02-15] MEDS: INSULIN ASPART 100 UNITS/ML 3 ML PEN SC SCH ×4 (07:58→21:00)
[2017-02-15] MEDS: HYDROmorphone HCL 2 MG TAB PO PRN ×3 (08:04→19:48)
[2017-02-15] MEDS: INSULIN GLARGINE SOLOSTAR 100 UNITS/ML 3 ML PEN SC SCH ×2 (08:23→20:00)
[2017-02-15 11:38] VITALS: BP 130/64; PULSE 86; TEMP 36.9; O2SAT 95
[2017-02-15] MEDS: CLONAZEPAM 0.5 MG TAB PO PRN ×2 (14:36→20:35)
[2017-02-15 15:25] VITALS: BP 124/69; PULSE 91; TEMP 36.5; O2SAT 94
--- NOTE | 2017-02-15 19:15 | Progress Note ---
Medicine Progress Note Date & Time of Visit: Feb 15, 2017 at 19:13. Subjective patient states she feels ok overall pain adequately controlled denies dyspnea, chest pain no other symptoms Objective Last 8 Hrs Date Time Temp Pulse Resp B/P Pulse Ox O2 Delivery O2 Flow Rate FiO2 02/15/17 16:25 Room Air 02/15/17 15:25 36.5 91 18 124/69 94 Room Air 02/15/17 11:38 36.9 86 20 130/64 95 Room Air Physical Exam: General- drowsy, not in distress, speaks in sentences with no effort Eyes- anicteric Lungs- clear breath sounds b/l, no rales/wheeze (+) mild erythema on the chest wall- improved Heart- normal rate, regular rhythm; no murmurs Abdomen- normal bowel sounds, soft, nontender Extremities- no pretibial edema, no calf tenderness Neuro- alert, oriented x 3; no gross deficits Skin- warm & dry Laboratory Results: Last 24 Hours Test 02/14/17 20:13 02/15/17 06:08 02/15/17 07:26 02/15/17 11:35 Bedside Glucose 117 mg/dl 117 mg/dl 117 mg/dl Creatinine 0.49 mg/dl Est Creatinine Clear Calc Drug Dose 91.4 ml/min Estimated GFR () 109.7 Estimated GFR (Non- 94.6 Test 02/15/17 16:59 Bedside Glucose 133 mg/dl Assessment & Plan PAIN MANAGEMENT - Secondary to Extensive metastasis, Spinal stenosis L3-L4, Spondylosis. -Work up- Bone scan- Extensive diffuse metastatic disease, CT scan abd/pelvis- Multiple hepatic masses; Lumbar MRI- Multiple hepatic masses, spondylosis, probable metastasis in spine, spinal stenosis L3-L4; X ray- Lumbar- no vertebral fractures. -- on fentanyl, dilaudid PO and IV PRN--> fentanyl further increased to 75mcg, Dilaudid also increased to 4mg PRN Dexamethasone PO --> tapering -- palliative radiation in progress -- appreciate pain management recommendations -- pain controlled overall METASTATIC CANCER, UNKNOWN PRIMARY, LIKELY PULMONARY Patient was found to have right upper lobe mass during last admission which was found to be suspicious for cancer, PET scan scheduled for January 2017. -Work up- Bone scan- Extensive diffuse metastatic disease, CT scan abd/pelvis- Multiple hepatic masses; Lumbar MRI- Multiple hepatic masses, spondylosis, probable metastasis in spine, spinal stenosis L3-L4; X ray- lumbar- no vertebral fractures -- discussed with Dr. Barton, who discussed case with patient and her daughter plan is to cancel Bronchoscopy, and to transition to Hospice Services -- case management on board will need to transition to SNF with hospice as patient's daughter states she will not be available to be with the patient at home POSSIBLE RADIATION DERMATITIS ON THE CHEST - Mometasone cream ordered-- improved S/P SEPSIS SECONDARY TO HEALTH CARE ASSOCIATED PNEUMONIA : Sepsis resolved. -S/P IV Zosyn Day # 4 --> changed to Levofloxacin 750 mg daily (completed 7 days) -Cxs- No growth , MRSA - Neg S/P TOXIC ENCEPHALOPATHY possible secondary to sedation and analgesia given in the Emergency Room. -Resolved HYPERTENSION- stable -On lisinopril and amlodipine -Monitor. COPD, past tobacco use as per records -No signs of exacerbation -Stable DM2, insulin requiring, on insulin pump, -well controlled as of recent outpx HgA1C -Hold insulin pump -on Lantus and ISS-- monitor while on steroids -appreciate pharmacy consult DVt px -Lovenox SQ DISPOSITION will need to transition to SNF with hospice as patient's daughter states she will not be available to be with the patient at home Current Inpatient Medications: Current Inpatient Medications Medications (Trade) Dose Ordered Sig/Eric Route Start Time Stop Time Status Last Admin Dose Admin Amlodipine Besylate (Norvasc Tab) 5 mg HS PO 01/31/17 21:00 03/02/17 20:59 02/14/17 20:27 5 MG Aspirin (Ecotrin Tab) 81 mg QAM PO 01/31/17 09:00 03/02/17 08:59 02/15/17 07:55 81 MG Docusate Sodium (coLACE CAP) 100 mg BID PO 01/31/17 09:00 03/02/17 08:59 02/15/17 07:56 100 MG Lisinopril (Zestril Tab) 20 mg DAILY PO 02/01/17 09:00 03/03/17 08:59 02/15/17 07:55 20 MG Polyethylene (Miralax Powder Packet) 17 gm DAILY PO 01/31/17 09:00 03/02/17 08:59 02/12/17 07:52 17 GM Ondansetron HCl (Zofran Inj) 4 mg Q6H PRN IV 01/31/17 04:45 03/02/17 04:44 Enoxaparin Sodium (Lovenox Inj) 40 mg Q24H SC 01/31/17 09:00 03/02/17 08:59 02/15/17 07:55 40 MG Acetaminophen (Tylenol Tab) 650 mg Q4H PRN PO 01/31/17 04:45 03/02/17 04:44 02/11/17 11:47 650 MG Nitroglycerin (Nitrostat Tab) 0.4 mg UD PRN SL 01/31/17 04:45 03/02/17 04:44 Insulin Aspart (novoLOG ASPART) SLIDING SCALE If C... ACHS SC 01/31/17 07:00 03/02/17 06:59 02/14/17 08:43 6 UNITS Glucose (Glucose 40% Gel) 15-30 GRAMS 15 GRAMS... UD PRN PO 01/31/17 04:45 03/02/17 04:44 Glucose (Glucose Chew Tab) 4-8 Tablets 4 Tabl... UD PRN PO 01/31/17 04:45 03/02/17 04:44 Dextrose (Dextrose 50% 50ML Syringe) 25-50ML OF 50% DW IV FOR... UD PRN IV 01/31/17 04:45 03/02/17 04:44 Glucagon (Glucagon Inj) 1 mg UD PRN SQ 01/31/17 04:45 03/02/17 04:44 Haloperidol Lactate (Haldol Inj) 2 mg Q2H PRN IM 01/31/17 04:45 03/02/17 04:44 Miscellaneous Information (Consult Glycemic Management Pharmacy) 1 ea UD PRN N/A 01/31/17 09:00 03/02/17 08:59 Insulin Glargine (Lantus Solostar Pen) see protocol text BID SC 01/31/17 09:00 03/02/17 08:59 02/15/17 08:23 17 UNIT Gabapentin (Neurontin Cap) 300 mg TID PO 02/02/17 14:00 03/04/17 13:59 02/15/17 07:55 300 MG Clonazepam (Klonopin Tab) 0.5 mg Q6H PRN PO 02/02/17 11:00 03/04/17 10:59 02/15/17 14:36 0.5 MG Lidocaine (Lidoderm Patch 5%) 1 patch QAM TD 02/11/17 09:30 03/13/17 09:29 02/14/17 08:41 1 PATCH Miscellaneous (Remove Lidoderm Patch) 1 ea DAILY@21 N/A 02/11/17 21:00 03/13/17 20:59 02/14/17 20:27 1 EA Mometasone Furoate (Elocon 0.1 % Cr) 1 appln BID EXT 02/11/17 18:00 03/13/17 17:59 02/15/17 07:56 1 APPLN Hydromorphone HCl (Dilaudid Tab) 4 mg Q4H PRN PO 02/13/17 11:00 02/27/17 10:59 02/15/17 14:36 4 MG Fentanyl (Duragesic Patch) 75 mcg Q3D@0900 TD 02/13/17 14:00 02/27/17 13:59 02/13/17 14:05 75 MCG Miscellaneous (Fentanyl Patch Remove & Waste) 1 ea Q3D@0859 N/A 02/13/17 13:59 03/15/17 13:58 02/13/17 14:06 1 EA Miscellaneous Information (Check Fentanyl Patch Placement) 1 ea QS N/A 02/13/17 16:00 03/15/17 15:59 02/15/17 14:32 1 EA Miscellaneous (Fentanyl Patch Remove & Waste) 1 ea TODAY@1359 N/A 02/13/17 13:59 03/15/17 13:58 02/13/17 14:07 1 EA Dexamethasone (Decadron Tab) 1 mg BID PO 02/14/17 20:00 03/16/17 19:59 02/15/17 07:55 1 MG Hydromorphone HCl (Dilaudid Inj) 1 mg Q3H PRN IV 02/15/17 00:45 03/01/17 00:44 02/15/17 05:40 1 MG
[2017-02-15] MEDS: ACETAMINOPHEN 325 MG TAB PO PRN ×2 (19:50→21:01)
[2017-02-15] MEDS: AMLODIPINE BESYLATE 5 MG TAB PO SCH (19:51)
[2017-02-15 20:00] VITALS: BP 115/66; PULSE 84; TEMP 37.8; O2SAT 95
[2017-02-15 23:40] VITALS: BP 96/55; PULSE 75; TEMP 36.6; O2SAT 96
[2017-02-16] VITALS (9 sets, daily range): BP systolic 97–138; BP diastolic 58–72; PULSE 87–97; TEMP 36.7–37.3; O2SAT 0–96
[2017-02-16] MEDS: HYDROmorphone INJ 1 MG/ML SYR IV PRN ×5 (04:15→21:14)
[2017-02-16 07:03] LABS: BASO % 0.1 %; BASO ABS # 0.01 K/uL (0-0.2); COMPLETE YES; EOS % 0.3 %; HEMATOCRIT 32.5 % (37-47); IG% 4.7 %; LYMPH ABS # 0.63 K/uL (1.2-3.4); MEAN CELL VOLUME 83.1 fL (80-100); MEAN CORPUSCULAR HEMOGLOBIN 27.9 pg (25-34); MEAN CORPUSCULAR HGB CONC 33.5 g/dl (32-36); MEAN PLATELET VOLUME 9.9 fL (7.4-10.4); MONO % 7.9 %; PLATELET COUNT 237 K/uL (130-400); RED BLOOD COUNT 3.91 M/uL (4.2-5.4)
[2017-02-16] MEDS: MOMETASONE FUROATE 0.1% CR 15 GM TUBE EXT SCH ×2 (07:46→21:17)
[2017-02-16] MEDS: CHECK FENTANYL PATCH PLACEMENT SCH ×2 (07:51→16:03)
[2017-02-16] MEDS: LIDODERM (LIDOCAINE) PATCH 5% TD SCH (07:51)
[2017-02-16] MEDS: ENOXAPARIN 40 MG/0.4 ML SYR SC SCH (07:53)
[2017-02-16] MEDS: INSULIN ASPART 100 UNITS/ML 3 ML PEN SC SCH ×4 (09:21→21:00)
--- NOTE | 2017-02-16 10:29 | Pharmacy Progress Note ---
Glycemic: Assessment & Plan Date of Service Feb 16, 2017. Assessment & Plan Item Value Date Time Bedside Glucose 117 mg/dl H 02/15/17 0726 Bedside Glucose 117 mg/dl H 02/15/17 1135 Bedside Glucose 133 mg/dl H 02/15/17 1659 Bedside Glucose 76 mg/dl 02/15/172006 Bedside Glucose 81 mg/dl 02/16/17 0727 ASSESSMENT: * Over the past 24 hours, patient received 17 units of Lantus and 0 units of Novolog * BSGs have trended down over the past 24 hours * Recent change from Dexamethasone 2 mg BID to 1 mg BID * Patient has poor PO intake * Given this trend, basal insulin was held last night and held again this AM * Patient will need a reduced Lantus dose when re-initiated PLAN: * Continue to HOLD basal insulin * Continue Novolog ACHS * Goal Range: Low 110 mg/dL - High 140 mg/dL * Correction Factor: 20 mg/dL/unit * Prandial insulin: Per carb ratio of 1 unit per 7 grams CHO consumed Pharmacy will continue to monitor patient daily and write orders per [facility] inpatient glycemic control protocol. Thanks. * Please note that the plan above was derived based on current level of insulin resistance and hospital stress. These recommendations are appropriate for inpatient admission only. Plan of care upon discharge will need to be reassessed to avoid potential outpatient hypo/hyperglycemia.
[2017-02-16] MEDS: FENTANYL 75 MCG/HR TDSY TD SCH (10:31)
[2017-02-16] MEDS: CLONAZEPAM 0.5 MG TAB PO PRN (10:35)
[2017-02-16] MEDS: DOCUSATE SODIUM 100 MG CAP PO SCH ×2 (10:35→21:17)
[2017-02-16] MEDS: ASPIRIN 81 MG ECTAB PO SCH (10:36)
[2017-02-16] MEDS: GABAPENTIN 300 MG CAP PO SCH ×3 (10:36→21:17)
[2017-02-16] MEDS: LISINOPRIL 20 MG TAB PO SCH (10:36)
[2017-02-16] MEDS: DEXAMETHASONE 1 MG TAB PO SCH ×2 (10:36→21:18)
[2017-02-16] MEDS: POLYETHYLENE (MIRALAX) 17 GM PACK PO SCH (10:44)
[2017-02-16] MEDS: INSULIN GLARGINE SOLOSTAR 100 UNITS/ML 3 ML PEN SC SCH (10:46)
[2017-02-16] MEDS: FENTANYL PATCH REMOVE & WASTE SCH ×2 (10:46→10:47)
--- NOTE | 2017-02-16 18:22 | Progress Note ---
Medicine Progress Note Date & Time of Visit: Feb 16, 2017 at 18:20. Subjective seen laying in bed, comfortable states pain is under good control denies dyspnea, cough no other symptoms Objective Last 8 Hrs Date Time Temp Pulse Resp B/P Pulse Ox O2 Delivery O2 Flow Rate FiO2 02/16/17 16:00 92 Room Air 02/16/17 14:57 36.8 93 18 111/61 92 Room Air 02/16/17 11:03 36.7 89 20 97/58 93 Room Air 02/16/17 10:51 Room Air Physical Exam: General- alert, oriented, not in distress, speaks in sentences with no effort Eyes- anicteric Lungs- clear breath sounds b/l, no rales/wheeze (+) mild erythema on the chest wall- resolved Heart- normal rate, regular rhythm; no murmurs Abdomen- normal bowel sounds, soft, nontender Extremities- no pretibial edema, no calf tenderness Neuro- alert, oriented x 3; no gross deficits Skin- warm & dry Laboratory Results: Last 24 Hours Test 02/15/17 20:07 02/16/17 06:43 02/16/17 07:27 02/16/17 11:08 Bedside Glucose 76 mg/dl 81 mg/dl 110 mg/dl White Blood Count 7.00 K/uL Red Blood Count 3.91 M/uL Hemoglobin 10.9 g/dL Hematocrit 32.5 % Mean Corpuscular Volume 83.1 fL Mean Corpuscular Hemoglobin 27.9 pg Mean Corpuscular Hemoglobin Concent 33.5 g/dl Platelet Count 237 K/uL Mean Platelet Volume 9.9 fL Neutrophils (%) (Auto) 78.0 % Lymphocytes (%) (Auto) 9.0 % Monocytes (%) (Auto) 7.9 % Eosinophils (%) (Auto) 0.3 % Basophils (%) (Auto) 0.1 % Neutrophils # (Auto) 5.46 K/uL Lymphocytes # (Auto) 0.63 K/uL Monocytes # (Auto) 0.55 K/uL Eosinophils # (Auto) 0.02 K/uL Basophils # (Auto) 0.01 K/uL RDW Standard Deviation 49.7 fL RDW Coefficient of Variation 16.7 % Immature Granulocyte % (Auto) 4.7 % Immature Granulocyte # (Auto) 0.33 K/uL Nucleated RBC Absolute Count (auto) 0.03 K/uL Nucleated Red Blood Cells % 0.4 % Test 02/16/17 16:02 Bedside Glucose 119 mg/dl Assessment & Plan PAIN MANAGEMENT - Secondary to Extensive metastasis, Spinal stenosis L3-L4, Spondylosis. -Work up- Bone scan- Extensive diffuse metastatic disease, CT scan abd/pelvis- Multiple hepatic masses; Lumbar MRI- Multiple hepatic masses, spondylosis, probable metastasis in spine, spinal stenosis L3-L4; X ray- Lumbar- no vertebral fractures. -- on fentanyl, dilaudid PO and IV PRN--> fentanyl further increased to 75mcg, Dilaudid also increased to 4mg PRN Dexamethasone PO --> tapered down to 1mg daily -- palliative radiation in progress needs few more days per Rad Onco -- pain controlled overall METASTATIC CANCER, UNKNOWN PRIMARY, LIKELY PULMONARY Patient was found to have right upper lobe mass during last admission which was found to be suspicious for cancer, PET scan scheduled for January 2017. -Work up- Bone scan- Extensive diffuse metastatic disease, CT scan abd/pelvis- Multiple hepatic masses; Lumbar MRI- Multiple hepatic masses, spondylosis, probable metastasis in spine, spinal stenosis L3-L4; X ray- lumbar- no vertebral fractures -- discussed with Dr. Barton, who discussed case with patient and her daughter cancelled Bronchoscopy, and to transition to Hospice Services -- case management on board will need to transition to SNF with hospice as patient's daughter states she will not be available to be with the patient at home POSSIBLE RADIATION DERMATITIS ON THE CHEST - Mometasone cream ordered-- resolved S/P SEPSIS SECONDARY TO HEALTH CARE ASSOCIATED PNEUMONIA : Sepsis resolved. -S/P IV Zosyn changed to Levofloxacin 750 mg daily (completed 7 days) -Cxs- No growth , MRSA - Neg S/P TOXIC ENCEPHALOPATHY possible secondary to sedation and analgesia given in the Emergency Room. -Resolved HYPERTENSION- stable -On lisinopril and amlodipine -Monitor. COPD, past tobacco use as per records -No signs of exacerbation -Stable DM2, insulin requiring, on insulin pump, -well controlled as of recent outpx HgA1C -Hold insulin pump -on Lantus and ISS-- monitor while on steroids -appreciate pharmacy consult DVt px -Lovenox SQ DISPOSITION will need to transition to SNF with hospice as patient's daughter states she will not be available to be with the patient at home Current Inpatient Medications: Current Inpatient Medications Medications (Trade) Dose Ordered Sig/Eric Route Start Time Stop Time Status Last Admin Dose Admin Amlodipine Besylate (Norvasc Tab) 5 mg HS PO 01/31/17 21:00 03/02/17 20:59 02/15/17 19:51 5 MG Aspirin (Ecotrin Tab) 81 mg QAM PO 01/31/17 09:00 03/02/17 08:59 02/16/17 10:36 81 MG Docusate Sodium (coLACE CAP) 100 mg BID PO 01/31/17 09:00 03/02/17 08:59 02/16/17 10:35 100 MG Lisinopril (Zestril Tab) 20 mg DAILY PO 02/01/17 09:00 03/03/17 08:59 02/16/17 10:36 20 MG Polyethylene (Miralax Powder Packet) 17 gm DAILY PO 01/31/17 09:00 03/02/17 08:59 02/12/17 07:52 17 GM Ondansetron HCl (Zofran Inj) 4 mg Q6H PRN IV 01/31/17 04:45 03/02/17 04:44 Enoxaparin Sodium (Lovenox Inj) 40 mg Q24H SC 01/31/17 09:00 03/02/17 08:59 02/16/17 07:53 40 MG Acetaminophen (Tylenol Tab) 650 mg Q4H PRN PO 01/31/17 04:45 03/02/17 04:44 02/15/17 21:01 650 MG Nitroglycerin (Nitrostat Tab) 0.4 mg UD PRN SL 01/31/17 04:45 03/02/17 04:44 Insulin Aspart (novoLOG ASPART) SLIDING SCALE If C... ACHS SC 01/31/17 07:00 03/02/17 06:59 02/14/17 08:43 6 UNITS Glucose (Glucose 40% Gel) 15-30 GRAMS 15 GRAMS... UD PRN PO 01/31/17 04:45 03/02/17 04:44 Glucose (Glucose Chew Tab) 4-8 Tablets 4 Tabl... UD PRN PO 01/31/17 04:45 03/02/17 04:44 Dextrose (Dextrose 50% 50ML Syringe) 25-50ML OF 50% DW IV FOR... UD PRN IV 01/31/17 04:45 03/02/17 04:44 Glucagon (Glucagon Inj) 1 mg UD PRN SQ 01/31/17 04:45 03/02/17 04:44 Haloperidol Lactate (Haldol Inj) 2 mg Q2H PRN IM 01/31/17 04:45 03/02/17 04:44 Miscellaneous Information (Consult Glycemic Management Pharmacy) 1 ea UD PRN N/A 01/31/17 09:00 03/02/17 08:59 Insulin Glargine (Lantus Solostar Pen) see protocol text BID SC 01/31/17 09:00 03/02/17 08:59 Future Hold 02/15/17 08:23 17 UNIT Gabapentin (Neurontin Cap) 300 mg TID PO 02/02/17 14:00 03/04/17 13:59 02/16/17 10:36 300 MG Clonazepam (Klonopin Tab) 0.5 mg Q6H PRN PO 02/02/17 11:00 03/04/17 10:59 02/16/17 10:35 0.5 MG Lidocaine (Lidoderm Patch 5%) 1 patch QAM TD 02/11/17 09:30 03/13/17 09:29 02/16/17 07:51 1 PATCH Miscellaneous (Remove Lidoderm Patch) 1 ea DAILY@21 N/A 02/11/17 21:00 03/13/17 20:59 02/15/17 20:02 1 EA Mometasone Furoate ([place] 0.1 % Cr) 1 appln BID EXT 02/11/17 18:00 03/13/17 17:59 02/16/17 07:46 1 APPLN Hydromorphone HCl (Dilaudid Tab) 4 mg Q4H PRN PO 02/13/17 11:00 02/27/17 10:59 02/15/17 19:48 4 MG Fentanyl (Duragesic Patch) 75 mcg Q3D@0900 TD 02/13/17 14:00 02/27/17 13:59 02/16/17 10:31 75 MCG Miscellaneous (Fentanyl Patch Remove & Waste) 1 ea Q3D@0859 N/A 02/13/17 13:59 03/15/17 13:58 02/16/17 10:46 1 EA Miscellaneous Information (Check Fentanyl Patch Placement) 1 ea QS N/A 02/13/17 16:00 03/15/17 15:59 02/16/17 16:03 1 EA Miscellaneous (Fentanyl Patch Remove & Waste) 1 ea TODAY@1359 N/A 02/13/17 13:59 03/15/17 13:58 02/13/17 14:07 1 EA Dexamethasone (Decadron Tab) 1 mg BID PO 02/14/17 20:00 03/16/17 19:59 02/16/17 10:36 1 MG Hydromorphone HCl (Dilaudid Inj) 1 mg Q3H PRN IV 02/15/17 00:45 03/01/17 00:44 02/16/17 16:02 1 MG Enteral Nutritional Formula (Boost Glucose Control) 1 can TID PO 02/16/17 20:00 03/18/17 19:59
[2017-02-16] MEDS: BOOST GLUCOSE CONTROL PO SCH (21:17)
[2017-02-16] MEDS: AMLODIPINE BESYLATE 5 MG TAB PO SCH (21:18)
[2017-02-17] MEDS: CHECK FENTANYL PATCH PLACEMENT SCH ×2 (00:12→08:37)
[2017-02-17 03:54] VITALS: BP 143/65; PULSE 87; TEMP 36.7; O2SAT 92
[2017-02-17] MEDS: HYDROmorphone INJ 1 MG/ML SYR IV PRN ×3 (04:05→12:13)
[2017-02-17 07:02] VITALS: BP 161/72; PULSE 85; TEMP 36.6; O2SAT 94
[2017-02-17] MEDS: BOOST GLUCOSE CONTROL PO SCH (08:00)
[2017-02-17] MEDS: DOCUSATE SODIUM 100 MG CAP PO SCH (08:37)
[2017-02-17] MEDS: POLYETHYLENE (MIRALAX) 17 GM PACK PO SCH (08:37)
[2017-02-17] MEDS: GABAPENTIN 300 MG CAP PO SCH (08:39)
[2017-02-17] MEDS: DEXAMETHASONE 1 MG TAB PO SCH (08:39)
[2017-02-17] MEDS: ASPIRIN 81 MG ECTAB PO SCH (08:39)
[2017-02-17] MEDS: ENOXAPARIN 40 MG/0.4 ML SYR SC SCH (08:40)
[2017-02-17] MEDS: LISINOPRIL 20 MG TAB PO SCH (08:40)
[2017-02-17] MEDS: LIDODERM (LIDOCAINE) PATCH 5% TD SCH (08:40)
[2017-02-17] MEDS: INSULIN ASPART 100 UNITS/ML 3 ML PEN SC SCH ×2 (08:41→12:13)
[2017-02-17] MEDS: MOMETASONE FUROATE 0.1% CR 15 GM TUBE EXT SCH (08:41)
[2017-02-17 09:46] VITALS: BP 161/72; PULSE 85; TEMP 36.6; O2SAT 94
--- NOTE | 2017-02-17 10:29 | Pharmacy Progress Note ---
Glycemic: Assessment & Plan Date of Service Feb 17, 2017. Assessment & Plan 02/17/17 *Spoke with provider. D/C glycemic consult. Patient to go home with hospice. *She has not required basal insulin X 24 hours. I would recommend if continuing insulin pump as outpatient to hold basal rate and only use correctional insulin.
[2017-02-17] MEDS: HYDROmorphone HCL 2 MG TAB PO PRN (10:41)
--- NOTE | 2017-02-17 10:56 | Progress Note ---
Internal Med Progress Note Date of Service: Feb 17, 2017. Provider Documentation: SUBJECTIVE : Patient is drowsy.Post radiation rx. Pain all over + Does have Cough, SOB at baseline, anorexia, weight loss x 20 lbs in 1-2 months No fever, chills, nausea, vomiting, headaches, abdominal pain, diarrhea OBJECTIVE : Vital Signs-as noted below Exam: General-Drowsy Lungs-AEBE decreased Rt> Left, no wheezing, rales, rhonchi Heart-S1, S2 normal. Murmur + Abdomen-soft bowel sounds present non tender no distension Extremities-no edema no erythema peripheral pulses intact Neuro-Bilateral lower extremity weakness- 3/5 strength , limited due to pain, cranial nerves intact, no decreased sensation Lab data as noted below. BONE SCAN There are extensive foci of abnormal increased activity involving the calvarium, multiple ribs, multiple thoracic and lumbar vertebral bodies, the bony pelvis, and the left hip and proximal femur. There is also a nonspecific focus of increased activity involving the right medial femoral metaphysis and proximal fibular lateral aspect of the right tibial plateau. There is also a focus of increased activity within the mid right femur. CT SCAN ABDOMEN/PELVIS IMPRESSION: 1. Progressive metastatic change of the liver. 2. Progressive bibasilar pleural effusions and lower lobe atelectatic change. 3. Stable indeterminate retroperitoneal nodes. 4. Gallstone the region of the gallbladder neck 5. Possible early bony metastatic change ASSESSMENT & PLAN: PAIN MANAGEMENT - Secondary to Extensive metastasis, Spinal stenosis L3-L4, Spondylosis. -Work up- Bone scan- Extensive diffuse metastatic disease, CT scan abd/pelvis- Multiple hepatic masses; Lumbar MRI- Multiple hepatic masses, spondylosis, probable metastasis in spine, spinal stenosis L3-L4; X ray- Lumbar- no vertebral fractures. - On fentanyl, dilaudid PO and IV PRN--> fentanyl further increased to 75mcg, Dilaudid also increased to 4mg PRN - Dexamethasone PO --> tapered down to 1mg daily - Palliative radiation in progress - Needs few more days of radiation per radiation oncology METASTATIC CANCER, UNKNOWN PRIMARY, LIKELY PULMONARY Patient was found to have right upper lobe mass during last admission which was found to be suspicious for cancer, PET scan scheduled for January 2017. -Work up- Bone scan- Extensive diffuse metastatic disease, CT scan abd/pelvis- Multiple hepatic masses; Lumbar MRI- Multiple hepatic masses, spondylosis, probable metastasis in spine, spinal stenosis L3-L4; X ray- lumbar- no vertebral fractures -- discussed with Dr. Barton, who discussed case with patient and her daughter cancelled Bronchoscopy, and to transition to Hospice Services -- case management on board -- Plan is for home hospice with 24 hour care POSSIBLE RADIATION DERMATITIS ON THE CHEST - Mometasone cream ordered -- Resolved S/P SEPSIS SECONDARY TO HEALTH CARE ASSOCIATED PNEUMONIA : Sepsis resolved. -S/P IV Zosyn changed to Levofloxacin 750 mg daily (completed 7 days) -Cxs- No growth , MRSA - Neg S/P TOXIC ENCEPHALOPATHY possible secondary to sedation and analgesia given in the Emergency Room. -Resolved HYPERTENSION- stable -On lisinopril and amlodipine -Monitor. COPD, past tobacco use as per records -No signs of exacerbation -Stable DM2, insulin requiring, on insulin pump, -well controlled as of recent outpx HgA1C -Transition to hospice DVt px -Lovenox SQ DISPOSITION HOME HOSPICE WITH 24 HOURS CARE /DAUGHTER PER CM Okay to discharge today Vital Signs: Date Time Temp Pulse Resp B/P Pulse Ox O2 Delivery O2 Flow Rate FiO2 02/17/17 09:46 36.6 85 20 94 Room Air 02/17/17 09:42 Room Air 02/17/17 07:02 36.6 85 20 161/72 94 Room Air 02/17/17 03:54 36.7 87 18 143/65 92 Room Air 02/16/17 23:59 0 Room Air 02/16/17 23:54 37.3 89 18 120/63 92 Room Air 02/16/17 18:58 36.8 88 20 132/67 93 Room Air 02/16/17 16:00 92 Room Air 02/16/17 14:57 36.8 93 18 111/61 92 Room Air 02/16/17 11:03 36.7 89 20 97/58 93 Room Air Lab Results: Results Past 24 Hours Test 02/16/17 11:08 02/16/17 16:02 02/16/17 20:15 02/17/17 07:25 Range/Units Bedside Glucose 110 119 121 139 70-90 mg/dl
[2017-02-17] MEDS ORDERED: DRGTP75 TD (10:59)
[2017-02-17] MEDS ORDERED: KLN5 PO (10:59)
[2017-02-17] MEDS ORDERED: DLD2 PO (10:59)
--- NOTE | 2017-02-17 11:02 | Discharge Instructions ---
Discharge Instructions Date of Service Feb 17, 2017. Admission Reason for Admission: Sepsis Discharge Discharge Diagnosis / Problem: 1. Pain management 2. Metastatic carcinoma with unknown primary Discharge Goals Goal(s): Decrease discomfort Activity Recommendations Activity Limitations: per Instructions/Follow-up section (as tolerated ) . Instructions / Follow-Up Instructions / Follow-Up MEDICATION CHANGES: 1. New medications for pain: - Fentanyl 75 mcg q 72 hours - Dilaudid increased to 4 mg PO every 4 hours as needed for pain - Current Hospital Diet Patient's current hospital diet: Diabetes Type 2 Diet, AHA Diet (Heart Healthy) Discharge Diet Recommended Diet: Regular Diet ( TOLERATED) Pending Studies Studies pending at discharge: no Laboratory Results Hemoglobin A1c Test 01/31/17 00:32 Range/Units Estimated Average Glucose 146 mg/dl Hemoglobin A1c 6.7 H 4.5-5.6 % Medical Emergencies . Who to Call and When: Medical Emergencies: If at any time you feel your situation is an emergency, please call 911 immediately. . Non-Emergent Contact Non-Emergency issues call your: Primary Care Provider . . "Provider Documentation" section prepared by Connie Lopez. VTE Core Measure Inpt VTE Proph given/why not?: Enoxaparin (Lovenox)SQ
--- NOTE | 2017-02-17 11:06 | Discharge Summary ---
Discharge Summary Date of Service Feb 17, 2017. Discharge Summary Admission Date: Jan 31, 2017 at 03:58 Discharge Date: Feb 17, 2017 Discharge Disposition: Home (WITH HOSPICE) Principal Diagnosis: 1. Pain management with newly diagnosis extensive metastasis 2. 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 HCAP 4. Toxic encephalopathy secondary to narcotics 5. Hospice Care Secondary Diagnoses/Problems: 1. HTN 2. COPD 3. DM-2 4. Physical deconditioning Procedures: Radiation oncology= palliative radiation rxs Multiple imaging tests Encounter for hospice care Pain mx Consultations: Pain mx Pulmonary Pending Studies/Follow-Up: Instructions / Follow-Up Instructions / Follow-Up MEDICATION CHANGES: 1. New medications for pain: - Fentanyl 75 mcg q 72 hours - Dilaudid increased to 4 mg PO every 4 hours as needed for pain Medication Reconciliation New Medications: Clonazepam (Clonazepam) 0.5 Mg Tab 0.5 MG PO Q6H PRN for Anxiety/Insomnia for 30 Days, #40 TAB Fentanyl (Duragesic) 75 Mcg Tdsy 75 MCG TD Q3D@0900 for 30 Days, #10 Hydromorphone HCl (Hydromorphone HCl) 2 Mg Tab 4 MG PO Q4H PRN for Pain for 30 Days, #50 TAB Continued Medications: Amlodipine (Norvasc) 5 Mg Tab 5 MG PO HS, TAB Amoxicillin (Amoxil) 875 Mg Tab 875 MG PO UD PRN for PRE DENTISTRY, TAB Take 4 tabs prior to dental work. Aspirin (Aspirin) 81 Mg Tab 1 TAB PO QAM Cholecalciferol (Vitamin D) 1,000 Unit Tab 1 TAB PO BID Cyanocobalamin (Vitamin B12) 1,000 Mcg Tab 1 TAB PO QAM Docusate Sodium (Docusate Sodium) 100 Mg Cap 100 MG PO BID for 30 Days, #60 CAP Fluocinonide (Fluocinonide) 0.05 % Aga 1 APPLN TOP BID PRN for Itching for 30 Days, #60 ML 3 Refills Gabapentin (Neurontin) 100 Mg Cap 100 MG PO TID, CAP Insulin Aspart (novoLOG INSULIN PUMP ) 1 Ea Inj 1 EA N/A UD, EA Lisinopril (Zestril) 20 Mg Tab 20 MG PO DAILY, TAB Polyethylene Glycol 3350 (Miralax) 1 Pow Pow 17 GM PO DAILY, GM Tretinoin (Tretinoin) 0.025 % Cre 1 APPLN TOP DAILY, #20 GM 1 Refill Zolpidem Tartrate (Ambien) 5 Mg Tab 5 MG PO HS PRN for Sleep, TAB Discontinued Medications: Hydromorphone HCl (Hydromorphone HCl) 2 Mg Tab 2 MG PO Q3H PRN for Pain for 30 Days, #240 TAB Lorazepam (Ativan) 0.5 Mg Tab 0.5 MG PO TID PRN for Anxiety, TAB Tramadol (Ultram) 50 Mg Tab 50 MG PO Q4 PRN for Pain Admission Information HPI (per Admitting provider): HISTORY OF PRESENT ILLNESS: Medical history is significant for hypertension, COPD, past tobacco abuse, hyperlipidemia, DM2 on insulin pump, right upper lobe pulmonary mass probable malignancy. Chronic anemia (baseline hemoglobin 11) Recent confinement 2 weeks ago for R rib fracture secondary to recurrent falls. CAT scan showed 39 mm right upper lobe pulmonary mass presumed to be malignant. possible liver mets. Patient was seen by Pulmonology. Outpatient workup contemplated. As per outpx case management's note, px co cough sx productive of yellow sputum worst in the morning with some lower extremity edema. Px seen on ffup by [facility] as per records. PET scan was contemplated in January 2017. An ultrasound guided biopsy (?liver) on January 2017. Patient refusing home health outpatient. As per records, patient woke up yesterday morning with a horrible pain on her left upper arm and right hip, right lower extremity. Denies chest pain. Denies shortness of breath. Denies unusual cough sx. Denies aspiration. At the Emergency Room, patient received vancomycin and Zosyn for sepsis. Some confusion noted after been given IV narcotics and anxiolytics at the ER for extreme discomfort and restlessness. BGs 50s at one point as well. Insulin pump stopped, IV Dextrose given. Hospital Course PAIN MANAGEMENT - Secondary to Extensive metastasis, Spinal stenosis L3-L4, Spondylosis. -Work up- Bone scan- Extensive diffuse metastatic disease, CT scan abd/pelvis- Multiple hepatic masses; Lumbar MRI- Multiple hepatic masses, spondylosis, probable metastasis in spine, spinal stenosis L3-L4; X ray- Lumbar- no vertebral fractures. - On fentanyl, dilaudid PO and IV PRN--> fentanyl further increased to 75mcg, Dilaudid also increased to 4mg PRN - Dexamethasone PO --> tapered down to 1mg daily - Palliative radiation in progress - Needs few more days of radiation per radiation oncology METASTATIC CANCER, UNKNOWN PRIMARY, LIKELY PULMONARY Patient was found to have right upper lobe mass during last admission which was found to be suspicious for cancer, PET scan scheduled for January 2017. -Work up- Bone scan- Extensive diffuse metastatic disease, CT scan abd/pelvis- Multiple hepatic masses; Lumbar MRI- Multiple hepatic masses, spondylosis, probable metastasis in spine, spinal stenosis L3-L4; X ray- lumbar- no vertebral fractures -- discussed with Dr. Barton, who discussed case with patient and her daughter cancelled Bronchoscopy, and to transition to Hospice Services -- case management on board -- Plan is for home hospice with 24 hour care POSSIBLE RADIATION DERMATITIS ON THE CHEST - Mometasone cream ordered -- Resolved S/P SEPSIS SECONDARY TO HEALTH CARE ASSOCIATED PNEUMONIA : Sepsis resolved. -S/P IV Zosyn changed to Levofloxacin 750 mg daily (completed 7 days) -Cxs- No growth , MRSA - Neg S/P TOXIC ENCEPHALOPATHY possible secondary to sedation and analgesia given in the Emergency Room. -Resolved HYPERTENSION- stable -On lisinopril and amlodipine -Monitor. COPD, past tobacco use as per records -No signs of exacerbation -Stable DM2, insulin requiring, on insulin pump, -well controlled as of recent outpx HgA1C -Transition to hospice DVt px -Lovenox SQ DISPOSITION HOME HOSPICE WITH 24 HOURS CARE /DAUGHTER PER CM Okay to discharge today Total time spent on discharge = 28 MINUTES This includes examination of the patient, discharge planning, medication reconciliation, and communication with other providers. Discharge Instructions Discharge Goals Goal(s): Decrease discomfort Activity Recommendations Activity Limitations: per Instructions/Follow-up section (as tolerated ) . Instructions / Follow-Up Instructions / Follow-Up MEDICATION CHANGES: 1. New medications for pain: - Fentanyl 75 mcg q 72 hours - Dilaudid increased to 4 mg PO every 4 hours as needed for pain - Current Hospital Diet Patient's current hospital diet: Diabetes Type 2 Diet, AHA Diet (Heart Healthy) Discharge Diet Recommended Diet: Regular Diet ( TOLERATED) Pending Studies Studies pending at discharge: no Laboratory Results Hemoglobin A1c Test 01/31/17 00:32 Range/Units Estimated Average Glucose 146 mg/dl Hemoglobin A1c 6.7 H 4.5-5.6 % Medical Emergencies . Who to Call and When: Medical Emergencies: If at any time you feel your situation is an emergency, please call 911 immediately. . Non-Emergent Contact Non-Emergency issues call your: Primary Care Provider . . "Provider Documentation" section prepared by Connie Lopez. VTE Core Measure Inpt VTE Proph given/why not?: Enoxaparin (Lovenox)SQ
--- NOTE | 2017-02-26 10:04 | Radiation Onc End of Treatmnt ---
End of Treatment Documentation Date Feb 26, 2017. Diagnosis (1) Lung mass Location: bone metastasis Stage: IV History We are seeing Ms. Stewart in consultation at the request of Dr. Lopez. The patient was seen at bedside. ECOG PS: 3 Ms. Stewart is a 76-year-old female with a previous smoking history who recently presented with a 20-25 pound weight loss over the last several months as well as increasing worsening lower back pain. The patient received presented to the emergency room for lower back pain and did ultimately have a CT of the lumbar spine without contrast on 01/19/2017 which not reveal any evidence of disease; the patient additionally had CT scan of the thoracic spine on 01/19/2017 which also did not reveal any disease of the thoracic spine however did reveal necrotic right paratracheal lymphadenopathy and a partially visualized mass within the right middle lobe. The patient did have a CT thorax completed on 01/19/2017 which did reveal: "IMPRESSION: 1. Nondisplaced right fifth rib fracture. No evidence of pneumothorax 2. 39 mm right upper lobe pulmonary mass. This should be presumed neoplastic until proven otherwise 3. Pathologic mediastinal adenopathy 4. Cholelithiasis 5. Small left pleural effusion with a basilar atelectasis 6. Emphysema 7. Pulmonary consultation is recommended, for evaluation of the suspicious right upper lobe pulmonary mass." The patient was treated for her pain and was discharged with the outpatient appointment for pulmonology for further workup regarding the pulmonary mass. The patient was seen by Dr. Lancaster in the patient was going to be scheduled for a biopsy via bronchoscopy however the patient was readmitted to the hospital again for significant lower back pain. The patient did undergo multiple imaging studies including a MRI of the lumbar spine are 02/03/2016 which did reveal: "IMPRESSION: 1. Multiple hepatic masses. 2. Diffuse decreased T1 signal within the vertebral body marrow. This indicates a marrow replacement process. Diagnostic considerations include metastatic disease, lymphoma, anemia , or a drug-induced marrow stimulation. 3. Multilevel spondylitic change. Mild multilevel spinal canal narrowing. Mild spinal stenosis at the L3-4 level." The patient did have a CT thorax also completed during this admission on 2016 which did reveal a right upper lobe mass has increased in size from the previous scan of 01/19/2017." The patient did have a CT abdomen and pelvis completed on 02/06/2017 which revealed: "IMPRESSION: 1. Progressive metastatic change of the liver. 2. Progressive bibasilar pleural effusions and lower lobe atelectatic change. 3. Stable indeterminate retroperitoneal nodes. 4. Gallstone the region of the gallbladder neck 5. Possible early bony metastatic change." We have now been asked to evaluate the patient for consideration of palliative radiation therapy to the lumbar spine. Overall, the patient does state that she is still having some difficulty ambulating secondary to her pain in her lower back. She denies any focal neurologic deficits or numbness. She denies any fecal or urinary incontinence. Again, she did admit to a 20 - 25 pound weight loss over the several months. Additionally, she denies any hemoptysis, fevers, chills or night sweats. She does state that she does have some exertional dyspnea. Physics Course Treatment Site [employer] Start Date End Date Elapsed Days # TX Daily Dose (cGy) Total Dose (cGy) C1- L-Spine 3-field 15X 02/09/2017 02/17/2017 9 6 300 1800 Do documented final doses agree with prescribed doses? No If not, explain: The prescription was for 10 fractions. Treatment was stopped early at the patient's request. Is patients chart complete and accurate? Yes Additional Notes Patient was seen as an inpatient. She was having intractable back pain. Multiple studies had been performed revealing metastatic disease to the lumbar spine. Radiation was given for palliation of pain. A workup had been started to determine the primary source of the metastatic disease. She did not complete the workup. She had been seen by pulmonary and it was felt the risk to benefit ratio was too high to go forward with bronchoscopy and biopsy. Treatment with radiation was given throughout her hospital stay. A total of 6 fractions had been given. The patient made the decision to go home on hospice. At that time treatment was stopped. Pain Management She had pain levels between 6 and 8. She had a lot of available as an inpatient. She did not complete her radiation therapy. She was going home on hospice. Final response cannot be determined. She will have pain medications available through the hospice service. Copies To Forest Shah M.D.; Clyde Barton MD
== END 2017-02-17 13:00 | disposition hospice, home (50) | DRG 871 ==
LOC: ENRESERVDT → ENRESERVTM → EDBD 23:29 → C.EDB 23:33 → C.2T 01-31 03:58 → C.MS4W 02-02 14:11 → C.4E 02-12 06:32
PROVIDERS: ADMIT Internal Medicine; ATTEND Internal Medicine
DX: A41.9 Sepsis, unspecified organism (principal); J18.9 Pneumonia, unspecified organism; G92 Toxic encephalopathy; C79.51 Secondary malignant neoplasm of bone; C78.7 Secondary malignant neoplasm of liver and intrahepatic bile duct; C34.11 Malignant neoplasm of upper lobe, right bronchus or lung; S22.43XA Multiple fractures of ribs, bilateral, initial encounter for closed fracture; I10 Essential (primary) hypertension; D64.9 Anemia, unspecified; Z90.49 Acquired absence of other specified parts of digestive tract; Z79.82 Long term (current) use of aspirin; Z79.899 Other long term (current) drug therapy; Z88.5 Allergy status to narcotic agent; Z87.891 Personal history of nicotine dependence; Z79.4 Long term (current) use of insulin; E11.649 Type 2 diabetes mellitus with hypoglycemia without coma; F41.9 Anxiety disorder, unspecified; K80.20 Calculus of gallbladder without cholecystitis without obstruction; E78.00 Pure hypercholesterolemia, unspecified; J43.9 Emphysema, unspecified; M81.0 Age-related osteoporosis without current pathological fracture; Z85.828 Personal history of other malignant neoplasm of skin; Z82.49 Family history of ischemic heart disease and other diseases of the circulatory system; Z83.6 Family history of other diseases of the respiratory system; Z66 Do not resuscitate; M48.06 Spinal stenosis, lumbar region; Z51.5 Encounter for palliative care; M51.36 Other intervertebral disc degeneration, lumbar region; M47.896 Other spondylosis, lumbar region; Y95 Nosocomial condition; Z96.41 Presence of insulin pump (external) (internal); T42.6X5A Adverse effect of other antiepileptic and sedative-hypnotic drugs, initial encounter; Y92.238 Other place in hospital as the place of occurrence of the external cause; Z96.611 Presence of right artificial shoulder joint; Z96.641 Presence of right artificial hip joint; Z80.8 Family history of malignant neoplasm of other organs or systems; X58.XXXA Exposure to other specified factors, initial encounter

== ENCOUNTER 2017-02-25 09:59 | Emergency (ER) | payer OTHER, MEDICARE ==
[~2017-02-25] VITALS: Ht 157.5 cm; Wt 63.7 kg
[~2017-02-25 09:59] MED LIST changes: -ASPI-461 PO; +DRGTP75 TD; +GABA-112 PO; +KLN5 PO; +LISI-725 PO; -LORA-741 PO; -LSN40 PO; -MRLP17X PO; -NRN100 PO; -NRT25 PO; +POLY335019 PO; -TRAM-10 PO
[2017-02-25 10:01] VITALS: TEMP 36.4; Ht 157.5 cm; Wt 63.7 kg
[2017-02-25] MEDS ORDERED: HYDROmorphone HCL 2 MG TAB PO PRN (11:30)
[2017-02-25] MEDS ORDERED: HYDROmorphone INJ 2 MG/ML SYR/VIAL IM STA (13:17)
[2017-02-25] MEDS ORDERED: FNTTP75 EX (15:34)
[2017-02-25] MEDS ORDERED: HYDR-4303 PO (15:34)
--- NOTE | 2017-02-25 15:34 | EMERGENCY ROOM VISIT NOTE ---
History Report prepared by Cassandra: Charisma Mix Under the Supervision of: Dr. Giovanni Salomon D.O. First contact with patient: 10:40 Chief Complaint: OTHER COMPLAINT History of Present Illness The patient is a 76 year old female who presents to the Emergency Room for mcc placement. The patient states that she has terminal cancer and went home from the hospital on hospice after an admission a few weeks ago. Hospice care is currently working on getting the patient placed in [facility]. In the meantime, the patient's daughter has been taking care of her. Last night , the patient's daughter became upset and left the patient by herself, unable to care for herself. Currently, the patient complains of right shoulder pain from her radiation treatments. She took PO pain medication this morning but did not use the topical cream she typically uses on her shoulder. 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 A total of 10 systems reviewed and were otherwise negative. Past Medical & Surgical Medical Problems: (1) Anxiety (2) COPD, mild (3) Diabetic peripheral neuropathy associated with type 2 diabetes mellitus (4) Disc displacement, lumbar (5) DJD of right shoulder (6) DM type 2 (diabetes mellitus, type 2) (7) Dyslipidemia (8) Fall (9) Foot deformity (10) Hypertension (11) Loss of sensation (12) Lung mass (13) Osteoporosis (14) Rib fracture (15) SCC (squamous cell carcinoma) (16) Sepsis Surgical Problems: (1) History of carpal tunnel surgery (2) History of colposcopy (3) History of total right hip replacement (4) S/P appendectomy (5) S/P tonsillectomy (6) Status post total replacement of right shoulder Family History FH: CAD (coronary artery disease) MOTHER ( of [place] age 57) FH: brain tumor FATHER FH: emphysema MOTHER Social History Smoking Status: Never Smoker Drug Use: none Marital Status: Occupation Status: retired Current/Historical Medications Scheduled Amlodipine (Norvasc), 5 MG PO HS Cholecalciferol (Vitamin D), 1 TAB PO BID Cyanocobalamin (Vitamin B12), 1 TAB PO QAM Docusate Sodium (Docusate Sodium), 100 MG PO BID Fentanyl (Duragesic), 75 MCG TD Q3D@0900 Fentanyl (Fentanyl), 1 PATCH EX 3XWK Gabapentin (Neurontin), 100 MG PO TID Hydromorphone HCl (Hydromorphone HCl ER), 0.5 TAB PO Q4 Insulin Aspart (novoLOG INSULIN PUMP ), 1 EA N/A UD Lisinopril (Zestril), 20 MG PO DAILY Polyethylene Glycol 3350 (Miralax), 17 GM PO DAILY Tretinoin (Tretinoin), 1 APPLN TOP DAILY Scheduled PRN Clonazepam (Clonazepam), 0.5 MG PO Q6H PRN for Anxiety/Insomnia Fluocinonide (Fluocinonide), 1 APPLN TOP BID PRN for Itching Hydromorphone HCl (Hydromorphone HCl), 4 MG PO Q4H PRN for Pain Zolpidem Tartrate (Ambien), 5 MG PO HS PRN for Sleep Allergies Coded Allergies: Morphine (Verified Adverse Reaction, Intermediate, GETS SICK, 02/25/17) Oxycodone (Verified Adverse Reaction, Intermediate, feels like she is gonna pass out, 02/25/17) Physical Exam Vital Signs Date Time Temp Pulse Resp B/P Pulse Ox O2 Delivery O2 Flow Rate FiO2 02/25/17 15:12 111 14 106/48 Room Air 02/25/17 13:06 114 18 131/64 95 Room Air 02/25/17 12:37 112 02/25/17 11:18 113 18 110/68 94 Room Air 02/25/17 10:01 36.4 116 18 113/69 96 Room Air Physical Exam CONSTITUTIONAL/VITAL SIGNS: Reviewed / noted above. GENERAL: Non-toxic in appearance. INTEGUMENTARY: Warm, dry, and [place]. She has a small rash on her right shoulder. HEAD: Normocephalic. EYES: without scleral icterus or trauma. ENT/OROPHARYNX: clear and moist. LYMPHADENOPATHY/NECK: Is supple without lymphadenopathy or meningismus. RESPIRATORY: Lungs clear and equal. CARDIOVASCULAR: Regular rate and rhythm. GI/ABDOMEN: Soft and nontender. No organomegaly or pulsatile mass. No rebound or guarding. Normal bowel sounds. EXTREMITIES: Warm and well perfused. BACK: No CVA tenderness. NEUROLOGICAL: Intact without focal deficits. PSYCHIATRIC: normal affect. MUSCULOSKELETAL: Normally developed with good muscle tone. Medical Decision & Procedures Medications Administered Medications (Trade) Dose Ordered Sig/Eric Route Start Time Stop Time Status Last Admin Dose Admin Hydromorphone HCl (Dilaudid Tab) 4 mg Q4 PRN PO 02/25/17 11:30 03/11/17 10:59 02/25/17 11:34 4 MG Hydromorphone HCl (Dilaudid Inj) 2 mg ONE STAT IM 02/25/17 13:17 02/25/17 13:18 DC 02/25/17 13:45 2 MG ED Course 1044: Previous medical records were reviewed. The patient was evaluated in room B4. A complete history and physical examination was performed. 1130: Ordered Dilaudid Tab 4 mg PO. 1317: Ordered Dilaudid Inj 2 mg IM. 1446: Per lead case manager, the patient has been accepted to [facility]. Medical Decision This is a 76-year-old female who presents to the ED because she needed a safe place to stay. The patient has been reportedly abandoned by her daughter. She has no place to stay and no one to take care of her. She is currently on hospice. They are arranging for her to go inpatient at the [facility]. The patient was treated with some oral Dilaudid here and some IM Dilaudid for discomfort. She has been accepted to the [facility]. The patient will be discharged there. Impression Primary Impression: Hospice care patient Scribe Attestation The scribe's documentation has been prepared under my direction and personally reviewed by me in its entirety. I confirm that the note above accurately reflects all work, treatment, procedures, and medical decision making performed by me. Departure Information Dispostion Home / Self-Care Prescriptions Fentanyl (Fentanyl) 75 Mcg Tdsy 1 PATCH EX 3XWK, #1 PATCH Prov: Giovanni Salomon D.O. 02/25/17 Hydromorphone HCl (Hydromorphone HCl ER) 8 Mg Tab 0.5 TAB PO Q4 for Pain for 1 Day, #3 TABS Prov: Giovanni Salomon D.O. 02/25/17 Referrals Forest Shah M.D. (PCP) Patient Instructions My [facility] Additional Instructions Go to [facility].
[2017-02-25 19:08] VITALS: BP 100/48; PULSE 103; O2SAT 93
== END 2017-02-25 19:33 ==
LOC: EDBD 09:59 → C.EDB 10:00
DX: T74.01XA Adult neglect or abandonment, confirmed, initial encounter (principal); X58.XXXA Exposure to other specified factors, initial encounter; F41.9 Anxiety disorder, unspecified; J44.9 Chronic obstructive pulmonary disease, unspecified; E11.43 Type 2 diabetes mellitus with diabetic autonomic (poly)neuropathy; E78.5 Hyperlipidemia, unspecified; I10 Essential (primary) hypertension; M81.0 Age-related osteoporosis without current pathological fracture; C80.1 Malignant (primary) neoplasm, unspecified; Z96.611 Presence of right artificial shoulder joint; Z96.641 Presence of right artificial hip joint; I25.10 Atherosclerotic heart disease of native coronary artery without angina pectoris; Z82.49 Family history of ischemic heart disease and other diseases of the circulatory system; Z79.4 Long term (current) use of insulin; Z79.899 Other long term (current) drug therapy

== ENCOUNTER 2017-03-01 22:10 | Inpatient (IN) | payer OTHER, MEDICARE ==
[~2017-03-01] VITALS: Ht 170.2 cm; Wt 61.0 kg
[~2017-03-01 22:10] MED LIST changes: -AMOX875T3 PO; -DLD2 PO; +FNTTP75 EX; +HYDR-4303 PO; +HYDR2TAB3 PO
[2017-03-01] MEDS ORDERED: SODIUM CHLORIDE 0.9% 1000ML 1,000 ML IV STA (22:30)
[2017-03-01] MEDS ORDERED: ALBUT/IPRATROP 3MG/0.5MG NEB 3 ML VIAL INH STA (22:30)
[2017-03-01 22:54] LABS: BASO % 0.3 %; BASO ABS # 0.01 K/uL (0-0.2); COMPLETE YES; EOS % 0.3 %; HEMATOCRIT 28.8 % (37-47); IG% 1.1 %; LYMPH % 15.1 %; LYMPH ABS # 0.55 K/uL (1.2-3.4); MEAN CELL VOLUME 82.1 fL (80-100); MEAN CORPUSCULAR HEMOGLOBIN 27.4 pg (25-34); MEAN CORPUSCULAR HGB CONC 33.3 g/dl (32-36); MEAN PLATELET VOLUME 8.6 fL (7.4-10.4); MONO % 13.2 %; PLATELET COUNT 135 K/uL (130-400); RED BLOOD COUNT 3.51 M/uL (4.2-5.4); WHITE BLOOD COUNT 3.65 K/uL (4.8-10.8)
--- NOTE | 2017-03-01 23:00 | DIAGNOSTIC IMAGING REPORT ---
CHEST ONE VIEW PORTABLE CLINICAL HISTORY: Fever and sepsis COMPARISON STUDY: 01/31/2017, CT scan dated 01/31/2017 FINDINGS: The heart is mildly enlarged. There is no failure. There are patchy airspace opacities within the right mid and lower lung zone, suspicious for a pneumonia given the history of fever and sepsis. The right upper lobe pulmonary mass described on the CT scan dated 01/31/2017, is difficult to visualize with certainty. There is mild right paratracheal and hilar prominence, likely secondary to adenopathy as described on the recent CT scan. The left lung is clear. There are no pleural effusions. There are postsurgical changes of bilateral shoulder arthroplasties.[ IMPRESSION: Right mid and lower lung zone airspace opacities which given the history of fever and sepsis are suspicious for a pneumonia. Films subsequent to treatment are recommended in follow-up. Electronically signed by: Kristopher Genao M.D. 03/01/2017 10:59 PM Dictated Date/Time: 03/01/2017 10:55 PM
[2017-03-01 23:04] LABS: INR 1.1 (0.9-1.1); PARTIAL THROMBOPLASTIN RATIO 1.2; PROTHROMBIN TIME (PATIENT) 12.3 SECONDS (9.0-12.0)
[2017-03-01 23:06] LABS: BUN/CREATININE RATIO 77.9 (10-20); CALCIUM 8.7 mg/dl (8.5-10.1); CREATININE 0.92 mg/dl (0.60-1.20); POTASSIUM 4.8 mmol/L (3.5-5.1)
[2017-03-01] MEDS ORDERED: INSDGI SC (23:08)
[2017-03-01] MEDS ORDERED: ACET-1311 PO (23:09)
[2017-03-01 23:11] LABS: CKMB/CK RATIO 0.9 (0-3.0)
[2017-03-01] MEDS ORDERED: INSPMPHMLG SQ (23:16)
[2017-03-01 23:23] LABS: URINE APPEARANCE CLOUDY (CLEAR); URINE BILIRUBIN NEG (NEG); URINE COLOR DK YELLOW; URINE EPITHELIAL CELL AUTO >30 /lpf (0-5); URINE NITRITE NEG (NEG); URINE SPECIFIC GRAVITY 1.018 (1.000-1.030); UROBILINOGEN NEG (NEG); ZZURINE CULT IF INDIC CATH YES
[2017-03-01 23:29] LABS: MANUAL MICROSCOPIC REQUIRED? NO; REVIEW REQ? YES
[2017-03-01] MEDS ORDERED: CEFTRIAXONE SOD INJ 1 GM ADDVIAL IV STA (23:56)
[2017-03-01] MEDS ORDERED: LEVOFLOXACIN 250 MG TAB PO STA (23:56)
[2017-03-02] MEDS ORDERED: LEVO-366 PO (00:07)
--- NOTE | 2017-03-02 00:08 | EMERGENCY ROOM VISIT NOTE ---
History Report prepared by Cassandra: Faustino Ch Under the Supervision of: Awilda SaldivarO. First contact with patient: 22:23 Chief Complaint: RESPIRATORY PROBLEMS Stated Complaint: SOB Nursing Triage Summary: pt brought to ed via ems from [facility]. per ems staff went to clean pt up and found that she had audible rales and sent her here. pt only c/o pain in right rib area which she currently has fractured ribs. hx lung CA. pt is poor historian. History of Present Illness The patient is a 76 year old female who presents to the Emergency Room via AMS with complaints of constant shortness of breath starting prior to arrival. Per the nursing staff, the staff at [facility] went to clean her up, and she was found to be having shortness of breath. The nursing staff states that she has a history of lung cancer, and she was admitted on 02/25. Additionally, the nursing staff states that the patient has right rib fractures. History is limited due to altered mental status. Source of History: nursing staff History Limited By: AMS Onset: prior to arrival Position: other (global) Quality: other (shortness of breath) Review of Systems ROS is limited due to the patient's altered mental status. Past Medical & Surgical Medical Problems: (1) Anxiety (2) COPD, mild (3) Diabetic peripheral neuropathy associated with type 2 diabetes mellitus (4) Disc displacement, lumbar (5) DJD of right shoulder (6) DM type 2 (diabetes mellitus, type 2) (7) Dyslipidemia (8) Fall (9) Foot deformity (10) Hypertension (11) Loss of sensation (12) Lung mass (13) Osteoporosis (14) Rib fracture (15) SCC (squamous cell carcinoma) (16) Sepsis Surgical Problems: (1) History of carpal tunnel surgery (2) History of colposcopy (3) History of total right hip replacement (4) S/P appendectomy (5) S/P tonsillectomy (6) Status post total replacement of right shoulder Family History FH: CAD (coronary artery disease) MOTHER ( of [place] age 57) FH: brain tumor FATHER FH: emphysema MOTHER Social History Smoking Status: Former Smoker Drug Use: none Marital Status: Occupation Status: retired Current/Historical Medications Scheduled Amlodipine (Norvasc), 5 MG PO HS Cholecalciferol (Vitamin D), 1 TAB PO BID Cyanocobalamin (Vitamin B12), 1 TAB PO QAM Docusate Sodium (Docusate Sodium), 100 MG PO BID Fentanyl (Duragesic), 75 MCG TD Q3D@0900 Gabapentin (Neurontin), 100 MG PO TID Insulin Glargine (Lantus), 15 UNITS SC QPM Insulin Human Lispro (Humalog), SQ ACHS Levofloxacin (Levaquin), 500 MG PO DAILY Lisinopril (Zestril), 20 MG PO DAILY Polyethylene Glycol 3350 (Miralax), 17 GM PO DAILY Scheduled PRN Acetaminophen (Tylenol), 650 MG PO Q6 PRN for Pain Acetaminophen (Tylenol), 650 MG PO Q6 PRN for Fever Clonazepam (Clonazepam), 0.5 MG PO Q6H PRN for Anxiety/Insomnia Hydromorphone HCl (Hydromorphone HCl), 4 MG PO Q4H PRN for Pain Zolpidem Tartrate (Ambien), 5 MG PO HS PRN for Sleep Allergies Coded Allergies: Morphine (Verified Adverse Reaction, Intermediate, GETS SICK, 03/01/17) Oxycodone (Verified Adverse Reaction, Intermediate, feels like she is gonna pass out, 03/01/17) Physical Exam Vital Signs Date Time Temp Pulse Resp B/P Pulse Ox O2 Delivery O2 Flow Rate FiO2 03/02/17 00:27 37.3 03/02/17 00:00 96 24 103/48 93 Nasal Cannula 2.0 03/01/17 23:00 97 24 103/49 99 8.0 03/01/17 22:28 105 03/01/17 22:24 93 Nasal Cannula 2.0 03/01/17 22:24 93 Nasal Cannula 2.0 03/01/17 22:14 38.0 110 28 110/64 93 Nasal Cannula 2.0 03/01/17 22:14 94 Nasal Cannula Physical Exam CONSTITUTIONAL/VITAL SIGNS: Reviewed / noted above. GENERAL: Non-toxic in appearance. INTEGUMENTARY: Warm, dry, and Diagonal. HEAD: Normocephalic. EYES: without scleral icterus or trauma. ENT/OROPHARYNX: clear and moist. LYMPHADENOPATHY/NECK: Is supple without lymphadenopathy or meningismus. RESPIRATORY: Bilateral rhonchi. CARDIOVASCULAR: Regular rate and rhythm. GI/ABDOMEN: Soft and nontender. No organomegaly or pulsatile mass. No rebound or guarding. Normal bowel sounds. EXTREMITIES: Warm and well perfused. BACK: No CVA tenderness. NEUROLOGICAL: Intact without focal deficits. PSYCHIATRIC: normal affect. MUSCULOSKELETAL: Normally developed with good muscle tone. Medical Decision & Procedures ER Provider Diagnostic Interpretation: X ray results and stated below per my interpretation and radiology interpretation. CHEST ONE VIEW PORTABLE CLINICAL HISTORY: Fever and sepsis COMPARISON STUDY: 01/31/2017, CT scan dated 01/31/2017 FINDINGS: The heart is mildly enlarged. There is no failure. There are patchy airspace opacities within the right mid and lower lung zone, suspicious for a pneumonia given the history of fever and sepsis. The right upper lobe pulmonary mass described on the CT scan dated 01/31/2017, is difficult to visualize with certainty. There is mild right paratracheal and hilar prominence, likely secondary to adenopathy as described on the recent CT scan. The left lung is clear. There are no pleural effusions. There are postsurgical changes of bilateral shoulder arthroplasties.[ IMPRESSION: Right mid and lower lung zone airspace opacities which given the history of fever and sepsis are suspicious for a pneumonia. Films subsequent to treatment are recommended in follow-up. Electronically signed by: Kristopher Genao M.D. 03/01/2017 10:59 PM Dictated Date/Time: 03/01/2017 10:55 PM Laboratory Results 03/01/17 22:35 Red Blood Count 3.51, Mean Corpuscular Volume 82.1, Mean Corpuscular Hemoglobin 27.4, Mean Corpuscular Hemoglobin Concent 33.3, Mean Platelet Volume 8.6, Neutrophils (%) (Auto) 70.0, Lymphocytes (%) (Auto) 15.1, Monocytes (%) (Auto) 13.2, Eosinophils (%) (Auto) 0.3, Basophils (%) (Auto) 0.3, Neutrophils # (Auto ) 2.56, Lymphocytes # (Auto) 0.55, Monocytes # (Auto) 0.48, Eosinophils # (Auto ) 0.01, Basophils # (Auto) 0.01 03/01/17 22:35 Test 03/01/17 22:35 03/01/17 22:45 White Blood Count 3.65 K/uL (4.8-10.8) Red Blood Count 3.51 M/uL (4.2-5.4) Hemoglobin 9.6 g/dL (12.0-16.0) Hematocrit 28.8 % (37-47) Mean Corpuscular Volume 82.1 fL (80-100) Mean Corpuscular Hemoglobin 27.4 pg (25-34) Mean Corpuscular Hemoglobin Concent 33.3 g/dl (32-36) Platelet Count 135 K/uL (130-400) Mean Platelet Volume 8.6 fL (7.4-10.4) Neutrophils (%) (Auto) 70.0 % Lymphocytes (%) (Auto) 15.1 % Monocytes (%) (Auto) 13.2 % Eosinophils (%) (Auto) 0.3 % Basophils (%) (Auto) 0.3 % Neutrophils # (Auto) 2.56 K/uL (1.4-6.5) Lymphocytes # (Auto) 0.55 K/uL (1.2-3.4) Monocytes # (Auto) 0.48 K/uL (0.11-0.59) Eosinophils # (Auto) 0.01 K/uL (0-0.5) Basophils # (Auto) 0.01 K/uL (0-0.2) RDW Standard Deviation 52.5 fL (36.4-46.3) RDW Coefficient of Variation 18.5 % (11.5-14.5) Immature Granulocyte % (Auto) 1.1 % Immature Granulocyte # (Auto) 0.04 K/uL (0.00-0.02) Prothrombin Time 12.3 SECONDS (9.0-12.0) Prothromb Time International Ratio 1.1 (0.9-1.1) Activated Partial Thromboplast Time 31.7 SECONDS (21.0-31.0) Partial Thromboplastin Ratio 1.2 Anion Gap 11.0 mmol/L (3-11) Est Creatinine Clear Calc Drug Dose 50.1 ml/min Estimated GFR () 70.1 Estimated GFR (Non- 60.5 BUN/Creatinine Ratio 77.9 (10-20) Calcium Level 8.7 mg/dl (8.5-10.1) Total Bilirubin 0.7 mg/dl (0.2-1) Direct Bilirubin 0.4 mg/dl (0-0.2) Aspartate Amino Transf (AST/SGOT) 105 U/L (15-37) Alanine Aminotransferase (ALT/SGPT) 21 U/L (12-78) Alkaline Phosphatase 302 U/L (45-117) Total Creatine Kinase 193 U/L (26-192) Creatine Kinase MB 1.7 ng/ml (0.5-3.6) Creatine Kinase MB Ratio 0.9 (0-3.0) Total Protein 6.5 gm/dl (6.4-8.2) Albumin 1.6 gm/dl (3.4-5.0) Lipase 80 U/L (73-393) Influenza Type A Antigen Neg for Influ A (NEG) Influenza Type B Antigen Neg for Influ B (NEG) Urine Color DK YELLOW Urine Appearance CLOUDY (CLEAR) Urine pH 5.0 (4.5-7.5) Urine Specific Tucker 1.018 (1.000-1.030) Urine Protein NEG (NEG) Urine Glucose (UA) NEG (NEG) Urine Ketones NEG (NEG) Urine Occult Blood NEG (NEG) Urine Nitrite NEG (NEG) Urine Bilirubin NEG (NEG) Urine Urobilinogen NEG (NEG) Urine Leukocyte Esterase SMALL (NEG) Urine WBC (Auto) 10-30 /hpf (0-5) Urine RBC (Auto) 0-4 /hpf (0-4) Urine Hyaline Casts (Auto) 1-5 /lpf (0-5) Urine Epithelial Cells (Auto) >30 /lpf (0-5) Urine Bacteria (Auto) 2+ (NEG) Urine Renal Epithelial Cells /lpf (0-5) Urine Pathogenic Casts /lpf (0) Urine Yeast (Auto) BUDDING (NONE PRSENT) Laboratory results as stated above per my review. Medications Administered Medications (Trade) Dose Ordered Sig/Eric Route Start Time Stop Time Status Last Admin Dose Admin Sodium Chloride (Nss 1000ml) 1,000 ml @ 999 mls/hr Q1H1M STAT IV 03/01/17 22:30 03/01/17 23:30 DC 03/01/17 22:38 999 MLS/HR Albuterol/ Ipratropium (Duoneb) 3 ml NOW STAT INH 03/01/17 22:30 03/01/17 22:32 DC 03/01/17 22:37 3 ML Ceftriaxone Sodium (Rocephin Inj) 1 gm NOW STAT IV 03/01/17 23:56 03/01/17 23:57 DC 03/02/17 00:10 1 GM ED Course 2223: Previous medical records were reviewed. The patient was evaluated in room B9. A complete history and physical examination was performed. 2230: DuoNeb 3ml INH, Sodium Chloride 1000 ml @ 999 mls/hr IV 2356: Rocephin Inj 1 gm IV 0003: On reevaluation, the patient is resting, and she cannot take pills PO. 0015: I discussed the patient's case with Liberty Clark Chief Financial Officer. He is going to evaluate the patient for further treatment. 0016: Levofloxacin 750mg IV Medical Decision Differential includes viral illness, influenza, streptococcal pharyngitis, meningitis, pneumonia, sinusitis, UTI, pyelonephritis, otitis media. This is a 76-year-old female who presents to the ED with a chief complaint of fever and decreased pulse ox at the nursing facility. The patient is a hospice patient who was sent to the [facility] for care. According to the [facility] staff, the patient did not have the hospice paperwork completed and therefore is not currently on hospice. The patient is a poor historian and is typically only alert to herself. She has a rectal temperature of 38C. She is not hypoxic on her typical 2 L of oxygen. Vital signs are otherwise stable. Her lung exam reveals rhonchi bilaterally. Chest x-ray reveals opacities in the right lung suggestive of pneumonia. Hemoglobin is 9.6. White blood cell count was 3.6. BUN is 72. Glucose is 186. Flu swab was negative. The patient was treated with 1 L normal saline IV. She was given Levaquin by mouth as well as IV Rocephin and a DuoNeb treatment. Patient appears comfortable. She is in no distress. She is resting. The patient was not able to tolerate by mouth Levaquin. She was given IV Levaquin. She will be seen by the hospitalist for further inpatient care. Consults Time Called: 12 Consulting Physician: Liberty Clark Chief Financial Officer Returned Call: 14 I discussed the patient's case with Liberty Clark Chief Financial Officer. He is going to evaluate the patient for further treatment. Impression Primary Impression: Pneumonia Scribe Attestation The scribe's documentation has been prepared under my direction and personally reviewed by me in its entirety. I confirm that the note above accurately reflects all work, treatment, procedures, and medical decision making performed by me. Departure Information Dispostion Being Evaluated By Hospitalist Prescriptions Levofloxacin (Levaquin) 500 Mg Tab 500 MG PO DAILY for 7 Days, #7 TAB Prov: Giovanni Salomon D.O. 03/02/17 Referrals Forest Shah M.D. (PCP)
[2017-03-02] MEDS ORDERED: LEVAQUIN 750MG / 150ML D5W IV STA (00:16)
[2017-03-02] MEDS ORDERED: ZOLPIDEM TARTRATE 5 MG TAB PO PRN (01:00)
[2017-03-02] MEDS ORDERED: ONDANSETRON INJ 2 MG/ML 2 ML VIAL IV PRN (01:00)
[2017-03-02] MEDS ORDERED: ACETAMINOPHEN 325 MG TAB PO PRN (01:00)
[2017-03-02] MEDS ORDERED: IV FLUIDS COMPLETED PRN (01:45)
[2017-03-02 01:54] VITALS: O2SAT 95
[2017-03-02] MEDS ORDERED: NURSING VERBAL MED ORDER ONE (02:00)
[2017-03-02] MEDS ORDERED: SODIUM CHLORIDE 0.9% 1000ML 1,000 ML IV ONE (02:15)
[2017-03-02 02:27] VITALS: Ht 170.2 cm; Wt 61.0 kg
--- NOTE | 2017-03-02 02:54 | HISTORY & PHYSICAL EXAMINATION ---
DATE OF ADMISSION: 03/01/2017 PRIMARY CARE PHYSICIAN: From [facility]. CHIEF COMPLAINT: The patient was sent in from [facility] with shortness of breath and more change in mental status. HISTORY OF PRESENT COMPLAINT: She is a 76-year-old female, with a significant past medical history including malignant neoplasm of the lung with extensive metastasis, multiple fractures of the rib on the right side, anxiety disorder, diabetes type 2, COPD on oxygen and osteoporosis with pathological fracture, hypertension; apparently was sent in from [facility] with acute shortness of breath and more change in mental status. She was sent into [facility] on of last month as an hospice patient at [facility]. Apparently, the hospice paperwork was not yet ready. Last night, when the nursing staff went to clean her up, she was noted to be very confused, lethargic and also with more shortness of breath and saturation down to 70s. From that point, she was sent into the Emergency Room for further evaluation. In the ER, she was moderately short of breath with a temperature of 38 degrees Celsius, tachycardic, tachypneic and with a saturation of 94% on 2 liters. She was noted to have right lower/mid lobe pneumonia and from that point, she was admitted to the medical floor for continuation of care. On asking questions to the patient, she was pleasantly confused, weak and lethargic. She mentions to have pain at the back on the right side with some shortness of breath, but no other significant symptoms. PAST MEDICAL HISTORY: Significant for malignant neoplasm of lung with extensive metastasis, anxiety, hypertension, diabetes type 2, COPD and osteoporosis with osteoporotic fracture. 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 ALLERGIES: TO MORPHINE AND OXYCODONE. MEDICATIONS: She has been on Tylenol 650 mg q. 6 hourly as needed, levofloxacin 500 mg daily, Norvasc 5 mg at night, vitamin D 1000 units twice daily, clonazepam 0.5 mg q. 6 hourly as needed, vitamin B12 1000 mcg daily, docusate sodium 100 mg twice daily, fentanyl 75 mcg every 3 days, Neurontin 100 mg 3 times daily, hydromorphone 2 mg tablets two tablets every 4 hours as needed, Lantus 100 units for injection 15 units q.p.m., Humalog as directed, lisinopril 20 mg daily, MiraLax 17 grams daily and Ambien 5 mg daily. REVIEW OF SYSTEMS: Unremarkable except as mentioned in the H\T\P. FAMILY HISTORY: Nothing obtainable. SOCIAL HISTORY: She used to use tobacco in the past, but no alcohol abuse in the past as per note. Recently, she was in [facility] as a hospice patient, but hospice care was not initiated as per the document. PHYSICAL EXAMINATION: GENERAL: On examination in the Emergency Room, she was not having any acute distress. VITAL SIGNS: Temperature 38.0, pulse was initially 110 that came down to 96, respirations 28 came down to around 24, blood pressure 103/48 and saturation 93% on 2 liters nasal cannula. HEENT: Unremarkable. NECK: Supple. No JVD, no bruits. CHEST: Decreased breath sounds with coarse crackles both bases, more on the right than the left. HEART: S1, S2 regular. ABDOMEN: Soft, benign and nontender. No organomegaly. Bowel sounds are present. EXTREMITIES: Negative for any edema. MUSCULOSKELETAL: Painful on movement of her joints, but no acute arthritis in any joint. CENTRAL NERVOUS SYSTEM: Alert and awake. She is confused, generally very weak and lethargic, but grossly no focal neurological deficits appreciated. LABORATORY DATA: Noted today; white count was 3.65, H\T\H 9.6/28.8 and platelets were 135. Sodium 133, potassium 4.8, chloride 95, carbon dioxide 27, BUN 72 and creatinine 0.92. Random glucose 186, total bili 0.7, direct 0.4, AST 105, ALT 21, alkaline phosphatase 302, CK, CK-MB unremarkable. Albumin was 1.6. PT/INR was unremarkable. UA examination; nothing is specific. Influenza A and B negative. EKG; in sinus tachycardia at a rate of 106 per minute, normal axis and nonspecific ST-T wave changes. Chest x-ray; right medial lower lung zone opacities consistent with pneumonia. IMPRESSION AND PLAN: 1. Cancer of lung with pneumonia. The patient will be admitted to the medical floor for observation. Apparently, she was sent in from ER as a hospice inpatient care from [facility], but documentation was not yet ready. The patient was sent in today with increasing shortness of breath and was noted to have pneumonia. Blood cultures and urine cultures have been taken and she was started with intravenous ceftriaxone and levofloxacin. We will get social media specialist involvement and possible hospice care and send her back to [facility]. Cancer of lung with extensive metastasis. She has had a workup during her last admission from 31 January to 17 February and she was noted to have extensive metastasis. She was also evaluated by radiation oncologists while in the hospital and she was sent home with home hospice following that. She has been on adequate pain medications with Dilaudid and fentanyl for ongoing rib fracture and pain. We will continue with those pain medications. 2. Change in mental status. She has documented anxiety, depression and dementia. With her present pneumonia she may be more confused, but nothing acute at this time. 3. Hypertension. Blood pressure seems to be controlled at this time. Continue with current medications. 4. Diabetes type 2. Continue with diabetic diet, sliding scale coverage and also Lantus as directed. 5. Chronic obstructive pulmonary disease, history of past tobacco abuse. We will continue with nebulized bronchodilator as needed. 6. Deep venous thrombosis prophylaxis with subQ Lovenox. 7. Code status -- She will be a DNR as per the record. 8. In my clinical judgment, the beneficiary meets criteria as per CMS for 2 midnights stay in the hospital. I tried to call her grandson Shaquille Richard at [phone], but there was no reply. We will try again tomorrow by the Hospitalist.. GASTON
[2017-03-02] MEDS: SODIUM CHLORIDE 0.9% 1000ML 1,000 ML IV SCH ×2 (02:57→11:28)
[2017-03-02] MEDS ORDERED: FENTANYL PATCH REMOVE & WASTE SCH (07:59)
[2017-03-02] MEDS ORDERED: DOCUSATE SODIUM 100 MG CAP PO SCH (08:00)
[2017-03-02 08:06] VITALS: BP 128/66; PULSE 101; TEMP 36.3; O2SAT 96
[2017-03-02] MEDS: FENTANYL 75 MCG/HR TDSY TD SCH (08:43)
[2017-03-02] MEDS: CHOLECALCIFEROL 1000 INTER.UNIT TAB PO SCH ×2 (08:44→22:09)
[2017-03-02] MEDS: HYDROmorphone HCL 2 MG TAB PO PRN ×3 (08:44→19:59)
[2017-03-02] MEDS: GABAPENTIN 100 MG CAP PO SCH ×3 (08:44→22:09)
[2017-03-02] MEDS: LISINOPRIL 20 MG TAB PO SCH (08:45)
[2017-03-02] MEDS: CYANOCOBALAMIN 500 MCG TAB (VIT B-12) PO SCH (08:45)
[2017-03-02] MEDS: POLYETHYLENE (MIRALAX) 17 GM PACK PO SCH (08:46)
[2017-03-02] MEDS: ENOXAPARIN 30 MG/0.3 ML SYR SQ SCH ×2 (08:46→22:12)
[2017-03-02] MEDS: INSULIN ASPART 100 UNITS/ML 3 ML PEN SQ SCH ×4 (08:48→22:14)
[2017-03-02] MEDS: CLONAZEPAM 0.5 MG TAB PO PRN (13:05)
[2017-03-02] MEDS ORDERED: HYDROmorphone INJ 0.5 MG/0.5 ML SYR IV STA (14:00)
[2017-03-02] MEDS: LIDODERM (LIDOCAINE) PATCH 5% TD SCH (14:51)
[2017-03-02 15:10] VITALS: BP 101/64; PULSE 115; TEMP 36.4; O2SAT 98
[2017-03-02] MEDS ORDERED: NURSING DECISION MEDICATION ORDER SCH (15:30)
[2017-03-02] MEDS: CHECK FENTANYL PATCH PLACEMENT SCH (16:00)
--- NOTE | 2017-03-02 18:43 | Progress Note ---
Internal Med Progress Note Date of Service: Mar 02, 2017. Provider Documentation: SUBJECTIVE: complains of pain in her right rib cage request for more pain meds afebrile eating fine OBJECTIVE: Vital Signs-as noted below Exam: General-alert and oriented x 3. In pain Oral mucosa thrush ENT-normal hearing Neck-no neck masses Lungs-cta b/l no wheezing no crackles Heart-s1 and s2 heard regular rate and rhythm no murmurs' Abdomen-soft bowel sounds present no distension Extremities-no edema no erythema Neuro-alert and awake moves extremities Lab data as noted below. ASSESSMENT & PLAN: 1. Cancer of lung with pneumonia. Present with pneumonia and sob on iv Levaquin and Rocephin mrsa swab negative continue same for now . Cancer of lung with extensive metastasis. Was sent home from last admission with home hospice. As per patients friend patient was abandoned by her daughter And later patient was admitted to [facility] with shelter hospice but since documentation was not completed patient was sent to hospital. Patient likes to go to [facility]. As per social service office of aging involved and making decisions on behalf of patient. 2. Change in mental status.Encephalopathy from pneumonia. Seems at baseline now. 3. Hypertension. On amlodipine and lisinopril.To give with holding parameters. 4. Diabetes type 2. Continue with diabetic diet, sliding scale coverage and also Lantus as directed. 5. Chronic obstructive pulmonary disease, history of past tobacco abuse. Nebs as needed. 6. Deep venous thrombosis prophylaxis subQ Lovenox. 7. Code status -- DNR as per the record. DISPOSITION To be determined Vital Signs: Date Time Temp Pulse Resp B/P Pulse Ox O2 Delivery O2 Flow Rate FiO2 03/02/17 15:10 36.4 115 20 101/64 98 Nasal Cannula 2.0 03/02/17 08:30 Nasal Cannula 2.0 03/02/17 08:06 36.3 101 20 128/66 96 Nasal Cannula 2.0 03/02/17 02:27 Nasal Cannula 2.0 03/02/17 01:54 97 24 105/58 95 03/02/17 01:40 98 20 86/41 96 Nasal Cannula 2.0 03/02/17 00:27 37.3 03/02/17 00:00 96 24 103/48 93 Nasal Cannula 2.0 03/01/17 23:00 97 24 103/49 99 8.0 03/01/17 22:28 105 03/01/17 22:24 93 Nasal Cannula 2.0 03/01/17 22:24 93 Nasal Cannula 2.0 03/01/17 22:14 38.0 110 28 110/64 93 Nasal Cannula 2.0 03/01/17 22:14 94 Nasal Cannula Lab Results: Results Past 24 Hours Test 03/01/17 22:35 03/01/17 22:45 03/02/17 02:15 03/02/17 07:46 Range/Units White Blood Count 3.65 4.8-10.8 K/uL Red Blood Count 3.51 4.2-5.4 M/uL Hemoglobin 9.6 12.0-16.0 g/dL Hematocrit 28.8 37-47 % Mean Corpuscular Volume 82.1 80-100 fL Mean Corpuscular Hemoglobin 27.4 25-34 pg Mean Corpuscular Hemoglobin Concent 33.3 32-36 g/dl Platelet Count 135 130-400 K/uL Mean Platelet Volume 8.6 7.4-10.4 fL Neutrophils (%) (Auto) 70.0 % Lymphocytes (%) (Auto) 15.1 % Monocytes (%) (Auto) 13.2 % Eosinophils (%) (Auto) 0.3 % Basophils (%) (Auto) 0.3 % Neutrophils # (Auto) 2.56 1.4-6.5 K/uL Lymphocytes # (Auto) 0.55 1.2-3.4 K/uL Monocytes # (Auto) 0.48 0.11-0.59 K/uL Eosinophils # (Auto) 0.01 0-0.5 K/uL Basophils # (Auto) 0.01 0-0.2 K/uL RDW Standard Deviation 52.5 36.4-46.3 fL RDW Coefficient of Variation 18.5 11.5-14.5 % Immature Granulocyte % (Auto) 1.1 % Immature Granulocyte # (Auto) 0.04 0.00-0.02 K/uL Prothrombin Time 12.3 9.0-12.0 SECONDS Prothromb Time International Ratio 1.1 0.9-1.1 Activated Partial Thromboplast Time 31.7 21.0-31.0 SECONDS Partial Thromboplastin Ratio 1.2 Sodium Level 133 136-145 mmol/L Potassium Level 4.8 3.5-5.1 mmol/L Chloride Level 95 98-107 mmol/L Carbon Dioxide Level 27 21-32 mmol/L Anion Gap 11.0 3-11 mmol/L Blood Urea Nitrogen 72 7-18 mg/dl Creatinine 0.92 0.60-1.20 mg/dl Est Creatinine Clear Calc Drug Dose 50.1 ml/min Estimated GFR () 70.1 Estimated GFR (Non- 60.5 BUN/Creatinine Ratio 77.9 10-20 Random Glucose 186 70-99 mg/dl Calcium Level 8.7 8.5-10.1 mg/dl Total Bilirubin 0.7 0.2-1 mg/dl Direct Bilirubin 0.4 0-0.2 mg/dl Aspartate Amino Transf (AST/SGOT) 105 15-37 U/L Alanine Aminotransferase (ALT/SGPT) 21 12-78 U/L Alkaline Phosphatase 302 45-117 U/L Total Creatine Kinase 193 26-192 U/L Creatine Kinase MB 1.7 0.5-3.6 ng/ml Creatine Kinase MB Ratio 0.9 0-3.0 Total Protein 6.5 6.4-8.2 gm/dl Albumin 1.6 3.4-5.0 gm/dl Lipase 80 73-393 U/L Influenza Type A Antigen Neg for Influ A NEG Influenza Type B Antigen Neg for Influ B NEG Urine Color DK YELLOW Urine Appearance CLOUDY CLEAR Urine pH 5.0 4.5-7.5 Urine Specific [place] 1.018 1.000-1.030 Urine Protein NEG NEG Urine Glucose (UA) NEG NEG Urine Ketones NEG NEG Urine Occult Blood NEG NEG Urine Nitrite NEG NEG Urine Bilirubin NEG NEG Urine Urobilinogen NEG NEG Urine Leukocyte Esterase SMALL NEG Urine WBC (Auto) 10-30 0-5 /hpf Urine RBC (Auto) 0-4 0-4 /hpf Urine Hyaline Casts (Auto) 1-5 0-5 /lpf Urine Epithelial Cells (Auto) >30 0-5 /lpf Urine Bacteria (Auto) 2+ NEG Urine Renal Epithelial Cells 0-5 /lpf Urine Pathogenic Casts 0 /lpf Urine Yeast (Auto) BUDDING NONE PRSENT Lactic Acid Level 1.4 0.4-2.0 mmol/L Bedside Glucose 140 70-90 mg/dl Test 03/02/17 11:39 03/02/17 16:40 Range/Units Bedside Glucose 143 135 70-90 mg/dl Microbiology Results 03/01/17 Blood Culture, Received Pending 03/01/17 Blood Culture, Received Pending 03/02/17 MRSA DNA Surveillance Screen - Final, Complete Specimen Negative for MRSA by DNA Probe 03/01/17 Urine Culture, Received Pending
[2017-03-02] MEDS: NYSTATIN SUSP 500,000 U/5 ML UDC PO SCH ×2 (18:56→22:16)
[2017-03-02] MEDS: DOCUSATE SODIUM 100 MG/10 ML UDC PO SCH (22:08)
[2017-03-02] MEDS: AMLODIPINE BESYLATE 5 MG TAB PO SCH (22:10)
[2017-03-02] MEDS: HYDROmorphone INJ 0.5 MG/0.5 ML SYR IV PRN (22:12)
[2017-03-02] MEDS: INSULIN GLARGINE SOLOSTAR 100 UNITS/ML 3 ML PEN SC SCH (22:13)
[2017-03-03] MEDS: CLONAZEPAM 0.5 MG TAB PO PRN ×2 (00:03→08:35)
[2017-03-03] MEDS: CEFTRIAXONE SOD INJ 1,000 MG in DEXTROSE 5% 50ML 50 ML IV SCH (00:04)
[2017-03-03 00:05] VITALS: BP 98/61; PULSE 156; TEMP 36.8; O2SAT 96
[2017-03-03] MEDS ORDERED: SODIUM CHLORIDE 0.9% 1000ML 1,000 ML IV STA (00:26)
[2017-03-03] MEDS: CHECK FENTANYL PATCH PLACEMENT SCH ×2 (00:32→16:00)
[2017-03-03 01:22] VITALS: BP 96/62; PULSE 157; TEMP 36.4; O2SAT 99
[2017-03-03 01:22] LABS: BASO % 0.3 %; BASO ABS # 0.01 K/uL (0-0.2); EOS % 0.3 %; HEMATOCRIT 26.4 % (37-47); IG% 4.4 %; LYMPH % 15.3 %; LYMPH ABS # 0.56 K/uL (1.2-3.4); MEAN CELL VOLUME 82.5 fL (80-100); MEAN CORPUSCULAR HEMOGLOBIN 27.2 pg (25-34); MEAN PLATELET VOLUME 8.8 fL (7.4-10.4); MONO % 17.2 %; NEUT % 62.5 %; PLATELET COUNT 114 K/uL (130-400); WHITE BLOOD COUNT 3.67 K/uL (4.8-10.8)
[2017-03-03] MEDS: LEVOFLOXACIN / D5W 750 MG in PREMIXED IN D5W 150 ML IV SCH (01:27)
[2017-03-03 01:47] LABS: BUN/CREATININE RATIO 82.7 (10-20); CALCIUM 8.7 mg/dl (8.5-10.1); CREATININE 0.44 mg/dl (0.60-1.20); MAGNESIUM 2.5 mg/dl (1.8-2.4); POTASSIUM 3.7 mmol/L (3.5-5.1)
[2017-03-03 01:53] LABS: COMPLETE YES
[2017-03-03] MEDS: SODIUM CHLORIDE 0.9% 1000ML 1,000 ML IV SCH ×2 (03:03→16:33)
[2017-03-03] MEDS ORDERED: POTASSIUM CHLORIDE 10 MEQ TABCR PO STA (03:46)
[2017-03-03] MEDS: HYDROmorphone INJ 0.5 MG/0.5 ML SYR IV PRN ×4 (06:19→21:29)
--- NOTE | 2017-03-03 08:04 | Clinical Documentation Query ---
CLINICAL DOCUMENTATION QUERY 76-y/o female with metabolic encephalopathy 2/2 pneumonia. She presented febrile (38.0), tachycardic (110-157), and tachypneic (28). In your clinical opinion is this patient being managed for: ( + ) Sepsis due to pneumonia ( ) Other explanation of clinical findings (Please Explain) ( ) Unable to determine (Please Define) ( ) Need to Discuss ( ) Not Agree The medical record reflects the following clinical findings, treatment, and risk factors. Clinical Indicators: As above with borderline hypotension (98/61). Leukemic (3.65). Treatment: multiple IVF boluses, IV Levofloxacin, IV Ceftriaxone, Risk Factors: Age, pneumonia, leukemia, Please clarify and document your clinical opinion in the progress notes and discharge summary. Terms such as "probable", "suspected", "likely", "questionable", "possible", or "still to be ruled out" are acceptable. IF IN AGREEMENT, YOU MUST DOCUMENT ABOVE DIAGNOSTIC STATEMENT IN DAILY PROGRESS NOTES AND DISCHARGE SUMMARY. This document is not part of the patient's record. Thank You, Alan Mayes, RN [phone]
[2017-03-03] MEDS: NYSTATIN SUSP 500,000 U/5 ML UDC PO SCH ×4 (08:30→21:32)
[2017-03-03] MEDS: CHOLECALCIFEROL 1000 INTER.UNIT TAB PO SCH ×2 (08:30→21:31)
[2017-03-03] MEDS: GABAPENTIN 100 MG CAP PO SCH (08:30)
[2017-03-03 08:31] VITALS: BP 100/65; PULSE 161; TEMP 36.7; O2SAT 99
[2017-03-03] MEDS: DOCUSATE SODIUM 100 MG/10 ML UDC PO SCH ×2 (08:31→21:31)
[2017-03-03] MEDS: POLYETHYLENE (MIRALAX) 17 GM PACK PO SCH (08:31)
[2017-03-03] MEDS: CYANOCOBALAMIN 500 MCG TAB (VIT B-12) PO SCH (08:31)
[2017-03-03] MEDS: LISINOPRIL 20 MG TAB PO SCH (08:31)
[2017-03-03] MEDS: LIDODERM (LIDOCAINE) PATCH 5% TD SCH (08:32)
[2017-03-03] MEDS: ENOXAPARIN 30 MG/0.3 ML SYR SQ SCH ×2 (08:32→21:32)
[2017-03-03] MEDS: HYDROmorphone HCL 2 MG TAB PO PRN ×2 (08:36→15:02)
[2017-03-03] MEDS: INSULIN ASPART 100 UNITS/ML 3 ML PEN SQ SCH ×4 (09:11→21:41)
[2017-03-03] MEDS ORDERED: NURSING VERBAL MED ORDER ONE (11:00)
--- NOTE | 2017-03-03 11:43 | CONSULTATION REPORT ---
DATE OF CONSULTATION: 03/03/2017 DATE OF CONSULTATION: 03/03/2017. Plan of care discussed with Dr. Penny Sanches. CHIEF COMPLAINT: Diffuse pain with history of malignant neoplasm of the lung with extensive metastasis and multiple rib fractures on the right side. HISTORY OF PRESENT ILLNESS: Ms. Stewart is a 76-year-old white female who is known to the pain service from recent admission. The patient has a history significant for a malignant neoplasm of the lung with extensive metastatic disease and multiple rib fractures on the right side. The patient was admitted due to shortness of breath and change in mental status and was found to have pneumonia. Her fentanyl was held due to her change in mental status. She is utilizing hydromorphone IV and p.o. for breakthrough pain with moderate efficacy. She reports pain in the entire chest wall location exacerbated with coughing or movement activities. She also describes pain in her arms which is nondermatomal and described as aching. She denies pain in the lower extremities or lumbar spinal location. She indicates her pain ranges between 0-10/10. She is frequently sedate throughout the visit and needed continued stimulation during the conversation. She denies any significant change in location or characteristic of her pain compared to prior admission at this time. She does deny radicular pattern to her symptoms. She denies any recent falls or injuries. She denies any bowel or bladder incontinence. PAST MEDICAL HISTORY: 1. Malignant neoplasm along with extensive metastatic disease. 2. Anxiety disorder. 3. Hypertension. 4. Diabetes mellitus type 2. 5. COPD. 6. Osteoporosis. 7. Pneumonia. PAST SURGICAL HISTORY: 1. Carpal tunnel release. 2. Appendectomy. 3. Tonsillectomy. 4. Right SEGUNDO. 5. Right shoulder replacement. SOCIAL HISTORY: The patient was recently at [facility] as a hospice patient, but reportedly hospice was not initiated per documentation. She reports prior history of tobacco utilization, but denies alcohol or illicit drug use. FAMILY HISTORY: Unremarkable. ALLERGIES: 1. MORPHINE. 2. OXYCODONE. CURRENT MEDICATIONS: Were reviewed extensively in the EMR. REVIEW OF SYSTEMS: The patient denies complaints related to cardiac, pulmonary, GI, , endocrine, neurologic, hepatic, renal, ENT, dermatologic, musculoskeletal other than described above in the HPI. PHYSICAL EXAMINATION: VITAL SIGNS: Temperature 36.7 degrees Celsius, pulse 161, respirations 22, BP 100/65, pulse rate 99 on 2 liters of O2 via nasal cannula. GENERAL: Ms. Stewart was lying quietly upon entering the room in no obvious acute distress. The patient was sedate but was arousable. Stimulation was required frequently throughout the visit during conversation to keep her engaged. CHEST: The patient describes diffuse tenderness across the entire chest wall anteriorly, laterally and posteriorly. She is tender with AP as well as lateral compression. There is no focal tenderness along the chest wall to palpation. Slightly hyperalgesic response was appreciated over the clavicular locations bilaterally. UPPER EXTREMITIES: Strength was 4/5 with hand ships or barges loader and opposition. No intrinsic atrophy is appreciated. She is nontender over the major muscle groups of the upper extremities. Range of motion without limitation. No edema, erythema or skin breakdown. LOWER EXTREMITIES: Strength was 4/5 with dorsiflexion and plantar flexion as well as EHL testing. Sensation was reportedly intact without deficits. NEUROLOGIC: Cranial nerves were grossly intact. Ambulatory function was not witnessed. ASSESSMENT: 1. Change in mental status. 2. History of lung malignancy with extensive metastatic disease. 3. Pneumonia. 4. Chronic obstructive pulmonary disease. TREATMENT AND RECOMMENDATIONS: 1. Would recommend continuing to hold fentanyl at this time due to her change in mental status. Maintain hydromorphone p.o. and IV for breakthrough pain. 2. Will plan to hold clonazepam moving forward as well due to concerns over her change in mental status due to the long half life of clonazepam. Consideration of traditional SSRI versus SNRI could be considered versus arranging for behavioral health consultation due to her history of anxiety, depression and dementia. 3. Consider initiation of Butrans over the next 24-48 hours pending response to discontinuation of fentanyl and pain control on IV and p.o. hydromorphone. 4. Will also discontinue gabapentin at this time due to potential relationship to her change in mental status. GASTON
[2017-03-03] MEDS ORDERED: FENTANYL 75 MCG/HR TDSY TD ONE (12:00)
[2017-03-03 14:48] VITALS: PULSE 162
[2017-03-03] MEDS ORDERED: DIGOXIN IV 250 MCG in SYRINGE 9 ML IV ONE (15:30)
--- NOTE | 2017-03-03 15:58 | Progress Note ---
Internal Med Progress Note Date of Service: Mar 03, 2017. Provider Documentation: SUBJECTIVE: The patient was seen and examined Remains pleasantly confused Denies any significant pain OBJECTIVE: Vital Signs-as noted below Exam: General-No distress at rest Eyes-normal ENT-normal Neck-supple Lungs-Decreased breath sound bilaterally Heart-Regular Abdomen-Benign,soft and tender Extremities-Trace edema bilaterally Neuro-AA Confused Generally very weak and lethargic Lab data as noted below. ASSESSMENT & PLAN: Sepsis Due to Pneumonia Cancer of lung with pneumonia. Continue current antibiotics Clinically stable has very poor prognosis Tachycardia Will treat with Digoxin Cancer of lung with extensive metastasis. Pain from the cancer She has had a workup during her last admission from 31 January to 17 February She was noted to have extensive metastasis. She was also evaluated by radiation oncologists Was discharged to Home with Hospice Later on she was sent to hospital for special surgery Appreciate Pain therapy input Change in mental status. Complicated by Sepsis She has documented anxiety, depression and dementia. With her present pneumonia she may be more confused, but nothing acute at this time. 3. Hypertension. Blood pressure seems to be controlled at this time. Continue with current medications. Diabetes type 2. Continue with diabetic diet, sliding scale coverage and also Lantus as directed. Chronic obstructive pulmonary disease, history of past tobacco abuse. We will continue with nebulized bronchodilator as needed. Deep venous thrombosis prophylaxis with subQ Lovenox. Code status -- She will be a DNR as per the record. Disposition Social [facility] [place] with Hospice Grandson Shaquille Richard at [phone] Will try to call again Vital Signs: Date Time Temp Pulse Resp B/P Pulse Ox O2 Delivery O2 Flow Rate FiO2 03/03/17 14:48 162 03/03/17 08:45 Nasal Cannula 2.0 03/03/17 08:31 36.7 161 22 100/65 99 Nasal Cannula 2.0 03/03/17 01:22 36.4 157 16 96/62 99 2.0 03/03/17 00:05 36.8 156 16 98/61 96 Nasal Cannula 2.0 03/03/17 00:00 Nasal Cannula 2.0 03/02/17 16:00 Nasal Cannula 2.0 Lab Results: Results Past 24 Hours Test 03/02/17 16:40 03/02/17 20:15 03/03/17 01:14 03/03/17 08:23 Range/Units Bedside Glucose 135 194 109 70-90 mg/dl White Blood Count 3.67 4.8-10.8 K/uL Red Blood Count 3.20 4.2-5.4 M/uL Hemoglobin 8.7 12.0-16.0 g/dL Hematocrit 26.4 37-47 % Mean Corpuscular Volume 82.5 80-100 fL Mean Corpuscular Hemoglobin 27.2 25-34 pg Mean Corpuscular Hemoglobin Concent 33.0 32-36 g/dl Platelet Count 114 130-400 K/uL Mean Platelet Volume 8.8 7.4-10.4 fL Neutrophils (%) (Auto) 62.5 % Lymphocytes (%) (Auto) 15.3 % Monocytes (%) (Auto) 17.2 % Eosinophils (%) (Auto) 0.3 % Basophils (%) (Auto) 0.3 % Neutrophils # (Auto) 2.30 1.4-6.5 K/uL Lymphocytes # (Auto) 0.56 1.2-3.4 K/uL Monocytes # (Auto) 0.63 0.11-0.59 K/uL Eosinophils # (Auto) 0.01 0-0.5 K/uL Basophils # (Auto) 0.01 0-0.2 K/uL RDW Standard Deviation 53.9 36.4-46.3 fL RDW Coefficient of Variation 18.5 11.5-14.5 % Immature Granulocyte % (Auto) 4.4 % Immature Granulocyte # (Auto) 0.16 0.00-0.02 K/uL Red Blood Cell Morphology Unremarkable Sodium Level 140 136-145 mmol/L Potassium Level 3.7 3.5-5.1 mmol/L Chloride Level 105 98-107 mmol/L Carbon Dioxide Level 28 21-32 mmol/L Anion Gap 7.0 3-11 mmol/L Blood Urea Nitrogen 36 7-18 mg/dl Creatinine 0.44 0.60-1.20 mg/dl Est Creatinine Clear Calc Drug Dose 104.7 ml/min Estimated GFR () 113.6 Estimated GFR (Non- 98.1 BUN/Creatinine Ratio 82.7 10-20 Random Glucose 131 70-99 mg/dl Lactic Acid Level 1.4 0.4-2.0 mmol/L Calcium Level 8.7 8.5-10.1 mg/dl Magnesium Level 2.5 1.8-2.4 mg/dl Test 03/03/17 11:38 Range/Units Bedside Glucose 121 70-90 mg/dl
[2017-03-03 16:29] VITALS: BP 151/93; PULSE 162; TEMP 36.4; O2SAT 99
[2017-03-03] MEDS: AMLODIPINE BESYLATE 5 MG TAB PO SCH (21:32)
[2017-03-03] MEDS: INSULIN GLARGINE SOLOSTAR 100 UNITS/ML 3 ML PEN SC SCH (21:36)
[2017-03-04] VITALS (7 sets, daily range): BP systolic 117–153; BP diastolic 77–96; PULSE 135–163; TEMP 36.6–37.1; O2SAT 96–99
[2017-03-04] MEDS: CEFTRIAXONE SOD INJ 1,000 MG in DEXTROSE 5% 50ML 50 ML IV SCH (00:04)
[2017-03-04] MEDS: CHECK FENTANYL PATCH PLACEMENT SCH ×4 (00:05→23:57)
[2017-03-04] MEDS: HYDROmorphone INJ 0.5 MG/0.5 ML SYR IV PRN ×3 (00:16→07:40)
[2017-03-04] MEDS ORDERED: LACTATED RINGER'S 1000ML 1,000 ML IV STA (00:51)
[2017-03-04] MEDS ORDERED: HALOPERIDOL LACTATE 5 MG/ML 1 ML VIAL IM ONE (00:54)
[2017-03-04] MEDS ORDERED: HALOPERIDOL 1 MG TAB PO PRN (01:00)
[2017-03-04] MEDS ORDERED: HALOPERIDOL LACTATE 5 MG/ML 1 ML VIAL IM PRN (01:00)
[2017-03-04] MEDS ORDERED: DILTIAZEM HCL 180 MG CAPCR PO ONE (01:18)
--- NOTE | 2017-03-04 01:19 | Progress Note ---
Internal Med Progress Note Date of Service: Mar 04, 2017. Provider Documentation: PX noted to be persistently tachycardic as per RN CR 160s. usual confusion/agitation as per RN EKG rate 160, Aflutter, QTC 490s AP new onset Aflutter initiate Cardizem PO for rate control Change Levaquin to Doxycycline (RE mild QTc prolongation) Will relay to AM provider. Vital Signs: Date Time Temp Pulse Resp B/P Pulse Ox O2 Delivery O2 Flow Rate FiO2 03/04/17 02:47 158 20 98 Nasal Cannula 2.0 03/04/17 00:45 Nasal Cannula 2.0 03/04/17 00:27 36.8 160 20 123/81 98 Nasal Cannula 2.0 03/03/17 16:33 158 03/03/17 16:29 36.4 162 18 151/93 99 Nasal Cannula 2.0 03/03/17 16:00 Nasal Cannula 2.0 03/03/17 14:48 162 03/03/17 08:45 Nasal Cannula 2.0 03/03/17 08:31 36.7 161 22 100/65 99 Nasal Cannula 2.0 Lab Results: Results Past 24 Hours Test 03/03/17 08:23 03/03/17 11:38 03/03/17 17:08 03/03/17 20:10 Range/Units Bedside Glucose 109 121 188 152 70-90 mg/dl Test 03/04/17 01:35 Range/Units White Blood Count 4.88 4.8-10.8 K/uL Red Blood Count 3.26 4.2-5.4 M/uL Hemoglobin 9.0 12.0-16.0 g/dL Hematocrit 27.5 37-47 % Mean Corpuscular Volume 84.4 80-100 fL Mean Corpuscular Hemoglobin 27.6 25-34 pg Mean Corpuscular Hemoglobin Concent 32.7 32-36 g/dl Platelet Count 119 130-400 K/uL Mean Platelet Volume 9.2 7.4-10.4 fL Neutrophils (%) (Auto) 62.8 % Lymphocytes (%) (Auto) 14.1 % Monocytes (%) (Auto) 14.5 % Eosinophils (%) (Auto) 0.2 % Basophils (%) (Auto) 0.6 % Neutrophils # (Auto) 3.06 1.4-6.5 K/uL Lymphocytes # (Auto) 0.69 1.2-3.4 K/uL Monocytes # (Auto) 0.71 0.11-0.59 K/uL Eosinophils # (Auto) 0.01 0-0.5 K/uL Basophils # (Auto) 0.03 0-0.2 K/uL RDW Standard Deviation 57.5 36.4-46.3 fL RDW Coefficient of Variation 19.0 11.5-14.5 % Immature Granulocyte % (Auto) 7.8 % Immature Granulocyte # (Auto) 0.38 0.00-0.02 K/uL Nucleated RBC Absolute Count (auto) 0.03 0-0 K/uL Nucleated Red Blood Cells % 0.6 % Red Blood Cell Morphology Unremarkable Activated Partial Thromboplast Time 35.9 21.0-31.0 SECONDS Partial Thromboplastin Ratio 1.4 Sodium Level 144 136-145 mmol/L Potassium Level 4.1 3.5-5.1 mmol/L Chloride Level 111 98-107 mmol/L Carbon Dioxide Level 25 21-32 mmol/L Anion Gap 8.0 3-11 mmol/L Blood Urea Nitrogen 20 7-18 mg/dl Creatinine 0.35 0.60-1.20 mg/dl Est Creatinine Clear Calc Drug Dose 131.7 ml/min Estimated GFR () 122.5 Estimated GFR (Non- 105.7 BUN/Creatinine Ratio 56.3 10-20 Random Glucose 131 70-99 mg/dl Calcium Level 8.8 8.5-10.1 mg/dl Magnesium Level 1.8 1.8-2.4 mg/dl
[2017-03-04] MEDS ORDERED: POTASSIUM CHLORIDE 10 MEQ TABCR PO STA (01:24)
[2017-03-04 02:07] LABS: PARTIAL THROMBOPLASTIN RATIO 1.4
[2017-03-04 02:09] LABS: BUN/CREATININE RATIO 56.3 (10-20); CALCIUM 8.8 mg/dl (8.5-10.1); CREATININE 0.35 mg/dl (0.60-1.20); MAGNESIUM 1.8 mg/dl (1.8-2.4); POTASSIUM 4.1 mmol/L (3.5-5.1)
[2017-03-04] MEDS ORDERED: SODIUM CHLORIDE 0.45% 1000ML 1,000 ML IV ONE (02:15)
[2017-03-04] MEDS ORDERED: MAGNESIUM SULFATE 1GM / D5W 1 GM in PREMIXED IN D5W 100 ML IV STA (02:18)
[2017-03-04 02:21] LABS: HEMATOCRIT 27.5 % (37-47); MEAN CELL VOLUME 84.4 fL (80-100); MEAN CORPUSCULAR HEMOGLOBIN 27.6 pg (25-34); MEAN CORPUSCULAR HGB CONC 32.7 g/dl (32-36); MEAN PLATELET VOLUME 9.2 fL (7.4-10.4); PLATELET COUNT 119 K/uL (130-400); RED BLOOD COUNT 3.26 M/uL (4.2-5.4); WHITE BLOOD COUNT 4.88 K/uL (4.8-10.8)
[2017-03-04 03:01] LABS: BASO % 0.6 %; BASO ABS # 0.03 K/uL (0-0.2); COMPLETE YES; EOS % 0.2 %; IG% 7.8 %; LYMPH % 14.1 %; LYMPH ABS # 0.69 K/uL (1.2-3.4); MONO % 14.5 %; NEUT % 62.8 %
[2017-03-04] MEDS: LEVOFLOXACIN / D5W 750 MG in PREMIXED IN D5W 150 ML IV SCH (03:17)
[2017-03-04] MEDS ORDERED: DILTIAZEM HCL 120 MG CAPCR PO SCH (08:00)
[2017-03-04] MEDS: CYANOCOBALAMIN 500 MCG TAB (VIT B-12) PO SCH (08:08)
[2017-03-04] MEDS: DOCUSATE SODIUM 100 MG/10 ML UDC PO SCH ×2 (08:09→20:23)
[2017-03-04] MEDS: LISINOPRIL 20 MG TAB PO SCH (08:09)
[2017-03-04] MEDS: CHOLECALCIFEROL 1000 INTER.UNIT TAB PO SCH ×2 (08:09→20:25)
[2017-03-04] MEDS: ENOXAPARIN 30 MG/0.3 ML SYR SQ SCH ×2 (08:10→21:31)
[2017-03-04] MEDS: LIDODERM (LIDOCAINE) PATCH 5% TD SCH (08:10)
[2017-03-04] MEDS: NYSTATIN SUSP 500,000 U/5 ML UDC PO SCH ×4 (08:11→20:30)
[2017-03-04] MEDS: POLYETHYLENE (MIRALAX) 17 GM PACK PO SCH (08:11)
[2017-03-04] MEDS: HYDROmorphone HCL 2 MG TAB PO PRN (08:46)
[2017-03-04] MEDS: INSULIN ASPART 100 UNITS/ML 3 ML PEN SQ SCH ×4 (08:54→21:33)
[2017-03-04] MEDS: DOXYCYCLINE IV 100 MG in DEXTROSE 5% 100ML 100 ML IV SCH ×2 (08:58→18:25)
[2017-03-04] MEDS ORDERED: HYDROmorphone INJ 1 MG/ML SYR ONE (09:59)
[2017-03-04] MEDS ORDERED: DILTIAZEM HCL 120 MG CAPCR PO STA (10:59)
[2017-03-04] MEDS ORDERED: NURSING VERBAL MED ORDER ONE (11:00)
[2017-03-04] MEDS ORDERED: METOPROLOL TARTRATE 25 MG TAB PO ONE (11:04)
--- NOTE | 2017-03-04 11:55 | PROGRESS NOTE ---
DATE: 03/04/2017 Plan of care discussed with Dr. Penny Sanches. CHIEF COMPLAINT: Diffuse pain with history of malignant neoplasm of the lung with extensive metastasis and multiple rib fractures on the right side as well as altered mental status. SUBJECTIVE: Ms. Stewart is a 76-year-old white female who is known to the pain service with a recent admission with history significant for malignant neoplasm of the lung with extensive metastatic disease and multiple rib fractures on the right side. The patient was recently readmitted due to shortness of breath and change in mental status with discovery of pneumonia. She has been reporting persisting difficulties with pain predominantly in the chest wall location, exacerbated with any movement or coughing activities. Nursing staff is reporting minimal sustained benefit from use of IV hydromorphone and frequently crying out in pain. Benzodiazepines as well as gabapentin were discontinued yesterday due to change in mental status. Fentanyl patch was resumed yesterday. She continues to indicate her pain ranges between a 0-10/10. She denies change in location or characteristics of her symptomatic pain complaints. OBJECTIVE: VITAL SIGNS: Temperature 37.1 degrees Celsius, pulse 162, respirations 16, BP 127/77, pulse oximetry 97 on 2 liters of O2 via nasal cannula. GENERAL: Ms. Stewart appeared to be in no acute distress and does remain somewhat sedated but arousable. CHEST: The patient continues to be diffusely tender across her entire chest wall with slight hyperalgesic response. ASSESSMENT: 1. Change in mental status. 2. History of lung malignancy with extensive metastatic disease. 3. Pneumonia. 4. Chronic obstructive pulmonary disease. 5. Anxiety disorder. 6. Depressive disorder. TREATMENT AND RECOMMENDATIONS: 1. Will adjust hydromorphone 1 mg q. 2 hour for p.r.n. breakthrough pain. 2. Maintain fentanyl at current dose without change. 3. Will request behavioral health evaluation at this time for assistance in medication management. [facility]
--- NOTE | 2017-03-04 13:10 | Psychiatric Consultation ---
Consultation Date of Consultation Mar 04, 2017. Identifying Data Ely Stewart is a 76-year-old female who currently lives at the [facility], per records has a history of anxiety not otherwise specified, who presented with shortness of breath. She is admitted to the hospitalist service, and we are consulted for assistance in managing anxiety. Chief Complaint Patient not responding to questions, other than to moan occasionally. History of Present Illness Patient was admitted 03/02/2017 after staff at the [facility] found her altered with shortness of breath. She was more confused, lethargic, and oxygen saturation was in the 70s. She was tachycardic into In the emergency room, was diagnosed with pneumonia, and was started on antibiotics. She is also been diagnosed with lung cancer with extensive metastases, which was worked up during a previous admission in January. She is on hospice at the shelter. The admission note indicates a diagnosis of dementia and depression as well as the anxiety, but I do not see these listed on her shelter records. She also has rib fractures, and has been reporting pain here. She is on Dilaudid IV and fentanyl patch. She was on clonazepam 0.5 mg every 6 hours for anxiety, and got 3 doses over her first 2 days in the hospital, but it was discontinued yesterday due to altered mental status. She is now ordered Haldol 2 mg for anxiety or agitation, and got 1 dose this morning. Case management is involved , and notes that her daughter abandoned her, so she has no decision maker. The office of aging was contacted, and she has a caser shoe parts there. Nursing notes indicate that the patient has been uncomfortable, and planning of pain, and tachycardic. This morning, she was tearful and crying out, and the pain management physician topographical field assistant recommended a psychiatric consult. On my assessment, the patient is unable to provide any history or answer any questions. Occasionally she will moan, and a couple of times says "oh God," but is not able to provide any meaningful information. Her nurse shares that she is anxious if staff leave her alone, and often shouts out. Past Psychiatric History Additional Notes Past psychiatric history is unknown and the patient is not able to provide any history. The shelter records indicate a history of a diagnosis of anxiety not otherwise specified, and she is prescribed clonazepam 0.5 mg as needed there. Past Medical/Surgical History (1) Lung mass (2) Pneumonia (3) Change in mental status (4) Diabetic peripheral neuropathy associated with type 2 diabetes mellitus (5) Rib fracture (6) DM type 2 (diabetes mellitus, type 2) (7) COPD, mild (8) Hypertension (9) Osteoporosis (10) Dyslipidemia Allergies Allergies: Coded Allergies: Morphine (Verified Adverse Reaction, Intermediate, GETS SICK, 03/01/17) Oxycodone (Verified Adverse Reaction, Intermediate, feels like she is gonna pass out, 03/01/17) Home Medications Scheduled Amlodipine (Norvasc), 5 MG PO HS Cholecalciferol (Vitamin D), 1 TAB PO BID Cyanocobalamin (Vitamin B12), 1 TAB PO QAM Docusate Sodium (Docusate Sodium), 100 MG PO BID Fentanyl (Duragesic), 75 MCG TD Q3D@0900 Gabapentin (Neurontin), 100 MG PO TID Insulin Glargine (Lantus), 15 UNITS SC QPM Insulin Human Lispro (Humalog), SQ ACHS Levofloxacin (Levaquin), 500 MG PO DAILY Lisinopril (Zestril), 20 MG PO DAILY Polyethylene Glycol 3350 (Miralax), 17 GM PO DAILY Scheduled PRN Acetaminophen (Tylenol), 650 MG PO Q6 PRN for Pain Acetaminophen (Tylenol), 650 MG PO Q6 PRN for Fever Clonazepam (Clonazepam), 0.5 MG PO Q6H PRN for Anxiety/Insomnia Hydromorphone HCl (Hydromorphone HCl), 4 MG PO Q4H PRN for Pain Zolpidem Tartrate (Ambien), 5 MG PO HS PRN for Sleep Family History FH: CAD (coronary artery disease) MOTHER ( of [place] age 57) FH: brain tumor FATHER FH: emphysema MOTHER Family history is unknown, and the patient is unable to answer questions. Alcohol Use Alcohol Use In Past 12 Months: No (none known, patient cannot answer) Unknown Smoking Use Smoking Status: Unknown if Ever Smoked Substance History Unknown Personal History Lives in: [facility]. Review of Systems Attempted to review 10 systems, but the patient was unable to participate. Examination Vital Signs Vital Signs Past 12 Hours Date Time Temp Pulse Resp B/P Pulse Ox O2 Delivery O2 Flow Rate FiO2 03/04/17 11:38 163 117/77 03/04/17 09:59 163 99 Nasal Cannula 2.0 03/04/17 08:20 Nasal Cannula 2.0 03/04/17 08:09 37.1 162 16 127/77 97 Nasal Cannula 2.0 03/04/17 02:47 158 20 98 Nasal Cannula 2.0 Laboratory Results Last 24 Hours Test 03/03/17 17:08 03/03/17 20:10 03/04/17 01:35 03/04/17 07:57 Bedside Glucose 188 mg/dl 152 mg/dl 150 mg/dl White Blood Count 4.88 K/uL Red Blood Count 3.26 M/uL Hemoglobin 9.0 g/dL Hematocrit 27.5 % Mean Corpuscular Volume 84.4 fL Mean Corpuscular Hemoglobin 27.6 pg Mean Corpuscular Hemoglobin Concent 32.7 g/dl Platelet Count 119 K/uL Mean Platelet Volume 9.2 fL Neutrophils (%) (Auto) 62.8 % Lymphocytes (%) (Auto) 14.1 % Monocytes (%) (Auto) 14.5 % Eosinophils (%) (Auto) 0.2 % Basophils (%) (Auto) 0.6 % Neutrophils # (Auto) 3.06 K/uL Lymphocytes # (Auto) 0.69 K/uL Monocytes # (Auto) 0.71 K/uL Eosinophils # (Auto) 0.01 K/uL Basophils # (Auto) 0.03 K/uL RDW Standard Deviation 57.5 fL RDW Coefficient of Variation 19.0 % Immature Granulocyte % (Auto) 7.8 % Immature Granulocyte # (Auto) 0.38 K/uL Nucleated RBC Absolute Count (auto) 0.03 K/uL Nucleated Red Blood Cells % 0.6 % Red Blood Cell Morphology Unremarkable Activated Partial Thromboplast Time 35.9 SECONDS Partial Thromboplastin Ratio 1.4 Sodium Level 144 mmol/L Potassium Level 4.1 mmol/L Chloride Level 111 mmol/L Carbon Dioxide Level 25 mmol/L Anion Gap 8.0 mmol/L Blood Urea Nitrogen 20 mg/dl Creatinine 0.35 mg/dl Est Creatinine Clear Calc Drug Dose 131.7 ml/min Estimated GFR () 122.5 Estimated GFR (Non- 105.7 BUN/Creatinine Ratio 56.3 Random Glucose 131 mg/dl Calcium Level 8.8 mg/dl Magnesium Level 1.8 mg/dl Test 03/04/17 11:43 Bedside Glucose 129 mg/dl Mental Examination During interview pt is: other (somnolent, falling asleep during the interview, at times moaning and crying out. Unable to provide information) Appearance: appropriately dressed (hospital gown), disheveled Eye contact is: other (none) Motor behavior is: other (lying on her back in bed staring up at the ceiling) Speech: other (minimal, moans and cries out "oh God" several times, but no other intelligible speech) Affect: other (alternates between sedated and somnolent and distressed, calling out) Mood is: other (patient unable to answer) Thought process: incoherent Thought content: other (unable to assess due to inability to participate in interview) Cognition: other (all spheres impaired) Insight: severely impaired Judgement: severely impaired Impression / Recommendations Impression Delirium, multifactorial History of anxiety not otherwise specified by records Recommendations (1) Delirium due to general medical condition Likely due to underlying medical issues, infection, and possibly medications ( per shelter records, is prescribed Ambien, clonazepam, and hydromorphone). I cannot find a MAR in the record to determine which medications she had been getting just prior to transfer, but cannot rule out effects of multiple narcotics causing decreased respiratory drive and desaturation. Recommend standard delirium treatment, including avoiding deliria genic medications ( including opiates, benzodiazepines, anticholinergics and insight histaminergic's ), treating underlying medical conditions, frequent reorientation, attempts to maintain normal circadian rhythms, keeping the room light in the day and dark at night, and use of familiar people or objects when available. Also ensure that patient has any hearing or visual aids that she needs. - It appears social service assistant is working on clarifying who her appointed decision -makers, she is clearly unable to participate in treatment decisions in her condition. (2) Anxiety Patient unable to participate in an assessment, but her nurse indicates that she seems anxious when she complains of pain. I would recommend avoiding use of benzodiazepines due to the risk of respiratory depression and she is also on multiple narcotic pain medications. She does have Haldol 2 mg ordered as needed , which is an appropriate treatment for agitation due to delirium and may help with anxiety as well. I will ask the liaison nurse to attempt to get collateral information from shelter staff as to her psychiatric history, any previous medication trials, and anxiety symptoms while at the shelter. It is not clear at this point if there is a role for antidepressant medication to treat chronic anxiety, or whether her anxiety is a result of her medical condition and pain.
[2017-03-04] MEDS: HYDROmorphone INJ 1 MG/ML SYR IV PRN ×3 (13:52→20:31)
--- NOTE | 2017-03-04 15:57 | Progress Note ---
Internal Med Progress Note Date of Service: Mar 04, 2017. Provider Documentation: SUBJECTIVE: The patient was seen and examined Denies any significant pain Remains confused OBJECTIVE: Vital Signs-as noted below Exam: General-Minimal distress at rest Eyes-normal ENT-normal Neck-supple Lungs-Decreased breath sound bilaterally Occasional crackles at the bases Heart-Regular,increased rate Abdomen-Benign,soft and tender Extremities-Trace edema bilaterally Neuro-AA Confused Generally very weak and lethargic Lab data as noted below. ASSESSMENT & PLAN: Sepsis Due to Pneumonia Cancer of lung with pneumonia. Continue current antibiotics Clinically stable has very poor prognosis Levaquin has been changed to Doxycycline Atrial Flutter Likely secondary to metastatic infiltration to heart/pericardium Tachycardia Received one dose of 125Mgm Digoxin Getting Cardizem and BB Cancer of lung with extensive metastasis. Pain from the cancer She has had a workup during her last admission from 31 January to 17 February She was noted to have extensive metastasis. She was also evaluated by radiation oncologists Was discharged to Home with Hospice Later on she was sent to [facility] Appreciate Pain therapy input Will discuss with the daughter for possible Comfort care Change in mental status. Complicated by Sepsis She has documented anxiety, depression and dementia. With her present pneumonia she may be more confused, but nothing acute at this time. Hypertension. Blood pressure seems to be controlled at this time. Continue with current medications. Diabetes type 2. Continue with diabetic diet, sliding scale coverage and also Lantus as directed. Chronic obstructive pulmonary disease, history of past tobacco abuse. We will continue with nebulized bronchodilator as needed. Deep venous thrombosis prophylaxis with subQ Lovenox. Code status -- She will be a DNR as per the record. Disposition Social [facility] [place] [facility] Grandson Shaquille Richard at [phone] Talked to Daughter and the Grand Son Will talk to Daughter again this evening Vital Signs: Date Time Temp Pulse Resp B/P Pulse Ox O2 Delivery O2 Flow Rate FiO2 03/04/17 13:55 155 03/04/17 11:38 163 117/77 03/04/17 09:59 163 99 Nasal Cannula 2.0 03/04/17 08:20 Nasal Cannula 2.0 03/04/17 08:09 37.1 162 16 127/77 97 Nasal Cannula 2.0 03/04/17 02:47 158 20 98 Nasal Cannula 2.0 03/04/17 00:45 Nasal Cannula 2.0 03/04/17 00:27 36.8 160 20 123/81 98 Nasal Cannula 2.0 03/03/17 16:33 158 03/03/17 16:29 36.4 162 18 151/93 99 Nasal Cannula 2.0 03/03/17 16:00 Nasal Cannula 2.0 Lab Results: Results Past 24 Hours Test 03/03/17 17:08 03/03/17 20:10 03/04/17 01:35 03/04/17 07:57 Range/Units Bedside Glucose 188 152 150 70-90 mg/dl White Blood Count 4.88 4.8-10.8 K/uL Red Blood Count 3.26 4.2-5.4 M/uL Hemoglobin 9.0 12.0-16.0 g/dL Hematocrit 27.5 37-47 % Mean Corpuscular Volume 84.4 80-100 fL Mean Corpuscular Hemoglobin 27.6 25-34 pg Mean Corpuscular Hemoglobin Concent 32.7 32-36 g/dl Platelet Count 119 130-400 K/uL Mean Platelet Volume 9.2 7.4-10.4 fL Neutrophils (%) (Auto) 62.8 % Lymphocytes (%) (Auto) 14.1 % Monocytes (%) (Auto) 14.5 % Eosinophils (%) (Auto) 0.2 % Basophils (%) (Auto) 0.6 % Neutrophils # (Auto) 3.06 1.4-6.5 K/uL Lymphocytes # (Auto) 0.69 1.2-3.4 K/uL Monocytes # (Auto) 0.71 0.11-0.59 K/uL Eosinophils # (Auto) 0.01 0-0.5 K/uL Basophils # (Auto) 0.03 0-0.2 K/uL RDW Standard Deviation 57.5 36.4-46.3 fL RDW Coefficient of Variation 19.0 11.5-14.5 % Immature Granulocyte % (Auto) 7.8 % Immature Granulocyte # (Auto) 0.38 0.00-0.02 K/uL Nucleated RBC Absolute Count (auto) 0.03 0-0 K/uL Nucleated Red Blood Cells % 0.6 % Red Blood Cell Morphology Unremarkable Activated Partial Thromboplast Time 35.9 21.0-31.0 SECONDS Partial Thromboplastin Ratio 1.4 Sodium Level 144 136-145 mmol/L Potassium Level 4.1 3.5-5.1 mmol/L Chloride Level 111 98-107 mmol/L Carbon Dioxide Level 25 21-32 mmol/L Anion Gap 8.0 3-11 mmol/L Blood Urea Nitrogen 20 7-18 mg/dl Creatinine 0.35 0.60-1.20 mg/dl Est Creatinine Clear Calc Drug Dose 131.7 ml/min Estimated GFR () 122.5 Estimated GFR (Non- 105.7 BUN/Creatinine Ratio 56.3 10-20 Random Glucose 131 70-99 mg/dl Calcium Level 8.8 8.5-10.1 mg/dl Magnesium Level 1.8 1.8-2.4 mg/dl Test 03/04/17 11:43 Range/Units Bedside Glucose 129 70-90 mg/dl
[2017-03-04] MEDS ORDERED: METOPROLOL TARTRATE 25 MG TAB PO SCH (20:00)
[2017-03-04] MEDS: AMLODIPINE BESYLATE 5 MG TAB PO SCH (20:25)
[2017-03-04] MEDS: INSULIN GLARGINE SOLOSTAR 100 UNITS/ML 3 ML PEN SC SCH (21:32)
--- NOTE | 2017-03-04 22:46 | DIAGNOSTIC IMAGING REPORT ---
CHEST ONE VIEW PORTABLE CLINICAL HISTORY: Aspiration pneumonia. Lung mass. COMPARISON STUDY: Chest radiograph March 01, 2017. FINDINGS: Bilateral shoulder arthroplasties are noted. Cardiomegaly is unchanged. There is no pneumothorax or pleural effusion. Right midlung airspace opacity has progressed. There is also suspected left basilar opacity. The known right upper lobe mass is not well visualized on this exam. IMPRESSION: 1. Progression of right lung airspace opacity. The findings favor pneumonia. 2. The known right upper lobe mass is not well visualized on this exam. 3. Cardiomegaly with pulmonary vascular congestion. Electronically signed by: Mayur Edwards M.D. 03/04/2017 10:45 PM Dictated Date/Time: 03/04/2017 10:41 PM
--- NOTE | 2017-03-04 23:04 | Progress Note ---
Progress Note Date of Service Mar 04, 2017. Progress Note [employer] ATTENDING NOTE : notified by Nursing , pt was coughing while taking her meds concern for aspiration Stat portable Cxray ordered , xray reviewed -progression of rt lower lobe pneumonia -concern for ongoing aspiration ordered for NPO including meds continue IV Dilaudid for metastatic malignancy abx changed to Zosyn to broaden coverage speech pathology eval requested will update AM provider Dr Maki
[2017-03-04] MEDS ORDERED: PIPERACILL/TAZOBAC CONSULT ACTIVE PRN (23:15)
[2017-03-04] MEDS ORDERED: HYDROmorphone INJ 1 MG/ML SYR IV PRN (23:15)
[2017-03-04] MEDS ORDERED: ACETAMINOPHEN IV 650 MG in EMPTY BAG 0 ML IV PRN (23:15)
[2017-03-04] MEDS ORDERED: PIPERACILL/TAZOBAC IV 3.375 GM in DEXTROSE 5% 100ML 100 ML IV SCH (23:15)
[2017-03-04] MEDS ORDERED: PIPERACILL/TAZOBAC IV 3.375 GM in DEXTROSE 5% 100ML IV ONE (23:30)
[2017-03-04] MEDS: HYDROmorphone INJ 2 MG/ML SYR/VIAL IV PRN (23:57)
[2017-03-05 00:06] VITALS: BP 128/84; PULSE 157; TEMP 36.5; O2SAT 98
[2017-03-05] MEDS ORDERED: DILTIAZEM HCL 120 MG CAPCR PO ONE (01:18)
[2017-03-05] MEDS: HYDROmorphone INJ 2 MG/ML SYR/VIAL IV PRN ×6 (03:35→14:14)
[2017-03-05] MEDS ORDERED: PIPERACILL/TAZOBAC IV 3.375 GM in DEXTROSE 5% 100ML IV SCH (04:00)
[2017-03-05 06:18] LABS: CREATININE 0.38 mg/dl (0.60-1.20)
[2017-03-05 07:27] LABS: HEMATOCRIT 27.8 % (37-47); MEAN CELL VOLUME 83.7 fL (80-100); MEAN CORPUSCULAR HEMOGLOBIN 27.7 pg (25-34); MEAN CORPUSCULAR HGB CONC 33.1 g/dl (32-36); MEAN PLATELET VOLUME 9.9 fL (7.4-10.4); PLATELET COUNT 121 K/uL (130-400); RED BLOOD COUNT 3.32 M/uL (4.2-5.4); WHITE BLOOD COUNT 5.16 K/uL (4.8-10.8)
[2017-03-05] MEDS ORDERED: DILTIAZEM HCL 120 MG CAPCR PO SCH ×2 (08:00)
[2017-03-05] MEDS ORDERED: DILTIAZEM HCL 180 MG CAPCR PO SCH (08:00)
[2017-03-05 08:01] VITALS: BP 132/84; PULSE 160; O2SAT 97
[2017-03-05] MEDS: CHECK FENTANYL PATCH PLACEMENT SCH ×3 (08:26→23:44)
[2017-03-05] MEDS: INSULIN ASPART 100 UNITS/ML 3 ML PEN SQ SCH (08:29)
[2017-03-05] MEDS ORDERED: NURSING VERBAL MED ORDER ONE ×3 (08:45→15:00)
[2017-03-05] MEDS: SCOPOLAMINE 1.5 MG TDSY TD SCH (08:53)
[2017-03-05] MEDS: ATROPINE SULFATE 1% OP SOLN 2 ML BTL OP PRN ×9 (08:53→23:44)
--- NOTE | 2017-03-05 08:58 | Palliative Care Consultation ---
Consultation Date of Consultation: Mar 05, 2017. Requesting Physician: Dr. Maki Attending Physician: Dr. Maki Reason for Consultation: Symptom management, goals of care History of Present Illness This 76 year old female patient presented to the ED three days ago from the [facility] with c/o altered mental status and SOB per the [facility] staff. History obtained from record as patient is unable to participate in conversation. Apparently this patient was on hospice when she was at home for terminal lung cancer with metastases to the bone. She also has pathological rib fractures and chronic back pain. She's been seen by pain management in the past several admissions. Patient previously living at home with daughter and was on hospice services and comfort measures only. Her daughter could no longer care for her so she was placed in the [facility]. On the day of admission, staff noticed her to be SOB with increased confusion and altered mental status, so they sent her to ED. CXR showed right sided pneumonia, patient admitted. Since admission, her delirium and pain have been worsening. She is still currently receiving antibiotics. Last evening, she had an episode of suspected aspiration , chest xray obtained and patient has worsening pneumonia. Today, she is lethargic, unable to eat or get OOB. Palliative care consulted. I met with the patient in room 408. She is lethargic, but still awake and able to tell me she is in pain. Noted terminal secretions in throat, loud rattling and patient appeared uncomfortable. Patient was not able to participate in conversation with me, ROS not obtained. I spoke with Dr. Maki on the phone, he spoke to the patient's daughter and grandson yesterday. Everyone is in agreement that patient is comfort measures only and she will be transitioned today. Past Medical/Surgical History Medical History: Lung cancer with mets COPD Anxiety Htn DM type 2 Osteoporosis with pathological fractures Right rib fractures Social History Smoking Status: Unknown if Ever Smoked History of Alcohol Use: No Drug Use: none Marital Status: Housing Status: lives alone Occupation Status: retired Review of Systems unable to obtain Allergies Coded Allergies: Morphine (Verified Adverse Reaction, Intermediate, GETS SICK, 03/01/17) Oxycodone (Verified Adverse Reaction, Intermediate, feels like she is gonna pass out, 03/01/17) Medications Current Inpatient Medications Medications (Trade) Dose Ordered Sig/Eric Route Start Time Stop Time Status Last Admin Dose Admin Enoxaparin Sodium (Lovenox Inj) 30 mg Q12H SQ 03/02/17 09:00 04/01/17 08:59 03/04/17 21:31 30 MG Acetaminophen (Tylenol Tab) 650 mg Q4H PRN PO 03/02/17 01:00 04/01/17 00:59 Future Hold Ondansetron HCl (Zofran Inj) 4 mg Q6H PRN IV 03/02/17 01:00 04/01/17 00:59 Amlodipine Besylate (Norvasc Tab) 5 mg HS PO 03/02/17 21:00 04/01/17 20:59 Future Hold 03/04/17 20:25 5 MG Cholecalciferol (Vitamin D Tab) 1,000 inter.unit BID PO 03/02/17 08:00 04/01/17 08:59 Future Hold 03/04/17 20:25 1,000 INTER.UNIT Fentanyl (Duragesic Patch) 75 mcg Q72H TD 03/02/17 09:00 03/16/17 08:59 Future hold 03/02/17 08:43 75 MCG Hydromorphone HCl (Dilaudid Tab) 4 mg Q4H PRN PO 03/02/17 01:00 03/16/17 00:59 Future Hold 03/04/17 08:46 4 MG Insulin Glargine (Lantus Solostar Pen) 15 unit QPM SC 03/02/17 21:00 04/01/17 20:59 03/04/17 21:32 15 UNIT Insulin Aspart (novoLOG ASPART) SLIDING SCALE ACHS SQ 03/02/17 06:30 04/01/17 06:59 03/05/17 08:29 3 UNITS Lisinopril (Zestril Tab) 20 mg DAILY PO 03/02/17 08:00 04/01/17 08:59 Future Hold 03/04/17 08:09 20 MG Zolpidem Tartrate (Ambien Tab) 5 mg HS PRN PO 03/02/17 01:00 04/01/17 00:59 Future Hold Cyanocobalamin (Vitamin B-12 Tab) 1,000 mcg QAM PO 03/02/17 08:00 04/01/17 08:59 Future Hold 03/04/17 08:08 1,000 MCG Polyethylene (Miralax Powder Packet) 17 gm DAILY PO 03/02/17 08:00 04/01/17 08:59 Future Hold 03/04/17 08:11 17 GM Miscellaneous (Iv Fluids Completed) 1 ea PRN PRN N/A 03/02/17 01:45 03/02/18 01:44 Miscellaneous (Fentanyl Patch Remove & Waste) 1 ea Q72H N/A 03/02/17 07:59 04/01/17 07:58 Future hold 03/02/17 08:43 1 EA Miscellaneous Information (Check Fentanyl Patch Placement) 1 ea QS N/A 03/02/17 16:00 04/01/17 15:59 Future hold 03/05/17 08:26 1 EA Lidocaine (Lidoderm Patch 5%) 1 patch QAM TD 03/02/17 14:30 04/01/17 14:29 03/04/17 08:10 1 PATCH Miscellaneous (Remove Lidoderm Patch) 1 ea DAILY@21 N/A 03/02/17 21:00 04/01/17 20:59 03/04/17 21:00 1 EA Nystatin (Mycostatin Susp) 5 ml QID PO 03/02/17 17:00 03/12/17 16:59 Future Hold 03/04/17 20:30 5 ML Docusate Sodium (coLACE SYRUP) 100 mg BID PO 03/02/17 20:00 04/01/17 19:59 Future Hold 03/04/17 20:23 100 MG Haloperidol Lactate (Haldol Inj) 2 mg Q2H PRN IM 03/04/17 01:00 04/03/17 00:59 Haloperidol (Haldol Tab) 2 mg Q4H PRN PO 03/04/17 01:00 04/03/17 00:59 03/04/17 08:13 2 MG Diltiazem HCl (Cardizem Cd Cap) 120 mg QAM PO 03/05/17 08:00 04/04/17 07:59 Hydromorphone HCl (Dilaudid Inj) 1 mg Q2HWA PRN IV 03/04/17 10:00 03/18/17 09:59 Future Hold 03/04/17 20:31 1 MG Metoprolol Tartrate (Lopressor Tab) 12.5 mg BID PO 03/04/17 20:00 04/03/17 19:59 Future Hold 03/04/17 20:24 12.5 MG Hydromorphone HCl (Dilaudid Inj) 1 mg Q1HWA PRN IV 03/04/17 23:15 03/18/17 23:14 Hydromorphone HCl 2 mg 2 mg Q2HWA PRN IV 03/04/17 23:15 03/18/17 23:14 03/05/17 08:20 2 MG Acetaminophen 650 mg/Empty Bag 65 ml @ 260 mls/hr Q6H PRN IV 03/04/17 23:15 04/03/17 23:14 Piperacillin Sod/ Tazobactam Sod/ Dextrose (Zosyn Iv/D5 100ml) 115 ml @ 28.75 mls/ hr Q8H IV 03/05/17 04:00 03/12/17 03:59 03/05/17 04:07 28.75 MLS/HR Piperacillin Sod/ Tazobactam Sod (Consult) 1 ea UD PRN N/A 03/04/17 23:15 04/03/17 23:14 Miscellaneous Information (Nursing Verbal Med Order) 1 ea ONE ONCE N/A 03/05/17 08:45 03/05/17 08:46 UNV Physical Exam Date Time Temp Pulse Resp B/P Pulse Ox O2 Delivery O2 Flow Rate FiO2 03/05/17 08:01 160 12 132/84 97 Nasal Cannula 2.0 03/05/17 00:22 Nasal Cannula 2.0 03/05/17 00:06 36.5 157 20 128/84 98 2.0 03/04/17 16:35 36.6 135 12 153/96 96 Nasal Cannula 3.0 03/04/17 16:00 Nasal Cannula 2.0 03/04/17 13:55 155 03/04/17 11:38 163 117/77 03/04/17 09:59 163 99 Nasal Cannula 2.0 General Appearance: no apparent distress (but appears very uncomfortable), + cachetic Neck: no JVD Respiratory: + crackles, + rhonchi, + pertinent finding (terminal secretions in throat) Cardiovascular: + tachycardia (rate 150s), + normal peripheral pulses (bounding ) Abdomen: normal bowel sounds, soft Neurologic/Psychiatric: alert, + disoriented Laboratory Results Last 24 Hours Test 03/04/17 11:43 03/04/17 16:02 03/04/17 20:05 03/05/17 05:35 Bedside Glucose 129 mg/dl 109 mg/dl 159 mg/dl White Blood Count 5.16 K/uL Red Blood Count 3.32 M/uL Hemoglobin 9.2 g/dL Hematocrit 27.8 % Mean Corpuscular Volume 83.7 fL Mean Corpuscular Hemoglobin 27.7 pg Mean Corpuscular Hemoglobin Concent 33.1 g/dl RDW Standard Deviation 57.5 fL RDW Coefficient of Variation 19.4 % Platelet Count 121 K/uL Mean Platelet Volume 9.9 fL Nucleated RBC Absolute Count (auto) 0.03 K/uL Nucleated Red Blood Cells % 0.6 % Creatinine 0.38 mg/dl Est Creatinine Clear Calc Drug Dose 121.3 ml/min Estimated GFR () 119.3 Estimated GFR (Non- 102.9 Test 03/05/17 07:18 Bedside Glucose 193 mg/dl Assessment & Plan Palliative Performance Scale: 10 % Problem list: Pain Abnormal secretions SOB Lung cancer with mets Pneumonia, ?aspiration NPO Malnutrition, hypoalbuminemia Goals of care (Z51.5) Palliative care plan: discussed with Dr. Maki -Patient will be transitioned to comfort measures only today -In my opinion, patient qualifies for [facility] hospice. Case management to contact patient's hospice agency. -Recommendations: -Atropine 1% oph soln 4 drops PO Q1h PRN secretions -Dilaudid 2mg IV Q1h PRN pain or SOB. If frequent doses needed, may start continuous infusion -Scopolamine patch 1.5mg TD Q72h -Discontinue all PO medications -Lorazepam 2mg IV Q4h PRN anxiety -Discontinue blood sugars and insulin -Discontinue abx and lab work Thank you kindly for this consult. Please contact me if there are any further palliative needs.
[2017-03-05] MEDS: ENOXAPARIN 30 MG/0.3 ML SYR SQ SCH (09:00)
[2017-03-05] MEDS: FENTANYL 75 MCG/HR TDSY TD SCH (09:04)
[2017-03-05] MEDS: FENTANYL PATCH REMOVE & WASTE SCH (09:06)
[2017-03-05] MEDS: LIDODERM (LIDOCAINE) PATCH 5% TD SCH (09:07)
--- NOTE | 2017-03-05 09:40 | Psychiatric Progress Notes ---
Psychiatric Progress Note Date of Service Mar 05, 2017. Notes 76 year old prison resident with no psychiatric history who is admitted to the hospitalist service with altered mental status, shortness of breath, and terminal lung cancer with metastases to the bone. Psychiatry was consulted for anxiety after she was noted to be calling out in pain. She was seen today in follow-up. Chief complaint: Patient nonverbal Interval history: Record reviewed and case discussed with patient's primary nurse and Dr. Maki. She has been seen by palliative care, and has been made comfort measures only. Her daughter has been contacted by the primary team and is making medical decisions for her at this time. She has been lethargic and nonverbal since my assessment yesterday. She has not required when necessary Haldol, but is receiving pain medication. [facility] staff were contacted, and stated that the patient was largely nonverbal there, and that they were not aware of any psychiatric history. She was being prescribed clonazepam and Ambien there for sleep. MSE: Ill-appearing elderly white female lying in bed asleep, with mouth open, breathing loudly. Unable to participate in assessment, as she is nonverbal. No abnormal movements noted. Diagnoses: Encephalopathy Metastasized lung cancer Pneumonia Recommendations: 1. No indication for psychiatric intervention, patient is end-of-life care and has no psychiatric history. She does have Haldol ordered if needed for agitation that compromises her care or the safety of staff, but hopefully this will not be needed and she can be adequately medicated with pain medicines. Thank you for the consult; we will sign off. Please contact us with any questions.
--- NOTE | 2017-03-05 09:52 | Pain Management Progress Note ---
Pain Management Progress Note Date of Service Mar 05, 2017. Subjective Pat Webb is a 76 year old white female that with extensive lung metastasis and altered mental status. She was found to have pneumonia. Patient is at risk of aspiration. She currently has Fentanyl 75mcg/hr and IV Dilaudid for pain. Currently Dilaudid is at 2mg x 1 hour PRN. ROS cannot be obtained due to patient's mental status. Case discussed with Dr. Ruiz Objective Vital Signs: Last Vital Signs Documentation Date Time Temp Pulse Resp B/P Pulse Ox O2 Delivery O2 Flow Rate FiO2 03/05/17 08:01 160 12 132/84 97 Nasal Cannula 2.0 03/05/17 00:06 36.5 Physical Exam: GENERAL: Ms. Stewart is a 76 year old white female that is laying in the hospital bed. Patient will not respond to my questions. She appears lethargic. + audible rales with patient breathing. NEURO: Patient cannot respond to questions. She is awake, not oriented. Minimal use of extremities. Laboratory (Last CBC): 03/05/17 05:35 Assessment 1. Change in mental status. 2. History of lung malignancy with extensive metastatic disease. 3. Pneumonia. 4. Chronic obstructive pulmonary disease. 5. Anxiety disorder. 6. Depressive disorder. Recommendations 1. Continue with current palliative measures. Patient is currently on Fentanyl patch 75mcg/hr and IV Dilaudid 2mg x 1 hr PRN. 2. Should the patient's O2 sats, decrease after Dilaudid IV is administered, may recommend decreasing dosage to 1 or 1.5mg x 1 hr. 3. Continue with abx treatment for pneumonia. 4. Will sign off on the patient at this time. Please call for any questions or concerns. [employer] Voice Recognition This chart was completed in part utilizing [email or web address] Voice Recognition Software. Random word insertions, pronoun errors, and incomplete sentences are an occasional consequence of this system due to software limitations and ambient noise. Any questions or concerns about the content, text or information contained within the body of this dictation should be directly addressed to the provider for clarification.
--- NOTE | 2017-03-05 10:10 | Progress Note ---
Internal Med Progress Note Date of Service: Mar 05, 2017. Provider Documentation: SUBJECTIVE: The patient was seen and examined Has had rough night with SOB and more pain Critical but stable this morning OBJECTIVE: Vital Signs-as noted below Exam: General-Minimal distress at rest Eyes-normal ENT-normal Neck-supple Lungs-Decreased breath sound bilaterally Course crackles at the bases Heart-Regular,increased rate Abdomen-Benign,soft and tender Extremities-Trace edema bilaterally Neuro-AA Drowsy and confused Lab data as noted below. ASSESSMENT & PLAN: Cancer of lung with extensive metastasis. Pain from the cancer She has had a workup during her last admission from 31 January to 17 February She was noted to have extensive metastasis. She was also evaluated by radiation oncologists Was discharged to Home with Hospice Later on she was sent to [facility] Appreciate Pain therapy input Condition has not been getting any better with aggressive management for the recent sepsis and Encephalopathy Has had a detailed discussion with the Daughter and the Grandson on 03/04/17 Updated about the current critical condition of the patient Considering the wish of the patient and recommendations from the daughter and the Grandson,she is made for comfort care only Palliative care consulted and appreciate the input No more blood work and no aggressive treatment Medications to keep her comfortable prescribed. Other problems as mentioned below:: Sepsis Due to Pneumonia Cancer of lung with pneumonia. Continue current antibiotics Clinically stable has very poor prognosis Levaquin has been changed to Doxycycline-stopped Atrial Flutter Likely secondary to metastatic infiltration to heart/pericardium Tachycardia Received one dose of 125Mgm Digoxin Getting Cardizem and BB-stopped Change in mental status. Complicated by Sepsis She has documented anxiety, depression and dementia. With her present pneumonia she may be more confused, but nothing acute at this time. Hypertension. Blood pressure seems to be controlled at this time. Continue with current medications.-stopped Diabetes type 2. Continue with diabetic diet, sliding scale coverage and also Lantus as directed-stopped. Chronic obstructive pulmonary disease, history of past tobacco abuse. We will continue with nebulized bronchodilator as needed. Deep venous thrombosis prophylaxis with subQ Lovenox. Code status -- She will be a DNR as per the record. [place] [facility] [place] [facility] Grandchristiano Richard at [phone] Talked to Daughter and the Grand Son and the patient is made for comfort care only Vital Signs: Date Time Temp Pulse Resp B/P Pulse Ox O2 Delivery O2 Flow Rate FiO2 03/05/17 08:01 160 12 132/84 97 Nasal Cannula 2.0 03/05/17 00:22 Nasal Cannula 2.0 03/05/17 00:06 36.5 157 20 128/84 98 2.0 03/04/17 16:35 36.6 135 12 153/96 96 Nasal Cannula 3.0 03/04/17 16:00 Nasal Cannula 2.0 03/04/17 13:55 155 03/04/17 11:38 163 117/77 03/04/17 09:59 163 99 Nasal Cannula 2.0 Lab Results: Results Past 24 Hours Test 03/04/17 11:43 03/04/17 16:02 03/04/17 20:05 03/05/17 05:35 Range/Units Bedside Glucose 129 109 159 70-90 mg/dl White Blood Count 5.16 4.8-10.8 K/uL Red Blood Count 3.32 4.2-5.4 M/uL Hemoglobin 9.2 12.0-16.0 g/dL Hematocrit 27.8 37-47 % Mean Corpuscular Volume 83.7 80-100 fL Mean Corpuscular Hemoglobin 27.7 25-34 pg Mean Corpuscular Hemoglobin Concent 33.1 32-36 g/dl RDW Standard Deviation 57.5 36.4-46.3 fL RDW Coefficient of Variation 19.4 11.5-14.5 % Platelet Count 121 130-400 K/uL Mean Platelet Volume 9.9 7.4-10.4 fL Nucleated RBC Absolute Count (auto) 0.03 0-0 K/uL Nucleated Red Blood Cells % 0.6 % Creatinine 0.38 0.60-1.20 mg/dl Est Creatinine Clear Calc Drug Dose 121.3 ml/min Estimated GFR () 119.3 Estimated GFR (Non- 102.9 Test 03/05/17 07:18 Range/Units Bedside Glucose 193 70-90 mg/dl
[2017-03-05] MEDS: HYDROmorphone/NSS 100MG/100ML 100 ML IV PRN ×4 (15:56→19:19)
[2017-03-05] MEDS: CHECK SCOPOLAMINE PATCH PLACEMENT SCH ×2 (15:57→23:45)
[2017-03-05] MEDS ORDERED: LORAZEPAM 2 MG/ML 1 ML VIAL IV PRN ×2 (16:45)
[2017-03-05] MEDS ORDERED: LORAZEPAM INJ 0.5 MG in SYRINGE 0.75 ML IV PRN (16:45)
[2017-03-06] MEDS: ATROPINE SULFATE 1% OP SOLN 2 ML BTL OP PRN ×10 (00:53→17:28)
[2017-03-06] MEDS: CHECK FENTANYL PATCH PLACEMENT SCH ×3 (07:51→23:29)
[2017-03-06] MEDS: CHECK SCOPOLAMINE PATCH PLACEMENT SCH ×3 (07:51→23:29)
[2017-03-06] MEDS ORDERED: NURSING VERBAL MED ORDER ONE ×4 (09:15→23:30)
--- NOTE | 2017-03-06 16:04 | Progress Note ---
Internal Med Progress Note Date of Service: Mar 06, 2017. Provider Documentation: SUBJECTIVE: The patient was seen and examined Has been on Comfort care now OBJECTIVE: Not examined Lying in bed comfortably Vital Signs-as noted below before 03/06/17 Exam: General-Minimal distress at rest Eyes-normal ENT-normal Neck-supple Lungs-Decreased breath sound bilaterally Course crackles at the bases Heart-Regular,increased rate Abdomen-Benign,soft and tender Extremities-Trace edema bilaterally Neuro-AA Drowsy and confused Lab data as noted below. ASSESSMENT & PLAN: Remains on Comfort care only Critical but comfortable Cancer of lung with extensive metastasis. Pain from the cancer She has had a workup during her last admission from 31 January to 17 February She was noted to have extensive metastasis. She was also evaluated by radiation oncologists Was discharged to Home with Hospice Later on she was sent to [facility] Appreciate Pain therapy input Condition has not been getting any better with aggressive management for the recent sepsis and Encephalopathy Has had a detailed discussion with the Daughter and the Grandson on 03/04/17 Updated about the current critical condition of the patient Considering the wish of the patient and recommendations from the daughter and the Grandson,she is made for comfort care only Palliative care consulted and appreciate the input No more blood work and no aggressive treatment Medications to keep her comfortable prescribed. Other problems as mentioned below:: Sepsis Due to Pneumonia Cancer of lung with pneumonia. Continue current antibiotics Clinically stable has very poor prognosis Levaquin has been changed to Doxycycline-stopped Atrial Flutter Likely secondary to metastatic infiltration to heart/pericardium Tachycardia Received one dose of 125Mgm Digoxin Getting Cardizem and BB-stopped Change in mental status. Complicated by Sepsis She has documented anxiety, depression and dementia. With her present pneumonia she may be more confused, but nothing acute at this time. Hypertension. Blood pressure seems to be controlled at this time. Continue with current medications.-stopped Diabetes type 2. Continue with diabetic diet, sliding scale coverage and also Lantus as directed-stopped. Chronic obstructive pulmonary disease, history of past tobacco abuse. We will continue with nebulized bronchodilator as needed. Deep venous thrombosis prophylaxis with subQ Lovenox. Code status -- She will be a DNR as per the record. Disposition Social [facility] [place] [facility] Grandson Shaquille Richard at [phone] Talked to Daughter and the Grand Son and the patient is made for comfort care only Vital Signs: Date Time Temp Pulse Resp B/P Pulse Ox O2 Delivery O2 Flow Rate FiO2 03/06/17 00:40 Nasal Cannula 2.0
[2017-03-06] MEDS: HYDROmorphone/NSS 100MG/100ML 100 ML IV PRN ×2 (18:09→22:07)
[2017-03-07] MEDS: CHECK FENTANYL PATCH PLACEMENT SCH ×3 (07:39→23:31)
[2017-03-07] MEDS: CHECK SCOPOLAMINE PATCH PLACEMENT SCH ×3 (07:40→23:31)
[2017-03-07] MEDS: HYDROmorphone/NSS 100MG/100ML 100 ML IV PRN ×3 (07:43→23:15)
[2017-03-07] MEDS: ATROPINE SULFATE 1% OP SOLN 2 ML BTL OP PRN ×5 (11:05→23:31)
[2017-03-07] MEDS ORDERED: NURSING VERBAL MED ORDER ONE (13:00)
--- NOTE | 2017-03-07 16:11 | Progress Note ---
Internal Med Progress Note Date of Service: Mar 07, 2017. Provider Documentation: SUBJECTIVE: The patient was seen and examined Has been on Comfort care now Remains stable OBJECTIVE: Not examined 03/07/17 Lying in bed comfortably Vital Signs-as noted below before 03/06/17 Exam: General-Minimal distress at rest Eyes-normal ENT-normal Neck-supple Lungs-Decreased breath sound bilaterally Course crackles at the bases Heart-Regular,increased rate Abdomen-Benign,soft and tender Extremities-Trace edema bilaterally Neuro-AA Drowsy and confused Lab data as noted below. ASSESSMENT & PLAN: Remains on Comfort care only Critical but comfortable without any acute distress Cancer of lung with extensive metastasis. Pain from the cancer She has had a workup during her last admission from 31 January to 17 February She was noted to have extensive metastasis. She was also evaluated by radiation oncologists Was discharged to Home with Hospice Later on she was sent to [facility] Appreciate Pain therapy input Condition has not been getting any better with aggressive management for the recent sepsis and Encephalopathy Has had a detailed discussion with the Daughter and the Grandson on 03/04/17 Updated about the current critical condition of the patient Considering the wish of the patient and recommendations from the daughter and the Grandson,she is made for comfort care only Palliative care consulted and appreciate the input No more blood work and no aggressive treatment Medications to keep her comfortable prescribed. Other problems as mentioned below:: Sepsis Due to Pneumonia Cancer of lung with pneumonia. Continue current antibiotics Clinically stable has very poor prognosis Levaquin has been changed to Doxycycline-stopped Atrial Flutter Likely secondary to metastatic infiltration to heart/pericardium Tachycardia Received one dose of 125Mgm Digoxin Getting Cardizem and BB-stopped Change in mental status. Complicated by Sepsis She has documented anxiety, depression and dementia. With her present pneumonia she may be more confused, but nothing acute at this time. Hypertension. Blood pressure seems to be controlled at this time. Continue with current medications.-stopped Diabetes type 2. Continue with diabetic diet, sliding scale coverage and also Lantus as directed-stopped. Chronic obstructive pulmonary disease, history of past tobacco abuse. We will continue with nebulized bronchodilator as needed. Deep venous thrombosis prophylaxis with subQ Lovenox. Code status -- She will be a DNR as per the record. [place] [facility] [place] [facility] Grandson Shaquille Richard at [phone] Talked to Daughter and the Grand Son and the patient is made for comfort care only Vital Signs: Date Time Temp Pulse Resp B/P Pulse Ox O2 Delivery O2 Flow Rate FiO2 03/07/17 08:00 Nasal Cannula 2.0 03/07/17 00:00 Nasal Cannula 2.0 03/06/17 20:05 Nasal Cannula 2.0
[2017-03-08 01:10] VITALS: PULSE 180; O2SAT 94
[2017-03-08 02:16] VITALS: PULSE 181; O2SAT 97
[2017-03-08] MEDS: ATROPINE SULFATE 1% OP SOLN 2 ML BTL OP PRN ×4 (03:17→23:46)
[2017-03-08] MEDS: CHECK SCOPOLAMINE PATCH PLACEMENT SCH ×3 (07:54→23:46)
[2017-03-08] MEDS: CHECK FENTANYL PATCH PLACEMENT SCH ×3 (07:55→23:46)
[2017-03-08] MEDS ORDERED: NURSING VERBAL MED ORDER ONE ×3 (08:00→19:45)
[2017-03-08] MEDS: SCOPOLAMINE 1.5 MG TDSY TD SCH (08:02)
[2017-03-08] MEDS: HYDROmorphone INJ 2 MG/ML SYR/VIAL IV PRN (09:11)
[2017-03-08] MEDS: FENTANYL 75 MCG/HR TDSY TD SCH (09:15)
[2017-03-08] MEDS: FENTANYL PATCH REMOVE & WASTE SCH (09:17)
--- NOTE | 2017-03-08 12:49 | Progress Note ---
Internal Med Progress Note Date of Service: Mar 08, 2017. Provider Documentation: SUBJECTIVE: The patient was seen but not examined Has been on Comfort care now Occasional agitation OBJECTIVE: Not examined 03/07/17 Lying in bed comfortably Vital Signs-as noted below before 03/06/17 Exam: General-Minimal distress at rest Eyes-normal ENT-normal Neck-supple Lungs-Decreased breath sound bilaterally Course crackles at the bases Heart-Regular,increased rate Abdomen-Benign,soft and tender Extremities-Trace edema bilaterally Neuro-AA Drowsy and confused Lab data as noted below. ASSESSMENT & PLAN: Remains on Comfort care only Critical but comfortable without any acute distress Will try Ativan for anxiety Cancer of lung with extensive metastasis. Pain from the cancer She has had a workup during her last admission from 31 January to 17 February She was noted to have extensive metastasis. She was also evaluated by radiation oncologists Was discharged to Home with Hospice Later on she was sent to health system Appreciate Pain therapy input Condition has not been getting any better with aggressive management for the recent sepsis and Encephalopathy Has had a detailed discussion with the Daughter and the Grandson on 03/04/17 Updated about the current critical condition of the patient Considering the wish of the patient and recommendations from the daughter and the Grandson,she is made for comfort care only Palliative care consulted and appreciate the input No more blood work and no aggressive treatment Medications to keep her comfortable prescribed. Remains reasonably comfortable Other problems as mentioned below:: Sepsis Due to Pneumonia Cancer of lung with pneumonia. Continue current antibiotics Clinically stable has very poor prognosis Levaquin has been changed to Doxycycline-stopped Atrial Flutter Likely secondary to metastatic infiltration to heart/pericardium Tachycardia Received one dose of 125Mgm Digoxin Getting Cardizem and BB-stopped Change in mental status. Complicated by Sepsis She has documented anxiety, depression and dementia. With her present pneumonia she may be more confused, but nothing acute at this time. Hypertension. Blood pressure seems to be controlled at this time. Continue with current medications.-stopped Diabetes type 2. Continue with diabetic diet, sliding scale coverage and also Lantus as directed-stopped. Chronic obstructive pulmonary disease, history of past tobacco abuse. We will continue with nebulized bronchodilator as needed. Deep venous thrombosis prophylaxis with subQ Lovenox. Code status -- She will be a DNR as per the record. Disposition Social [facility] [place] [facility] considered Grandson Shaquille Richard at [phone] Talked to Daughter and the Grand Son and the patient is made for comfort care only Vital Signs: Date Time Temp Pulse Resp B/P Pulse Ox O2 Delivery O2 Flow Rate FiO2 03/08/17 08:10 Nasal Cannula 2.0 03/08/17 02:16 181 97 Nasal Cannula 2.0 03/08/17 01:10 180 94 Nasal Cannula 2.0 03/07/17 16:00 Nasal Cannula 2.0
[2017-03-08] MEDS: HYDROmorphone/NSS 100MG/100ML 100 ML IV PRN (14:19)
[2017-03-09] MEDS: HYDROmorphone/NSS 100MG/100ML 100 ML IV PRN ×2 (04:26→14:43)
[2017-03-09] MEDS: HYDROmorphone INJ 2 MG/ML SYR/VIAL IV PRN ×3 (08:14→16:02)
[2017-03-09] MEDS: CHECK FENTANYL PATCH PLACEMENT SCH ×2 (08:14→15:54)
[2017-03-09] MEDS: ATROPINE SULFATE 1% OP SOLN 2 ML BTL OP PRN ×4 (08:15→15:58)
[2017-03-09] MEDS: CHECK SCOPOLAMINE PATCH PLACEMENT SCH ×2 (08:15→15:55)
[2017-03-09] MEDS ORDERED: NURSING VERBAL MED ORDER ONE ×6 (08:45→16:00)
[2017-03-09] MEDS ORDERED: LORAZEPAM 2 MG/ML 1 ML VIAL IV PRN (10:00)
[2017-03-09] MEDS ORDERED: LORAZEPAM INJ 1 MG in SYRINGE 0.5 ML IV PRN (10:00)
--- NOTE | 2017-03-09 16:42 | Progress Note ---
Internal Med Progress Note Date of Service: Mar 09, 2017. Provider Documentation: SUBJECTIVE: The patient was seen but not examined Has been on Comfort care now Occasional agitation Pain and Anxiety medications adjusted OBJECTIVE: Not examined 03/07/17 Lying in bed comfortably -no acute distress Vital Signs-as noted below before 03/06/17 Exam: General-Minimal distress at rest Eyes-normal ENT-normal Neck-supple Lungs-Decreased breath sound bilaterally Course crackles at the bases Heart-Regular,increased rate Abdomen-Benign,soft and tender Extremities-Trace edema bilaterally Neuro-AA Drowsy and confused Lab data as noted below. ASSESSMENT & PLAN: Remains on Comfort care only Critical but comfortable without any acute distress Will try Ativan for anxiety Requiring increasing dose of Anxiolytic and pain medication Cancer of lung with extensive metastasis. Pain from the cancer She has had a workup during her last admission from 31 January to 17 February She was noted to have extensive metastasis. She was also evaluated by radiation oncologists Was discharged to Home with Hospice Later on she was sent to [facility] Appreciate Pain therapy input Condition has not been getting any better with aggressive management for the recent sepsis and Encephalopathy Has had a detailed discussion with the Daughter and the Grandson on 03/04/17 Updated about the current critical condition of the patient Considering the wish of the patient and recommendations from the daughter and the Grandson,she is made for comfort care only Palliative care consulted and appreciate the input No more blood work and no aggressive treatment Medications to keep her comfortable prescribed. Remains reasonably comfortable Other problems as mentioned below:: Sepsis Due to Pneumonia Cancer of lung with pneumonia. Continue current antibiotics Clinically stable has very poor prognosis Levaquin has been changed to Doxycycline-stopped Atrial Flutter Likely secondary to metastatic infiltration to heart/pericardium Tachycardia Received one dose of 125Mgm Digoxin Getting Cardizem and BB-stopped Change in mental status. Complicated by Sepsis She has documented anxiety, depression and dementia. With her present pneumonia she may be more confused, but nothing acute at this time. Hypertension. Blood pressure seems to be controlled at this time. Continue with current medications.-stopped Diabetes type 2. Continue with diabetic diet, sliding scale coverage and also Lantus as directed-stopped. Chronic obstructive pulmonary disease, history of past tobacco abuse. We will continue with nebulized bronchodilator as needed. Deep venous thrombosis prophylaxis with subQ Lovenox. Code status -- She will be a DNR as per the record. Disposition Social [facility] [place] [facility] considered Grandson Shaquille Richard at [phone] Talked to Daughter and the Grand Son and the patient is made for comfort care only Vital Signs: Date Time Temp Pulse Resp B/P Pulse Ox O2 Delivery O2 Flow Rate FiO2 03/09/17 08:20 Nasal Cannula 2.0 03/09/17 00:05 Nasal Cannula 2.0
--- NOTE | 2017-03-09 18:30 | Progress Note ---
Progress Note Date of Service Mar 09, 2017. Progress Note Asked to pronounce O/E Unresponsive No pulse,BP and or Breathing Pupils widely didated and fixed Pronounced on 03/09/[address] Reinaldo Maki
--- NOTE | 2017-03-10 12:35 | Discharge Summary ---
Discharge Summary Date of Service Mar 10, 2017. Discharge Summary Admission Date: Mar 02, 2017 at 18:43 Discharge Date: Mar 09, 2017 Discharge Disposition: Principal Diagnosis: Cause of : Metastatic Lung Cancer Secondary Diagnoses/Problems: Please see H&P and Hospital Progress note Consultations: Palliative care,Psychiatry,pain therapist and Hospice Admission Information HPI (per Admitting provider): DATE OF ADMISSION: 03/01/2017 PRIMARY CARE PHYSICIAN: From [facility]. CHIEF COMPLAINT: The patient was sent in from [facility] with shortness of breath and more change in mental status. HISTORY OF PRESENT COMPLAINT: She is a 76-year-old female, with a significant past medical history including malignant neoplasm of the lung with extensive metastasis, multiple fractures of the rib on the right side, anxiety disorder, diabetes type 2, COPD on oxygen and osteoporosis with pathological fracture, hypertension; apparently was sent in from [facility] with acute shortness of breath and more change in mental status. She was sent into [facility] on of last month as an hospice patient at [facility]. Apparently, the hospice paperwork was not yet ready. Last night, when the nursing staff went to clean her up, she was noted to be very confused, lethargic and also with more shortness of breath and saturation down to 70s. From that point, she was sent into the Emergency Room for further evaluation. In the ER, she was moderately short of breath with a temperature of 38 degrees Celsius, tachycardic, tachypneic and with a saturation of 94% on 2 liters. She was noted to have right lower/mid lobe pneumonia and from that point, she was admitted to the medical floor for continuation of care. On asking questions to the patient, she was pleasantly confused, weak and lethargic. She mentions to have pain at the back on the right side with some shortness of breath, but no other significant symptoms. PAST MEDICAL HISTORY: Significant for malignant neoplasm of lung with extensive metastasis, anxiety, hypertension, diabetes type 2, COPD and osteoporosis with osteoporotic fracture. 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 ALLERGIES: TO MORPHINE AND OXYCODONE. MEDICATIONS: She has been on Tylenol 650 mg q. 6 hourly as needed, levofloxacin 500 mg daily, Norvasc 5 mg at night, vitamin D 1000 units twice daily, clonazepam 0.5 mg q. 6 hourly as needed, vitamin B12 1000 mcg daily, docusate sodium 100 mg twice daily, fentanyl 75 mcg every 3 days, Neurontin 100 mg 3 times daily, hydromorphone 2 mg tablets two tablets every 4 hours as needed, Lantus 100 units for injection 15 units q.p.m., Humalog as directed, lisinopril 20 mg daily, MiraLax 17 grams daily and Ambien 5 mg daily. REVIEW OF SYSTEMS: Unremarkable except as mentioned in the H\T\P. FAMILY HISTORY: Nothing obtainable. SOCIAL HISTORY: She used to use tobacco in the past, but no alcohol abuse in the past as per note. Recently, she was in [facility] as a hospice patient, but hospice care was not initiated as per the document. PHYSICAL EXAMINATION: GENERAL: On examination in the Emergency Room, she was not having any acute distress. VITAL SIGNS: Temperature 38.0, pulse was initially 110 that came down to 96, respirations 28 came down to around 24, blood pressure 103/48 and saturation 93% on 2 liters nasal cannula. HEENT: Unremarkable. NECK: Supple. No JVD, no bruits. CHEST: Decreased breath sounds with coarse crackles both bases, more on the right than the left. HEART: S1, S2 regular. ABDOMEN: Soft, benign and nontender. No organomegaly. Bowel sounds are present. EXTREMITIES: Negative for any edema. MUSCULOSKELETAL: Painful on movement of her joints, but no acute arthritis in any joint. CENTRAL NERVOUS SYSTEM: Alert and awake. She is confused, generally very weak and lethargic, but grossly no focal neurological deficits appreciated. LABORATORY DATA: Noted today; white count was 3.65, H\T\H 9.6/28.8 and platelets were 135. Sodium 133, potassium 4.8, chloride 95, carbon dioxide 27, BUN 72 and creatinine 0.92. Random glucose 186, total bili 0.7, direct 0.4, AST 105, ALT 21, alkaline phosphatase 302, CK, CK-MB unremarkable. Albumin was 1.6. PT/INR was unremarkable. UA examination; nothing is specific. Influenza A and B negative. EKG; in sinus tachycardia at a rate of 106 per minute, normal axis and nonspecific ST-T wave changes. Chest x-ray; right medial lower lung zone opacities consistent with pneumonia. IMPRESSION AND PLAN: 1. Cancer of lung with pneumonia. The patient will be admitted to the medical floor for observation. Apparently, she was sent in from ER as a hospice inpatient care from [facility], but documentation was not yet ready. The patient was sent in today with increasing shortness of breath and was noted to have pneumonia. Blood cultures and urine cultures have been taken and she was started with intravenous ceftriaxone and levofloxacin. We will get web content & social media manager involvement and possible hospice care and send her back to [facility]. Cancer of lung with extensive metastasis. She has had a workup during her last admission from 31 January to 17 February and she was noted to have extensive metastasis. She was also evaluated by radiation oncologists while in the hospital and she was sent home with home hospice following that. She has been on adequate pain medications with Dilaudid and fentanyl for ongoing rib fracture and pain. We will continue with those pain medications. 2. Change in mental status. She has documented anxiety, depression and dementia. With her present pneumonia she may be more confused, but nothing acute at this time. 3. Hypertension. Blood pressure seems to be controlled at this time. Continue with current medications. 4. Diabetes type 2. Continue with diabetic diet, sliding scale coverage and also Lantus as directed. 5. Chronic obstructive pulmonary disease, history of past tobacco abuse. We will continue with nebulized bronchodilator as needed. 6. Deep venous thrombosis prophylaxis with subQ Lovenox. 7. Code status -- She will be a DNR as per the record. 8. In my clinical judgment, the beneficiary meets criteria as per CMS for 2 midnights stay in the hospital. I tried to call her grandson Shaquille Richard at [phone], but there was no reply. We will try again tomorrow by the Hospitalist.. Hospital Course Remains on Comfort care only Critical but comfortable without any acute distress Will try Ativan for anxiety Requiring increasing dose of Anxiolytic and pain medication Cancer of lung with extensive metastasis. Pain from the cancer She has had a workup during her last admission from 31 January to 17 February She was noted to have extensive metastasis. She was also evaluated by radiation oncologists Was discharged to Home with Hospice Later on she was sent to [facility] Appreciate Pain therapy input Condition has not been getting any better with aggressive management for the recent sepsis and Encephalopathy Has had a detailed discussion with the Daughter and the Grandson on 03/04/17 Updated about the current critical condition of the patient Considering the wish of the patient and recommendations from the daughter and the Grandson,she is made for comfort care only Palliative care consulted and appreciate the input No more blood work and no aggressive treatment Medications to keep her comfortable prescribed. Remains reasonably comfortable Other problems as mentioned below:: Sepsis Due to Pneumonia Cancer of lung with pneumonia. Continue current antibiotics Clinically stable has very poor prognosis Levaquin has been changed to Doxycycline-stopped Atrial Flutter Likely secondary to metastatic infiltration to heart/pericardium Tachycardia Received one dose of 125Mgm Digoxin Getting Cardizem and BB-stopped Change in mental status. Complicated by Sepsis She has documented anxiety, depression and dementia. With her present pneumonia she may be more confused, but nothing acute at this time. Hypertension. Blood pressure seems to be controlled at this time. Continue with current medications.-stopped Diabetes type 2. Continue with diabetic diet, sliding scale coverage and also Lantus as directed-stopped. Chronic obstructive pulmonary disease, history of past tobacco abuse. We will continue with nebulized bronchodilator as needed. Deep venous thrombosis prophylaxis with subQ Lovenox. Code status -- She will be a DNR as per the record. Disposition Social [facility] [place] [facility] considered Grandson Shaquille Richard at [phone] Talked to Daughter and the Grand Son and the patient is made for comfort care only Total time spent on discharge = 20 minutes This includes examination of the patient, discharge planning, medication reconciliation, and communication with other providers. Discharge Instructions Patient on 03/09/2017 at 1740hours Additional Copies To Sukh Archuleta M.D.
== END 2017-03-09 19:50 | disposition expired | DRG 871 ==
LOC: ENRESERVTM → ENRESERVDT → EDBD 22:10 → C.EDB 22:11 → C.4E 03-02 00:55 → OBSVTOIN 03-02 18:43
PROVIDERS: ADMIT Internal Medicine; ATTEND Internal Medicine
DX: A41.9 Sepsis, unspecified organism (principal); J18.9 Pneumonia, unspecified organism; G93.40 Encephalopathy, unspecified; J44.0 Chronic obstructive pulmonary disease with (acute) lower respiratory infection; C79.51 Secondary malignant neoplasm of bone; C79.89 Secondary malignant neoplasm of other specified sites; C34.90 Malignant neoplasm of unspecified part of unspecified bronchus or lung; F05 Delirium due to known physiological condition; I48.92 Unspecified atrial flutter; M84.58XD Pathological fracture in neoplastic disease, other specified site, subsequent encounter for fracture with routine healing; G89.3 Neoplasm related pain (acute) (chronic); I10 Essential (primary) hypertension; E11.42 Type 2 diabetes mellitus with diabetic polyneuropathy; M80.00XD Age-related osteoporosis with current pathological fracture, unspecified site, subsequent encounter for fracture with routine healing; F03.90 Unspecified dementia, unspecified severity, without behavioral disturbance, psychotic disturbance, mood disturbance, and anxiety; F32.9 Major depressive disorder, single episode, unspecified; F41.9 Anxiety disorder, unspecified; Z51.5 Encounter for palliative care; Z66 Do not resuscitate; Z99.81 Dependence on supplemental oxygen; Z96.641 Presence of right artificial hip joint; Z96.611 Presence of right artificial shoulder joint; Z87.891 Personal history of nicotine dependence; Z79.4 Long term (current) use of insulin; Z79.891 Long term (current) use of opiate analgesic; Z79.899 Other long term (current) drug therapy